=== PATIENT | female | born 1970 | race Caucasian/White ===

== ENCOUNTER 2018-04-15 13:51 | Outpatient (CLI) | payer MEDICARE, MEDICAID, SELFPAY ==
--- NOTE | 2018-04-15 13:48 | DI.REPORT_ITS ---
SYMPTOMS/DIAGNOSIS: RIGHT FOOT PAIN RIGHT FOOT: Three views. Comparison x-ray of the ankle is 01/28/18. No acute fracture or dislocation is seen. There are osteophytes seen at the posterior calcaneus. Small osteophytes are seen at the talonavicular joint. The 1st metatarsophalangeal joint shows mild joint space narrowing and periarticular spurring. No acute fracture, dislocation, lytic or sclerotic lesion is identified. No radiopaque foreign bodies are seen in the soft tissues. IMPRESSION: Degenerative changes in the right foot.
== END 2018-04-15 13:52 ==
PROVIDERS: PCP Family Medicine; Visit Provider Physician Assistant
DX: M76.71 Peroneal tendinitis, right leg (principal); G89.29 Other chronic pain; M25.571 Pain in right ankle and joints of right foot; M19.071 Primary osteoarthritis, right ankle and foot
CPT/HCPCS: 73630; 99214

== ENCOUNTER 2018-05-12 13:30 | Outpatient (RCR) | payer MEDICARE, MEDICAID, SELFPAY ==
--- NOTE | 2018-04-29 14:30 | IE_ITS ---
Date: April 29, 2018 Referring: TAMIKO Day M.D. Diagnosis: R foot peroneal tendinitis P.T. Diagnosis: SUBJECTIVE: History of Present Illness: Caro is a 47 year old female referred for an evaluation today due to chronic R ankle pain. Most recently diagnosed with peroneal tendinitis on the R. She reports the initial injury sustained last summer. [place], she slipped, twisting her ankle, noted bruising and swelling. She was provided conservative treatment without diagnostics. During the winter she is fairly sedentary, she reports the ankle quieted secondary to this, she reports as it got nicer in the spring and summer, her walking got more-noted increase irritation. Pain is aggravated by walking and while driving. She has been utilizing an ASO for the past several weeks when she is out of the house, which has helped stabilize the ankle and reduce her pain some. She is currently on pain management plan for her other chronic pain complaints and leukemia. She states they recently increased her dosage due to foot pain including morphine, hydrocodone and Tylenol. She denies any swelling, bruising at time of PT consult. She does note she has had previous problems with her hips and knees in the past. Pain Ratin/10 Pain Location: Just inferior to the R lateral malleolus. Current Level of Function: Limited walking, stair negotiation, even sitting tolerance at times gets aching. Driving, limited push off. Previous Treatment: Orthopedic intervention with follow up in 6 weeks Social: She is currently on disability secondary to leukemia, lives at home with her friend. Comorbidities: Leukemia, anxiety, depression, stocking distribution numbness hand and feet, arthritis. No surgical hx. Falls in the last year: ____ No __X__Yes - How many? __2__ - (if over 2, balance SM needs to be completed) Reported hospitalizations in the last year - __X__ No ____ Yes - Dates of admission/reason: Medications: Spiracle, Lasix, morphine, hydrocodone, acetaphenomin, Paxil, Promethazine Quality of Life: ____ Excellent ____ Good __X__ Fair ____ Poor Standardized Measures: LEFS score: __62%__ OBJECTIVE: Posture: Forward head, rounded shoulder posturing, weight shift to the L secondary to pain in the R ankle. Observation: (behavior, atrophy, skin color, etc.) Ambulates with antalgia with use of ASO, decreased push off, decreased stance phase on the R. Has difficulty with bed mobility, particularly from supine to sitting, independent with supine to sidelying, independent sit to stand with reliance of UE support. Gait: As above without assistive device, antalgic, limited push off, use of ASO. Palpation: Sensitivity to the peroneal tendons R. Edema: No obvious swelling noted. ROM: AA hip flexion 105 degrees bilaterally, ER L 40 degrees with pain, R 45 degrees without pain, IR L 20 degrees with pain, R 30 degrees. Demonstrates 125 degrees of knee flexion bilaterally with 0 degree extension. Dorsiflexion limited to 5 degrees, plantar flexion 45 degrees on R with increased pain, equal to contralateral side, however L is without pain. Inversion R 10 degrees, L 45 degrees with pain on R. Eversion bilaterally 15 degrees. Joint Accessory Motion: Strength: Hip flexion 4/5 bilaterally, knee flexion/extension 4+/5 bilaterally , plantar flexion R 4-/5, L 4+/5. Hip abduction 4-/5, ER 4+/5. Patient is unable to perform single leg heel raise , is able to rise up onto her toes with bilateral heel raise, limited excursion of the R heel in comparison to the L. Pain with both heel and toe walk, unable to complete secondary to pain. Neuro: Intact light touch Balance: Unilateral stance limited on the R to 5 seconds, L 10 seconds. Treatment: IE: [id number] Patient Education: Instruction in a home program promoting R ankle/foot conditioning and strengthening per flow sheet, issuing her red theraband for resistance training. Educated patient to utilize supportive footwear throughout home, avoid walking barefoot, recommended continuation of icing. Ended with cryotherapy to the R ankle with wedge pillow for elevation to end session for 10 mins. Direct treatment time: 45 mins Total treatment time: 55 mins ASSESSMENT: Patient is a 47-year-old female, referred for PT services with the diagnosis of R peroneal tendinitis. Patient presents with clinical signs and symptoms consistent with diagnosis, as demonstrated by the following impairment level findings: impaired joint mobility, motor function, muscle performance and ROM associated with localized inflammation. Impairments are contributing to the following functional limitations: ADL tolerance, walking tolerance, standing tolerance, sitting tolerance, driving. Patient is assessed as: __X__ Low 04001 ____ Moderate 34306 ____ High 50324 complexity, based on the following: History: (list): X See comorbidities and social history. Examination: (list): X See above for functional limitations and impairments. Presentation: X Stable . Evolving Unstable Decision-Making: X Low complexity Moderate complexity High complexity % Disability based on LEFS of 62% and clinical judgement. __X__ Patient requires skilled PT intervention to remediate the above functional limitations to return to: __x__ Premorbid level of function __x__ Return to full functional mobility __x__ Improve QOL G-Codes (fill in modifier after appropriate code): Patient's primary functional limitation is in the category of: __X__ Mobility - walking and moving around : [id number] Projected goal: __X__ Mobility - walking and moving around: [id number] STG: __4__ weeks. 1: Patient able to demonstrate improved heel to toe fashion gait with manageable symptoms with reduced antalgia. 2: Demonstrate improved AROM of R ankle WFL with manageable symptoms. 3: Increase LE strength by 1/2 muscle grade or greater. 4: Demonstrate improved disability rating by 25% via LEFS. LTG: __8__ weeks. 1: Return to premorbid level of function. 2: Return to full, pain-free, functional mobility. 3: Independent with self-maintenance program. PLAN: Patient to be seen 1 x per week via patient request due to transportation issues , only having a vehicle on Friday for the next 8 weeks, adjusting frequency of visits per patient symptoms and response to treatment. Treatment to include: Manual therapy - [id number]: soft tissue stretching, soft tissue mobilization , cross friction massage, taping. Therapeutic exercise - [id number]/extrinsic foot and ankle stabilization, global LE strengthening and proximal hip strengthening. Incorporate modalities as needed for pain reduction. If no level of improvement is seen, will have follow up ortho consult as already scheduled. Patient is in agreement. Thank you for this referral. Please do not hesitate to contact me with any questions or concerns regarding this patient's plan of care. *Yaneth/Dr. Holcomb, please sign this evaluation if you are in agreement with the above plan of care. cc: Yasir Holcomb MD
--- NOTE | 2018-05-05 13:28 | PTTR_ITS ---
DATE: 05/05/18 SUBJECTIVE: Caro indicates that her HEP is going well. She reports that she has had some increased irritation due to her chemo medication, therefore has taken increased pain meds, which has helped her ankle in turn. Minimal pain to report at today's session. HEP is going well, without complaints. OBJECTIVE: Therapeutic procedures ([id number]). * x See flow sheet: Warmed up on the NuStep x5 min. This was followed by stretching via slant board, heel cord 30 second holds 3x. Completed extrinsic stabilization throughout all planes of the right ankle with green t-band. Increased irritation with inversion and eversion. Incorporated single limb stance, proximal hip stabilization while seated and functional sit to stand for global strengthening. * Ended with cryotherapy to the right ankle post session at no charge. Direct treatment time: 30 min. Total treatment time: 40 min. Plan: Will monitor patient's response to treatment. Can only attend P.T. 1x weekly. We will proceed, progressing stabilization and proprioceptive training to tolerance avoiding hip / low back symptom exacerbation. Will encourage a global approach with focus on the peroneal musculature. KW/gc
--- NOTE | 2018-05-12 11:24 | PTTR_ITS ---
DATE: 05/12/18 SUBJECTIVE: Caro states that she held up ok after her last session in regards to exercise. She reports no feeling any better in regards to foot pain. OBJECTIVE: Manual therapy: (30710q N/C). applied kinesiotape to right peroneal at end of session, using I strip. Therapeutic procedures ([id number]). * x See flow sheet: for global LE strength and conditioning focusing on ankle stabilization. * x Provided skilled instruction in proper exercise performance: reminders to stay within her pain tolerances. Ended with cryo to foot and ankle x 10 min with elevation. Direct treatment time: 30 min Total treatment time: 40 min
== END 2018-05-15 23:59 | disposition home or self-care (01) ==
LOC: PT 13:30
PROVIDERS: PCP Family Medicine; Referring Provider Family Medicine; Visit Provider Family Medicine
DX: M76.71 Peroneal tendinitis, right leg (principal)
CPT/HCPCS: 97110; 97161; G8978

== ENCOUNTER 2018-06-30 19:50 | Outpatient (REF) | payer MEDICARE, MEDICAID, SELFPAY ==
[2018-06-30 20:43] LABS: Anion Gap 7.2 mmol/L (3-11); BUN 12 mg/dL (7-18); CO2 32.8 mmol/L (21.0-32.0); CREATININE 0.96 mg/dL (0.55-1.02); Chloride 99 mmol/L (98-107); Glucose 81 mg/dL (70-100); NT-proBNP 136 pg/mL; Sodium 139 mmol/L (136-145)
[2018-07-01 13:35] LABS: Calcium 8.5 mg/dL (8.5-10.1)
== END 2018-06-30 20:10 ==
LOC: NCHCN 19:50
PROVIDERS: PCP Family Medicine; Visit Provider Family Medicine
DX: R06.02 Shortness of breath (principal); R60.9 Edema, unspecified
CPT/HCPCS: 80048; 83880

== ENCOUNTER 2018-09-14 19:48 | Inpatient (IN) | payer MEDICARE, MEDICAID, SELFPAY ==
[2018-09-14] VITALS (33 sets, daily range): BP systolic 89–146; BP diastolic 55–93; PULSE 83–103; RESP 4–31; TEMP 36.9–38.4; O2SAT 81–100
--- NOTE | 2018-09-14 19:56 | DI.COMBO_ITS ---
SYMPTOM/DIAGNOSIS: CHEST PAIN, SOB, COUGH, CANCER, VOMITING, ? PE OR ABD PATHOLOGY PORTABLE AP CHEST: Comparison is made with 12/13/09. The lung bases are suboptimally penetrated due to the patient's body habitus. The heart size is within normal limits. No gross infiltrates, effusions or pulmonary edema is seen. IMPRESSION: Limited exam. No gross evidence of an acute abnormality. PE CHEST CT: CT angiography was performed with multi slice acquisition and multi planar and 3D reconstruction. The pulmonary arteries and aorta are both well opacified with IV contrast. No emboli or aortic dissection is seen. The heart size is normal. There are no pleural or pericardial effusions. There is some respiratory motion. The lungs appear clear. IMPRESSION: Negative chest CT. ABDOMEN AND PELVIC CT: The exam is limited by the patient's body habitus and respiratory motion. The patient is status post cholecystectomy. There is no biliary dilatation. There may be mild fatty infiltration of the liver. The spleen, pancreas and adrenals are unremarkable. Cysts are noted in the right kidney. There is no bowel dilatation or inflammatory change. The urinary bladder is nearly empty. The uterus and ovaries are unremarkable. IMPRESSION: No acute abnormality.
--- NOTE | 2018-09-14 19:58 | W.ED.GENAD ---
Discharge Plan Disposition Patient Disposition: [facility] INPATIENT Discharge Details Chief Complaint: SOB Clinical Impression: CML (chronic myeloid leukemia), SIRS (systemic inflammatory response syndrome), Cough, Tachypnea, SOB (shortness of breath), Fever, Vomiting, Epigastric pain Reason For Visit: ALYSSA Primary Care Provider: Taya Ogden V ED Provider: Stephon Alexandre Home Meds and New Rx's Prescriptions: No Action hydrocodone-acetaminophen 1 EACH tablet 2 ea PO q6 RF: 0 morphine [MS Contin] 15 MG tablet extended release 15 mg PO Q6H PRN RF: 0 allopurinol 100 MG tablet 100 mg PO DAILY RF: 0 promethazine 25 MG tablet 25 mg PO PRN PRNRF: 0 Sprycel 50 MG tablet 100 mg PO DAILY RF: 0 sennosides [Senokot] 1 TAB tablet 1 tab PO BID PRN PRN (Reason: Constipation) Qty: 60 RF: 0 furosemide [Lasix] 40 mg Tablet 40 mg PO DAILY RF: 0 Medical Decision Making This is a pleasant 48-year-old female who presents with 3 days of chest pain, shortness of breath, vomiting, fever, and chills. She is taking chemotherapeutic agents for her chronic myelogenous leukemia. Physical exam demonstrates no significant abnormalities. Lung sounds are surprisingly clear. She is not hypoxic. Vital signs are notably reassuring. She is slightly tachypneic, and she does have a notable cough. She has not gotten her flu shot. We will rehydrate, evaluate for flu. With her chest pain difficulty breathing M concern for potential pulmonary embolism. We will get a CTA to evaluate for this. With her vomiting and abdominal tenderness we will scan the abdomen as well. 10:13 PM The patient's laboratory workup has returned, and she does have an elevated white count at 15, as well as a mild to moderate left shift. Initial chest x-ray was read as negative. Patient's d-dimer is elevated. Electrolytes are normal, creatinine is slightly elevated at 1.12 with a slight drop in her GFR at 51. Troponin is normal. Lipase is normal. Urinalysis is benign. While here the patient's temperature did elevate from 36.9-38 ?C for a fever. We will add blood cultures. Currently I am unsure of exact source of her symptoms. Initial influenza was negative however we feel that we did not get a good sample. We will get a repeat influenza to evaluate with a better sample. The patient's cough has improved however she still is mildly tachypnea. Patient still feels notably weak and clinically she looks to have symptoms of influenza. We will hold off on antibiotics until CT results have returned for potential infectious source. I do feel that the patient would benefit from an inpatient stay even pending CT results secondary to her notable fatigue, continued vomiting at home and inability to tolerate anything p.o. at home, fever mild clinical dehydration, and the patient's other risk factors of her cancer, in conjunction with her difficulty breathing, and tachypnea in the absence of history of lung disease. Because of the patient's clinical frailty, and her clinical picture concerning for notable illness who feel that she would be a candidate for admission. 10: [address] scans of result no evidence of evidence of acute pulmonary embolism or significant pulmonary abnormality or gastrointestinal abnormality however with her continued clinical condition of shortness of breath,SIRS in conjunction with her fever, chemotherapy, I do not feel that she is safe or appropriate for discharge home at this time. With her clinical symptoms of productive sputum, fever, and chills as well as her notable cough and I will start Rocephin and azithromycin for clinical pneumonia. I discussed the case with Dr. geronimo, he agrees with assessment and plan. I have extensively reviewed the treatment plan with the patient. I have addressed all patient concerns at this time. I have also discussed the plan with the admitting physician and they agree with the current assessment and plan and have agreed to assume responsibility for the patient. All parties demonstrate verbal understanding and agreement with our assessment and plan at this time. EKG 19: 58 Rate 97, [place] 136, QTc 437, QRS 94, sinus rhythm, no significant ST elevations or depressions, no T wave inversions, no significant Q waves. COMPARISON: No relevant prior studies available. FINDINGS: The lung wise are clear bilaterally. No focal pulmonary consolidation is present. Interstitial markings appear slightly prominent although most likely due to technique. The cardiac silhouette is within normal limits. The costophrenic angles are sharp. The bony structures appear unremarkable. IMPRESSION: No definite evidence of acute cardiopulmonary disease. Dictated and Authenticated by: Lee Miguel MD. FINDINGS: No evidence of pulmonary embolism. Thoracic aorta is unremarkable. No significant focal consolidation. No pleural effusion. No evidence of pneumothorax. IMPRESSION: No specific etiology identified for the patient's symptoms. EXAM: TYESHA LASSITER Preliminary Radiology Report INSURANCE ADJUSTOR (QA) DISCREPANCY? If there is a discrepancy between the preliminary and final interpretation, please notify [facility] via [email or web address]. If you do not have access to our QA portal, call our QA team at [phone] CONFIDENTIALITY STATEMENT This report is intended only for the use of the referring physician, and only in accordance with law, If you received this in error, call [phone]iography Abdomen With Contrast EXAM DATE/TIME: 09/14/2018 8:19 PM CLINICAL HISTORY: 48 years old, female; Pain; Chest pain; Type not specified; Other: Vomiting; Patient HX: Cp, SOB, cancer, vomiting; Additional info: R/O pe vs abd path TECHNIQUE: Axial computed tomographic angiography images of the abdomen with intravenous contrast material, including non-contrast images if performed. MIP and/or 3D reconstructed images were created and reviewed. Coronal and sagittal reformatted images were created and reviewed. MIP reconstructed images were created and reviewed. COMPARISON: SC XR PORTABLE CHEST AP 09/14/2018 8:07 PM FINDINGS: Prior cholecystectomy. No focal inflammatory process. No significant free fluid. No obstructive uropathy. No evidence of bowel obstruction. Small calcification that appears to be associated with the anterior uterus. IMPRESSION: No specific etiology identified for the patient's symptoms. HPI General Date/Time Provider Initiated Documentation: 09/14/18 19:55. HPI Narrative: This is a 48-year-old female with a past medical history of chronic myelogenous leukemia, past surgical history of and cholecystectomy, as well as obesity who presents today for evaluation of chest pain, chills, shortness of breath and difficulty breathing for the last 3 days in conjunction with productive white sputum, and associated generalized abdominal pain with vomiting. She has been unable to keep down any of her medications because of her vomiting. She has not gotten her flu shot this year. She denies any history of cardiac disease, blood clot, or family history of blood clot. She denies any hematemesis, hemoptysis, diarrhea, melena, or acholic stool. She does admit to fever and chills at home but denies any measured elevated temperature. Patient denies any other modifying factors at this time. She has no history of cardiac or pulmonary disease. She denies any numbness, tingling, or weakness. She has no other complaints at this time. Related Data Home Medications Medication Instructions Recorded Confirmed Sprycel 100 mg PO DAILY 08/27/13 09/14/18 allopurinol 100 mg PO DAILY 08/27/13 09/14/18 promethazine 25 mg PO PRN PRN 08/27/13 09/14/18 sennosides [Senokot] 1 tab PO BID PRN PRN #60 tab 08/30/13 09/14/18 hydrocodone-acetaminophen 2 ea PO q6 10/14/16 09/14/18 morphine [MS Contin] 15 mg PO Q6H PRN 10/14/16 09/14/18 furosemide [Lasix] 40 mg PO DAILY 09/14/18 09/14/18 Previous Rx's Medication Instructions Recorded sennosides [Senokot] 1 tab PO BID PRN PRN #60 tab 08/30/13 Allergies Allergy/AdvReac Type Severity Reaction Status Date / Time imatinib mesylate AdvReac fatigue Unverified 09/14/18 19:56 [From Gleevec] lobster Allergy Diarrhea Uncoded 09/14/18 19:56 General Stated Complaint: SOB DAVID: 2 Review of Systems Review of Systems All systems reviewed & are unremarkable except as noted in HPI and below PFSH Surgical History section Cholecystectomy Social History Smoking/Tobacco Use Status: Former Tobacco Use Exam Narrative Exam Narrative: 1.Const: Well-nourished, Well-developed, appearing stated age 2.Eyes: PERRL, no conjunctival injection, and symmetrical lids. 3.ENT: Atraumatic external nose and ears. Moist MM. Neck: Symmetric, trachea midline, No thyromegaly. 4.CVS: +S1/S2, No murmurs or gallops. Peripheral pulses 2+ and equal in all extremities. Brisk capillary refill in all extremities. 5.RESP: Unlabored respiratory effort. Clear to auscultation bilaterally. No wheezes rales or rhonchi 6.GI: Soft, Nondistended, No hepatosplenomegaly. No guarding or rebound. Minimal generalized tenderness on palpation of the epigastric region. 7.MSK: Normocephalic/Atraumatic, Extremities w/o deformity or ttp No cyanosis or clubbing, Normal movement of all extremities. No calf tenderness. No significant pitting edema. 8.Skin: Warm, Dry. No rashes or lesions. 9.Neuro: telephone surveyor II-XII grossly intact. Sensation grossly intact, no focal neurologic deficits. 10.Psych: (AAO) x3. Appropriate mood and affect Course Vital Signs Temperature 36.9 C 09/14/18 19:54 Pulse 89 09/14/18 19:54 Respiratory Rate 26 H 09/14/18 19:54 Blood Pressure 135/75 09/14/18 19:54 Pulse Oximetry 96 09/14/18 19:54 Temperature 36.9 C 09/14/18 19:54 Temperature Source Skin 09/14/18 19:54 Pulse 89 09/14/18 19:54 Respiratory Rate 26 H 09/14/18 19:54 Blood Pressure 135/75 09/14/18 19:54 Blood Pressure Position Sitting 09/14/18 19:54 Pulse Oximetry 96 09/14/18 19:54 Oxygen Delivery Method Room Air 09/14/18 19:54 Oxygen Flow Rate 0 09/14/18 19:54 Pain Level 8 09/14/18 19:54
--- NOTE | 2018-09-14 20:01 | ED.GENADUL_ITS ---
Discharge Plan Disposition Patient Disposition: [facility] INPATIENT Discharge Details Chief Complaint: SOB Clinical Impression: CML (chronic myeloid leukemia), SIRS (systemic inflammatory response syndrome), Cough, Tachypnea, SOB (shortness of breath), Fever, Vomiting, Epigastric pain Reason For Visit: ALYSSA Primary Care Provider: Taya Ogden V ED Provider: Stephon Alexandre Home Meds and New Rx's Prescriptions: No Action hydrocodone-acetaminophen 1 EACH tablet 2 ea PO q6 RF: 0 morphine [MS Contin] 15 MG tablet extended release 15 mg PO Q6H PRN RF: 0 allopurinol 100 MG tablet 100 mg PO DAILY RF: 0 promethazine 25 MG tablet 25 mg PO PRN PRNRF: 0 Sprycel 50 MG tablet 100 mg PO DAILY RF: 0 sennosides [Senokot] 1 TAB tablet 1 tab PO BID PRN PRN (Reason: Constipation) Qty: 60 RF: 0 furosemide [Lasix] 40 mg Tablet 40 mg PO DAILY RF: 0 Medical Decision Making This is a pleasant 48-year-old female who presents with 3 days of chest pain, shortness of breath, vomiting, fever, and chills. She is taking chemotherapeutic agents for her chronic myelogenous leukemia. Physical exam demonstrates no significant abnormalities. Lung sounds are surprisingly clear. She is not hypoxic. Vital signs are notably reassuring. She is slightly tachypneic, and she does have a notable cough. She has not gotten her flu shot. We will rehydrate, evaluate for flu. With her chest pain difficulty breathing M concern for potential pulmonary embolism. We will get a CTA to evaluate for this. With her vomiting and abdominal tenderness we will scan the abdomen as well. 10:13 PM The patient's laboratory workup has returned, and she does have an elevated white count at 15, as well as a mild to moderate left shift. Initial chest x- ray was read as negative. Patient's d-dimer is elevated. Electrolytes are normal, creatinine is slightly elevated at 1.12 with a slight drop in her GFR at 51. Troponin is normal. Lipase is normal. Urinalysis is benign. While here the patient's temperature did elevate from 36.9-38 ?C for a fever. We will add blood cultures. Currently I am unsure of exact source of her symptoms. Initial influenza was negative however we feel that we did not get a good sample. We will get a repeat influenza to evaluate with a better sample. The patient's cough has improved however she still is mildly tachypnea. Patient still feels notably weak and clinically she looks to have symptoms of influenza. We will hold off on antibiotics until CT results have returned for potential infectious source. I do feel that the patient would benefit from an inpatient stay even pending CT results secondary to her notable fatigue, continued vomiting at home and inability to tolerate anything p.o. at home, fever mild clinical dehydration, and the patient's other risk factors of her cancer, in conjunction with her difficulty breathing, and tachypnea in the absence of history of lung disease. Because of the patient's clinical frailty, and her clinical picture concerning for notable illness who feel that she would be a candidate for admission. 10: [address] scans of result no evidence of evidence of acute pulmonary embolism or significant pulmonary abnormality or gastrointestinal abnormality however with her continued clinical condition of shortness of breath,SIRS in conjunction with her fever, chemotherapy, I do not feel that she is safe or appropriate for discharge home at this time. With her clinical symptoms of productive sputum, fever, and chills as well as her notable cough and I will start Rocephin and azithromycin for clinical pneumonia. I discussed the case with Dr. geronimo, he agrees with assessment and plan. I have extensively reviewed the treatment plan with the patient. I have addressed all patient concerns at this time. I have also discussed the plan with the admitting physician and they agree with the current assessment and plan and have agreed to assume responsibility for the patient. All parties demonstrate verbal understanding and agreement with our assessment and plan at this time. EKG 19: 58 Rate 97, SD 136, QTc 437, QRS 94, sinus rhythm, no significant ST elevations or depressions, no T wave inversions, no significant Q waves. COMPARISON: No relevant prior studies available. FINDINGS: The lung wise are clear bilaterally. No focal pulmonary consolidation is present. Interstitial markings appear slightly prominent although most likely due to technique. The cardiac silhouette is within normal limits. The costophrenic angles are sharp. The bony structures appear unremarkable. IMPRESSION: No definite evidence of acute cardiopulmonary disease. Dictated and Authenticated by: Lee Miguel MD. FINDINGS: No evidence of pulmonary embolism. Thoracic aorta is unremarkable. No significant focal consolidation. No pleural effusion. No evidence of pneumothorax. IMPRESSION: No specific etiology identified for the patient's symptoms. EXAM: TYESHA LASSITER Preliminary Radiology Report CRYPTOLOGIC TECHNICIAN (QA) DISCREPANCY? If there is a discrepancy between the preliminary and final interpretation, please notify [facility] via [email or web address]. If you do not have access to our QA portal, call our QA team at [phone] CONFIDENTIALITY STATEMENT This report is intended only for the use of the referring physician, and only in accordance with law, If you received this in error, call [phone]iography Abdomen With Contrast EXAM DATE/TIME: 09/14/2018 8:19 PM CLINICAL HISTORY: 48 years old, female; Pain; Chest pain; Type not specified; Other: Vomiting; Patient HX: Cp, SOB, cancer, vomiting; Additional info: R/O pe vs abd path TECHNIQUE: Axial computed tomographic angiography images of the abdomen with intravenous contrast material, including non-contrast images if performed. MIP and/or 3D reconstructed images were created and reviewed. Coronal and sagittal reformatted images were created and reviewed. MIP reconstructed images were created and reviewed. COMPARISON: SC XR PORTABLE CHEST AP 09/14/2018 8:07 PM FINDINGS: Prior cholecystectomy. No focal inflammatory process. No significant free fluid. No obstructive uropathy. No evidence of bowel obstruction. Small calcification that appears to be associated with the anterior uterus. IMPRESSION: No specific etiology identified for the patient's symptoms. HPI General Date/Time Provider Initiated Documentation: 09/14/18 19:55 . HPI Narrative: This is a 48-year-old female with a past medical history of chronic myelogenous leukemia, past surgical history of and cholecystectomy, as well as obesity who presents today for evaluation of chest pain, chills, shortness of breath and difficulty breathing for the last 3 days in conjunction with productive white sputum, and associated generalized abdominal pain with vomiting. She has been unable to keep down any of her medications because of her vomiting. She has not gotten her flu shot this year. She denies any history of cardiac disease, blood clot, or family history of blood clot. She denies any hematemesis, hemoptysis, diarrhea, melena, or acholic stool. She does admit to fever and chills at home but denies any measured elevated temperature. Patient denies any other modifying factors at this time. She has no history of cardiac or pulmonary disease. She denies any numbness, tingling, or weakness. She has no other complaints at this time. Related Data Home Medications Medication Instructions Recorded Confirmed Sprycel 100 mg PO DAILY 08/27/13 09/14/18 allopurinol 100 mg PO DAILY 08/27/13 09/14/18 promethazine 25 mg PO PRN PRN 08/27/13 09/14/18 sennosides [Senokot] 1 tab PO BID PRN PRN #60 tab 08/30/13 09/14/18 hydrocodone-acetaminophen 2 ea PO q6 10/14/16 09/14/18 morphine [MS Contin] 15 mg PO Q6H PRN 10/14/16 09/14/18 furosemide [Lasix] 40 mg PO DAILY 09/14/18 09/14/18 Previous Rx's Medication Instructions Recorded sennosides [Senokot] 1 tab PO BID PRN PRN #60 tab 08/30/13 Allergies Allergy/AdvReac Type Severity Reaction Status Date / Time imatinib mesylate AdvReac fatigue Unverified 09/14/18 19:56 [From Gleevec] lobster Allergy Diarrhea Uncoded 09/14/18 19:56 General Stated Complaint: SOB DAVID: 2 Review of Systems Review of Systems All systems reviewed & are unremarkable except as noted in HPI and below PFSH Surgical History section Cholecystectomy Social History Smoking/Tobacco Use Status: Former Tobacco Use Exam Narrative Exam Narrative: 1.Const: Well-nourished, Well-developed, appearing stated age 2.Eyes: PERRL, no conjunctival injection, and symmetrical lids. 3.ENT: Atraumatic external nose and ears. Moist MM. Neck: Symmetric, trachea mid line, No thyromegaly. 4.CVS: +S1/S2, No murmurs or gallops. Peripheral pulses 2+ and equal in all extremities. Brisk capillary refill in all extremities. 5.RESP: Unlabored respiratory effort. Clear to auscultation bilaterally. No wheezes rales or rhonchi 6.GI: Soft, Nondistended, No hepatosplenomegaly. No guarding or rebound. Minimal generalized tenderness on palpation of the epigastric region. 7.MSK: Normocephalic/Atraumatic, Extremities w/o deformity or ttp No cyanosis or clubbing, Normal movement of all extremities. No calf tenderness. No significant pitting edema. 8.Skin: Warm, Dry. No rashes or lesions. 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 Sensation grossly intact, no focal neurologic deficits. 10.Psych: (AAO) x3. Appropriate mood and affect Course Vital Signs Temperature 36.9 C 09/14/18 19:54 Pulse 89 09/14/18 19:54 Respiratory Rate 26 H 09/14/18 19:54 Blood Pressure 135/75 09/14/18 19:54 Pulse Oximetry 96 09/14/18 19:54 Temperature 36.9 C 09/14/18 19:54 Temperature Source Skin 09/14/18 19:54 Pulse 89 09/14/18 19:54 Respiratory Rate 26 H 09/14/18 19:54 Blood Pressure 135/75 09/14/18 19:54 Blood Pressure Position Sitting 09/14/18 19:54 Pulse Oximetry 96 09/14/18 19:54 Oxygen Delivery Method Room Air 09/14/18 19:54 Oxygen Flow Rate 0 09/14/18 19:54 Pain Level 8 09/14/18 19:54
[2018-09-14] MEDS: Ondansetron 4 MG/2 ML VIAL ×2 (20:12→20:32)
[2018-09-14] MEDS: Normal Saline 1,000 ML 1000 ML IV (20:12)
[2018-09-14] MEDS: HYDROmorphone 2 MG/ML VIAL 1 MG IVP ×2 (20:14→21:33)
[2018-09-14 20:17] LABS: Abs Immature Grans 0.06 k/cumm (0.0-0.09); Absolute Monocyte Count 0.75 k/cumm (0.11-0.7); Basophils % 0.3; Eosinophils % 0.1; HCT 41.8 % (36.0-46.0); HGB 13.9 g/dL (12.0-15.5); Immature Grans % 0.4; Lymphocytes % 6.5; Mean Corp. HGB Concentration 33.3 g/dL (32.0-36.0); Mean Corpuscular Hemoglobin 28.8 pg (27.0-33.0); Mean Corpuscular Volume 86.5 fL (80-95); Mean Platelet Volume 8.8 fL (8.0-11.0); Neutrophils % 87.7; Platelet Count 328 x1000/uL (130-400); RBC 4.83 m/cumm (4.00-5.20); RBC Distribution Width 15.1 % (11.7-14.6); White Blood Cell Count 15.02 k/cumm (4.4-10.8)
[2018-09-14 20:24] LABS: Absolute Basophil Count 0.05 k/cumm (0.0-0.2); Absolute Eosinophil Count 0.02 k/cumm (0.0-0.7); Absolute Lymphocyte Count 0.98 k/cumm (1.2-3.4); Absolute Neutrophil Count 13.17 k/cumm (1.2-6.7)
--- NOTE | 2018-09-14 20:26 | DI.VRAD_ITS ---
EXAM: XR Chest, 1 View EXAM DATE/TIME: 09/14/2018 8:09 PM CLINICAL HISTORY: 48 years old, female; Pain and signs and symptoms; Cough and shortness of breath; Chest pain; Type not specified; Patient HX: Cp, cough, SOB TECHNIQUE: XR of the chest, 1 view. COMPARISON: No relevant prior studies available. FINDINGS: The lung wise are clear bilaterally. No focal pulmonary consolidation is present. Interstitial markings appear slightly prominent although most likely due to technique. The cardiac silhouette is within normal limits. The costophrenic angles are sharp. The bony structures appear unremarkable. IMPRESSION: No definite evidence of acute cardiopulmonary disease. Dictated and Authenticated by: Lee Miguel MD. Ordering:KARRIE Szymanski MD
[2018-09-14 20:31] LABS: ALT 35 U/L (12-78); AST 31 U/L (15-37); Albumin 3.6 g/dL (3.4-5.0); Alkaline Phosphatase 115 U/L (46-116); Anion Gap 10.9 mmol/L (3-11); BUN 10 mg/dL (7-18); Bilirubin, Total 0.5 mg/dL (0.2-1.0); CO2 27.1 mmol/L (21.0-32.0); CREATININE 1.12 mg/dL (0.55-1.02); Chloride 100 mmol/L (98-107); Estimated GFR 51.71 (mL/min/1.73m2); Glucose 135 mg/dL (70-100); Lipase 145 U/L (73-393); Potassium 4.2 mmol/L (3.5-5.1); Sodium 138 mmol/L (136-145); Total Protein 7.5 g/dL (6.4-8.2)
[2018-09-14 20:36] LABS: Troponin I < 0.02 ng/mL (0.00-0.06)
[2018-09-14 20:43] LABS: D-Dimer 548 ng/mlFEU (<500)
[2018-09-14 20:52] LABS: PTT Activated 24.8 sec (21.0-31.4); Prothrombin Time 9.6 sec (9.3-11.0)
[2018-09-14] MEDS: Metoclopramide 10 MG/2 ML VIAL IVP (21:16)
[2018-09-14] MEDS: Lidocaine 2% Viscous 15 ML CUP PO (21:16)
[2018-09-14] MEDS: Normal Saline 50 ML 200 ML (21:16)
[2018-09-14 21:19] LABS: Bilirubin Negative (Negative); Blood Negative (Negative); Clarity Sl Cloudy; Glucose Negative (Negative); Ketones Negative (Negative); Leukocyte Esterase Negative (Negative); Nitrite Negative (Negative); Urobilinogen 0.2 EU/dL (Up TO 0.2)
[2018-09-14] MEDS: Albuterol/Ipratropium 3 ML UPD VIAL UPD (21:28)
[2018-09-14 21:42] LABS: Bacteria Rare HPF (Negative); C & S Indicated? No/Sq. Contamination; Casts Negative LPF (Negative); Crystals Negative HPF (Negative); Epithelial Cells Many HPF (Negative); Mucus Trace (Negative); Other Cells Negative (Negative); RBC Negative (0-2); WBC 0-2 HPF (0-5)
[2018-09-14] MEDS: Omnipaque 350 MG/ML 100 ML BTL IJ (22:03)
[2018-09-14] MEDS: Acetaminophen 500 MG TAB 1000 MG PO (22:15)
--- NOTE | 2018-09-14 22:29 | DI.VRAD_ITS ---
EXAM: CT Angiography Chest With Contrast EXAM DATE/TIME: 09/14/2018 8:19 PM CLINICAL HISTORY: 48 years old, female; Pain; Chest pain; Type not specified; Other: Vomiting; Patient HX: Cp, SOB, cancer, vomiting; Additional info: R/O pe vs abd path TECHNIQUE: Axial computed tomographic angiography images of the chest with intravenous contrast using CT angiography protocol. Coronal and sagittal reformatted images were created and reviewed. MIP reconstructed images were created and reviewed. COMPARISON: SC XR PORTABLE CHEST AP 09/14/2018 8:07 PM FINDINGS: No evidence of pulmonary embolism. Thoracic aorta is unremarkable. No significant focal consolidation. No pleural effusion. No evidence of pneumothorax. IMPRESSION: No specific etiology identified for the patient's symptoms. EXAM: CT Angiography Abdomen With Contrast EXAM DATE/TIME: 09/14/2018 8:19 PM CLINICAL HISTORY: 48 years old, female; Pain; Chest pain; Type not specified; Other: Vomiting; Patient HX: Cp, SOB, cancer, vomiting; Additional info: R/O pe vs abd path TECHNIQUE: Axial computed tomographic angiography images of the abdomen with intravenous contrast material, including non-contrast images if performed. MIP and/or 3D reconstructed images were created and reviewed. Coronal and sagittal reformatted images were created and reviewed. MIP reconstructed images were created and reviewed. COMPARISON: SC XR PORTABLE CHEST AP 09/14/2018 8:07 PM FINDINGS: Prior cholecystectomy. No focal inflammatory process. No significant free fluid. No obstructive uropathy. No evidence of bowel obstruction. Small calcification that appears to be associated with the anterior uterus. IMPRESSION: No specific etiology identified for the patient's symptoms. Dictated and Authenticated by: Lee Miguel MD. Ordering:KARRIE Szymanski MD
[2018-09-14] MEDS: HYDROmorphone 2 MG/ML VIAL (22:56)
[2018-09-14] MEDS: Normal Saline 1,000 ML 200 ML IV (23:27)
[2018-09-14] MEDS: AZITHROMYCIN 500 MG in Normal Saline 250 ML 250 MG IVPB (23:45)
[2018-09-15] VITALS (17 sets, daily range): BP systolic 103–137; BP diastolic 68–87; PULSE 88–100; RESP 4–32; TEMP 37–38.5; O2SAT 87–99
--- NOTE | 2018-09-15 00:56 | HPE_ITS ---
Date of service: 09/15/18 Time of Service: 00:44 Assessment and Plan (1) Dehydration: Current visit: Yes Status: Acute Mild dehydration from persistent nausea and vomiting. Will give IV fluids overnight and reassess in the a.m. (2) Nausea & vomiting: Current visit: Yes Status: Acute Nausea and vomiting worse since IV Dilaudid. I think she may be having a reaction to the IV opiate. Is also possible with recent exposure to influenza that she is just now coming down with influenza-like illness. Flu swab negative x2. Given her exposure with a direct family member with whom she lives will give Tamiflu prophylaxis. Also antiemetics and IV fluids. (3) Back pain: Current visit: Yes Status: Acute Chronic back pain along my entire spine. No clear etiology. She has been on chronic opiates times 7 years. Will continue the Vicodin and MS Contin as per her outpatient regimen. (4) CML (chronic myeloid leukemia): Current visit: Yes Status: Chronic Continue her maintenance therapy (5) Discharge planning issues: Current visit: Yes Status: Acute Admit to observation status. She is full code History of Present Illness Chief Complaint: Fever/nausea/vomiting Narrative: This is a 48-year-old female who presents with chest pain shortness of breath with vomiting fever and chills times 3 days. She lives with her son and [id number], her [id number] was recently diagnosed flu positive. Patient does not get flu shots because they make her sick. Patient is currently on long-term suppressive treatment for pH positive CML, daily Sprycel. In the emergency room her initial chest x-ray was negative her labs notable only for a white count of 15.02 thousand. Urinalysis negative. A d-dimer elevated at 548 she went on to have a CT angiogram of her chest abdomen and pelvis which was negative. She had flu swabs done x2 that showed no evidence of influenza. She went on to spike a fever to 38.4 and have continued vomiting. She is admitted to observation status for some IV fluids antiemetics and pain control. Given her exposure to influenza she will be on prophylactic doses of Tamiflu. Review of Systems Constitutional Reports body ache(s), Denies excessive sweating, Reports fever(s), Denies frequent falls and Denies headache(s) ENT Denies headache(s), Denies nasal discharge, Denies neck pain and Denies throat swelling Cardiovascular Reports chest pain, Denies edema, Denies dyspnea, Denies dyspnea on exertion and Denies orthopnea Respiratory Denies cough, Denies dyspnea and Denies dyspnea on exertion Gastrointestinal Denies diarrhea, Reports nausea and Reports vomiting Genitourinary Denies urinary frequency and Denies urinary incontinence Musculoskeletal Reports back pain, Reports myalgias, Denies deformity and Denies neck pain Integumentary/Breasts Denies rash, Denies sores and Denies wounds Neurologic Denies confusion, Denies frequent falls and Denies headache(s) Psychiatric Denies confusion, Denies depression and Denies suicidal ideation Endocrine Denies excessive sweating Hematologic/Lymphatic Denies easy bleeding and Denies easy bruising Allergic/Immunologic Denies urticaria and Denies throat swelling [facility] Medical History Pancreatitis (Resolved 08/27/13) CML (chronic myeloid leukemia) (Chronic) Surgical History H/O section (Resolved) Cholecystectomy (Resolved) Social History household members: spouse and children Smoking/Tobacco Use Status: Former Tobacco Use Meds Home Medications Medication Instructions Recorded Confirmed Type Sprycel 100 mg PO DAILY 08/27/13 09/14/18 History allopurinol 100 mg PO DAILY 08/27/13 09/14/18 History promethazine 25 mg PO PRN PRN 08/27/13 09/14/18 History sennosides [Senokot] 1 tab PO BID PRN PRN #60 tab 08/30/13 09/14/18 Rx hydrocodone-acetaminophen 2 ea PO q6 10/14/16 09/14/18 History morphine [MS Contin] 15 mg PO Q6H PRN 10/14/16 09/14/18 History furosemide [Lasix] 40 mg PO DAILY 09/14/18 09/14/18 History paroxetine HCl 30 mg PO DAILY 09/14/18 09/14/18 History Allergies Allergy/AdvReac Type Severity Reaction Status Date / Time imatinib mesylate AdvReac fatigue Unverified 09/14/18 19:56 [From Gleevec] lobster Allergy Diarrhea Uncoded 09/14/18 19:56 Exam Narrative Exam Narrative: Patient sitting in the chair with blue bag. She is having occasional retching but no actual vomitus was seen. Const General: cooperative, acute distress, anxious and disheveled Nutritional Appearance: obese Orientation: awake and oriented x3 HENMT Head: normal to inspection Ears: hearing grossly normal bilaterally General nose exam: external nose normal Face and sinus: normal facial exam Eyes General: appearance normal, both eyes and all related structures Neck Neck: normal visual inspection Chest Chest: normal inspection of the chest Resp Effort & Inspection: normal respiratory effort Auscultation: clear to auscultation bilaterally Cardio Rate: regular rate Rhythm: regular rhythm Heart Sounds: S1 normal and S2 normal GI Inspection: normal to inspection Palpation: soft and nontender Back/Spine/Pelvis Back: no CVA tenderness and No ecchymosis Cervical Spine: normal cervical lordosis Thoracic/Lumbar Spine: thoracic and lumbar spine normal to inspection Skin General skin exam: no rashes or lesions noted Neuro General: alert, awake, oriented x3 and no focal motor deficits Cranial Nerves: CN's II-XI intact bilaterally Extrem General: no clubbing, cyanosis or edema Psych Appearance: grossly normal Mental Status: mental status grossly normal Results Imaging Chest x-ray: image reviewed (Neck) Abdomen CT scan report/results: image reviewed (Chest abdomen pelvis negative) Labs : 09/14/18 20:00 09/14/18 20:00 Laboratory Results - last 24 hr 09/14/18 09/14/18 09/14/18 20:00 20:00 20:00 WBC 15.02 H RBC 4.83 Hgb 13.9 Hct 41.8 MCV 86.5 MCH 28.8 MCHC 33.3 RDW 15.1 H Plt Count 328 MPV 8.8 Immature Gran % 0.4 Neutrophils % 87.7 Lymphocytes % 6.5 Monocytes % 5.0 Eosinophils % 0.1 Basophils % 0.3 Absolute Neutrophils 13.17 H Absolute Lymphocytes 0.98 L Absolute Monocytes 0.75 H Absolute Eosinophils 0.02 Absolute Basophils 0.05 PT 9.6 INR 1.0 APTT 24.8 D-Dimer 548 H Sodium 138 Potassium 4.2 Chloride 100 Carbon Dioxide 27.1 Anion Gap 10.9 BUN 10 Creatinine 1.12 H Estimated GFR/1.73 m2 51.71 Glucose 135 H Calcium 9.0 Total Bilirubin 0.5 AST 31 ALT 35 Alkaline Phosphatase 115 Troponin I < 0.02 Total Protein 7.5 Albumin 3.6 Lipase 145 Urine Color Urine Clarity Urine pH Ur Specific [place] Urine Protein Urine Ketones Urine Blood Urine Nitrite Urine Bilirubin Urine Urobilinogen Ur Leukocyte Esterase Urine RBC Urine WBC Ur Epithelial Cells Urine Crystals Urine Bacteria Urine Casts Urine Mucus Urine Other Ur Culture Indicated? Urine Glucose 09/14/18 20:45 WBC RBC Hgb Hct MCV MCH MCHC RDW Plt Count MPV Immature Gran % Neutrophils % Lymphocytes % Monocytes % Eosinophils % Basophils % Absolute Neutrophils Absolute Lymphocytes Absolute Monocytes Absolute Eosinophils Absolute Basophils PT INR APTT D-Dimer Sodium Potassium Chloride Carbon Dioxide Anion Gap BUN Creatinine Estimated GFR/1.73 m2 Glucose Calcium Total Bilirubin AST ALT Alkaline Phosphatase Troponin I Total Protein Albumin Lipase Urine Color Yellow Urine Clarity Sl cloudy Urine pH 7.0 Ur Specific [place] 1.020 Urine Protein 30 H Urine Ketones Negative Urine Blood Negative Urine Nitrite Negative Urine Bilirubin Negative Urine Urobilinogen 0.2 Ur Leukocyte Esterase Negative Urine RBC Negative Urine WBC 0-2 Ur Epithelial Cells Many Urine Crystals Negative Urine Bacteria Rare Urine Casts Negative Urine Mucus Trace Urine Other Negative Ur Culture Indicated? No/sq. contamination Urine Glucose Negative Last Vital Signs Temp 38.5 C H 09/15/18 00:04 Pulse 100 H 09/15/18 00:04 Resp 24 09/15/18 00:04 BP 130/77 09/15/18 00:04 Pulse Ox 98 09/15/18 00:04
[2018-09-15] MEDS: Oseltamivir 75 MG CAP PO ×3 (01:42→19:24)
[2018-09-15] MEDS: HYDROcodone 10/Acetaminophen 325 TAB PO ×4 (01:42→19:25)
[2018-09-15] MEDS: Enoxaparin 40 MG/0.4 ML SYR SC (05:54)
[2018-09-15] MEDS: Normal Saline 1,000 ML 150 ML IV ×3 (07:06→20:03)
[2018-09-15] MEDS: Mylanta Suspension 30 ML CUP PO (07:27)
[2018-09-15 08:25] LABS: Abs Immature Grans 0.03 k/cumm (0.0-0.09); Absolute Basophil Count 0.04 k/cumm (0.0-0.2); Absolute Lymphocyte Count 0.49 k/cumm (1.2-3.4); Absolute Monocyte Count 0.69 k/cumm (0.11-0.7); Absolute Neutrophil Count 6.63 k/cumm (1.2-6.7); Basophils % 0.5; Immature Grans % 0.4; Lymphocytes % 6.2; Mean Corp. HGB Concentration 32.4 g/dL (32.0-36.0); Mean Corpuscular Hemoglobin 28.3 pg (27.0-33.0); Mean Corpuscular Volume 87.3 fL (80-95); Mean Platelet Volume 9.1 fL (8.0-11.0); Monocytes % 8.8; Neutrophils % 84.1; Platelet Count 264 x1000/uL (130-400); RBC 4.24 m/cumm (4.00-5.20); RBC Distribution Width 15.3 % (11.7-14.6); White Blood Cell Count 7.88 k/cumm (4.4-10.8)
[2018-09-15 08:31] LABS: Anion Gap 11.6 mmol/L (3-11); BUN 10 mg/dL (7-18); CO2 25.4 mmol/L (21.0-32.0); CREATININE 0.82 mg/dL (0.55-1.02); Calcium 8.2 mg/dL (8.5-10.1); Chloride 102 mmol/L (98-107); Glucose 117 mg/dL (70-100); Potassium 3.7 mmol/L (3.5-5.1); Sodium 139 mmol/L (136-145)
[2018-09-15 08:39] LABS: Troponin I < 0.02 ng/mL (0.00-0.06)
[2018-09-15 09:31] LABS: Lipase 116 U/L (73-393)
[2018-09-15] MEDS: PARoxetine 10 MG TAB 30 MG PO (09:52)
[2018-09-15] MEDS: Allopurinol 100 MG TAB PO (09:52)
--- NOTE | 2018-09-15 10:21 | PHARADMIT ---
Addendum entered by Elizabeth Allen 09/22/18 16:15: Pharmacy Note Subjective Objective BP-160/97 SCr-1.06 Assessment morphine and hydrocodone/APAP changed from TID to Q8H for better coverage overnight vanco trough came back high, dose changed to 1000 mg Q10H to target a trough of 14.1 (previous troughs much higher than estimated so targeted one a bit lower) vanco and cefepime continue (day4) symbicort ordered yesterday methylprednisolone changed to prednisone today Plan continue to watch VS, labs and for med changes order vanco trough when needed Original Note: Addendum entered by Elizabteh Allen 09/21/18 16:26: Pharmacy Note Subjective improving per morning report Objective BP-148/85 Tmax-37.9 mag-1.7 Assessment vanco trough last night was high and drawn late so dose changed to 1000mg Q8H this morning blood cultures and UA ordered cefepime and vanco continue (day3) Plan vanco trough ordered for tomorrow afternoon @ 1300. adjust dose as necessary watch for cultures and UA results Original Note: Addendum entered by Manolo Verdugo III 09/18/18 11:14: Pharmacy Note Subjective MD notes that patient continues Objective VS-OK Labs-WNL, Assessment On Day#4 of Tamiflu Plan No med changes Original Note: Addendum entered by Latia Casillas 09/17/18 11:52: Pharmacy Note Subjective pt with possible FLU,being treated for CML, still using O2 Objective pain averages 8/10, afebrile, no wt listed but I/O -6600ml so far today Assessment tamiflu continues, one dose morphine IR given,MS Contin continues , IVF stopped Plan follow I/O, wt, med changes Original Note: Addendum entered by Manolo Verdugo III 09/16/18 12:33: Pharmacy Note Subjective Despite Influenza Swab-negative, MD is actively treating with BID Tamiflu (other family members positive.) Patient is having back from coughing and chronic condition. Objective Temp-37.6C Pain:8/10 Mga-1.8 WBC-5.13 Wgt- 137.5 KG No BM yet Assessment On IV Steroids, Lasix started as she is fluid overloading Plan Has home [facility] med Sprycel for CML Original Note: Admission Pharmacy Clinical Review sirs, fever Code Status Full Code Current Weight 137.438 kg Renally Cleared and Narrow Therapeutic Index Meds Crcl 116.9 using adjusted body weight current meds okay QTc Value / Action Taken QTc 450 BP Control, Fever BP 103/68 Electrolytes reviewed within normal limits DVT Prophylaxis enoxaparin Opiate Usage / Scheduled Bowel Regimen Ordered ray/prn Plt/SCr for Heparin / Enoxaparin plt 264(down) SCr 0.82 INR for Warfarin n/a H/H stable, WBC/Bands h/h 12.0/37.0 WBC 7.88(down) Antibiotic appropriateness dose in ED but none currently ordered per 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
[2018-09-15] MEDS: Magnesium Oxide 400 MG TAB PO (11:17)
[2018-09-15] MEDS: POTASSIUM CHLORIDE 20 MEQ, POTASSIUM CHLORIDE 10 MEQ 30 MEQ PO (11:17)
[2018-09-15] MEDS: Albuterol/Ipratropium 3 ML UPD VIAL UPD ×2 (11:40→16:01)
[2018-09-15] MEDS: Benzonatate 200 MG CAP PO ×2 (13:10→19:25)
--- NOTE | 2018-09-15 13:52 | CHAPLAIN ---
I stopped in to visit Caro twice today, but she was busy with staff and then visitors. I did get to introduce myself and explain my role and told her I would visit tomorrow. She seemed uncomfortable both times I stopped in and asked for juice with ice.
[2018-09-15 14:51] LABS: Troponin I 0.02 ng/mL (0.00-0.06)
--- NOTE | 2018-09-15 15:14 | PDOC.CMIN ---
- If Service Date Differs Date of service: 09/15/18 Time of Service: 15:14 Care Management Initial Assess REASON FOR HOSPITALIZATION:: Fever, Nausea, Vomiting PAST MEDICAL HISTORY/PAST SURGICAL HISTORY:: Pancreatitis (Resolved 08/27/13). CML (chronic myeloid leukemia) (Chronic). H/O section (Resolved). Cholecystectomy (Resolved) PREVIOUS FUNCTIONAL STATUS/SOCIAL/FAMILY SUPPORTS:: Caro resides with her BLAIR Ortega, her son and his in [place]. Caro states that she has a daughter whom resides in [place] as well whom is supportive. Caro states that she has been on disability for a number of years due to her CML. She reports that she is independent at baseline, drives (sometimes), and manages ADL's CURRENT FUNCTIONAL STATUS:: Currently Caro is sitting up on the edge of her bed. She states that she is not feeling well and has a coughing spell with her face turning red during visit. ADVANCE DIRECTIVES:: None on file Has patient been provided with information about the portal?: Yes Did the patient sign up for the portal?: No CODE STATUS:: Full Code INSURANCE COVERAGE / FINANCIAL ISSUES:: Medicare, [employer] CURRENT HOME/COMMUNITY SERVICES/EQUIPMENT:: Currently Caro has no services or medical equipment in the community. PRIMARY CARE PHYSICIAN:: Dr. Ogden POTENTIAL DISCHARGE NEEDS:: f/U appointment with PCP PATIENT/FAMILY EDUCATION NEEDS:: Review DC instructions, any limitations, and ongoing DC planning discussion. ANTICIPATED BARRIERS TO DISCHARGE:: None identified at this time TRANSPORTATION:: Via private vehicle with SO or son PLAN:: Caro will return home once medically cleared. She will f/U with PCP and plan of care as prescribed. Caro' family to transport when ready.
--- NOTE | 2018-09-15 15:18 | INITIAL_ITS ---
- If Service Date Differs Date of service: 09/15/18 Time of Service: 15:14 Care Management Initial Assess REASON FOR HOSPITALIZATION:: Fever, Nausea, Vomiting PAST MEDICAL HISTORY/PAST SURGICAL HISTORY:: Pancreatitis (Resolved 08/27/13). CML (chronic myeloid leukemia) (Chronic). H/O section (Resolved). Cholecystectomy (Resolved) PREVIOUS FUNCTIONAL STATUS/SOCIAL/FAMILY SUPPORTS:: Caro resides with her BLAIR Ortega, her son and his in [place]. Caro states that she has a daughter whom resides in [place] as well whom is supportive. Caro states that she has been on disability for a number of years due to her CML. She reports that she is independent at baseline, drives (sometimes), and manages ADL's CURRENT FUNCTIONAL STATUS:: Currently Caro is sitting up on the edge of her b ed. She states that she is not feeling well and has a coughing spell with her face turning red during visit. ADVANCE DIRECTIVES:: None on file Has patient been provided with information about the portal?: Yes Did the patient sign up for the portal?: No CODE STATUS:: Full Code INSURANCE COVERAGE / FINANCIAL ISSUES:: Medicare, [employer] CURRENT HOME/COMMUNITY SERVICES/EQUIPMENT:: Currently Caro has no services or medical equipment in the community. PRIMARY CARE PHYSICIAN:: Dr. Ogden POTENTIAL DISCHARGE NEEDS:: f/U appointment with PCP PATIENT/FAMILY EDUCATION NEEDS:: Review DC instructions, any limitations, and ongoing DC planning discussion. ANTICIPATED BARRIERS TO DISCHARGE:: None identified at this time TRANSPORTATION:: Via private vehicle with SO or son PLAN:: Caro will return home once medically cleared. She will f/U with PCP and plan of care as prescribed. Caro' family to transport when ready.
[2018-09-15] MEDS: guaiFENesin/D-METHORPHAN HB 5 ML CUP PO (16:07)
[2018-09-15] MEDS: Levalbuterol 0.63 MG/3 ML UPD VIAL UPD (18:29)
[2018-09-15] MEDS: methylPREDNISolone SUCC 125 MG VIAL 60 MG IVP (18:38)
[2018-09-15] MEDS: Normal Saline Flush 10 ML SYR IVP (18:38)
[2018-09-15] MEDS: Budesonide 0.5 MG/2 ML UPD VIAL (18:54)
[2018-09-15] MEDS: Budesonide 0.5 MG/2 ML UPD VIAL UPD (20:06)
--- NOTE | 2018-09-15 20:18 | PGE_ITS ---
Date of Service Date of service: 09/15/18 Time of Service: 20:17 Assessment and Plan (1) Chest pain: Current visit: Yes Status: Acute May be related to chronic back pain and poor positioning overnight, as pain is mostly reproducible and induced by deep inspiration and cough. EKG was checked and unchanged, appears nonischemic. Troponins were trended and unremarkable as well. Continue to monitor patient's symptoms. (2) Fever: Current visit: Yes Status: Acute Currently with a negative urinalysis, CT of the chest, abdomen and pelvis. Also with lack of clear source to indicate origin of infection. However, Ms. Draper is on Sprycel and has been exposed to a family member with documented influenza, and is currently suffering from a febrile upper respiratory infection. Despite negative rapid flu will treat as if the patient has influenza, and sent for an official flu PCR. Hesitant to start steroids in patient with active influenza infection, but given significantly decreased breath sounds and diffuse wheezing patient may benefit from steroid use. Will start IV Solu-Medrol and inhaled duo nebs, along with frequent duo nebs and as needed Xopenex. Monitor symptoms closely. Patient is currently not neutropenic - hold off on broad-spectrum antibiotics. Continue IV fluids. 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 (4) DVT prophylaxis: Current visit: Yes Status: Acute SC Lovenox. Subjective Interval history since last seen: 48-year-old woman with a prior history of CML on Sprycel, admitted from [facility] Emergency Department on 09/14 with reported fevers. Ms. Draper has a past medical history significant for CML on a kinase inhibitor, obesity, and chronic back pain on chronic opiate therapy. The patient presented to the ED with complaints of shortness of breath, with associated fever, cough, nausea, and vomiting. She lives with her son and [id number], and reportedly her [id number] was recent diagnosed with the flu. She reportedly does not receive flu shots because they make her sick. Workup in the emergency department was significant for an initial chest x-ray that was negative for an infection, but evidence of leukocytosis by labs. She also had a CT angiogram of her chest, abdomen and pelvis, officially reported as negative for any acute pathology. Her rapid flu swab was negative x2. She was admitted for further evaluation and treatment. This morning Ms. Draper is complaining of significant chest, chest wall, and back pain that is worsening with deep inspiration, coughing, and palpation. An EKG was obtained and unchanged, and her troponins were trended and remained negative. No other events were reported overnight. She remains febrile. Exam Narrative Exam Narrative: General: Patient appears uncomfortable and acutely ill but not toxic, AAOX3 Neck: Supple CV: Regular, nontachycardic, S1S2, No rubs, murmurs, or gallops. Pulmonary: Clear but diffusely decreased, no crackles, but noted diffuse wheezing, Abdomen: + Bowel Sounds, soft, nontender, nondistended, obese in contour Vascular: No lower extremity edema Musculoskeletal: Pain on palpation of back, rib cage, and and anterior sternum Psych: Normal mood and affect. Objective Objective Clinical Data: Abnormal lab results 09/14/18 09/14/18 09/14/18 Range/Units 20:00 20:00 20:00 WBC 15.02 H (4.4-10.8) k/cumm RDW 15.1 H (11.7-14.6) % Absolute Neutrophils 13.17 H (1.2-6.7) k/cumm Absolute Lymphocytes 0.98 L (1.2-3.4) k/cumm Absolute Monocytes 0.75 H (0.11-0.7) k/cumm D-Dimer 548 H (<500) ng/mlFEU Anion Gap (3-11) mmol/L Creatinine 1.12 H (0.55-1.02) mg/dL Glucose 135 H (70-100) mg/dL Calcium (8.5-10.1) mg/dL Urine Protein (Negative) mg/dL 09/14/18 09/15/18 09/15/18 Range/Units 20:45 07:55 07:55 WBC (4.4-10.8) k/cumm RDW 15.3 H (11.7-14.6) % Absolute Neutrophils (1.2-6.7) k/cumm Absolute Lymphocytes 0.49 L (1.2-3.4) k/cumm Absolute Monocytes (0.11-0.7) k/cumm D-Dimer (<500) ng/mlFEU Anion Gap 11.6 H (3-11) mmol/L Creatinine (0.55-1.02) mg/dL Glucose 117 H (70-100) mg/dL Calcium 8.2 L (8.5-10.1) mg/dL Urine Protein 30 H (Negative) mg/dL Vital Signs Temperature 37.7 C H 09/15/18 18:03 Temperature Source Tympanic 09/15/18 18:03 Pulse 90 09/15/18 18:29 Pulse Rhythm Regular 09/15/18 08:25 Pulse 98 H 09/14/18 23:31 Respiratory Rate 22 09/15/18 18:29 Respiratory Effort 09/15/18 08:25 Respiratory Depth Normal 09/15/18 08:25 Respiratory Pattern Normal 09/15/18 08:25 Blood Pressure 137/87 09/15/18 18:03 Blood Pressure Mean 91 09/14/18 23:30 Blood Pressure Position Sitting 09/14/18 19:54 Pulse Oximetry 96 09/15/18 18:56 Oxygen Delivery Method Nasal Cannula 09/15/18 18:56 Oxygen Flow Rate 5 09/15/18 18:56 Pain Level 7 09/15/18 11:55 Comment 09/15/18 18:03 Intake & Output 09/14/18 09/15/18 09/15/18 23:59 11:59 23:59 Intake Total 1050 / 1050 2147.0 / 4082.0 1935 / 4082.0 Balance 1050 / 1050 2147.0 / 4082.0 1935 / 4082.0 Weight 137.438 kg 137.438 kg Intake: IV 1050 / 1050 1337.0 / 3272.0 1935 / 3272.0 Oral 810 / 810 Other: Urine Appearance Clear Comment voiding in toilet independently. inc x 1 moderate amount of urine on bed pad after coughing fit Laboratory Results WBC 7.88 k/cumm (4.4-10.8) D 09/15/18 07:55 RBC 4.24 m/cumm (4.00-5.20) 09/15/18 07:55 Hgb 12.0 g/dL (12.0-15.5) 09/15/18 07:55 Hct 37.0 % (36.0-46.0) 09/15/18 07:55 MCV 87.3 fL (80-95) 09/15/18 07:55 MCH 28.3 pg (27.0-33.0) 09/15/18 07:55 MCHC 32.4 g/dL (32.0-36.0) 09/15/18 07:55 RDW 15.3 % (11.7-14.6) H 09/15/18 07:55 Plt Count 264 x1000/uL (130-400) 09/15/18 07:55 MPV 9.1 fL (8.0-11.0) 09/15/18 07:55 Immature Gran % 0.4 09/15/18 07:55 Neutrophils % 84.1 09/15/18 07:55 Lymphocytes % 6.2 09/15/18 07:55 Monocytes % 8.8 09/15/18 07:55 Eosinophils % 0.0 09/15/18 07:55 Basophils % 0.5 09/15/18 07:55 Absolute Neutrophils 6.63 k/cumm (1.2-6.7) 09/15/18 07:55 Absolute Lymphocytes 0.49 k/cumm (1.2-3.4) L 09/15/18 07:55 Absolute Monocytes 0.69 k/cumm (0.11-0.7) 09/15/18 07:55 Absolute Eosinophils 0.00 k/cumm (0.0-0.7) 09/15/18 07:55 Absolute Basophils 0.04 k/cumm (0.0-0.2) 09/15/18 07:55 PT 9.6 sec (9.3-11.0) 09/14/18 20:00 INR 1.0 (1.0-3.5) 09/14/18 20:00 APTT 24.8 sec (21.0-31.4) 09/14/18 20:00 D-Dimer 548 ng/mlFEU (<500) H 09/14/18 20:00 Sodium 139 mmol/L (136-145) 09/15/18 07:55 Potassium 3.7 mmol/L (3.5-5.1) 09/15/18 07:55 Chloride 102 mmol/L (98-107) 09/15/18 07:55 Carbon Dioxide 25.4 mmol/L (21.0-32.0) 09/15/18 07:55 Anion Gap 11.6 mmol/L (3-11) H 09/15/18 07:55 BUN 10 mg/dL (7-18) 09/15/18 07:55 Creatinine 0.82 mg/dL (0.55-1.02) 09/15/18 07:55 Estimated GFR/1.73 m2 >= 60.00 (mL/min/1.73m2) 09/15/18 07:55 Glucose 117 mg/dL (70-100) H 09/15/18 07:55 Calcium 8.2 mg/dL (8.5-10.1) L 09/15/18 07:55 Total Bilirubin 0.5 mg/dL (0.2-1.0) 09/14/18 20:00 AST 31 U/L (15-37) 09/14/18 20:00 ALT 35 U/L (12-78) 09/14/18 20:00 Alkaline Phosphatase 115 U/L (46-116) 09/14/18 20:00 Troponin I 0.02 ng/mL (0.00-0.06) 09/15/18 14:20 Total Protein 7.5 g/dL (6.4-8.2) 09/14/18 20:00 Albumin 3.6 g/dL (3.4-5.0) 09/14/18 20:00 Lipase 116 U/L (73-393) 09/15/18 07:55 Urine Color Yellow (Yellow) 09/14/18 20:45 Urine Clarity Sl cloudy 09/14/18 20:45 Urine pH 7.0 (5-8) 09/14/18 20:45 Ur Specific [place] 1.020 (1.005-1.025) 09/14/18 20:45 Urine Protein 30 mg/dL (Negative) H 09/14/18 20:45 Urine Ketones Negative mg/dL (Negative) 09/14/18 20:45 Urine Blood Negative (Negative) 09/14/18 20:45 Urine Nitrite Negative (Negative) 09/14/18 20:45 Urine Bilirubin Negative (Negative) 09/14/18 20:45 Urine Urobilinogen 0.2 EU/dL (Up TO 0.2) 09/14/18 20:45 Ur Leukocyte Esterase Negative (Negative) 09/14/18 20:45 Urine RBC Negative (0-2) 09/14/18 20:45 Urine WBC 0-2 HPF (0-5) 09/14/18 20:45 Ur Epithelial Cells Many HPF (Negative) 09/14/18 20:45 Urine Crystals Negative HPF (Negative) 09/14/18 20:45 Urine Bacteria Rare HPF (Negative) 09/14/18 20:45 Urine Casts Negative LPF (Negative) 09/14/18 20:45 Urine Mucus Trace (Negative) 09/14/18 20:45 Urine Other Negative (Negative) 09/14/18 20:45 Ur Culture Indicated? No/sq. contamination 09/14/18 20:45 Urine Glucose Negative mg/dL (Negative) 09/14/18 20:45
[2018-09-16] VITALS (7 sets, daily range): BP systolic 124–152; BP diastolic 78–83; PULSE 71–87; RESP 8–20; TEMP 36.3–37.6; O2SAT 95–96
[2018-09-16] MEDS: methylPREDNISolone SUCC 125 MG VIAL 60 MG IVP ×3 (01:11→18:37)
[2018-09-16] MEDS: Normal Saline Flush 10 ML SYR IVP ×2 (01:13→18:38)
[2018-09-16] MEDS: Acetaminophen 325 MG TAB PO ×2 (01:23→18:48)
[2018-09-16] MEDS: guaiFENesin/D-METHORPHAN HB 5 ML CUP PO ×3 (02:20→22:53)
[2018-09-16] MEDS: Levalbuterol 0.63 MG/3 ML UPD VIAL UPD ×2 (02:20→16:12)
[2018-09-16] MEDS: Normal Saline 1,000 ML 150 ML IV ×4 (02:25→23:47)
--- NOTE | 2018-09-16 02:43 | NUR.NOTE ---
Nursing Note: 7P to 7A Shift: At 0200 hrs., Pt woke up with continuous non productive cough then complained of right lower back pain. Stayed in bedside commode because every time she coughs , drop of urine reported. Tylenol given as PRN for pain and cried out of excoriating pain, ice pack on the back and cold compress applied to forehead applied. Cough syrup also given and Xeponex INH administered. Lungs are so tight, on auscultation. Temp 36.9. Appears comfortable now in recliner chair. Call lights at reach.
[2018-09-16] MEDS: Enoxaparin 40 MG/0.4 ML SYR SC (05:37)
[2018-09-16] MEDS: Albuterol/Ipratropium 3 ML UPD VIAL UPD ×2 (07:50→13:35)
[2018-09-16] MEDS: HYDROcodone 10/Acetaminophen 325 TAB PO ×3 (07:52→20:10)
[2018-09-16] MEDS: Benzonatate 200 MG CAP PO ×3 (07:53→20:11)
[2018-09-16] MEDS: PARoxetine 10 MG TAB 30 MG PO (07:54)
[2018-09-16] MEDS: Oseltamivir 75 MG CAP PO ×2 (07:54→20:12)
[2018-09-16] MEDS: Allopurinol 100 MG TAB PO (08:04)
[2018-09-16 09:15] LABS: Abs Immature Grans 0.02 k/cumm (0.0-0.09); Absolute Basophil Count 0.01 k/cumm (0.0-0.2); Absolute Lymphocyte Count 0.85 k/cumm (1.2-3.4); Absolute Monocyte Count 0.39 k/cumm (0.11-0.7); Absolute Neutrophil Count 3.86 k/cumm (1.2-6.7); Basophils % 0.2; HCT 37.6 % (36.0-46.0); HGB 12.1 g/dL (12.0-15.5); Immature Grans % 0.4; Lymphocytes % 16.6; Mean Corp. HGB Concentration 32.2 g/dL (32.0-36.0); Mean Corpuscular Hemoglobin 28.3 pg (27.0-33.0); Mean Corpuscular Volume 88.1 fL (80-95); Mean Platelet Volume 9.2 fL (8.0-11.0); Monocytes % 7.6; Neutrophils % 75.2; Platelet Count 210 x1000/uL (130-400); RBC 4.27 m/cumm (4.00-5.20); RBC Distribution Width 15.6 % (11.7-14.6); White Blood Cell Count 5.13 k/cumm (4.4-10.8)
[2018-09-16 09:24] LABS: Anion Gap 10.5 mmol/L (3-11); BUN 13 mg/dL (7-18); CO2 23.5 mmol/L (21.0-32.0); CREATININE 0.88 mg/dL (0.55-1.02); Calcium 7.6 mg/dL (8.5-10.1); Chloride 103 mmol/L (98-107); Glucose 149 mg/dL (70-100); Magnesium 1.8 mg/dL (1.8-2.4); Potassium 4.1 mmol/L (3.5-5.1); Sodium 137 mmol/L (136-145)
[2018-09-16] MEDS: Docusate Sodium 100 MG CAP PO (09:25)
[2018-09-16] MEDS: Budesonide 0.5 MG/2 ML UPD VIAL UPD ×2 (09:52→21:19)
[2018-09-16] MEDS: Furosemide 40 MG TAB PO (11:30)
--- NOTE | 2018-09-16 13:54 | PDOC.CMPRO ---
- If Service Date Differs Date of service: 09/16/18 Time of Service: 13:54 Care Management Progress Note S/O: Caro is sitting on the edge of her bed when this development writer visits this morning. She is pleasant and receptive to discussion. Caro reports feeling okay today, though states that she is far from baseline at this time. Caro reports low back pain that continues which she states her nurse is aware of. CM reviewed DC plan with Caro which remains unchanged at this time. A: 48 y/o female admitted 09/14/18 for SIRS, Fever P: Caro will return home with no anticipated services. She will F/U with PCP and plan of care as prescribed. Caro' SO or son transport when ready.
--- NOTE | 2018-09-16 14:01 | CMPROGNOTE_ITS ---
- If Service Date Differs Date of service: 09/16/18 Time of Service: 13:54 Care Management Progress Note S/O: Caro is sitting on the edge of her bed when this proposal writer visits this morning. She is pleasant and receptive to discussion. Caro reports feeling okay today, though states that she is far from baseline at this time. Caro reports low back pain that continues which she states her nurse is aware of. CM reviewed DC plan with Caro which remains unchanged at this time. A: 48 y/o female admitted 09/14/18 for SIRS, Fever P: Caro will return home with no anticipated services. She will F/U with PCP and plan of care as prescribed. Caro' SO or son transport when ready.
--- NOTE | 2018-09-16 15:34 | CHAPLAIN ---
Caro was sitting up in her chair when I visited. She said she is feeling better, and appears more comfortable than yesterday but is still coughing and dealing with respiratory issues. She said her son visited this morning, but she has told her son, daughter in law and boyfriend not to visit so that they won't catch anything because she doesn't want to have to take care of them when she returns home. Caro told me that she was diagnosed with leukemia eleven years ago and takes an oral chemo that has kept her in remission. There are side effects, but the drug has kept her alive she said. Being sick like she is now, is extra difficult she said, because her immune system is very low.
--- NOTE | 2018-09-16 18:37 | W.PM.PROGNOT ---
Date of Service Date of service: 09/16/18 Time of Service: 18:37 Assessment and Plan (1) Fever: Current visit: Yes Status: Acute Currently with a negative urinalysis, CT of the chest, abdomen and pelvis. Also with lack of clear source to indicate origin of infection. However, Ms. Draper is on Sprycel and has been exposed to 2 family members in the same house hold with documented influenza, and is currently suffering from a febrile upper respiratory infection. Despite negative rapid flu will treat as if the patient has influenza, and sent for an official flu PCR. Hesitant to start steroids in patient with active influenza infection, but given significantly decreased breath sounds and diffuse wheezing she was started on solumedrol with vast improvement in her breathing. Continue inhaled duo nebs, along with frequent Xopenex on a prn basis. Monitor symptoms closely. Patient is currently not neutropenic - hold off on broad-spectrum antibiotics. Continue IV fluids. (2) Chest pain: Current visit: Yes Status: Acute May be musculoskeletal - pain is reproducible and induced by deep inspiration and cough. EKG was checked and unchanged, appears nonischemic. Troponins were trended and unremarkable as well. Continue to monitor patient's symptoms - improved with muscle relaxers. 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 (4) DVT prophylaxis: Current visit: Yes Status: Acute SC Lovenox. Subjective Interval history since last seen: 48-year-old woman with a prior history of CML on Sprycel, admitted from [facility] Emergency Department on 09/14 with reported fevers. Ms. Draper has a past medical history significant for CML on a kinase inhibitor, obesity, and chronic back pain on chronic opiate therapy. The patient presented to the ED with complaints of shortness of breath, with associated fever, cough, nausea, and vomiting. She lives with her son and [id number], and reportedly her [id number] was recent diagnosed with the flu. She reportedly does not receive flu shots because they make her sick. Since her admission her son has also been diagnosed with Influenza. Workup in the emergency department was significant for an initial chest x-ray that was negative for an infection, but evidence of leukocytosis by labs. She also had a CT angiogram of her chest, abdomen and pelvis, officially reported as negative for any acute pathology. Her rapid flu swab was negative x2. She was admitted for further evaluation and treatment. On the morning after admission Ms. Draper complained of significant chest, chest wall, and back pain that worsened with deep inspiration, coughing, and palpation. An EKG was obtained and unchanged, and her troponins were trended and remained negative. She reports improvement in her back. She also states that she is feeling better overall, but not yet close to her baseline. No other events were reported overnight. She remained afebrile for nearly 24 hours. Exam Narrative Exam Narrative: General: Patient appears uncomfortable and acutely ill but not toxic and vastly improved, AAOX3 Neck: Supple CV: Regular, nontachycardic, S1S2, No rubs, murmurs, or gallops. Pulmonary: Clear with improved air entry, no crackles, wheezing improved Abdomen: + Bowel Sounds, soft, nontender, nondistended, obese in contour Vascular: No lower extremity edema Musculoskeletal: Pain on palpation of back, rib cage, and and anterior sternum - all improved Psych: Normal mood and affect. Objective Objective Clinical Data: Abnormal lab results 09/16/18 09/16/18 Range/Units 09:00 09:00 RDW 15.6 H (11.7-14.6) % Absolute Lymphocytes 0.85 L (1.2-3.4) k/cumm Glucose 149 H (70-100) mg/dL Calcium 7.6 L (8.5-10.1) mg/dL Vital Signs Temperature 36.5 C 09/16/18 16:28 Temperature Source Tympanic 09/16/18 16:28 Pulse 76 09/16/18 16:28 Pulse Rhythm Regular 09/16/18 07:56 Pulse 98 H 09/14/18 23:31 Respiratory Rate 20 09/16/18 16:28 Respiratory Effort 09/16/18 07:56 Respiratory Depth Normal 09/16/18 07:56 Respiratory Pattern Normal 09/16/18 07:56 Blood Pressure 124/78 09/16/18 16:28 Blood Pressure Mean 91 09/14/18 23:30 Blood Pressure Position Sitting 09/14/18 19:54 Pulse Oximetry 96 09/16/18 16:28 Oxygen Delivery Method Room Air 09/16/18 16:28 Oxygen Flow Rate 0 09/16/18 16:28 Pain Level 6 09/16/18 13:59 Comment 09/15/18 18:03 Intake & Output 09/15/18 09/16/18 09/16/18 23:59 11:59 23:59 Intake Total 193 / 4082.0 2905 / 3385 480 / 3385 Output Total 400 / 1600 1200 / 1600 Balance 5 / 4082.0 2505 / 1785 -720 / 1785 Intake: IV 1935 / 3272.0 1954 / 1954 Oral 950 / 1430 480 / 1430 Output: Urine 400 / 1600 1200 / 1600 Other: Urine Color Yellow Yellow Urine Appearance Clear Clear Clear Urine Odor Normal Normal Comment inc x 1 moderate amount of urine on bed pad after coughing fit urine not seen, flushed Stool Characteristics Liquid Brown Voiding Methods Toilet Toilet Laboratory Results WBC 5.13 k/cumm (4.4-10.8) D 09/16/18 09:00 RBC 4.27 m/cumm (4.00-5.20) 09/16/18 09:00 Hgb 12.1 g/dL (12.0-15.5) 09/16/18 09:00 Hct 37.6 % (36.0-46.0) 09/16/18 09:00 MCV 88.1 fL (80-95) 09/16/18 09:00 MCH 28.3 pg (27.0-33.0) 09/16/18 09:00 MCHC 32.2 g/dL (32.0-36.0) 09/16/18 09:00 RDW 15.6 % (11.7-14.6) H 09/16/18 09:00 Plt Count 210 x1000/uL (130-400) 09/16/18 09:00 MPV 9.2 fL (8.0-11.0) 09/16/18 09:00 Immature Gran % 0.4 09/16/18 09:00 Neutrophils % 75.2 09/16/18 09:00 Lymphocytes % 16.6 09/16/18 09:00 Monocytes % 7.6 09/16/18 09:00 Eosinophils % 0.0 09/16/18 09:00 Basophils % 0.2 09/16/18 09:00 Absolute Neutrophils 3.86 k/cumm (1.2-6.7) 09/16/18 09:00 Absolute Lymphocytes 0.85 k/cumm (1.2-3.4) L 09/16/18 09:00 Absolute Monocytes 0.39 k/cumm (0.11-0.7) 09/16/18 09:00 Absolute Eosinophils 0.00 k/cumm (0.0-0.7) 09/16/18 09:00 Absolute Basophils 0.01 k/cumm (0.0-0.2) 09/16/18 09:00 PT 9.6 sec (9.3-11.0) 09/14/18 20:00 INR 1.0 (1.0-3.5) 09/14/18 20:00 APTT 24.8 sec (21.0-31.4) 09/14/18 20:00 D-Dimer 548 ng/mlFEU (<500) H 09/14/18 20:00 Sodium 137 mmol/L (136-145) 09/16/18 09:00 Potassium 4.1 mmol/L (3.5-5.1) 09/16/18 09:00 Chloride 103 mmol/L (98-107) 09/16/18 09:00 Carbon Dioxide 23.5 mmol/L (21.0-32.0) 09/16/18 09:00 Anion Gap 10.5 mmol/L (3-11) 09/16/18 09:00 BUN 13 mg/dL (7-18) 09/16/18 09:00 Creatinine 0.88 mg/dL (0.55-1.02) 09/16/18 09:00 Estimated GFR/1.73 m2 >= 60.00 (mL/min/1.73m2) 09/16/18 09:00 Glucose 149 mg/dL (70-100) H 09/16/18 09:00 Calcium 7.6 mg/dL (8.5-10.1) L 09/16/18 09:00 Magnesium 1.8 mg/dL (1.8-2.4) 09/16/18 09:00 Total Bilirubin 0.5 mg/dL (0.2-1.0) 09/14/18 20:00 AST 31 U/L (15-37) 09/14/18 20:00 ALT 35 U/L (12-78) 09/14/18 20:00 Alkaline Phosphatase 115 U/L (46-116) 09/14/18 20:00 Troponin I 0.02 ng/mL (0.00-0.06) 09/15/18 14:20 Total Protein 7.5 g/dL (6.4-8.2) 09/14/18 20:00 Albumin 3.6 g/dL (3.4-5.0) 09/14/18 20:00 Lipase 116 U/L (73-393) 09/15/18 07:55 Urine Color Yellow (Yellow) 09/14/18 20:45 Urine Clarity Sl cloudy 09/14/18 20:45 Urine pH 7.0 (5-8) 09/14/18 20:45 Ur Specific [place] 1.020 (1.005-1.025) 09/14/18 20:45 Urine Protein 30 mg/dL (Negative) H 09/14/18 20:45 Urine Ketones Negative mg/dL (Negative) 09/14/18 20:45 Urine Blood Negative (Negative) 09/14/18 20:45 Urine Nitrite Negative (Negative) 09/14/18 20:45 Urine Bilirubin Negative (Negative) 09/14/18 20:45 Urine Urobilinogen 0.2 EU/dL (Up TO 0.2) 09/14/18 20:45 Ur Leukocyte Esterase Negative (Negative) 09/14/18 20:45 Urine RBC Negative (0-2) 09/14/18 20:45 Urine WBC 0-2 HPF (0-5) 09/14/18 20:45 Ur Epithelial Cells Many HPF (Negative) 09/14/18 20:45 Urine Crystals Negative HPF (Negative) 09/14/18 20:45 Urine Bacteria Rare HPF (Negative) 09/14/18 20:45 Urine Casts Negative LPF (Negative) 09/14/18 20:45 Urine Mucus Trace (Negative) 09/14/18 20:45 Urine Other Negative (Negative) 09/14/18 20:45 Ur Culture Indicated? No/sq. contamination 09/14/18 20:45 Urine Glucose Negative mg/dL (Negative) 09/14/18 20:45 Influenza A & B (PCR) Cancelled 09/16/18 08:19
[2018-09-16] MEDS: Promethazine 25 MG TAB PO (22:53)
[2018-09-17] VITALS (7 sets, daily range): BP systolic 116–136; BP diastolic 74–79; PULSE 72–78; RESP 4–22; TEMP 36.1; O2SAT 94–96
[2018-09-17] MEDS: methylPREDNISolone SUCC 125 MG VIAL 60 MG IVP ×2 (02:51→09:48)
[2018-09-17] MEDS: Albuterol/Ipratropium 3 ML UPD VIAL UPD ×3 (03:05→17:58)
[2018-09-17] MEDS: Enoxaparin 40 MG/0.4 ML SYR SC (06:50)
[2018-09-17] MEDS: Normal Saline 1,000 ML 150 ML IV (06:50)
[2018-09-17 08:13] LABS: Anion Gap 6.6 mmol/L (3-11); BUN 12 mg/dL (7-18); CO2 28.4 mmol/L (21.0-32.0); CREATININE 0.74 mg/dL (0.55-1.02); Calcium 7.4 mg/dL (8.5-10.1); Chloride 105 mmol/L (98-107); Glucose 137 mg/dL (70-100); Magnesium 1.9 mg/dL (1.8-2.4); Sodium 140 mmol/L (136-145)
[2018-09-17 08:26] LABS: Abs Immature Grans 0.02 k/cumm (0.0-0.09); Absolute Lymphocyte Count 0.72 k/cumm (1.2-3.4); Absolute Neutrophil Count 4.18 k/cumm (1.2-6.7); HCT 37.9 % (36.0-46.0); HGB 12.1 g/dL (12.0-15.5); Immature Grans % 0.4; Lymphocytes % 13.5; Mean Corp. HGB Concentration 31.9 g/dL (32.0-36.0); Mean Corpuscular Hemoglobin 28.5 pg (27.0-33.0); Mean Corpuscular Volume 89.2 fL (80-95); Mean Platelet Volume 9.1 fL (8.0-11.0); Monocytes % 7.5; Neutrophils % 78.6; Platelet Count 233 x1000/uL (130-400); RBC 4.25 m/cumm (4.00-5.20); White Blood Cell Count 5.32 k/cumm (4.4-10.8)
[2018-09-17] MEDS: Budesonide 0.5 MG/2 ML UPD VIAL UPD ×2 (09:30→21:02)
[2018-09-17] MEDS: Normal Saline Flush 10 ML SYR IVP ×2 (09:49→22:09)
[2018-09-17] MEDS: HYDROcodone 10/Acetaminophen 325 TAB PO ×3 (09:49→19:52)
[2018-09-17] MEDS: Oseltamivir 75 MG CAP PO ×2 (09:51→19:53)
[2018-09-17] MEDS: Benzonatate 200 MG CAP PO ×3 (09:51→19:53)
[2018-09-17] MEDS: Allopurinol 100 MG TAB PO (09:51)
[2018-09-17] MEDS: PARoxetine 10 MG TAB 30 MG PO (09:51)
[2018-09-17] MEDS: Furosemide 40 MG TAB PO (09:52)
--- NOTE | 2018-09-17 10:50 | PDOC.CMPRO ---
- If Service Date Differs Date of service: 09/17/18 Time of Service: 10:50 Care Management Progress Note S/O: Caro is sitting in her chair receiving a breathing treatment when CM visits this morning. She has difficulty conversing due to the breathing treatment, but is able to report that she does not feel ready for discharging home today. A: 48 y/o female admitted 09/14/18 for SIRS, Fever P: Caro will discharge home when medically ready per MD. Anticipate patient will discharge with no services and follow up with her PCP. Caro will transport via private vehicle with her boyfriend, Jordan, or son. CM will continue to offer support to patient, family, and care team regarding discharge planning and disposition.
--- NOTE | 2018-09-17 13:01 | W.PM.PROGNOT ---
Date of Service Date of service: 09/17/18 Time of Service: 13:01 Assessment and Plan (1) Fever: Current visit: Yes Status: Acute Currently with a negative urinalysis, CT of the chest, abdomen and pelvis. Also with lack of clear source to indicate origin of infection. However, Ms. Draper is on Sprycel and has been exposed to 2 family members in the same house hold with documented influenza, and is currently suffering from a febrile upper respiratory infection. Despite negative rapid flu will treat as if the patient has influenza, and sent for an official flu PCR. Hesitant to start steroids in patient with active influenza infection, but given significantly decreased breath sounds and diffuse wheezing she was started on solumedrol with vast improvement in her breathing. Continue inhaled duo nebs, along with frequent Xopenex on a prn basis. Monitor symptoms closely. Patient is currently not neutropenic - hold off on broad-spectrum antibiotics. Continue IV fluids. (2) Chest pain: Current visit: Yes Status: Acute May be musculoskeletal - pain is reproducible and induced by deep inspiration and cough. EKG was checked and unchanged, appears nonischemic. Troponins were trended and unremarkable as well. Continue to monitor patient's symptoms - improved with muscle relaxers. 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 (4) DVT prophylaxis: Current visit: Yes Status: Acute SC Lovenox. Subjective Interval history since last seen: 48-year-old woman with a prior history of CML on Sprycel, admitted from [facility] Emergency Department on 09/14 with reported fevers. Ms. Draper has a past medical history significant for CML on a kinase inhibitor, obesity, and chronic back pain on chronic opiate therapy. The patient presented to the ED with complaints of shortness of breath, with associated fever, cough, nausea, and vomiting. She lives with her son and [id number], and reportedly her [id number] was recent diagnosed with the flu. She reportedly does not receive flu shots because they make her sick. Since her admission her son has also been diagnosed with Influenza. Workup in the emergency department was significant for an initial chest x-ray that was negative for an infection, but evidence of leukocytosis by labs. She also had a CT angiogram of her chest, abdomen and pelvis, officially reported as negative for any acute pathology. Her rapid flu swab was negative x2. She was admitted for further evaluation and treatment. On the morning after admission Ms. Draper complained of significant chest, chest wall, and back pain that worsened with deep inspiration, coughing, and palpation. An EKG was obtained and unchanged, and her troponins were trended and remained negative. She reports improvement in her back and chest pain today. She also states that she is feeling better again today, but not yet close to her baseline. Specifically no further subjective fevers, and improvement in breathing has been noted. No other events were reported overnight. She remained afebrile for nearly 24 hours. Exam Narrative Exam Narrative: General: Patient appears improved, AAOX3, NAD Neck: Supple CV: Regular, nontachycardic, S1S2, No rubs, murmurs, or gallops. Pulmonary: Clear with improved air entry, no crackles, wheezing improved Abdomen: + Bowel Sounds, soft, nontender, nondistended, obese in contour Vascular: No lower extremity edema Musculoskeletal: Pain on palpation of back, rib cage, and and anterior sternum - all improved Psych: Normal mood and affect. Objective Objective Clinical Data: Abnormal lab results 09/17/18 09/17/18 Range/Units 07:30 07:30 MCHC 31.9 L (32.0-36.0) g/dL RDW 16.0 H (11.7-14.6) % Absolute Lymphocytes 0.72 L (1.2-3.4) k/cumm Glucose 137 H (70-100) mg/dL Calcium 7.4 L (8.5-10.1) mg/dL Vital Signs Temperature 36.1 C L 09/17/18 07:37 Temperature Source Tympanic 09/17/18 07:37 Pulse 72 09/17/18 07:37 Pulse Rhythm Regular 09/16/18 23:47 Pulse 98 H 09/14/18 23:31 Respiratory Rate 22 09/17/18 07:37 Respiratory Effort 09/16/18 23:47 Respiratory Depth Normal 09/16/18 23:47 Respiratory Pattern Normal 09/16/18 23:47 Blood Pressure 136/79 09/17/18 07:37 Blood Pressure Mean 91 09/14/18 23:30 Blood Pressure Position Sitting 09/14/18 19:54 Pulse Oximetry 96 09/17/18 07:37 Oxygen Delivery Method Nasal Cannula 09/17/18 07:37 Oxygen Flow Rate 5 09/17/18 07:37 Pain Level 8 09/17/18 09:49 Comment 09/15/18 18:03 Intake & Output 09/16/18 09/17/18 09/17/18 23:59 11:59 23:59 Intake Total 1480 / 4385 1350 / 1350 Output Total 1200 / 1600 7950 / 7950 Balance 280 / 2785 -6600 / -6600 Intake: IV 1000 / 2955 1000 / 1000 Oral 480 / 1430 350 / 350 Output: Urine 1200 / 1600 7950 / 7950 Other: Urine Color Yellow Yellow Urine Appearance Clear Clear Urine Odor Normal Normal Comment precautions maintained Voiding Methods Toilet Toilet Laboratory Results WBC 5.32 k/cumm (4.4-10.8) 09/17/18 07:30 RBC 4.25 m/cumm (4.00-5.20) 09/17/18 07:30 Hgb 12.1 g/dL (12.0-15.5) 09/17/18 07:30 Hct 37.9 % (36.0-46.0) 09/17/18 07:30 MCV 89.2 fL (80-95) 09/17/18 07:30 MCH 28.5 pg (27.0-33.0) 09/17/18 07:30 MCHC 31.9 g/dL (32.0-36.0) L 09/17/18 07:30 RDW 16.0 % (11.7-14.6) H 09/17/18 07:30 Plt Count 233 x1000/uL (130-400) 09/17/18 07:30 MPV 9.1 fL (8.0-11.0) 09/17/18 07:30 Immature Gran % 0.4 09/17/18 07:30 Neutrophils % 78.6 09/17/18 07:30 Lymphocytes % 13.5 09/17/18 07:30 Monocytes % 7.5 09/17/18 07:30 Eosinophils % 0.0 09/17/18 07:30 Basophils % 0.0 09/17/18 07:30 Absolute Neutrophils 4.18 k/cumm (1.2-6.7) 09/17/18 07:30 Absolute Lymphocytes 0.72 k/cumm (1.2-3.4) L 09/17/18 07:30 Absolute Monocytes 0.40 k/cumm (0.11-0.7) 09/17/18 07:30 Absolute Eosinophils 0.00 k/cumm (0.0-0.7) 09/17/18 07:30 Absolute Basophils 0.00 k/cumm (0.0-0.2) 09/17/18 07:30 PT 9.6 sec (9.3-11.0) 09/14/18 20:00 INR 1.0 (1.0-3.5) 09/14/18 20:00 APTT 24.8 sec (21.0-31.4) 09/14/18 20:00 D-Dimer 548 ng/mlFEU (<500) H 09/14/18 20:00 Sodium 140 mmol/L (136-145) 09/17/18 07:30 Potassium 4.0 mmol/L (3.5-5.1) 09/17/18 07:30 Chloride 105 mmol/L (98-107) 09/17/18 07:30 Carbon Dioxide 28.4 mmol/L (21.0-32.0) 09/17/18 07:30 Anion Gap 6.6 mmol/L (3-11) 09/17/18 07:30 BUN 12 mg/dL (7-18) 09/17/18 07:30 Creatinine 0.74 mg/dL (0.55-1.02) 09/17/18 07:30 Estimated GFR/1.73 m2 >= 60.00 (mL/min/1.73m2) 09/17/18 07:30 Glucose 137 mg/dL (70-100) H 09/17/18 07:30 Calcium 7.4 mg/dL (8.5-10.1) L 09/17/18 07:30 Magnesium 1.9 mg/dL (1.8-2.4) 09/17/18 07:30 Total Bilirubin 0.5 mg/dL (0.2-1.0) 09/14/18 20:00 AST 31 U/L (15-37) 09/14/18 20:00 ALT 35 U/L (12-78) 09/14/18 20:00 Alkaline Phosphatase 115 U/L (46-116) 09/14/18 20:00 Troponin I 0.02 ng/mL (0.00-0.06) 09/15/18 14:20 Total Protein 7.5 g/dL (6.4-8.2) 09/14/18 20:00 Albumin 3.6 g/dL (3.4-5.0) 09/14/18 20:00 Lipase 116 U/L (73-393) 09/15/18 07:55 Urine Color Yellow (Yellow) 09/14/18 20:45 Urine Clarity Sl cloudy 09/14/18 20:45 Urine pH 7.0 (5-8) 09/14/18 20:45 Ur Specific [place] 1.020 (1.005-1.025) 09/14/18 20:45 Urine Protein 30 mg/dL (Negative) H 09/14/18 20:45 Urine Ketones Negative mg/dL (Negative) 09/14/18 20:45 Urine Blood Negative (Negative) 09/14/18 20:45 Urine Nitrite Negative (Negative) 09/14/18 20:45 Urine Bilirubin Negative (Negative) 09/14/18 20:45 Urine Urobilinogen 0.2 EU/dL (Up TO 0.2) 09/14/18 20:45 Ur Leukocyte Esterase Negative (Negative) 09/14/18 20:45 Urine RBC Negative (0-2) 09/14/18 20:45 Urine WBC 0-2 HPF (0-5) 09/14/18 20:45 Ur Epithelial Cells Many HPF (Negative) 09/14/18 20:45 Urine Crystals Negative HPF (Negative) 09/14/18 20:45 Urine Bacteria Rare HPF (Negative) 09/14/18 20:45 Urine Casts Negative LPF (Negative) 09/14/18 20:45 Urine Mucus Trace (Negative) 09/14/18 20:45 Urine Other Negative (Negative) 09/14/18 20:45 Ur Culture Indicated? No/sq. contamination 09/14/18 20:45 Urine Glucose Negative mg/dL (Negative) 09/14/18 20:45 Influenza A & B (PCR) Cancelled 09/16/18 08:19
[2018-09-17] MEDS: methylPREDNISolone SUCC 125 MG VIAL 40 MG IVP (22:08)
[2018-09-18] VITALS (13 sets, daily range): BP systolic 120–137; BP diastolic 69–79; PULSE 74–87; RESP 8–22; TEMP 36.5–37.1; O2SAT 93–98
[2018-09-18] MEDS: Enoxaparin 40 MG/0.4 ML SYR SC (06:05)
[2018-09-18 07:07] LABS: Abs Immature Grans 0.03 k/cumm (0.0-0.09); Absolute Basophil Count 0.01 k/cumm (0.0-0.2); Absolute Lymphocyte Count 0.87 k/cumm (1.2-3.4); Absolute Monocyte Count 0.55 k/cumm (0.11-0.7); Absolute Neutrophil Count 6.46 k/cumm (1.2-6.7); Basophils % 0.1; HCT 39.7 % (36.0-46.0); HGB 12.6 g/dL (12.0-15.5); Immature Grans % 0.4; Mean Corp. HGB Concentration 31.7 g/dL (32.0-36.0); Mean Corpuscular Hemoglobin 28.3 pg (27.0-33.0); Mean Platelet Volume 8.9 fL (8.0-11.0); Monocytes % 6.9; Neutrophils % 81.6; Platelet Count 236 x1000/uL (130-400); RBC 4.46 m/cumm (4.00-5.20); White Blood Cell Count 7.92 k/cumm (4.4-10.8)
[2018-09-18 07:25] LABS: Anion Gap 6.6 mmol/L (3-11); BUN 11 mg/dL (7-18); CO2 29.4 mmol/L (21.0-32.0); CREATININE 0.77 mg/dL (0.55-1.02); Calcium 7.9 mg/dL (8.5-10.1); Chloride 103 mmol/L (98-107); Glucose 130 mg/dL (70-100); Potassium 3.8 mmol/L (3.5-5.1); Sodium 139 mmol/L (136-145)
[2018-09-18] MEDS: Furosemide 40 MG TAB PO (07:57)
[2018-09-18] MEDS: PARoxetine 10 MG TAB 30 MG PO (07:57)
[2018-09-18] MEDS: Oseltamivir 75 MG CAP PO ×2 (07:58→20:37)
[2018-09-18] MEDS: HYDROcodone 10/Acetaminophen 325 TAB PO ×3 (07:58→20:37)
[2018-09-18] MEDS: Benzonatate 200 MG CAP PO ×3 (07:59→20:37)
[2018-09-18] MEDS: Allopurinol 100 MG TAB PO (07:59)
[2018-09-18] MEDS: Albuterol/Ipratropium 3 ML UPD VIAL UPD (08:16)
[2018-09-18] MEDS: Budesonide 0.5 MG/2 ML UPD VIAL UPD ×2 (08:17→20:37)
[2018-09-18] MEDS: methylPREDNISolone SUCC 125 MG VIAL 40 MG IVP ×2 (10:14→22:14)
[2018-09-18] MEDS: Potassium Chloride 20 MEQ TABCR PO (10:14)
[2018-09-18] MEDS: Normal Saline Flush 10 ML SYR IVP ×2 (10:15→22:14)
--- NOTE | 2018-09-18 12:58 | PDOC.CMPRO ---
- If Service Date Differs Date of service: 09/18/18 Time of Service: 12:58 Care Management Progress Note S/O: Caro is sitting up in her chair this morning, pleasant and receptive to discussion. Caro continues to require oxygen at this time as well as IV steroids. Reviewed CM role and DC plan. A: 48 y/o female admitted 09/14/18 for SIRS, Fever P: Caro will discharge home when medically ready per MD. Anticipate patient will discharge with no services and follow up with her PCP. Caro will transport via private vehicle with her boyfriend, Jordan, or son. CM will continue to offer support to patient, family, and care team regarding discharge planning and disposition.
--- NOTE | 2018-09-18 20:23 | PGE_ITS ---
Date of Service Date of service: 09/18/18 Time of Service: 20:21 Assessment and Plan (1) Fever: Current visit: Yes Status: Acute Currently with a negative urinalysis, CT of the chest, abdomen and pelvis. Also with lack of clear source to indicate origin of infection. However, Ms. Draper is on Sprycel and has been exposed to 2 family members in the same house hold with documented influenza, and is currently suffering from a febrile upper respiratory infection. Despite negative rapid flu will treat as if the patient has influenza, and sent for an official flu PCR. Hesitant to start steroids in patient with active influenza infection, but given significantly decreased breath sounds and diffuse wheezing she was started on solumedrol with vast improvement in her breathing. Continue inhaled duo nebs, along with frequent Xopenex on a prn basis. Monitor symptoms closely. Wean steroids today. Patient is currently not neutropenic - hold off on broad-spectrum antibiotics. Continue IV fluids. (2) Chest pain: Current visit: Yes Status: Acute May be musculoskeletal - pain is reproducible and induced by deep inspiration and cough. EKG was checked and unchanged, appears nonischemic. Troponins were trended and unremarkable as well. Continue to monitor patient's symptoms - improved with muscle relaxers. 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 (4) DVT prophylaxis: Current visit: Yes Status: Acute SC Lovenox. Subjective Interval history since last seen: 48-year-old woman with a prior history of CML on Sprycel, admitted from [facility] Emergency Department on 09/14 with reported fevers. Ms. Draper has a past medical history significant for CML on a kinase inhibitor, obesity, and chronic back pain on chronic opiate therapy. The patient presented to the ED with complaints of shortness of breath, with associated fever, cough, nausea, and vomiting. She lives with her son and [id number], and reportedly her [id number] was recent diagnosed with the flu. She reportedly does not receive flu shots because they make her sick. Since her admission her son has also been diagnosed with Influenza. Workup in the emergency department was significant for an initial chest x-ray that was negative for an infection, but evidence of leukocytosis by labs. She also had a CT angiogram of her chest, abdomen and pelvis, officially reported as negative for any acute pathology. Her rapid flu swab was negative x2. She was admitted for further evaluation and treatment. On the morning after admission Ms. Draper complained of significant chest, chest wall, and back pain that worsened with deep inspiration, coughing, and palpation. An EKG was obtained and unchanged, and her troponins were trended and remained negative. She reports improvement in her back and chest pain today. Patient actually reports vast improvement in her symptoms today, stating 'I feel better'. Not yet at her baseline. Specifically no further subjective fevers, and improvement in breathing has been noted but still oxygen requiring. No other events were reported overnight. She remained afebrile for nearly 24 hours. Exam Narrative Exam Narrative: General: Patient appears improved, AAOX3, NAD Neck: Supple CV: Regular, nontachycardic, S1S2, No rubs, murmurs, or gallops. Pulmonary: Clear with improved air entry, no crackles, wheezing improved Abdomen: + Bowel Sounds, soft, nontender, nondistended, obese in contour Vascular: No lower extremity edema Musculoskeletal: Pain on palpation of back, rib cage, and and anterior sternum - all improved Psych: Normal mood and affect. Objective Objective Clinical Data: Abnormal lab results 09/18/18 09/18/18 Range/Units 06:20 06:20 MCHC 31.7 L (32.0-36.0) g/dL RDW 16.0 H (11.7-14.6) % Absolute Lymphocytes 0.87 L (1.2-3.4) k/cumm Glucose 130 H (70-100) mg/dL Calcium 7.9 L (8.5-10.1) mg/dL Vital Signs Temperature 37 C 09/18/18 15:16 Temperature Source Tympanic 09/18/18 15:16 Pulse 74 09/18/18 15:16 Pulse Rhythm Regular 09/18/18 07:55 Pulse 98 H 09/14/18 23:31 Respiratory Rate 18 09/18/18 15:16 Respiratory Effort Short of Breath 09/18/18 07:55 Respiratory Depth Normal 09/18/18 07:55 Respiratory Pattern Normal 09/18/18 07:55 Blood Pressure 120/79 09/18/18 15:16 Blood Pressure Mean 91 09/14/18 23:30 Blood Pressure Position Sitting 09/14/18 19:54 Pulse Oximetry 95 09/18/18 15:22 Oxygen Delivery Method Nasal Cannula 09/18/18 15:22 Oxygen Flow Rate 1 09/18/18 15:22 Pain Level 6 09/18/18 15:18 Comment 09/18/18 15:16 Intake & Output 09/17/18 09/18/18 09/18/18 23:59 11:59 23:59 Intake Total 870 / 1230 360 / 1230 Output Total 1500 / 2600 1100 / 2600 Balance -630 / -1370 -740 / -1370 Intake: IV 30 Oral 840 / 1200 360 / 1200 Output: Urine 1500 / 2600 1100 / 2600 Other: Urine Color Yellow Yellow Urine Appearance Clear Clear Voiding Methods Toilet Toilet Laboratory Results WBC 7.92 k/cumm (4.4-10.8) D 09/18/18 06:20 RBC 4.46 m/cumm (4.00-5.20) 09/18/18 06:20 Hgb 12.6 g/dL (12.0-15.5) 09/18/18 06:20 Hct 39.7 % (36.0-46.0) 09/18/18 06:20 MCV 89.0 fL (80-95) 09/18/18 06:20 MCH 28.3 pg (27.0-33.0) 09/18/18 06:20 MCHC 31.7 g/dL (32.0-36.0) L 09/18/18 06:20 RDW 16.0 % (11.7-14.6) H 09/18/18 06:20 Plt Count 236 x1000/uL (130-400) 09/18/18 06:20 MPV 8.9 fL (8.0-11.0) 09/18/18 06:20 Immature Gran % 0.4 09/18/18 06:20 Neutrophils % 81.6 09/18/18 06:20 Lymphocytes % 11.0 09/18/18 06:20 Monocytes % 6.9 09/18/18 06:20 Eosinophils % 0.0 09/18/18 06:20 Basophils % 0.1 09/18/18 06:20 Absolute Neutrophils 6.46 k/cumm (1.2-6.7) 09/18/18 06:20 Absolute Lymphocytes 0.87 k/cumm (1.2-3.4) L 09/18/18 06:20 Absolute Monocytes 0.55 k/cumm (0.11-0.7) 09/18/18 06:20 Absolute Eosinophils 0.00 k/cumm (0.0-0.7) 09/18/18 06:20 Absolute Basophils 0.01 k/cumm (0.0-0.2) 09/18/18 06:20 PT 9.6 sec (9.3-11.0) 09/14/18 20:00 INR 1.0 (1.0-3.5) 09/14/18 20:00 APTT 24.8 sec (21.0-31.4) 09/14/18 20:00 D-Dimer 548 ng/mlFEU (<500) H 09/14/18 20:00 Sodium 139 mmol/L (136-145) 09/18/18 06:20 Potassium 3.8 mmol/L (3.5-5.1) 09/18/18 06:20 Chloride 103 mmol/L (98-107) 09/18/18 06:20 Carbon Dioxide 29.4 mmol/L (21.0-32.0) 09/18/18 06:20 Anion Gap 6.6 mmol/L (3-11) 09/18/18 06:20 BUN 11 mg/dL (7-18) 09/18/18 06:20 Creatinine 0.77 mg/dL (0.55-1.02) 09/18/18 06:20 Estimated GFR/1.73 m2 >= 60.00 (mL/min/1.73m2) 09/18/18 06:20 Glucose 130 mg/dL (70-100) H 09/18/18 06:20 Calcium 7.9 mg/dL (8.5-10.1) L 09/18/18 06:20 Magnesium 2.0 mg/dL (1.8-2.4) 09/18/18 06:20 Total Bilirubin 0.5 mg/dL (0.2-1.0) 09/14/18 20:00 AST 31 U/L (15-37) 09/14/18 20:00 ALT 35 U/L (12-78) 09/14/18 20:00 Alkaline Phosphatase 115 U/L (46-116) 09/14/18 20:00 Troponin I 0.02 ng/mL (0.00-0.06) 09/15/18 14:20 Total Protein 7.5 g/dL (6.4-8.2) 09/14/18 20:00 Albumin 3.6 g/dL (3.4-5.0) 09/14/18 20:00 Lipase 116 U/L (73-393) 09/15/18 07:55 Urine Color Yellow (Yellow) 09/14/18 20:45 Urine Clarity Sl cloudy 09/14/18 20:45 Urine pH 7.0 (5-8) 09/14/18 20:45 Ur Specific [place] 1.020 (1.005-1.025) 09/14/18 20:45 Urine Protein 30 mg/dL (Negative) H 09/14/18 20:45 Urine Ketones Negative mg/dL (Negative) 09/14/18 20:45 Urine Blood Negative (Negative) 09/14/18 20:45 Urine Nitrite Negative (Negative) 09/14/18 20:45 Urine Bilirubin Negative (Negative) 09/14/18 20:45 Urine Urobilinogen 0.2 EU/dL (Up TO 0.2) 09/14/18 20:45 Ur Leukocyte Esterase Negative (Negative) 09/14/18 20:45 Urine RBC Negative (0-2) 09/14/18 20:45 Urine WBC 0-2 HPF (0-5) 09/14/18 20:45 Ur Epithelial Cells Many HPF (Negative) 09/14/18 20:45 Urine Crystals Negative HPF (Negative) 09/14/18 20:45 Urine Bacteria Rare HPF (Negative) 09/14/18 20:45 Urine Casts Negative LPF (Negative) 09/14/18 20:45 Urine Mucus Trace (Negative) 09/14/18 20:45 Urine Other Negative (Negative) 09/14/18 20:45 Ur Culture Indicated? No/sq. contamination 09/14/18 20:45 Urine Glucose Negative mg/dL (Negative) 09/14/18 20:45 Influenza A & B (PCR) Cancelled 09/16/18 08:19 Miscellaneous Test Pcr 09/16/18 10:30
--- NOTE | 2018-09-18 22:23 | NUR.NOTE ---
Nursing Note: 2220H Patient found in the bathroom coughing. Patient showed RN coughed up sputum in the sink. Red sticky sputum noted. Patient sat in the chair to catch up her breath. Patient complained of tightness in her chest. Given a Xopenex updraft. Tolerated nebulization well. Patient reported she is breathing better now. Reported bloody sputum to Charge nurse. RN will continue to monitor.
[2018-09-18] MEDS: Levalbuterol 0.63 MG/3 ML UPD VIAL UPD (22:34)
[2018-09-19] VITALS (9 sets, daily range): BP systolic 132–172; BP diastolic 78–95; PULSE 68–88; RESP 2–22; TEMP 36.4–37.5; O2SAT 92–96
[2018-09-19] MEDS: Levalbuterol 0.63 MG/3 ML UPD VIAL UPD (06:11)
[2018-09-19] MEDS: Enoxaparin 40 MG/0.4 ML SYR SC (06:12)
[2018-09-19 07:17] LABS: Abs Immature Grans 0.03 k/cumm (0.0-0.09); Absolute Basophil Count 0.02 k/cumm (0.0-0.2); Absolute Lymphocyte Count 1.08 k/cumm (1.2-3.4); Absolute Monocyte Count 0.54 k/cumm (0.11-0.7); Absolute Neutrophil Count 6.42 k/cumm (1.2-6.7); Basophils % 0.2; HCT 39.6 % (36.0-46.0); HGB 12.7 g/dL (12.0-15.5); Immature Grans % 0.4; Lymphocytes % 13.3; Mean Corp. HGB Concentration 32.1 g/dL (32.0-36.0); Mean Corpuscular Hemoglobin 28.5 pg (27.0-33.0); Mean Corpuscular Volume 88.8 fL (80-95); Mean Platelet Volume 8.8 fL (8.0-11.0); Monocytes % 6.7; Neutrophils % 79.4; Platelet Count 228 x1000/uL (130-400); RBC 4.46 m/cumm (4.00-5.20); RBC Distribution Width 15.8 % (11.7-14.6); White Blood Cell Count 8.09 k/cumm (4.4-10.8)
[2018-09-19 07:27] LABS: Anion Gap 7.7 mmol/L (3-11); BUN 11 mg/dL (7-18); CO2 30.3 mmol/L (21.0-32.0); CREATININE 0.83 mg/dL (0.55-1.02); Chloride 102 mmol/L (98-107); Glucose 146 mg/dL (70-100); Potassium 3.8 mmol/L (3.5-5.1); Sodium 140 mmol/L (136-145)
[2018-09-19] MEDS: Benzonatate 200 MG CAP PO ×3 (08:49→21:24)
[2018-09-19] MEDS: HYDROcodone 10/Acetaminophen 325 TAB PO ×3 (08:49→21:23)
[2018-09-19] MEDS: Allopurinol 100 MG TAB PO (08:49)
[2018-09-19] MEDS: Furosemide 40 MG TAB PO (08:50)
[2018-09-19] MEDS: Oseltamivir 75 MG CAP PO ×2 (08:50→21:24)
[2018-09-19] MEDS: PARoxetine 10 MG TAB 30 MG PO (08:50)
[2018-09-19] MEDS: Albuterol/Ipratropium 3 ML UPD VIAL UPD ×2 (09:32→12:44)
[2018-09-19] MEDS: Budesonide 0.5 MG/2 ML UPD VIAL UPD ×2 (09:39→21:26)
--- NOTE | 2018-09-19 10:42 | DI.RAD_ITS ---
SYMPTOM/DIAGNOSIS: SOB, HYPOXIA, COUGH PA AND LATERAL CHEST: Comparison is made with 09/14/18. Heart size and pulmonary vasculature are stable and within normal limits. There has developed bilateral diffuse pulmonary infiltrates. No effusions or pneumothoraces are identified. The bones are intact. IMPRESSION: Bilateral diffuse pulmonary infiltrates suspicious for pneumonia. Pulmonary edema cannot be excluded.
--- NOTE | 2018-09-19 10:50 | PGE_ITS ---
Date of Service Date of service: 09/19/18 Time of Service: 10:45 Assessment and Plan (1) Acute respiratory failure with hypoxia: Current visit: Yes Status: Acute ongoing oxygen requirements, with increasing need to 2 liters from one. continues to have moist productive cough, bloody sputum. CXR shows New patchy air space opacities bilaterally, central in distribution. May be edema, or infectious/inflammatory process. Will give extra dose of IV lasix today, BNP added, as she certainly can have a component of fluid overload. Will also place on broad spectrum antibiotics to cover for healthcare associated pneumonia. will continue close monitor and repeat CXR in am. (2) Fever: Current visit: Yes Status: Acute max temp overnight of 37.5, no longer febrile. She has remained hemodynamically stable. white count normal. No source of infection, other than suspected influenza has been identified. She continues to have oxygen requirements and productive cough. other work up for fever: Currently with a negative urinalysis, CT of the chest, abdomen and pelvis, no skin infection. Ms. Draper is on Sprycel and has been exposed to 2 family members in the same house hold with documented influenza, and is currently suffering from a febrile upper respiratory infection. Despite negative rapid flu we are treating with tamiflu as if the patient has influenza, and official flu PCR still pending. Was started on steroids for significantly decreased breath sounds and diffuse wheezing initially with vast improvement in her breathing but today feels like it may be slightly worse after weaning steroids slightly yesterday. CXR to see if she is developing a pneumonia. Will continue inhaled duo nebs, along with frequent Xopenex on a prn basis. continue steroids at current dosing. Patient is currently not neutropenic - will start broad-spectrum antibiotics for healthcare associated pneumonia Patient taking adequate PO fluids, . 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 Subjective Patient reports: shortness of breath Interval history since last seen: 48-year-old woman with a prior history of CML on Sprycel, admitted from [facility] Emergency Department on 12/31 with reported fevers, being treated with tamiflu empirically as she has 2 close contacts with positive influenza diagnosis, her rapid flu swabs have been negative X2. she has had ongoing oxygen requirements but has been weaned down to 1 liter by md but today she did desat to mid 80's with activity even on oxygen, requiring it be increased to 2 liters to recover. She states she is now with productive cough, with blood tinged sputum, and increased wheezing new since yesterday. Her appetite remains poor but she is drinking plenty of fluids. her pain is well managed. She is voiding without difficulty and states her bowels are functioning well with no c/o constipation. Exam Const General: cooperative, comfortable, in distress mild (respiratory) and ill appearing chronically Nutritional Appearance: obese Orientation: alert and oriented x3 HENMT Head: normal to inspection, normocephalic and atraumatic Mouth: moist mucous membranes abnormal (slightly dry) Neck Neck: normal visual inspection and full ROM Chest Chest: normal inspection of the chest Resp Effort & Inspection: cough Quality of cough: wet, labored and respiratory distress (mild) Auscultation: wheezes scattered wheezes (throughout) Cardio Rate: regular rate Rhythm: regular rhythm GI Inspection: normal to inspection Palpation: soft Auscultation: normal bowel sounds Skin General skin exam: no rashes or lesions noted Neuro General: alert and oriented x3 Cognition: normal cognition Speech: speech normal Motor: muscle tone normal throughout Extrem General: normal to inspection and full ROM Psych Appearance: grossly normal Speech and Movement: speech and movement normal Mood: congruent mood Affect: normal affect Attitude: cooperative Thought Process: normal Thought Content: normal Insight: insight good Judgment: judgment good Objective Objective Clinical Data: Abnormal lab results 09/19/18 09/19/18 Range/Units 07:05 07:05 RDW 15.8 H (11.7-14.6) % Absolute Lymphocytes 1.08 L (1.2-3.4) k/cumm Glucose 146 H (70-100) mg/dL Calcium 8.0 L (8.5-10.1) mg/dL Vital Signs Temperature 37.5 C 09/19/18 07:50 Temperature Source Tympanic 09/19/18 07:50 Pulse 75 09/19/18 07:50 Pulse Rhythm Regular 09/18/18 21:23 Pulse 98 H 09/14/18 23:31 Respiratory Rate 20 09/19/18 07:50 Respiratory Effort Short of Breath 09/18/18 21:23 Respiratory Depth Normal 09/18/18 21:23 Respiratory Pattern Normal 09/18/18 21:23 Blood Pressure 150/85 H 09/19/18 07:50 Blood Pressure Mean 91 09/14/18 23:30 Blood Pressure Position Sitting 09/14/18 19:54 Pulse Oximetry 94 L 09/19/18 07:50 Oxygen Delivery Method Nasal Cannula 09/19/18 07:50 Oxygen Flow Rate 1 09/19/18 07:50 Pain Level 8 09/19/18 08:49 Comment 09/18/18 15:16 Intake & Output 09/18/18 09/18/18 09/19/18 11:59 23:59 11:59 Intake Total 870 / 1230 360 / 1230 250 / 250 Output Total 1500 / 2950 1450 / 2950 400 / 400 Balance -630 / -1720 -1090 / -1720 -150 / -150 Intake: IV 30 / 30 Oral 840 / 1200 360 / 1200 250 / 250 Output: Urine 1500 / 2950 1450 / 2950 400 / 400 Other: Urine Color Yellow Yellow Yellow Urine Appearance Clear Clear Clear Urine Odor None None Voiding Methods Toilet Toilet Toilet Laboratory Results WBC 8.09 k/cumm (4.4-10.8) 09/19/18 07:05 RBC 4.46 m/cumm (4.00-5.20) 09/19/18 07:05 Hgb 12.7 g/dL (12.0-15.5) 09/19/18 07:05 Hct 39.6 % (36.0-46.0) 09/19/18 07:05 MCV 88.8 fL (80-95) 09/19/18 07:05 MCH 28.5 pg (27.0-33.0) 09/19/18 07:05 MCHC 32.1 g/dL (32.0-36.0) 09/19/18 07:05 RDW 15.8 % (11.7-14.6) H 09/19/18 07:05 Plt Count 228 x1000/uL (130-400) 09/19/18 07:05 MPV 8.8 fL (8.0-11.0) 09/19/18 07:05 Immature Gran % 0.4 09/19/18 07:05 Neutrophils % 79.4 09/19/18 07:05 Lymphocytes % 13.3 09/19/18 07:05 Monocytes % 6.7 09/19/18 07:05 Eosinophils % 0.0 09/19/18 07:05 Basophils % 0.2 09/19/18 07:05 Absolute Neutrophils 6.42 k/cumm (1.2-6.7) 09/19/18 07:05 Absolute Lymphocytes 1.08 k/cumm (1.2-3.4) L 09/19/18 07:05 Absolute Monocytes 0.54 k/cumm (0.11-0.7) 09/19/18 07:05 Absolute Eosinophils 0.00 k/cumm (0.0-0.7) 09/19/18 07:05 Absolute Basophils 0.02 k/cumm (0.0-0.2) 09/19/18 07:05 PT 9.6 sec (9.3-11.0) 09/14/18 20:00 INR 1.0 (1.0-3.5) 09/14/18 20:00 APTT 24.8 sec (21.0-31.4) 09/14/18 20:00 D-Dimer 548 ng/mlFEU (<500) H 09/14/18 20:00 Sodium 140 mmol/L (136-145) 09/19/18 07:05 Potassium 3.8 mmol/L (3.5-5.1) 09/19/18 07:05 Chloride 102 mmol/L (98-107) 09/19/18 07:05 Carbon Dioxide 30.3 mmol/L (21.0-32.0) 09/19/18 07:05 Anion Gap 7.7 mmol/L (3-11) 09/19/18 07:05 BUN 11 mg/dL (7-18) 09/19/18 07:05 Creatinine 0.83 mg/dL (0.55-1.02) 09/19/18 07:05 Estimated GFR/1.73 m2 >= 60.00 (mL/min/1.73m2) 09/19/18 07:05 Glucose 146 mg/dL (70-100) H 09/19/18 07:05 Calcium 8.0 mg/dL (8.5-10.1) L 09/19/18 07:05 Magnesium 2.0 mg/dL (1.8-2.4) 09/19/18 07:05 Total Bilirubin 0.5 mg/dL (0.2-1.0) 09/14/18 20:00 AST 31 U/L (15-37) 09/14/18 20:00 ALT 35 U/L (12-78) 09/14/18 20:00 Alkaline Phosphatase 115 U/L (46-116) 09/14/18 20:00 Troponin I 0.02 ng/mL (0.00-0.06) 09/15/18 14:20 Total Protein 7.5 g/dL (6.4-8.2) 09/14/18 20:00 Albumin 3.6 g/dL (3.4-5.0) 09/14/18 20:00 Lipase 116 U/L (73-393) 09/15/18 07:55 Urine Color Yellow (Yellow) 09/14/18 20:45 Urine Clarity Sl cloudy 09/14/18 20:45 Urine pH 7.0 (5-8) 09/14/18 20:45 Ur Specific [place] 1.020 (1.005-1.025) 09/14/18 20:45 Urine Protein 30 mg/dL (Negative) H 09/14/18 20:45 Urine Ketones Negative mg/dL (Negative) 09/14/18 20:45 Urine Blood Negative (Negative) 09/14/18 20:45 Urine Nitrite Negative (Negative) 09/14/18 20:45 Urine Bilirubin Negative (Negative) 09/14/18 20:45 Urine Urobilinogen 0.2 EU/dL (Up TO 0.2) 09/14/18 20:45 Ur Leukocyte Esterase Negative (Negative) 09/14/18 20:45 Urine RBC Negative (0-2) 09/14/18 20:45 Urine WBC 0-2 HPF (0-5) 09/14/18 20:45 Ur Epithelial Cells Many HPF (Negative) 09/14/18 20:45 Urine Crystals Negative HPF (Negative) 09/14/18 20:45 Urine Bacteria Rare HPF (Negative) 12/31/18 20:45 Urine Casts Negative LPF (Negative) 09/14/18 20:45 Urine Mucus Trace (Negative) 09/14/18 20:45 Urine Other Negative (Negative) 09/14/18 20:45 Ur Culture Indicated? No/sq. contamination 09/14/18 20:45 Urine Glucose Negative mg/dL (Negative) 09/14/18 20:45 Influenza A & B (PCR) Cancelled 09/16/18 08:19 Miscellaneous Test Pcr 09/16/18 10:30
[2018-09-19] MEDS: guaiFENesin 600 MG TABCR PO ×2 (10:59→21:24)
[2018-09-19] MEDS: methylPREDNISolone SUCC 125 MG VIAL 40 MG IVP ×2 (10:59→21:25)
[2018-09-19] MEDS: Normal Saline Flush 10 ML SYR IVP ×3 (10:59→21:25)
--- NOTE | 2018-09-19 12:08 | DI.VRAD_ITS ---
EXAM: XR Chest, 2 Views EXAM DATE/TIME: 09/19/2018 10:45 AM CLINICAL HISTORY: 48 years old, female; Signs and symptoms; Shortness of breath; Patient HX: SOB, hypoxia, cough. Patient sts has leukemia and on meds. TECHNIQUE: XR of the chest, 2 views. COMPARISON: SC XR PORTABLE CHEST AP 09/14/2018 8:07 PM FINDINGS: Lungs: New patchy air space opacities bilaterally, central in distribution. May be edema, or infectious/inflammatory process. Clinical correlation necessary. Pleural space: Unremarkable. No pleural effusion. No pneumothorax. Heart/Mediastinum: Unremarkable. No cardiomegaly. Bones/joints: Unremarkable. IMPRESSION: New patchy air space opacities bilaterally, central in distribution. May be edema, or infectious/inflammatory process. Clinical correlation necessary. Dictated and Authenticated by: Bree Walden MD. Ordering:WILMA Florentino MD
--- NOTE | 2018-09-19 13:28 | PDOC.CMPRO ---
- If Service Date Differs Date of service: 09/19/18 Time of Service: 13:28 Care Management Progress Note S/O: Caro is sitting on the edge of her bed when this insurance underwriter sales visits this morning, she is pleasant and receptive to discussion. Caro is coughing during visit and states that she coughs frequently. A CXR has bee ordered for today, and Caro' oxygen requirement has increased as of this morning. Reviewed CM role and DC plans. A: 48 y/o female admitted 09/14/18 for SIRS, Fever P: Caro will discharge home when medically ready per MD. Anticipate patient will discharge with no services and follow up with her PCP. Caro will transport via private vehicle with her boyfriend, Jordan, or son. CM will continue to offer support to patient, family, and care team regarding discharge planning and disposition.
--- NOTE | 2018-09-19 13:32 | CMPROGNOTE_ITS ---
- If Service Date Differs Date of service: 09/19/18 Time of Service: 13:28 Care Management Progress Note S/O: Caro is sitting on the edge of her bed when this designer/writer visits this morning, she is pleasant and receptive to discussion. Caro is coughing during visit and states that she coughs frequently. A CXR has bee ordered for today, and Caro' oxygen requirement has increased as of this morning. Reviewed CM role and DC plans. A: 48 y/o female admitted 09/14/18 for SIRS, Fever P: Caro will discharge home when medically ready per MD. Anticipate patient will discharge with no services and follow up with her PCP. Caro will transport via private vehicle with her boyfriend, Jordan, or son. CM will continue to offer support to patient, family, and care team regarding discharge planning and disposition.
[2018-09-19] MEDS: Furosemide 40 MG/4 ML VIAL IVP (13:34)
[2018-09-19] MEDS: CEFEPIME 2 GM in Normal Saline 100 ML IVPB ×2 (13:35→21:25)
[2018-09-19 14:21] LABS: NT-proBNP 568 pg/mL
[2018-09-19] MEDS: VANCOMYCIN 1,250 MG in Normal Saline 250 ML 250 MG IV ×2 (14:49→23:24)
[2018-09-19] MEDS: Normal Saline 500 ML 30 ML IV (15:03)
[2018-09-20] VITALS (8 sets, daily range): BP systolic 126–168; BP diastolic 72–86; PULSE 64–97; RESP 2–20; TEMP 36.4–37.2; O2SAT 85–96
[2018-09-20 02:27] LABS: Bilirubin Negative (Negative); Blood Small (Negative); Clarity Clear; Glucose Negative (Negative); Ketones Negative (Negative); Leukocyte Esterase Negative (Negative); Nitrite Negative (Negative); Specific Gravity 1.015 (1.005-1.025); Urobilinogen 0.2 EU/dL (Up TO 0.2)
[2018-09-20 02:33] LABS: Epithelial Cells Many HPF (Negative)
[2018-09-20 02:34] LABS: Bacteria Few HPF (Negative); C & S Indicated? No; Casts Negative LPF (Negative); Crystals Negative HPF (Negative); Mucus Negative (Negative); Other Cells Rare Yeast (Negative)
[2018-09-20] MEDS: CEFEPIME 2 GM in Normal Saline 100 ML IVPB ×3 (03:47→19:39)
[2018-09-20 06:16] LABS: Anion Gap 7.9 mmol/L (3-11); BUN 14 mg/dL (7-18); CO2 32.1 mmol/L (21.0-32.0); CREATININE 0.85 mg/dL (0.55-1.02); Calcium 7.8 mg/dL (8.5-10.1); Chloride 100 mmol/L (98-107); Glucose 145 mg/dL (70-100); Sodium 140 mmol/L (136-145)
[2018-09-20 06:18] LABS: Abs Immature Grans 0.05 k/cumm (0.0-0.09); HGB 12.1 g/dL (12.0-15.5); Mean Corp. HGB Concentration 32.7 g/dL (32.0-36.0); Mean Corpuscular Hemoglobin 28.2 pg (27.0-33.0); Mean Corpuscular Volume 86.2 fL (80-95); Mean Platelet Volume 9.2 fL (8.0-11.0); Platelet Count 209 x1000/uL (130-400); RBC 4.29 m/cumm (4.00-5.20); RBC Distribution Width 15.3 % (11.7-14.6); White Blood Cell Count 6.84 k/cumm (4.4-10.8)
[2018-09-20] MEDS: VANCOMYCIN 1,250 MG in Normal Saline 250 ML 250 MG IV ×3 (06:34→23:01)
[2018-09-20 07:04] LABS: Absolute Lymphocyte Count 0.62 k/cumm (1.2-3.4); Absolute Monocyte Count 0.27 k/cumm (0.11-0.7); Absolute Neutrophil Count 5.81 k/cumm (1.2-6.7); Atypical Lymphocytes % 1
[2018-09-20 07:05] LABS: Diff Comment Manual Differential; RBC Morphology Normal
--- NOTE | 2018-09-20 07:59 | DI.RAD_ITS ---
SYMPTOMS/DIAGNOSIS: NEW BILATERAL OPACITIES CHEST X-RAY, FRONTAL AND LATERAL VIEWS: Comparison is 09/19/18. The heart size is stable. There are again seen bilateral pulmonary infiltrates, which appear stable. No gross effusions or pneumothoraces are identified. Degenerative changes are seen in the spine. IMPRESSION: Stable bilateral pulmonary infiltrates. This may represent pneumonia. Pulmonary edema cannot be excluded.
[2018-09-20] MEDS: Albuterol/Ipratropium 3 ML UPD VIAL UPD (08:10)
[2018-09-20] MEDS: HYDROcodone 10/Acetaminophen 325 TAB PO ×3 (08:17→19:37)
[2018-09-20] MEDS: PARoxetine 10 MG TAB 30 MG PO (08:17)
[2018-09-20] MEDS: Furosemide 40 MG TAB PO (08:18)
[2018-09-20] MEDS: Benzonatate 200 MG CAP PO ×3 (08:18→19:38)
[2018-09-20] MEDS: Allopurinol 100 MG TAB PO (08:18)
[2018-09-20] MEDS: guaiFENesin 600 MG TABCR PO ×2 (08:18→19:38)
[2018-09-20] MEDS: Oseltamivir 75 MG CAP PO ×2 (08:18→19:37)
--- NOTE | 2018-09-20 09:37 | DI.VRAD_ITS ---
EXAM: XR Chest, 2 Views EXAM DATE/TIME: 09/20/2018 12:00 AM CLINICAL HISTORY: 48 years old, female; Signs and symptoms; Wheezing; Patient HX: New bilateral opacities. TECHNIQUE: XR of the chest, 2 views. COMPARISON: CR XR CHEST 2V PA LATERAL 09/19/2018 11:38 AM FINDINGS: Lungs: Again noted are diffuse opacities in the lung wise which may represent multifocal pneumonia or pulmonary edema. Pleural space: No definite pleural effusion Heart/Mediastinum: Stable cardiac silhouette Bones/joints: Stable IMPRESSION: Again noted are diffuse opacities in the lung wise which may represent multifocal pneumonia or pulmonary edema. Dictated and Authenticated by: Taylor Judd MD. Ordering:WILMA Florentino MD
[2018-09-20] MEDS: Budesonide 0.5 MG/2 ML UPD VIAL UPD (10:37)
[2018-09-20] MEDS: methylPREDNISolone SUCC 125 MG VIAL 40 MG IVP ×2 (10:44→21:52)
--- NOTE | 2018-09-20 11:13 | PGE_ITS ---
Date of Service Date of service: 09/20/18 Time of Service: 11:04 Assessment and Plan (1) Acute respiratory failure with hypoxia: Current visit: Yes Status: Acute ongoing oxygen requirements, now at 1 liter nc. continues to have moist productive cough, bloody sputum. CXR shows New patchy air space opacities bilaterally, central in distribution. May be edema, or infectious/inflammatory process. similar to yesterday Will give another extra dose of IV lasix today, BNP elevated, as she certainly can have a component of fluid overload. monitor electrolytes and kidney functions closely while diuresing. potassium 4.0 today. consider echocardiogram when available. Continue broad spectrum antibiotics to cover for healthcare associated pneumonia. day 2 cefepime and vancomycin will continue close monitor and repeat CXR in am. (2) Fever: Current visit: Yes Status: Acute max temp overnight of 37.4, no longer febrile. She has remained hemodynamically stable. white count remains normal. Now with evidence of pneumonia by chest x-ray, continue treatment for suspected influenza. She continues to have oxygen requirements and productive cough. other work up for fever: Currently with a negative urinalysis, CT of the chest, abdomen and pelvis, no skin infection. Ms. Draper is on Sprycel and has been exposed to 2 family members in the same house hold with documented influenza, and is currently suffering from a febrile upper respiratory infection. Despite negative rapid flu we are treating with tamiflu as if the patient has influenza, and official flu PCR still pending. Was started on steroids for significantly decreased breath sounds and diffuse wheezing initially with vast improvement in her breathing but today feels like it may be slightly worse after weaning steroids slightly yesterday. CXR to see if she is developing a pneumonia. Will continue inhaled duo nebs, along with frequent Xopenex on a prn basis. continue steroids at current dosing. Patient is currently not neutropenic - will continue broad-spectrum antibiotics for healthcare associated pneumonia, cefepime and vancomycin day #2 Patient taking adequate PO fluids, . 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 (7) Post-menopausal bleeding: Current visit: Yes Status: Acute has not had a menstrual cycle for about one year. lovenox discontinued. will need outpatient supervisor paper testing follow up. (8) Fluid overload: Current visit: Yes Status: Acute patient takes daily furosemide for peripheral edema which she reports is worse on this admission. she did receive IV fluids on admission and is fluid overloaded, she received an extra dose of IV lasix yesterday with good effect, but she was not measuring output so if not accurately reflected. Her weight today is up 2 kg since admission. she will receive an extra dose again today of lasix, which she has already diureses over 2 liters. will check potassium at 5 pm today and echocardiogram in am, she does not recall having a previous echo done. Subjective Patient reports: shortness of breath Interval history since last seen: This is a 48-year-old female patient who was admitted through the emergency department for fevers with no clear source of infection identified she has been treated empirically for influenza as she does have symptoms of upper respiratory infection and 2 family members with positive documented influenza. She has been afebrile with a normal white count she is on Sprycel for history of CML. She continues to have oxygen requirements and shortness of breath on exertion. A chest x-ray yesterday did reveal bilateral opacities concerning for pneumonia versus fluid overload a BNP was elevated at 568. She Her previous CXR and CTA were negative for acute cardiopulmonary process. She was started on cefepime and vancomycin to cover for healthcare associated pneumonia she was also given 40 mg of IV Lasix with improvement in her symptoms overnight, I&O has not been accurate overnight but she feels that she has had increased urine output. She continues to remain afebrile and hemodynamically stable. She has been weaned to room air rest but does desat into the mid to high 80s with activity, she recovered back to the mid 90's within 2 minutes on room air. A repeat chest x-ray this morning is similar to yesterday's. She is taking good p.o. fluids appetite remains poor. Bowels and bladder are functioning without difficulty. she c/o some right flank pain which spontaneously resolved. she also started a menstrual cycle, which she hasn't had in about one year. lovenox was discontinued. Exam Const General: cooperative, comfortable, in distress and ill appearing Nutritional Appearance: obese Orientation: alert and oriented x3 HENMT Head: normal to inspection, normocephalic and atraumatic Mouth: moist mucous membranes abnormal (slightly dry) Neck Neck: normal visual inspection and full ROM Chest Chest: normal inspection of the chest Resp Effort & Inspection: cough, labored and respiratory distress (mild) Auscultation: wheezes Cardio Rate: regular rate Rhythm: regular rhythm GI Inspection: normal to inspection Palpation: soft Auscultation: normal bowel sounds Skin General skin exam: no rashes or lesions noted Neuro General: alert and oriented x3 Cognition: normal cognition Speech: speech normal Motor: muscle tone normal throughout Extrem General: normal to inspection and full ROM Psych Appearance: grossly normal Speech and Movement: speech and movement normal Mood: congruent mood Affect: normal affect Attitude: cooperative Thought Process: normal Thought Content: normal Insight: insight good Judgment: judgment good Objective Objective Clinical Data: Abnormal lab results 09/19/18 09/20/18 09/20/18 Range/Units 07:05 01:30 05:47 RDW (11.7-14.6) % Absolute Lymphocytes (1.2-3.4) k/cumm Carbon Dioxide 32.1 H (21.0-32.0) mmol/L Glucose 145 H (70-100) mg/dL Calcium 7.8 L (8.5-10.1) mg/dL NT-Pro-B Natriuret Pep 568 H ( - 299) pg/mL Urine Protein 100 H (Negative) mg/dL Urine Blood Small H (Negative) Urine RBC 5-10 H (0-2) 09/20/18 Range/Units 05:47 RDW 15.3 H (11.7-14.6) % Absolute Lymphocytes 0.62 L (1.2-3.4) k/cumm Carbon Dioxide (21.0-32.0) mmol/L Glucose (70-100) mg/dL Calcium (8.5-10.1) mg/dL NT-Pro-B Natriuret Pep ( - 299) pg/mL Urine Protein (Negative) mg/dL Urine Blood (Negative) Urine RBC (0-2) Vital Signs Temperature 37 C 09/20/18 07:25 Temperature Source Tympanic 09/20/18 07:25 Pulse 64 09/20/18 07:25 Pulse Rhythm Regular 09/20/18 01:14 Pulse 98 H 09/14/18 23:31 Respiratory Rate 16 09/20/18 07:25 Respiratory Effort Short of Breath 09/20/18 01:14 Respiratory Depth Normal 09/20/18 01:14 Respiratory Pattern Normal 09/20/18 01:14 Blood Pressure 127/72 09/20/18 07:25 Blood Pressure Mean 91 09/14/18 23:30 Blood Pressure Position Sitting 09/14/18 19:54 Pulse Oximetry 96 09/20/18 10:55 Oxygen Delivery Method Room Air 09/20/18 10:55 Oxygen Flow Rate 0 09/20/18 10:55 Pain Level 8 09/19/18 21:23 Comment 09/18/18 15:16 Intake & Output 09/19/18 09/19/18 09/20/18 11:59 23:59 11:59 Intake Total 250 / 1413.5 1163.5 / 1413.5 350 / 350 Output Total 400 / 1400 1000 / 1400 300 / 300 Balance -150 / 13.5 163.5 / 13.5 50 / 50 Intake: IV 503.5 / 503.5 350 / 350 Oral 250 / 910 660 / 910 Output: Urine 400 / 1400 1000 / 1400 300 / 300 Other: Urine Color Yellow Pale Straw Yellow Urine Appearance Clear Clear Clear Clots Urine Odor None None Comment Tiny clots noted in her urine. Reffered to CN Voiding Methods Toilet Toilet Toilet Laboratory Results WBC 6.84 k/cumm (4.4-10.8) 09/20/18 05:47 RBC 4.29 m/cumm (4.00-5.20) 09/20/18 05:47 Hgb 12.1 g/dL (12.0-15.5) 09/20/18 05:47 Hct 37.0 % (36.0-46.0) 09/20/18 05:47 MCV 86.2 fL (80-95) 09/20/18 05:47 MCH 28.2 pg (27.0-33.0) 09/20/18 05:47 MCHC 32.7 g/dL (32.0-36.0) 09/20/18 05:47 RDW 15.3 % (11.7-14.6) H 09/20/18 05:47 Plt Count 209 x1000/uL (130-400) 09/20/18 05:47 MPV 9.2 fL (8.0-11.0) 09/20/18 05:47 Immature Gran % See Differential 09/20/18 05:47 Neutrophils % 85.0 09/20/18 05:47 Lymphocytes % 8.0 09/20/18 05:47 Monocytes % 4.0 09/20/18 05:47 Eosinophils % 0.0 09/20/18 05:47 Basophils % 0.0 09/20/18 05:47 Absolute Neutrophils 5.81 k/cumm (1.2-6.7) 09/20/18 05:47 Absolute Lymphocytes 0.62 k/cumm (1.2-3.4) L 09/20/18 05:47 Absolute Monocytes 0.27 k/cumm (0.11-0.7) 09/20/18 05:47 Absolute Eosinophils 0.00 k/cumm (0.0-0.7) 09/20/18 05:47 Absolute Basophils 0.00 k/cumm (0.0-0.2) 09/20/18 05:47 Metamyelocytes 1.0 % 09/20/18 05:47 Myelocytes 1.0 % 09/20/18 05:47 Differential Comment Manual differential 09/20/18 05:47 Atypical Lymphocytes 1 09/20/18 05:47 RBC Morphology Normal 09/20/18 05:47 PT 9.6 sec (9.3-11.0) 09/14/18 20:00 INR 1.0 (1.0-3.5) 09/14/18 20:00 APTT 24.8 sec (21.0-31.4) 09/14/18 20:00 D-Dimer 548 ng/mlFEU (<500) H 09/14/18 20:00 Sodium 140 mmol/L (136-145) 09/20/18 05:47 Potassium 4.0 mmol/L (3.5-5.1) 09/20/18 05:47 Chloride 100 mmol/L (98-107) 09/20/18 05:47 Carbon Dioxide 32.1 mmol/L (21.0-32.0) H 09/20/18 05:47 Anion Gap 7.9 mmol/L (3-11) 09/20/18 05:47 BUN 14 mg/dL (7-18) 09/20/18 05:47 Creatinine 0.85 mg/dL (0.55-1.02) 09/20/18 05:47 Estimated GFR/1.73 m2 >= 60.00 (mL/min/1.73m2) 09/20/18 05:47 Glucose 145 mg/dL (70-100) H 09/20/18 05:47 Calcium 7.8 mg/dL (8.5-10.1) L 09/20/18 05:47 Magnesium 2.0 mg/dL (1.8-2.4) 09/19/18 07:05 Total Bilirubin 0.5 mg/dL (0.2-1.0) 09/14/18 20:00 AST 31 U/L (15-37) 09/14/18 20:00 ALT 35 U/L (12-78) 09/14/18 20:00 Alkaline Phosphatase 115 U/L (46-116) 09/14/18 20:00 Troponin I 0.02 ng/mL (0.00-0.06) 09/15/18 14:20 NT-Pro-B Natriuret Pep 568 pg/mL (-299) H 09/19/18 07:05 Total Protein 7.5 g/dL (6.4-8.2) 09/14/18 20:00 Albumin 3.6 g/dL (3.4-5.0) 09/14/18 20:00 Lipase 116 U/L (73-393) 09/15/18 07:55 Urine Color Yellow (Yellow) 09/20/18 01:30 Urine Clarity Clear 09/20/18 01:30 Urine pH 7.0 (5-8) 09/20/18 01:30 Ur Specific [place] 1.015 (1.005-1.025) 09/20/18 01:30 Urine Protein 100 mg/dL (Negative) H 09/20/18 01:30 Urine Ketones Negative mg/dL (Negative) 09/20/18 01:30 Urine Blood Small (Negative) H 09/20/18 01:30 Urine Nitrite Negative (Negative) 09/20/18 01:30 Urine Bilirubin Negative (Negative) 09/20/18 01:30 Urine Urobilinogen 0.2 EU/dL (Up TO 0.2) 09/20/18 01:30 Ur Leukocyte Esterase Negative (Negative) 09/20/18 01:30 Urine RBC 5-10 (0-2) H 09/20/18 01:30 Urine WBC 3-5 HPF (0-5) 09/20/18 01:30 Ur Epithelial Cells Many HPF (Negative) 09/20/18 01:30 Urine Crystals Negative HPF (Negative) 09/20/18 01:30 Urine Bacteria Few HPF (Negative) 09/20/18 01:30 Urine Casts Negative LPF (Negative) 09/20/18 01:30 Urine Mucus Negative (Negative) 09/20/18 01:30 Urine Other Rare yeast (Negative) 09/20/18 01:30 Ur Culture Indicated? No 09/20/18 01:30 Urine Glucose Negative mg/dL (Negative) 09/20/18 01:30 Influenza A & B (PCR) Cancelled 09/16/18 08:19 Miscellaneous Test Pcr 09/16/18 10:30
[2018-09-20] MEDS: Normal Saline Flush 10 ML SYR IVP ×4 (12:28→21:51)
[2018-09-20] MEDS: Furosemide 100 MG/10 ML VIAL 80 MG IVP (12:30)
--- NOTE | 2018-09-20 15:35 | PDOC.CMPRO ---
- If Service Date Differs Date of service: 09/20/18 Time of Service: 15:35 Care Management Progress Note S/O: Caro is sitting on the edge of her bed when this commercial insurance underwriter visits this morning. She will have a CXR today, and continues on IV Lasix. Reviewed CM role and DC plan. A: 48 y/o female admitted 09/14/18 for SIRS, Fever P: Caro will discharge home when medically ready per MD. Anticipate patient will discharge with no services and follow up with her PCP. Caro will transport via private vehicle with her boyfriend, Jordan, or son. CM will continue to offer support to patient, family, and care team regarding discharge planning and disposition.
--- NOTE | 2018-09-20 15:41 | CMPROGNOTE_ITS ---
- If Service Date Differs Date of service: 09/20/18 Time of Service: 15:35 Care Management Progress Note S/O: Caro is sitting on the edge of her bed when this curriculum writer visits this morning. She will have a CXR today, and continues on IV Lasix. Reviewed CM role and DC plan. A: 48 y/o female admitted 09/14/18 for SIRS, Fever P: Caro will discharge home when medically ready per MD. Anticipate patient will discharge with no services and follow up with her PCP. Caro will transport via private vehicle with her boyfriend, Jordan, or son. CM will continue to offer support to patient, family, and care team regarding discharge planning and disposition.
[2018-09-20 17:37] LABS: Potassium 3.9 mmol/L (3.5-5.1)
[2018-09-20] MEDS: Normal Saline 500 ML IV (19:39)
[2018-09-20 22:37] LABS: Vancomycin, Trough 20.3 ug/mL (10.0-20.0)
[2018-09-21 04:31] VITALS: BP 160/92; PULSE 72; TEMP 36.4; O2SAT 94
[2018-09-21] MEDS: Normal Saline Flush 10 ML SYR IVP ×3 (04:36→12:08)
[2018-09-21] MEDS: CEFEPIME 2 GM in Normal Saline 100 ML IVPB ×3 (04:38→21:15)
[2018-09-21] MEDS: Acetaminophen 325 MG TAB PO (04:55)
[2018-09-21] MEDS: VANCOMYCIN 1,250 MG in Normal Saline 250 ML 167 MG IV (05:59)
[2018-09-21 07:15] LABS: Abs Immature Grans 0.08 k/cumm (0.0-0.09); HCT 38.6 % (36.0-46.0); HGB 12.3 g/dL (12.0-15.5); Mean Corp. HGB Concentration 31.9 g/dL (32.0-36.0); Mean Corpuscular Hemoglobin 27.9 pg (27.0-33.0); Mean Corpuscular Volume 87.5 fL (80-95); Mean Platelet Volume 8.9 fL (8.0-11.0); Platelet Count 223 x1000/uL (130-400); RBC 4.41 m/cumm (4.00-5.20); RBC Distribution Width 15.3 % (11.7-14.6); White Blood Cell Count 5.49 k/cumm (4.4-10.8)
[2018-09-21 07:26] LABS: Anion Gap 7.5 mmol/L (3-11); BUN 17 mg/dL (7-18); CO2 34.5 mmol/L (21.0-32.0); CREATININE 0.97 mg/dL (0.55-1.02); Calcium 8.2 mg/dL (8.5-10.1); Chloride 99 mmol/L (98-107); Glucose 144 mg/dL (70-100); Magnesium 1.7 mg/dL (1.8-2.4); Potassium 3.8 mmol/L (3.5-5.1); Sodium 141 mmol/L (136-145)
[2018-09-21 07:50] LABS: Absolute Lymphocyte Count 1.43 k/cumm (1.2-3.4); Absolute Monocyte Count 0.33 k/cumm (0.11-0.7); Absolute Neutrophil Count 3.62 k/cumm (1.2-6.7); Atypical Lymphocytes % 5; Diff Comment Manual Differential; RBC Morphology Normal
--- NOTE | 2018-09-21 08:00 | DI.RAD_ITS ---
SYMPTOMS/DIAGNOSIS: PNEUMONIA +/- FLUID OVERLOAD IN IMMUNOCOMPROMISED, SIRS, FEVER CHEST X-RAY, PA AND LATERAL: Comparison is 09/20/18. Since the prior examination, there has been improvement in the bilateral pulmonary infiltrates, particularly involving the upper lobes. There are mild bilateral opacities still present. No effusions or pneumothoraces are identified. The heart size and pulmonary vasculature are within normal limits. IMPRESSION: Improving bilateral pulmonary infiltrates since 09/20/18.
[2018-09-21] MEDS: HYDROcodone 10/Acetaminophen 325 TAB PO ×3 (08:17→21:17)
[2018-09-21] MEDS: PARoxetine 10 MG TAB 30 MG PO (08:18)
[2018-09-21] MEDS: Furosemide 40 MG TAB PO (08:19)
[2018-09-21] MEDS: guaiFENesin 600 MG TABCR PO ×2 (08:19→21:18)
[2018-09-21] MEDS: Benzonatate 200 MG CAP PO ×3 (08:19→21:17)
[2018-09-21] MEDS: Oseltamivir 75 MG CAP PO ×2 (08:20→21:19)
[2018-09-21] MEDS: Nystatin 500000 UNITS/5 ML SUSP 5ML CUP PO ×4 (08:20→21:19)
[2018-09-21] MEDS: Allopurinol 100 MG TAB PO (08:20)
[2018-09-21] MEDS: Nystatin POWDER 15 GM JAR TP ×2 (08:30→21:19)
[2018-09-21 08:43] VITALS: BP 148/85; PULSE 78; RESP 20; TEMP 37.9; O2SAT 95
[2018-09-21] MEDS: Magnesium Oxide 400 MG TAB PO ×2 (10:32→21:18)
[2018-09-21] MEDS: methylPREDNISolone SUCC 125 MG VIAL 40 MG IVP ×2 (10:33→23:17)
[2018-09-21 10:40] VITALS: PULSE 72; PULSE 74; PULSE 79; RESP 16; RESP 18; RESP 24; O2SAT 91; O2SAT 93; O2SAT 96
[2018-09-21] MEDS: Budesonide/Formoterol 160/4.5 6 GM 60 PUFF INH IH ×2 (10:43→21:17)
--- NOTE | 2018-09-21 12:50 | MERGE_ITS ---
*[facility]* *[facility]* [address] [place] [address] Date of study: 09/21/2018 Transthoracic Echocardiography M-mode, complete 2D, complete spectral Doppler, and color Doppler *STUDY CONCLUSIONS* Summary: 1. Left ventricle: The cavity size was normal. Wall thickness was increased in a pattern of mild LVH. Systolic function was hyperdynamic. The estimated ejection fraction was 65-70%. Diastolic parameters were normal. There was no evidence of elevated ventricular filling pressure by Doppler parameters. 2. Right ventricle: The cavity size was normal. Wall thickness was normal. Systolic function was normal. 3. Atrial septum: No defect or patent foramen ovale was identified. 4. Pulmonary arteries: Pulmonary systolic pressure was in the range of 30mm Hg to 40mm Hg. 5. Inferior vena cava: The vessel was patent and normal in size. The respirophasic diameter changes were in the normal range (greater than or equal to 50%), consistent with normal central venous pressure. *PATIENT PRESENTATION* Height: 165.1cm ((65in) ) S/D Pressure: 160 / 92 Weight: 139.7kg ((307.4lb) ) BSA: 2.62m^2 Test start time: 12:55 PM. Test stop time: 01:50 PM. CONSULTING Taya Ogden V PERFORMING Shawn ORDERING Mishel Beckford REFERRING Mishel Beckford HEEL STIFFENER Dee Barrios RT (R)(CT), FRIDA PERFORMING Marvin Ball *PROCEDURE DATA* Procedure information: The patient was identified by two identifiers. This study was interpreted by [facility]. Pertinent images and digital data are archived for permanent storage and are available for subsequent review. No prior study was available for comparison. Study status: Routine. Transthoracic echocardiography. M-mode, complete 2D, complete spectral Doppler, and color Doppler. A Transthoracic Echocardiogram was performed. Scanning was performed from the parasternal, apical, subcostal, and suprasternal notch acoustic windows. Images were obtained using an [id number] cardiac ultrasound machine. Image quality was adequate. Study completion: The patient tolerated the procedure well. History: PMH: heart failure. *CARDIAC ANATOMY* Left ventricle: The cavity size was normal. Wall thickness was increased in a pattern of mild LVH. Systolic function was hyperdynamic. The estimated ejection fraction was 65-70%. The tissue Doppler parameters were normal. Diastolic parameters were normal. There was no evidence of elevated ventricular filling pressure by Doppler parameters. Aortic valve: Probably trileaflet. Doppler: There was no stenosis. There was no regurgitation. VTI ratio of LVOT to aortic valve: 0.81. Valve area (VTI): 3cm^2. Indexed valve area (VTI): 1.1cm^2/m^2. Peak velocity ratio of LVOT to aortic valve: 0.7. Valve area (Vmax): 2.5cm^2. Indexed valve area (Vmax): 1cm^2/m^2. Mean velocity ratio of LVOT to aortic valve: 0.71. Valve area (Vmean): 2.6cm^2. Indexed valve area (Vmean): 1cm^2/m^2. Mean gradient (S): 7.7mm Hg. Peak gradient (S): 15.2mm Hg. Aorta: Aortic root: The aortic root was normal in size. Ascending aorta: The ascending aorta was mildly dilated. Mitral valve: Doppler: There was no evidence for stenosis. There was trivial regurgitation. Valve area by pressure half-time: 2.8cm^2. Indexed valve area by pressure half-time: 1.1cm^2/m^2. Peak gradient (D): 6.5mm Hg. Left atrium: The atrium was normal in size. Atrial septum: No defect or patent foramen ovale was identified. Right ventricle: The cavity size was normal. Wall thickness was normal. Systolic function was normal. Pulmonic valve: Doppler: There was no evidence for stenosis. There was trivial regurgitation. Tricuspid valve: Doppler: There was mild regurgitation. Pulmonary artery: Poorly visualized. Pulmonary systolic pressure was in the range of 30mm Hg to 40mm Hg. Right atrium: The atrium was normal in size. Pericardium: There was no pericardial effusion. Systemic veins: Inferior vena cava: Well visualized. The vessel was patent and normal in size. The respirophasic diameter changes were in the normal range (greater than or equal to 50%), consistent with normal central venous pressure. Baseline ECG: Normal sinus rhythm. Measurements Left ventricle Value Reference LV ID, ED, PLAX 5.5 cm 3.5 - 6.0 LV ID, ES, PLAX 3.5 cm 2.1 - 4.0 LV PW thickness, ED, PLAX 0.9 cm LV end-diastolic volume, 1-p A2C 114 ml LV ejection fraction, 1-p A2C 64 % LV end-diastolic volume, 1-p A4C 104 ml LV ejection fraction, 1-p A4C 60 % LV e', lateral 0.09 m/sec LV E/e', lateral 14 LV e', medial 0.095 m/sec LV E/e', medial 14 LV e', average 0.092 m/sec LV E/e', average 14 Ventricular septum Value Reference IVS thickness, ED, PLAX 1.2 cm LVOT Value Reference LVOT ID, A-P 2.2 cm LVOT area 3.7 cm^2 LVOT peak velocity, S 1.36 m/sec LVOT mean velocity, S 0.92 m/sec LVOT VTI, S 33.3 cm LVOT peak gradient, S 7.4 mm Hg LVOT mean gradient, S 4 mm Hg Stroke volume (SV), LVOT DP 122 ml Stroke index (SV/bsa), LVOT DP 47 ml/m^2 Aortic valve Value Reference Aortic valve peak velocity, S 1.9 m/sec Aortic valve mean velocity, S 1.3 m/sec Aortic valve VTI, S 41.0 cm Aortic mean gradient, S 7.7 mm Hg Aortic peak gradient, S 15.2 mm Hg VTI ratio, LVOT/AV 0.81 Aortic valve area, VTI 3 cm^2 Velocity ratio, peak, LVOT/AV 0.7 Aortic valve area, peak velocity 2.5 cm^2 Velocity ratio, mean, LVOT/AV 0.71 Aortic valve area, mean velocity 2.6 cm^2 Aortic valve area/bsa, mean velocity 1 cm^2/m^2 Aorta Value Reference Aortic root ID, ED 3.0 cm Ascending aorta ID, A-P, S 3.5 cm Left atrium Value Reference LA ID, A-P, ES 4.5 cm LA ID/bsa, A-P 1.7 cm/m^2 <=2.2 LA area, ES, A4C (H) 24.9 cm^2 8.8 - 23.4 LA area, ES, A2C 20 cm^2 LA volume/bsa, ES, 1-p A4C 35 ml/m^2 LA volume, ES, 2-p 70 ml LA volume/bsa, ES, 2-p 27 ml/m^2 LA/aortic root ratio 1.48 Mitral valve Value Reference Mitral E-wave peak velocity 1.28 m/sec Mitral A-wave peak velocity 1.29 m/sec Mitral deceleration time (H) 272 ms 150 - 230 Mitral pressure half-time 79 ms Mitral peak gradient, D 6.5 mm Hg Mitral E/A ratio, peak 0.99 Mitral valve area, PHT, DP 2.8 cm^2 Tricuspid valve Value Reference Tricuspid regurg peak velocity 2.9 m/sec Tricuspid peak RV-RA gradient 32.7 mm Hg Right atrium Value Reference RA area, ES, A4C 16.9 cm^2 8.3 - 19.5 Legend: (L) and (H) wayne values outside specified reference range. I have personally reviewed the images and have reviewed and edited the reported findings. Electronically signed by Derian Mc MD 09/21/2018 15:08
[2018-09-21] MEDS: VANCOMYCIN 1,000 MG in Normal Saline 250 ML 166.667 MG IV ×2 (14:21→23:17)
--- NOTE | 2018-09-21 14:27 | PDOC.CMPRO ---
- If Service Date Differs Date of service: 09/21/18 Time of Service: 14:27 Care Management Progress Note S/O: Caro is ambulating in her room this morning. She will have an ambulatory pulse ox study done with RT today. Caro also has information from disability which she is worried about. Caro already has disability, though this is for reinstatement. Caro to work with [employer] in regards to the above. A: 48 y/o female admitted 09/14/18 for SIRS, Fever P: Caro will discharge home when medically ready per MD. Anticipate patient will discharge with no services and follow up with her PCP. Caro will transport via private vehicle with her boyfriend, Jordan, or son. CM will continue to offer support to patient, family, and care team regarding discharge planning and disposition.
--- NOTE | 2018-09-21 14:32 | CMPROGNOTE_ITS ---
- If Service Date Differs Date of service: 09/21/18 Time of Service: 14:27 Care Management Progress Note S/O: Caro is ambulating in her room this morning. She will have an ambulatory pulse ox study done with RT today. Caro also has information from disability which she is worried about. Caro already has disability, though this is for reinstatement. Caro to work with [employer] in regards to the above. A: 48 y/o female admitted 09/14/18 for SIRS, Fever P: Caro will discharge home when medically ready per MD. Anticipate patient will discharge with no services and follow up with her PCP. Caro will transport via private vehicle with her boyfriend, Jordan, or son. CM will continue to offer support to patient, family, and care team regarding discharge planning and disposition.
--- NOTE | 2018-09-21 15:13 | W.PM.PROGNOT ---
Date of Service Date of service: 09/21/18 Time of Service: 15:13 Assessment and Plan (1) Acute respiratory failure with hypoxia: Current visit: Yes Status: Acute Improving. No longer requiring oxygen. Maintaining oxygen saturation in the low 90s on ambulation. Repeat chest x-ray this morning shows improving pulmonary infiltrates. Had fever this morning to 37.9. Blood cultures and UA ordered. Continue treatment with broad spectrum antibiotics. Continue IV steroids at current dose. (2) Fever: Current visit: Yes Status: Acute Fever to 37.9 this morning. Chest x-ray improving as above. Continue to IV Cefepime and Vanco (day #3). Obtain blood cultures and UA as above. 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 Continue home medications. (4) Post-menopausal bleeding: Current visit: Yes Status: Acute Continues. Has not had a menstrual cycle for about one year. Continue to hold Lovenox. Will need outpatient medical services assistant follow up. (5) Fluid overload: Current visit: Yes Status: Acute Respiratory status and edema have improved. Weight is down 2.4 kg. Continue Lasix per home dose. Continue to monitor fluid status. Echocardiogram today notes LVEF 65-70%. (6) DVT prophylaxis: Current visit: Yes Status: Acute Lovenox discontinued as above. SCDs for mechanical DVT prophylaxis. Continue to encourage PO fluids and frequent ambulation. (7) Discharge planning issues: Current visit: Yes Status: Acute She is a FULL code. She will discharge home when medically ready. This case was discussed with Dr. Whitlock who is in agreement. Subjective Interval history since last seen: This is a 48-year-old female patient who was admitted through the emergency department for fevers with no clear source of infection identified she has been treated empirically for influenza as she does have symptoms of upper respiratory infection and 2 family members with positive documented influenza. She is on Sprycel for history of CML. She had a chest x-ray that was suspicious for pneumonia as well as fluid overload. Her BNP was elevated. She was started on cefepime and vancomycin to cover for healthcare associated pneumonia she was also given 40 mg of IV Lasix with improvement in her symptoms. She had a repeat Chest x-ray this morning that shows improving bilateral pulmonary infiltrates from previous. She is no longer requiring oxygen. She became short of breath during exercise oxymetry test, however, she maintained her oxygen saturation in the low 90s and did not require oxygen. She does not feel short of breath at rest. She does have some shortness of breath with activity. She continues to feel wheezy at times. Her cough is improving. She did make note of some thick yellow sputum expectorated this morning. The edema in her lower extremities has improved. She continues to have her menses. She is eating and drinking without nausea, vomiting or diarrhea. She denies any dysuria or urinary frequency. Exam Narrative Exam Narrative: General: She is sitting up in the chair, alert and oriented, in no acute distress. Neck: Supple, no JVD. HEENT: Normocephalic, atraumatic. Pupils are equal and round. Mucous membranes are moist. Respiratory: Respirations appear even and unlabored. Lungs are diminished throughout with expiratory wheezes noted throughout. No rales. Cardiovascular: Heart has a regular rate and rhythm, no murmur appreciated. Gastrointestinal: Soft, nontender on palpation, normoactive bowel sounds throughout. No masses appreciated. Extremities: Mild edema to bilateral lower extremities. Peripheral pulses palpable. Objective Objective Clinical Data: Abnormal lab results 09/20/18 09/21/18 09/21/18 Range/Units 22:00 06:10 06:10 MCHC 31.9 L (32.0-36.0) g/dL RDW 15.3 H (11.7-14.6) % Carbon Dioxide 34.5 H (21.0-32.0) mmol/L Glucose 144 H (70-100) mg/dL Calcium 8.2 L (8.5-10.1) mg/dL Magnesium 1.7 L (1.8-2.4) mg/dL Vancomycin Trough 20.3 H* (10.0-20.0) ug/mL Vital Signs Temperature 37.9 C H 09/21/18 08:43 Temperature Source Tympanic 09/21/18 08:43 Pulse 78 09/21/18 08:43 Pulse Rhythm Regular 09/21/18 04:30 Pulse 98 H 09/14/18 23:31 Respiratory Rate 20 09/21/18 08:43 Respiratory Effort 09/21/18 08:00 Respiratory Depth Normal 09/21/18 08:00 Respiratory Pattern Normal 09/21/18 08:00 Blood Pressure 148/85 H 09/21/18 08:43 Blood Pressure Mean 91 09/14/18 23:30 Blood Pressure Position Sitting 09/14/18 19:54 Pulse Oximetry 95 09/21/18 08:43 Oxygen Delivery Method Room Air 09/21/18 08:43 Oxygen Flow Rate 0 09/21/18 08:43 Pain Level 6 09/21/18 04:55 Comment 09/18/18 15:16 Intake & Output 09/20/18 09/21/18 09/21/18 23:59 11:59 23:59 Intake Total 1796.671 / 2636.671 1236.667 / 1336.667 100 / 1336.667 Output Total 3700 / 4300 1600 / 1600 Balance -1903.329 / -1663.329 -363.333 / -263.333 100 / -263.333 Weight 137.5 kg Intake: IV 716.671 / 1316.671 666.667 / 766.667 100 / 766.667 Oral 1080 / 1320 570 / 570 Output: Urine 3700 / 4300 1600 / 1600 Other: Urine Color Yellow Yellow Urine Appearance Clear Clear Urine Odor Normal Voiding Methods Bedside Commode Laboratory Results WBC 5.49 k/cumm (4.4-10.8) 09/21/18 06:10 RBC 4.41 m/cumm (4.00-5.20) 09/21/18 06:10 Hgb 12.3 g/dL (12.0-15.5) 09/21/18 06:10 Hct 38.6 % (36.0-46.0) 09/21/18 06:10 MCV 87.5 fL (80-95) 09/21/18 06:10 MCH 27.9 pg (27.0-33.0) 09/21/18 06:10 MCHC 31.9 g/dL (32.0-36.0) L 09/21/18 06:10 RDW 15.3 % (11.7-14.6) H 09/21/18 06:10 Plt Count 223 x1000/uL (130-400) 09/21/18 06:10 MPV 8.9 fL (8.0-11.0) 09/21/18 06:10 Immature Gran % See Differential 09/21/18 06:10 Neutrophils % 66.0 09/21/18 06:10 Lymphocytes % 21.0 09/21/18 06:10 Monocytes % 6.0 09/21/18 06:10 Eosinophils % 0.0 09/21/18 06:10 Basophils % 0.0 09/21/18 06:10 Absolute Neutrophils 3.62 k/cumm (1.2-6.7) 09/21/18 06:10 Absolute Lymphocytes 1.43 k/cumm (1.2-3.4) 09/21/18 06:10 Absolute Monocytes 0.33 k/cumm (0.11-0.7) 09/21/18 06:10 Absolute Eosinophils 0.00 k/cumm (0.0-0.7) 09/21/18 06:10 Absolute Basophils 0.00 k/cumm (0.0-0.2) 09/21/18 06:10 Metamyelocytes 1.0 % 09/21/18 06:10 Myelocytes 1.0 % 09/21/18 06:10 Differential Comment Manual differential 09/21/18 06:10 Atypical Lymphocytes 5 09/21/18 06:10 RBC Morphology Normal 09/21/18 06:10 PT 9.6 sec (9.3-11.0) 09/14/18 20:00 INR 1.0 (1.0-3.5) 09/14/18 20:00 APTT 24.8 sec (21.0-31.4) 09/14/18 20:00 D-Dimer 548 ng/mlFEU (<500) H 09/14/18 20:00 Sodium 141 mmol/L (136-145) 09/21/18 06:10 Potassium 3.8 mmol/L (3.5-5.1) 09/21/18 06:10 Chloride 99 mmol/L (98-107) 09/21/18 06:10 Carbon Dioxide 34.5 mmol/L (21.0-32.0) H 09/21/18 06:10 Anion Gap 7.5 mmol/L (3-11) 09/21/18 06:10 BUN 17 mg/dL (7-18) 09/21/18 06:10 Creatinine 0.97 mg/dL (0.55-1.02) 09/21/18 06:10 Estimated GFR/1.73 m2 >= 60.00 (mL/min/1.73m2) 09/21/18 06:10 Glucose 144 mg/dL (70-100) H 09/21/18 06:10 Calcium 8.2 mg/dL (8.5-10.1) L 09/21/18 06:10 Magnesium 1.7 mg/dL (1.8-2.4) L 09/21/18 06:10 Total Bilirubin 0.5 mg/dL (0.2-1.0) 09/14/18 20:00 AST 31 U/L (15-37) 09/14/18 20:00 ALT 35 U/L (12-78) 09/14/18 20:00 Alkaline Phosphatase 115 U/L (46-116) 09/14/18 20:00 Troponin I 0.02 ng/mL (0.00-0.06) 09/15/18 14:20 NT-Pro-B Natriuret Pep 568 pg/mL (-299) H 09/19/18 07:05 Total Protein 7.5 g/dL (6.4-8.2) 09/14/18 20:00 Albumin 3.6 g/dL (3.4-5.0) 09/14/18 20:00 Lipase 116 U/L (73-393) 09/15/18 07:55 Urine Color Yellow (Yellow) 09/20/18 01:30 Urine Clarity Clear 09/20/18 01:30 Urine pH 7.0 (5-8) 09/20/18 01:30 Ur Specific [place] 1.015 (1.005-1.025) 09/20/18 01:30 Urine Protein 100 mg/dL (Negative) H 09/20/18 01:30 Urine Ketones Negative mg/dL (Negative) 09/20/18 01:30 Urine Blood Small (Negative) H 09/20/18 01:30 Urine Nitrite Negative (Negative) 09/20/18 01:30 Urine Bilirubin Negative (Negative) 09/20/18 01:30 Urine Urobilinogen 0.2 EU/dL (Up TO 0.2) 09/20/18 01:30 Ur Leukocyte Esterase Negative (Negative) 09/20/18 01:30 Urine RBC 5-10 (0-2) H 09/20/18 01:30 Urine WBC 3-5 HPF (0-5) 09/20/18 01:30 Ur Epithelial Cells Many HPF (Negative) 09/20/18 01:30 Urine Crystals Negative HPF (Negative) 09/20/18 01:30 Urine Bacteria Few HPF (Negative) 09/20/18 01:30 Urine Casts Negative LPF (Negative) 09/20/18 01:30 Urine Mucus Negative (Negative) 09/20/18 01:30 Urine Other Rare yeast (Negative) 09/20/18 01:30 Ur Culture Indicated? No 09/20/18 01:30 Urine Glucose Negative mg/dL (Negative) 09/20/18 01:30 Vancomycin Trough 20.3 ug/mL (10.0-20.0) H* 09/20/18 22:00 Influenza A & B (PCR) Cancelled 09/16/18 08:19 Miscellaneous Test Pcr 09/16/18 10:30
[2018-09-21 16:54] VITALS: BP 126/81; PULSE 70; RESP 20; TEMP 37.1; O2SAT 94
[2018-09-21 19:53] LABS: Bilirubin Negative (Negative); Blood Negative (Negative); Clarity Clear; Glucose Negative (Negative); Ketones Negative (Negative); Leukocyte Esterase Negative (Negative); Nitrite Negative (Negative); Specific Gravity 1.015 (1.005-1.025); Urobilinogen 0.2 EU/dL (Up TO 0.2); pH 7.5 (5-8)
[2018-09-21 20:18] LABS: Bacteria Negative HPF (Negative); C & S Indicated? No; Casts Negative LPF (Negative); Crystals Negative HPF (Negative); Epithelial Cells Negative HPF (Negative); Mucus Trace (Negative); RBC Negative (0-2); WBC 0-2 HPF (0-5)
[2018-09-21 21:23] VITALS: BP 146/78; PULSE 68; RESP 19; TEMP 36.9; O2SAT 95
[2018-09-22 01:02] VITALS: BP 160/95; PULSE 74; RESP 20; TEMP 36.4; O2SAT 93
[2018-09-22] MEDS: Normal Saline 500 ML 30 ML IV (04:42)
[2018-09-22] MEDS: Normal Saline Flush 10 ML SYR IVP ×2 (04:42→14:25)
[2018-09-22] MEDS: CEFEPIME 2 GM in Normal Saline 100 ML IVPB ×3 (04:43→20:44)
[2018-09-22] MEDS: VANCOMYCIN 1,000 MG in Normal Saline 250 ML 167 MG IV (06:10)
[2018-09-22] MEDS: Magnesium Oxide 400 MG TAB PO ×2 (07:42→20:44)
[2018-09-22] MEDS: Oseltamivir 75 MG CAP PO ×2 (07:42→20:45)
[2018-09-22] MEDS: Furosemide 40 MG TAB PO (07:42)
[2018-09-22] MEDS: PARoxetine 10 MG TAB 30 MG PO (07:42)
[2018-09-22] MEDS: Allopurinol 100 MG TAB PO (07:42)
[2018-09-22] MEDS: HYDROcodone 10/Acetaminophen 325 TAB PO ×3 (07:42→22:20)
[2018-09-22] MEDS: Nystatin 500000 UNITS/5 ML SUSP 5ML CUP PO ×4 (07:43→20:44)
[2018-09-22] MEDS: guaiFENesin 600 MG TABCR PO ×2 (07:43→20:44)
[2018-09-22] MEDS: Benzonatate 200 MG CAP PO ×3 (07:43→20:44)
[2018-09-22 07:49] LABS: Anion Gap 8.1 mmol/L (3-11); BUN 15 mg/dL (7-18); CO2 31.9 mmol/L (21.0-32.0); CREATININE 1.06 mg/dL (0.55-1.02); Calcium 8.4 mg/dL (8.5-10.1); Chloride 100 mmol/L (98-107); Glucose 129 mg/dL (70-100); Potassium 3.6 mmol/L (3.5-5.1); Sodium 140 mmol/L (136-145)
[2018-09-22 08:15] VITALS: O2SAT 95
[2018-09-22] MEDS: Budesonide/Formoterol 160/4.5 6 GM 60 PUFF INH IH ×2 (08:15→20:44)
[2018-09-22 08:30] VITALS: BP 160/97; PULSE 72; RESP 18; TEMP 36.9; O2SAT 95
[2018-09-22] MEDS: Nystatin POWDER 15 GM JAR TP ×2 (09:03→20:45)
[2018-09-22 13:28] LABS: Vancomycin, Trough 21.5 ug/mL (10.0-20.0)
[2018-09-22] MEDS: predniSONE 20 MG TAB 60 MG PO (14:24)
[2018-09-22 16:18] VITALS: BP 167/72; PULSE 71; RESP 17; TEMP 36.5; O2SAT 95
[2018-09-22] MEDS: VANCOMYCIN 1,000 MG in Normal Saline 250 ML 250 MG IV (17:18)
--- NOTE | 2018-09-22 17:28 | PGE_ITS ---
Date of Service Date of service: 09/22/18 Time of Service: 17:24 Assessment and Plan (1) Acute respiratory failure with hypoxia: Current visit: Yes Status: Acute Improving. No longer requiring oxygen. Maintaining oxygen saturation in the low 90s on ambulation. Repeat chest x-ray yesterday showed improving pulmonary infiltrates. Afebrile today. Blood cultures pending. UA not suspicious for infection. Continue treatment with broad spectrum antibiotics. Transition to oral steroids today. (2) Fever: Current visit: Yes Status: Acute Afebrile. Chest x-ray improving as above. Continue to IV Cefepime and Vanco (day #4). Blood cultures and UA as above. 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 Continue home medications. (4) Post-menopausal bleeding: Current visit: Yes Status: Acute Continues. Has not had a menstrual cycle for about one year. Continue to hold Lovenox. Will need outpatient multi media specialist follow up. (5) Fluid overload: Current visit: Yes Status: Acute Respiratory status and edema have improved. Weight is down. Continue Lasix per home dose. Continue to monitor fluid status. Echocardiogram yesterday notes LVEF 65-70%. (6) DVT prophylaxis: Current visit: Yes Status: Acute Lovenox discontinued as above. SCDs for mechanical DVT prophylaxis. Continue to encourage PO fluids and frequent ambulation. (7) Discharge planning issues: Current visit: Yes Status: Acute She is a FULL code. She will discharge home when medically ready. Likely in the next 24 hours. This case was discussed with Dr. Whitlock who is in agreement. Subjective Interval history since last seen: This is a 48-year-old female patient who was admitted through the emergency department for fevers with no clear source of infection identified she has been treated empirically for influenza as she does have symptoms of upper respiratory infection and 2 family members with positive documented influenza. She is on Sprycel for history of CML. She had a chest x- ray that was suspicious for pneumonia as well as fluid overload. Her BNP was elevated. She was started on cefepime and vancomycin to cover for healthcare associated pneumonia she was also given 40 mg of IV Lasix with improvement in her symptoms. She had a repeat Chest x-ray yesterday that made note of improving bilateral pulmonary infiltrates as compared to previous exam. She is no longer requiring oxygen. She reports improvement in her breathing. She has less shortness of breath, she continues to have mild shortness of breath with exertion. She does not feel wheezy. She is coughing less. She has been afebrile overnight. She transitioned to oral steroids today. She is eating and drinking. She notes improvement in her lower extremity edema. Exam Narrative Exam Narrative: General: She is sitting up in the chair, alert and oriented, in no acute distress. Neck: Supple, no JVD. HEENT: Normocephalic, atraumatic. Pupils are equal and round. Mucous membranes are moist. Respiratory: Respirations appear even and unlabored. Lungs are diminished throu ghout with improved airflow throughout and few expiratory wheezes noted throughout. No rales. Cardiovascular: Heart has a regular rate and rhythm, no murmur appreciated. Gastrointestinal: Soft, nontender on palpation, normoactive bowel sounds throughout. No masses appreciated. Extremities: Mild edema to bilateral ankles. Peripheral pulses palpable. Objective Objective Clinical Data: Abnormal lab results 09/21/18 09/22/18 09/22/18 Range/Units 16:00 06:35 12:50 Creatinine 1.06 H (0.55-1.02) mg/dL Glucose 129 H (70-100) mg/dL Calcium 8.4 L (8.5-10.1) mg/dL Urine Protein 100 H (Negative) mg/dL Vancomycin Trough 21.5 H* (10.0-20.0) ug/mL Vital Signs Temperature 36.5 C 09/22/18 16:18 Temperature Source Tympanic 09/22/18 16:18 Pulse 71 09/22/18 16:18 Pulse Rhythm Regular 09/22/18 08:30 Pulse 98 H 09/14/18 23:31 Respiratory Rate 17 09/22/18 16:18 Respiratory Effort Non-Labored 09/22/18 08:30 Respiratory Depth Normal 09/22/18 08:30 Respiratory Pattern Normal 09/22/18 08:30 Blood Pressure 167/72 H 09/22/18 16:18 Blood Pressure Mean 91 09/14/18 23:30 Blood Pressure Position Sitting 09/14/18 19:54 Pulse Oximetry 95 09/22/18 16:18 Oxygen Delivery Method Room Air 09/22/18 16:18 Oxygen Flow Rate 0 09/22/18 16:18 Pain Level 6 09/22/18 14:24 Comment 09/18/18 15:16 Intake & Output 09/21/18 09/22/18 09/22/18 23:59 11:59 23:59 Intake Total 450 / 2294.541 1875 / 1924 260 / 1924 Output Total 300 / 1900 1900 / 2900 1000 / 2900 Balance 150 / -213.333 -236 / -976 -740 / -976 Intake: IV 450 / 1116.667 714 / 734 20 / 734 Oral 950 / 1190 240 / 1190 Output: Urine 300 / 1900 1900 / 2900 1000 / 2900 Other: Urine Color Yellow Yellow Yellow Urine Appearance Clear Clear Clear Urine Odor Normal Normal Voiding Methods Toilet Toilet Toilet Laboratory Results WBC 5.49 k/cumm (4.4-10.8) 09/21/18 06:10 RBC 4.41 m/cumm (4.00-5.20) 09/21/18 06:10 Hgb 12.3 g/dL (12.0-15.5) 09/21/18 06:10 Hct 38.6 % (36.0-46.0) 09/21/18 06:10 MCV 87.5 fL (80-95) 09/21/18 06:10 MCH 27.9 pg (27.0-33.0) 09/21/18 06:10 MCHC 31.9 g/dL (32.0-36.0) L 09/21/18 06:10 RDW 15.3 % (11.7-14.6) H 09/21/18 06:10 Plt Count 223 x1000/uL (130-400) 09/21/18 06:10 MPV 8.9 fL (8.0-11.0) 09/21/18 06:10 Immature Gran % See Differential 09/21/18 06:10 Neutrophils % 66.0 09/21/18 06:10 Lymphocytes % 21.0 09/21/18 06:10 Monocytes % 6.0 09/21/18 06:10 Eosinophils % 0.0 09/21/18 06:10 Basophils % 0.0 09/21/18 06:10 Absolute Neutrophils 3.62 k/cumm (1.2-6.7) 09/21/18 06:10 Absolute Lymphocytes 1.43 k/cumm (1.2-3.4) 09/21/18 06:10 Absolute Monocytes 0.33 k/cumm (0.11-0.7) 09/21/18 06:10 Absolute Eosinophils 0.00 k/cumm (0.0-0.7) 09/21/18 06:10 Absolute Basophils 0.00 k/cumm (0.0-0.2) 09/21/18 06:10 Metamyelocytes 1.0 % 09/21/18 06:10 Myelocytes 1.0 % 09/21/18 06:10 Differential Comment Manual differential 09/21/18 06:10 Atypical Lymphocytes 5 09/21/18 06:10 RBC Morphology Normal 09/21/18 06:10 PT 9.6 sec (9.3-11.0) 09/14/18 20:00 INR 1.0 (1.0-3.5) 09/14/18 20:00 APTT 24.8 sec (21.0-31.4) 09/14/18 20:00 D-Dimer 548 ng/mlFEU (<500) H 09/14/18 20:00 Sodium 140 mmol/L (136-145) 09/22/18 06:35 Potassium 3.6 mmol/L (3.5-5.1) 09/22/18 06:35 Chloride 100 mmol/L (98-107) 09/22/18 06:35 Carbon Dioxide 31.9 mmol/L (21.0-32.0) 09/22/18 06:35 Anion Gap 8.1 mmol/L (3-11) 09/22/18 06:35 BUN 15 mg/dL (7-18) 09/22/18 06:35 Creatinine 1.06 mg/dL (0.55-1.02) H 09/22/18 06:35 Estimated GFR/1.73 m2 55.10 (mL/min/1.73m2) 09/22/18 06:35 Glucose 129 mg/dL (70-100) H 09/22/18 06:35 Calcium 8.4 mg/dL (8.5-10.1) L 09/22/18 06:35 Magnesium 2.0 mg/dL (1.8-2.4) 09/22/18 06:35 Total Bilirubin 0.5 mg/dL (0.2-1.0) 09/14/18 20:00 AST 31 U/L (15-37) 09/14/18 20:00 ALT 35 U/L (12-78) 09/14/18 20:00 Alkaline Phosphatase 115 U/L (46-116) 09/14/18 20:00 Troponin I 0.02 ng/mL (0.00-0.06) 09/15/18 14:20 NT-Pro-B Natriuret Pep 568 pg/mL (-299) H 09/19/18 07:05 Total Protein 7.5 g/dL (6.4-8.2) 09/14/18 20:00 Albumin 3.6 g/dL (3.4-5.0) 09/14/18 20:00 Lipase 116 U/L (73-393) 09/15/18 07:55 Urine Color Yellow (Yellow) 09/21/18 16:00 Urine Clarity Clear 09/21/18 16:00 Urine pH 7.5 (5-8) 09/21/18 16:00 Ur Specific [place] 1.015 (1.005-1.025) 09/21/18 16:00 Urine Protein 100 mg/dL (Negative) H 09/21/18 16:00 Urine Ketones Negative mg/dL (Negative) 09/21/18 16:00 Urine Blood Negative (Negative) 09/21/18 16:00 Urine Nitrite Negative (Negative) 09/21/18 16:00 Urine Bilirubin Negative (Negative) 09/21/18 16:00 Urine Urobilinogen 0.2 EU/dL (Up TO 0.2) 09/21/18 16:00 Ur Leukocyte Esterase Negative (Negative) 09/21/18 16:00 Urine RBC Negative (0-2) 09/21/18 16:00 Urine WBC 0-2 HPF (0-5) 09/21/18 16:00 Ur Epithelial Cells Negative HPF (Negative) 09/21/18 16:00 Urine Crystals Negative HPF (Negative) 09/21/18 16:00 Urine Bacteria Negative HPF (Negative) 09/21/18 16:00 Urine Casts Negative LPF (Negative) 09/21/18 16:00 Urine Mucus Trace (Negative) 09/21/18 16:00 Urine Other Rare yeast (Negative) 09/20/18 01:30 Ur Culture Indicated? No 09/21/18 16:00 Urine Glucose Negative mg/dL (Negative) 09/21/18 16:00 Vancomycin Trough 21.5 ug/mL (10.0-20.0) H* 09/22/18 12:50 Influenza A & B (PCR) Cancelled 09/16/18 08:19 Miscellaneous Test Pcr 09/16/18 10:30
--- NOTE | 2018-09-22 17:42 | PDOC.CMPRO ---
Care Management Progress Note S/O: Caro remains on precautions at this time. Per MD she will likely discharge home as soon as tomorrow-she continues to be monitored on IV Steroids at this time. CM will continue to follow. A: 48 y/o female admitted 09/14/18 for SIRS, Fever P: Caro will discharge home when medically ready per MD. Anticipate patient will discharge with no services and follow up with her PCP and [facility]. Caro will transport via private vehicle with her boyfriend, Jordan, or son. CM will continue to offer support to patient, family, and care team regarding discharge planning and disposition.
[2018-09-23 01:22] VITALS: BP 150/71; PULSE 72; RESP 19; TEMP 37.3; O2SAT 96
[2018-09-23] MEDS: VANCOMYCIN 1,000 MG in Normal Saline 250 ML 250 MG IV (01:37)
[2018-09-23] MEDS: Normal Saline 500 ML 30 ML IV (01:37)
[2018-09-23] MEDS: Normal Saline Flush 10 ML SYR IVP (01:37)
[2018-09-23] MEDS: CEFEPIME 2 GM in Normal Saline 100 ML IVPB (04:01)
[2018-09-23] MEDS: HYDROcodone 10/Acetaminophen 325 TAB PO ×2 (06:34→13:50)
[2018-09-23 07:40] VITALS: O2SAT 93
[2018-09-23] MEDS: Budesonide/Formoterol 160/4.5 6 GM 60 PUFF INH IH (07:41)
[2018-09-23 08:29] VITALS: BP 163/82; PULSE 73; RESP 18; TEMP 37.3; O2SAT 95
[2018-09-23] MEDS: Magnesium Oxide 400 MG TAB PO (09:09)
[2018-09-23] MEDS: Furosemide 40 MG TAB PO (09:09)
[2018-09-23] MEDS: Allopurinol 100 MG TAB PO (09:09)
[2018-09-23] MEDS: Nystatin 500000 UNITS/5 ML SUSP 5ML CUP PO (09:09)
[2018-09-23] MEDS: predniSONE 20 MG TAB 60 MG PO (09:09)
[2018-09-23] MEDS: PARoxetine 10 MG TAB 30 MG PO (09:10)
[2018-09-23] MEDS: guaiFENesin 600 MG TABCR PO (09:10)
[2018-09-23] MEDS: Benzonatate 200 MG CAP PO ×2 (09:10→13:50)
[2018-09-23] MEDS: Oseltamivir 75 MG CAP PO (09:10)
[2018-09-23 10:35] VITALS: PULSE 82; PULSE 86; PULSE 88; RESP 20; RESP 24; O2SAT 92; O2SAT 95; O2SAT 97
[2018-09-23 11:32] LABS: Vancomycin, Trough 15.8 ug/mL (10.0-20.0)
--- NOTE | 2018-09-23 11:36 | PDOC.CMDIS ---
- If Service Date Differs Date of service: 09/23/18 Time of Service: 11:36 LACE Index Scoring Tool - Questions: Length of Stay (in days): 7 - 13 Acuity (Admit via E.D.?): Yes Comorbidities: Any Tumor (CML) E.D. Visits: 2 - Answers: Total Score: 12 Risk of Readmission: High Risk Care Management Discharge Reason for Hospitalization: Fever, Nausea, Vomiting Discharge Plan: Caro will return home today with no services. She will F/U with PCP and plan of care as prescribed. Caro will also F/U with [facility] in regards to her disability payment. Caro' family will transport her home today. Patient/Family Education Needs: Review DC instructions, any limitations, and discuss 'Ask Me Three'
--- NOTE | 2018-09-23 12:36 | W.PM.DS.N ---
Date of service: 09/23/18 Time of Service: 12:36 DS: Diagnosis Discharge Diagnosis (1) Acute respiratory failure with hypoxia: Status: Acute (2) Fever: Status: Acute (3) CML (chronic myeloid leukemia): Status: Chronic (4) Post-menopausal bleeding: Status: Acute (5) Fluid overload: Status: Acute Discharge Plan Disposition Patient Disposition: HOME Condition: Good Discharge Details Reason For Visit: SIRS, FEVER Admit Date/Time: 09/14/18 23:19 Admit Provider: Derian Sparks Attending Provider: Derian Sparks Primary Care Provider: Taya Ogden V Hospital Course Hospital Course: Ms. Draper has a past medical history significant for CML on a kinase inhibitor, obesity, and chronic back pain on chronic opiate therapy. The patient presented to the ED on 09/15/18 with complaints of shortness of breath, with associated fever, cough, nausea, and vomiting. She lives with her son and [id number], and reportedly her [id number] was recent diagnosed with the flu. She reportedly does not receive flu shots because she feels that they make her sick. Workup in the emergency department was significant for an initial chest x-ray that was negative for an infection, but evidence of leukocytosis by labs. She also had a CT angiogram of her chest, abdomen and pelvis, officially reported as negative for any acute pathology. Her rapid flu swab was negative x2. She was admitted for further evaluation and treatment. Given her exposure to the flu as well as her immunocompromised status, Tamiflu was initiated. She went on to have increasing shortness of breath and significant wheezing as well as chest discomfort associated with breathing/coughing and increasing oxygen requirement. She went on to have a repeat Chest x-ray that revealed New patchy air space opacities bilaterally, central in distribution. May be edema, or infectious/inflammatory process. She received IV lasix and was started on broad spectrum antibiotics and IV steroids. She improved from a respiratory standpoint. She transitioned to oral steroids the day prior to her discharge home and tolerated the transition well. On the day of discharge, she is no longer wheezing. She denies shortness of breath, she is not coughing, she does not feel wheezy. She had an ambulatory pulse oximetry assessment and remained in the 90s. She tolerated the assessment well. She will receive 2 more days of antibiotics and a prednisone taper. She will follow up with her PCP as scheduled. Home Meds and New Rx's Prescriptions: New nicotine 14 mg/24 hr Patch 24 Hour 14 mg Transdermal DAILY PRN PRNQty: 0 RF: 0 benzonatate 200 mg Capsule 200 mg PO TID PRNQty: 15 RF: 0 levofloxacin [Levaquin] 750 mg tablet 750 mg PO DAILY Qty: 2 RF: 0 prednisone 10 mg tablet 10 mg PO DAILY Qty: 20 RF: 0 Continued hydrocodone-acetaminophen 1 EACH tablet 2 ea PO q6 RF: 0 morphine [MS Contin] 15 MG tablet extended release 15 mg PO Q6H PRN RF: 0 allopurinol 100 MG tablet 100 mg PO DAILY RF: 0 promethazine 25 MG tablet 25 mg PO PRN PRNRF: 0 Sprycel 50 MG tablet 100 mg PO DAILY RF: 0 sennosides [Senokot] 1 TAB tablet 1 tab PO BID PRN PRN (Reason: Constipation) Qty: 60 RF: 0 furosemide [Lasix] 40 mg Tablet 40 mg PO DAILY RF: 0 paroxetine HCl 30 mg Tablet 30 mg PO DAILY RF: 0 Discharge Instructions Instructions: Pneumonia (DC) Additional Instructions: Taper steroids as directed. Take 4 tablets (40mg) x2 days, then 3 tabs (30mg) x2 days, then 2 tabs (20 mg) x2 days, then 1 tablet x2 days then stop. Take antibiotics for 2 more days. Follow up with your PCP. Follow up with your [employer] provider about your vaginal bleeding. Take care! Stand Alone Forms: Nursing Discharge Form Referrals: Taya Ogden MD [Primary Care Provider] - 09/29/18 10:15 am Activity:: Activity as Tolerated Equipment/Supplies:: No Equipment Needed Diet:: As Tolerated Discharge Orders Discharge Orders: Discharge Order (Routine); Ordered 09/23/18 Ordered By: Cindy Cardona Exam Narrative Exam Narrative: General: She is sitting up in the chair, alert and oriented, in no acute distress. Neck: Supple, no JVD. HEENT: Normocephalic, atraumatic. Pupils are equal and round. Mucous membranes are moist. Respiratory: Respirations appear even and unlabored. Lungs are clear to auscultation throughout, no rales or wheezing noted. Cardiovascular: Heart has a regular rate and rhythm, no murmur appreciated. Gastrointestinal: Soft, nontender on palpation, normoactive bowel sounds throughout. No masses appreciated. Extremities: Mild edema to bilateral ankles. Peripheral pulses palpable. DS: Data Vitals/I&O Vitals and I&O: Vital Signs Temperature 37.3 C 09/23/18 08:29 Temperature Source Tympanic 09/23/18 08:29 Pulse 73 09/23/18 08:29 Pulse Rhythm Regular 09/23/18 01:37 Pulse 98 H 09/14/18 23:31 Respiratory Rate 18 09/23/18 08:29 Respiratory Effort 09/23/18 01:37 Respiratory Depth Normal 09/23/18 01:37 Respiratory Pattern Normal 09/23/18 01:37 Blood Pressure 163/82 H 09/23/18 08:29 Blood Pressure Mean 91 09/14/18 23:30 Blood Pressure Position Sitting 09/14/18 19:54 Pulse Oximetry 95 09/23/18 08:29 Oxygen Delivery Method Room Air 09/23/18 08:29 Oxygen Flow Rate 0 09/23/18 08:29 Pain Level 4 09/23/18 08:29 Comment 09/23/18 08:29 Intake & Output 09/22/18 09/23/18 09/23/18 23:59 11:59 23:59 Intake Total 1835 / 3499 826 / 826 Output Total 1000 / 2900 3500 / 3500 Balance 835 / 599 -2674 / -2674 Weight 137.8 kg Intake: IV 470 / 1184 576 / 576 Oral 1365 / 2315 250 / 250 Output: Urine 1000 / 2900 3500 / 3500 Other: Urine Color Yellow Pale Yellow Urine Appearance Clear Clear Urine Odor Normal Normal Voiding Methods Toilet Toilet Completed studies during hospitalization [Text1]: 09/14/18: PORTABLE AP CHEST: Comparison is made with 12/13/09. The lung bases are suboptimally penetrated due to the patient's body habitus. The heart size is within normal limits. No gross infiltrates, effusions or pulmonary edema is seen. IMPRESSION: Limited exam. No gross evidence of an acute abnormality. PE CHEST CT: CT angiography was performed with multi slice acquisition and multi planar and 3D reconstruction. The pulmonary arteries and aorta are both well opacified with IV contrast. No emboli or aortic dissection is seen. The heart size is normal. There are no pleural or pericardial effusions. There is some respiratory motion. The lungs appear clear. IMPRESSION: Negative chest CT. ABDOMEN AND PELVIC CT: The exam is limited by the patient's body habitus and respiratory motion. The patient is status post cholecystectomy. There is no biliary dilatation. There may be mild fatty infiltration of the liver. The spleen, pancreas and adrenals are unremarkable. Cysts are noted in the right kidney. There is no bowel dilatation or inflammatory change. The urinary bladder is nearly empty. The uterus and ovaries are unremarkable. IMPRESSION: No acute abnormality. 09/19/18: PA AND LATERAL CHEST: Comparison is made with 09/14/18. Heart size and pulmonary vasculature are stable and within normal limits. There has developed bilateral diffuse pulmonary infiltrates. No effusions or pneumothoraces are identified. The bones are intact. IMPRESSION: Bilateral diffuse pulmonary infiltrates suspicious for pneumonia. Pulmonary edema cannot be excluded. 09/20/18: CHEST X-RAY, FRONTAL AND LATERAL VIEWS: Comparison is 09/19/18. The heart size is stable. There are again seen bilateral pulmonary infiltrates, which appear stable. No gross effusions or pneumothoraces are identified. Degenerative changes are seen in the spine. IMPRESSION: Stable bilateral pulmonary infiltrates. This may represent pneumonia. Pulmonary edema cannot be excluded. 09/21/18: CHEST X-RAY, PA AND LATERAL: Comparison is 09/20/18. Since the prior examination, there has been improvement in the bilateral pulmonary infiltrates, particularly involving the upper lobes. There are mild bilateral opacities still present. No effusions or pneumothoraces are identified. The heart size and pulmonary vasculature are within normal limits. IMPRESSION: Improving bilateral pulmonary infiltrates since 09/20/18. 09/21/18: Summary: 1. Left ventricle: The cavity size was normal. Wall thickness was increased in a pattern of mild LVH. Systolic function was hyperdynamic. The estimated ejection fraction was 65-70%. Diastolic parameters were normal. There was no evidence of elevated ventricular filling pressure by Doppler parameters. 2. Right ventricle: The cavity size was normal. Wall thickness was normal. Systolic function was normal. 3. Atrial septum: No defect or patent foramen ovale was identified. 4. Pulmonary arteries: Pulmonary systolic pressure was in the range of 30mm Hg to 40mm Hg. 5. Inferior vena cava: The vessel was patent and normal in size. The respirophasic diameter changes were in the normal range (greater than or equal to 50%), consistent with normal central venous pressure. Labs on day of discharge: Labs from last 24 hours 09/23/18 09/22/18 11:10 12:50 Vancomycin Trough 15.8 21.5 H* Preliminary micro results at discharge 09/21/18 16:15 Blood Culture - Preliminary Blood NO GROWTH 24 HOURS 09/21/18 16:05 Blood Culture - Preliminary Blood NO GROWTH 24 HOURS PFS Medical History Pancreatitis (Resolved 08/27/13) CML (chronic myeloid leukemia) (Chronic) Surgical History H/O section (Resolved) Cholecystectomy (Resolved) Social History household members: spouse and children Smoking/Tobacco Use Status: Former Tobacco Use
== END 2018-09-23 15:08 | disposition home or self-care (01) | DRG 189 ==
LOC: ER 22:35 → MS 09-16 15:35
PROVIDERS: Family Medicine; Internal Medicine; Nurse Practitioner; Nurse Practitioner Acute Care; Admitting Provider Family Medicine; Emergency Provider Student in an Organized Health Care Education/Training Program; PCP Family Medicine; Visit Provider Internal Medicine
DX: J96.01 Acute respiratory failure with hypoxia (principal); C92.10 Chronic myeloid leukemia, BCR/ABL-positive, not having achieved remission; R50.9 Fever, unspecified; E86.0 Dehydration; R07.9 Chest pain, unspecified; R11.2 Nausea with vomiting, unspecified; J06.9 Acute upper respiratory infection, unspecified; E87.70 Fluid overload, unspecified; E66.9 Obesity, unspecified; G89.29 Other chronic pain; M54.9 Dorsalgia, unspecified; Z79.891 Long term (current) use of opiate analgesic; Z20.89 Contact with and (suspected) exposure to other communicable diseases; Z79.899 Other long term (current) drug therapy; R06.02 Shortness of breath; N95.0 Postmenopausal bleeding; R60.0 Localized edema; I51.7 Cardiomegaly
CPT/HCPCS: 36410; 36415; 71275; 74177; 80048; 80053; 83690; 87040; 87449; 87631; 93005; 93306; 94618; 94640; 96361; 96365; 96374; 96375; 96376; 99219; 99222; 99231; 99232; 99233; 99238; 99239; 99285; J1650; 71045; 71046; 80202; 81003; 81015; 83735; 83880; 84132; 84484; 85025; 85379; 85610; 85730; 93010; G0378; J0456; J0696; J1940; J2405; J2765; J2930; J3490; J7512; J7614; J7620; J7626

== ENCOUNTER 2018-09-29 13:10 | Outpatient (REF) | payer MEDICARE, MEDICAID, SELFPAY ==
[2018-10-03 06:05] LABS: Codeine 31 ng/mL (Cutoff: 25); Dihydrocodeine 529 ng/mL (Cutoff: 25); Hydrocodone 2051 ng/mL (Cutoff: 25); Hydromorphone 368 ng/mL (Cutoff: 25); Morphine 21662 ng/mL (Cutoff: 25); Naloxone Negative ng/mL (Cutoff: 25); Norhydrocodone 1469 ng/mL (Cutoff: 25); Noroxycodone Negative ng/mL (Cutoff: 25); Noroxymorphone Negative ng/mL (Cutoff: 25); Opiates Interpretation Positive.
== END 2018-09-29 13:30 ==
LOC: NCHCN 13:10
PROVIDERS: PCP Family Medicine; Visit Provider Family Medicine
DX: G89.29 Other chronic pain (principal); Z79.891 Long term (current) use of opiate analgesic
CPT/HCPCS: 80361

== ENCOUNTER 2019-02-15 13:36 | Outpatient (CLI) | payer MEDICARE, MEDICAID, SELFPAY ==
[2019-02-15 13:55] LABS: Abs Immature Grans 0.03 k/cumm (0.0-0.09); Absolute Basophil Count 0.07 k/cumm (0.0-0.2); Absolute Eosinophil Count 0.36 k/cumm (0.0-0.7); Absolute Neutrophil Count 4.62 k/cumm (1.2-6.7); Basophils % 0.6; Eosinophils % 3.3; HCT 40.6 % (36.0-46.0); HGB 13.1 g/dL (12.0-15.5); Immature Grans % 0.3; Lymphocytes % 47.9; Mean Corp. HGB Concentration 32.3 g/dL (32.0-36.0); Mean Corpuscular Hemoglobin 27.6 pg (27.0-33.0); Mean Corpuscular Volume 85.5 fL (80-95); Mean Platelet Volume 8.5 fL (8.0-11.0); Monocytes % 6.1; Platelet Count 337 x1000/uL (130-400); RBC 4.75 m/cumm (4.00-5.20); White Blood Cell Count 11.06 k/cumm (4.4-10.8)
[2019-02-15 14:04] LABS: Absolute Monocyte Count 0.67 k/cumm (0.11-0.7)
[2019-02-15 14:29] LABS: ALT 21 U/L (12-78); AST 16 U/L (15-37); Albumin 3.5 g/dL (3.4-5.0); Alkaline Phosphatase 103 U/L (46-116); Anion Gap 9.1 mmol/L (3-11); BUN 12 mg/dL (7-18); Bilirubin, Total 0.2 mg/dL (0.2-1.0); CO2 27.9 mmol/L (21.0-32.0); CREATININE 1.07 mg/dL (0.55-1.02); Calcium 8.7 mg/dL (8.5-10.1); Chloride 101 mmol/L (98-107); Glucose 117 mg/dL (70-100); Potassium 3.8 mmol/L (3.5-5.1); Sodium 138 mmol/L (136-145); Total Protein 7.2 g/dL (6.4-8.2)
[2019-02-15 14:41] LABS: Ferritin 62 ng/mL (8-388)
[2019-02-15 14:44] LABS: Diff Comment Manual Differential
[2019-02-15 14:48] LABS: Anisocytosis 1+; Neutrophils % 41.8
[2019-02-15 14:49] LABS: Microcytosis 1+; Polychromasia Present; Stomatocytes 2+
== END 2019-02-15 13:56 ==
PROVIDERS: PCP Family Medicine; Referring Provider Internal Medicine Medical Oncology; Visit Provider Nurse Practitioner
DX: C92.10 Chronic myeloid leukemia, BCR/ABL-positive, not having achieved remission (principal); G25.81 Restless legs syndrome
CPT/HCPCS: 36415; 80053; 82728; 85025

== ENCOUNTER 2019-02-25 11:05 | Outpatient (CLI) | payer MEDICARE, MEDICAID, SELFPAY ==
[2019-03-04 09:37] LABS: Specimen Type Peripheral blood
== END 2019-02-25 11:25 ==
PROVIDERS: PCP Family Medicine; Visit Provider Internal Medicine Hematology & Oncology
DX: C92.10 Chronic myeloid leukemia, BCR/ABL-positive, not having achieved remission (principal)
CPT/HCPCS: 36415; 81206

== ENCOUNTER 2019-04-13 15:54 | Emergency (ER) | payer MEDICARE, MEDICAID, SELFPAY ==
[2019-04-13 16:03] VITALS: BP 121/74; PULSE 66; RESP 14; TEMP 36
[2019-04-13 16:29] LABS: Abs Immature Grans 0.03 k/cumm (0.0-0.09); Absolute Basophil Count 0.07 k/cumm (0.0-0.2); Absolute Eosinophil Count 0.28 k/cumm (0.0-0.7); Absolute Lymphocyte Count 3.96 k/cumm (1.2-3.4); Absolute Neutrophil Count 3.83 k/cumm (1.2-6.7); Basophils % 0.8; Eosinophils % 3.2; HCT 39.9 % (36.0-46.0); HGB 12.7 g/dL (12.0-15.5); Immature Grans % 0.3; Lymphocytes % 45.2; Mean Corp. HGB Concentration 31.8 g/dL (32.0-36.0); Mean Corpuscular Hemoglobin 27.6 pg (27.0-33.0); Mean Corpuscular Volume 86.7 fL (80-95); Mean Platelet Volume 8.8 fL (8.0-11.0); Monocytes % 6.8; Neutrophils % 43.7; Platelet Count 311 x1000/uL (130-400); RBC Distribution Width 17.1 % (11.7-14.6); White Blood Cell Count 8.77 k/cumm (4.4-10.8)
--- NOTE | 2019-04-13 16:29 | ED.GENADUL_ITS ---
Discharge Plan Disposition Patient Disposition: HOME Condition: Improving Discharge Details Chief Complaint: Chest Pain Clinical Impression: Bronchospasm, acute Primary Care Provider: Taya Ogden V ED Provider: Prosper Ball Home Meds and New Rx's Prescriptions: New prednisone 50 mg tablet 50 mg PO DAILY Qty: 5 RF: 0 Continued hydrocodone-acetaminophen 1 EACH tablet 2 ea PO q6 RF: 0 morphine [MS Contin] 15 MG tablet extended release 15 mg PO Q6H PRN RF: 0 allopurinol 100 MG tablet 100 mg PO DAILY RF: 0 promethazine 25 MG tablet 25 mg PO PRN PRNRF: 0 Sprycel 50 MG tablet 100 mg PO DAILY RF: 0 sennosides [Senokot] 1 TAB tablet 1 tab PO BID PRN PRN (Reason: Constipation) Qty: 60 RF: 0 furosemide [Lasix] 40 mg Tablet 40 mg PO DAILY RF: 0 paroxetine HCl 30 mg Tablet 30 mg PO DAILY RF: 0 nicotine 14 mg/24 hr Patch 24 Hour 14 mg Transdermal DAILY PRN PRNQty: 0 RF: 0 benzonatate 200 mg Capsule 200 mg PO TID PRNQty: 15 RF: 0 levofloxacin [Levaquin] 750 mg tablet 750 mg PO DAILY Qty: 2 RF: 0 prednisone 10 mg tablet 10 mg PO DAILY Qty: 20 RF: 0 ascorbic acid (vitamin C) [Vitamin C] 500 mg Tablet 500 mg RF: 0 Discharge Instructions Instructions: Bronchospasm (ED) Additional Instructions: Home to rest this evening. We will ask our care managers to make you a follow-up appointment in Dr. Ogden's office for recheck and to review the final report of the CAT scan. Take prednisone as prescribed, next dose is tomorrow. Albuterol inhaler 2 puffs every 6 hours if needed. Return for any acute concern Medical Decision Making 48-year-old female presents from outpatient clinic. She has had weeks of intermittent episodes of exertional dyspnea with some associated tightness of the chest. She does have a history of CML, chronically maintained with oral ch emotherapeutic, as well as a approximately [id number] history of smoking. On exam she is afebrile, speaking in full sentences, with bilateral end expiratory wheeze present. Differential diagnosis includes reactive airway disease, pulmonary embolism, pneumonitis, must exclude ACS. Patient IV access established, referred for EKG, troponin, d-dimer, screening laboratories and is given an inhaled DuoNeb. She has fairly dramatic response to the DuoNeb and and states I feel 100% better. D-dimer elevated and given her history of CML the patient is referred for CT scan of the chest. No evide nce of pulmonary embolism. No pulmonary infiltrates. There are scattered subcentimeter noncalcified nodules present, please see formal report. Patient remains improved. I do feel given her history of smoking in the past, her response to the beta agonist, that she has reactive airway disease. I will treat with a burst of steroid and she is given teaching in the use of albuterol inhaler. We will make her a follow-up appointment in clinic to review the final report of CT scan and for recheck. She understands homecare, return precautions, as well as the need for follow-up to determine final reading of her chest CT. ECG Data Attestation: I personally reviewed and interpreted this ECG (s) as follows: Interpretation: Normal sinus rhythm with a rate of 64, the QRS is narrow, there is no ST segment elevation present. Nonspecific ST segment flattening HPI General Mode of arrival: ambulatory . Date/Time Provider Initiated Documentation: 04/13/19 16:18 . Limitations to Documentation: no limitations . Information obtained by: patient . History of Present Illness 48 year old F pr esents to the emergency department with the chief complaint of Exertional shortness of breath and chest pressure over days, described as moderate, Quality is described as dull, and is localized to the chest. Patient reports no radiation. Patient started experiencing this day(s) and it has been intermittent. Rest improves symptom(s), Movement worsens symptoms . Patient notes no other symptoms.. Patient did receive the following treatments prior to arrival, none Related Data Home Medications Medication Instructions Recorded Confirmed Sprycel 100 mg PO DAILY 08/27/13 09/14/18 allopurinol 100 mg PO DAILY 08/27/13 09/14/18 promethazine 25 mg PO PRN PRN 08/27/13 09/14/18 sennosides [Senokot] 1 tab PO BID PRN PRN #60 tab 08/30/13 09/14/18 hydrocodone-acetaminophen 2 ea PO q6 10/14/16 09/14/18 morphine [MS Contin] 15 mg PO Q6H PRN 10/14/16 09/14/18 furosemide [Lasix] 40 mg PO DAILY 09/14/18 09/14/18 paroxetine HCl 30 mg PO DAILY 09/14/18 09/14/18 benzonatate 200 mg PO TID PRN #15 cap 09/23/18 levofloxacin [Levaquin] 750 mg PO DAILY #2 tab 09/23/18 nicotine 14 mg TRANSDERMAL DAILY PRN PRN #0 09/23/18 ea prednisone 10 mg PO DAILY #20 tab 09/23/18 ascorbic acid (vitamin C) [Vitamin 500 mg 04/13/19 C] prednisone 50 mg PO DAILY #5 tab 04/13/19 Previous Rx's Medication Instructions Recorded sennosides [Senokot] 1 tab PO BID PRN PRN #60 tab 08/30/13 benzonatate 200 mg PO TID PRN #15 cap 09/23/18 levofloxacin [Levaquin] 750 mg PO DAILY #2 tab 09/23/18 nicotine 14 mg TRANSDERMAL DAILY PRN PRN #0 09/23/18 ea prednisone 10 mg PO DAILY #20 tab 09/23/18 prednisone 50 mg PO DAILY #5 tab 04/13/19 Allergies Allergy/AdvReac Type Severity Reaction Status Date / Time imatinib mesylate AdvReac fatigue Unverified 04/13/19 16:08 [From Gleevec] lobster Allergy Diarrhea Uncoded 04/13/19 16:08 General Stated Complaint: Chest Pain DAVID: 3 Review of Systems Review of Systems Worse with exertion. Worse lying flat. Denies fever. No production of sputum. 6 systems reviewed and otherwise negative [facility] Medical History CML (chronic myeloid leukemia) (Chronic) Pancreatitis (Resolved 08/27/13) Surgical History Cholecystectomy (Resolved) H/O section (Resolved) Social History Smoking/Tobacco Use Status: Former Tobacco Use Quit Date: 04/15/17 Alcohol Intake: never Drug use: Never Household members: spouse and children Do you feel safe at home: Yes Do you feel safe in your relationship?: Yes Exam Narrative Exam Narrative: GEN: awake, alert, oriented 3. Pleasant, well groomed, interactive. HEAD: Normocephalic, atraumatic ENT: Mucous membranes moist, oropharynx unremarkable, External ear exam unremarkable EYES: PERRL, EOMI NECK: Full ROM, no BRYAN, no menigismus CHEST/RESP: Nontender, and expiratory wheeze present bilaterally CARDIOVASCULAR: RRR, no murmur, rub julisa. 2+ Rad pulse bilateral ABDOMEN: Soft, nontender, no mass. +Bowel sounds EXT: Full ROM, no edema, no rash Neuro: Grossly normal neurologic exam, conversant, interactive. Psych: Speech fluent, thoughts congruent, affect normal Course Vital Signs Temperature 36.0 C L 04/13/19 16:03 Pulse 66 04/13/19 16:03 Respiratory Rate 14 04/13/19 16:03 Blood Pressure 121/74 04/13/19 16:03 Temperature 36.0 C L 04/13/19 16:03 Temperature Source Temporal Artery Scan 04/13/19 16:03 Pulse 66 04/13/19 16:03 Respiratory Rate 14 04/13/19 16:03 Blood Pressure 121/74 04/13/19 16:03
[2019-04-13] MEDS: Albuterol/Ipratropium 3 ML UPD VIAL UPD (16:43)
[2019-04-13 17:01] LABS: ALT 17 U/L (12-78); AST 10 U/L (15-37); Albumin 3.9 g/dL (3.4-5.0); Alkaline Phosphatase 101 U/L (46-116); Anion Gap 10.3 mmol/L (3-11); BUN 12 mg/dL (7-18); Bilirubin, Total 0.3 mg/dL (0.2-1.0); CO2 28.7 mmol/L (21.0-32.0); Calcium 9.3 mg/dL (8.5-10.1); Chloride 102 mmol/L (98-107); Estimated GFR 58.93 (mL/min/1.73m2); Glucose 119 mg/dL (70-100); Potassium 3.5 mmol/L (3.5-5.1); Sodium 141 mmol/L (136-145); Total Protein 7.4 g/dL (6.4-8.2)
[2019-04-13 17:02] LABS: Troponin I < 0.05 ng/mL (0.00-0.06)
[2019-04-13 17:11] LABS: D-Dimer 863 ng/mlFEU (<500)
--- NOTE | 2019-04-13 17:14 | DI.CT_ITS ---
SYMPTOMS/DIAGNOSIS: CHEST PRESSURE AND SHORTNESS OF BREATH CTA OF THE CHEST: CT angiography was performed with multi slice acquisition and multi planar and 3D reconstruction. The study was carried out with an intravenous administration of 88 cc of Omnipaque 350. There is no evidence of pulmonary embolic disease. There is no evidence of an aortic aneurysm or dissection. There is no evidence of a pulmonary infiltrate. Note is made of some intralobular septal thickening in the lung bases, which is somewhat coarse and irregular and appears more prominent than on a prior examination of 09/14/2018. There are scattered subcentimeter noncalcified nodular densities in the upper lobes measuring predominantly 2-3 mm in size with a few slightly larger ground-glass nodules in the mid left upper lobe measuring 5 mm in size. These findings are new when compared with the prior study. A 4 mm subpleural nodular density in the anterior lateral right apex is unchanged. The patient has a history of leukemia and the possibility of pulmonary involvement and lymphangitic spread of malignancy cannot be excluded. A small right basilar pleural effusion is seen. There is no pneumothorax. Mild cardiomegaly identified. The esophagus as demonstrated appears unremarkable. The patient is status post cholecystectomy. There is no evidence of lymphadenopathy. No acute bony abnormality is seen. The soft tissues are unremarkable. SUMMARY: No evidence of PE or aortic dissection. Intralobular septal thickening is predominantly basal in distribution. There is mild cardiomegaly. There is a small right basal pleural effusion. These findings could be explained on the basis of mild CHF and pulmonary edema. There are also noted numerous small ill-defined nodular foci in the upper lung wise, left greater than right. There is also noted basilar intralobular changes, which appear somewhat more prominent than on a typical case of pulmonary edema. Given the history of leukemia, the possibility of pulmonary involvement with lymphangitic tumor spread could not be excluded.
[2019-04-13] MEDS: Normal Saline 250 ML IV (17:19)
[2019-04-13] MEDS: Omnipaque 350 MG/ML 100 ML BTL IJ (17:56)
--- NOTE | 2019-04-13 18:27 | DI.VRAD_ITS ---
EXAM: CT Angiography Chest With Contrast EXAM DATE/TIME: 04/13/2019 5:15 PM CLINICAL HISTORY: 48 years old, female; Shortness of breath; Patient HX: HX leukemia TECHNIQUE: Imaging protocol: Axial computed tomographic angiography images of the chest with intravenous contrast using CT angiography protocol. Coronal and sagittal reformatted images were created and reviewed. 3D rendering: MIP reconstructed images were created and reviewed. COMPARISON: CT chest PE abd pelvis w 09/14/2018 8:30 PM FINDINGS: Pulmonary arteries: The pulmonary arteries enhance appropriately with no evidence of pulmonary embolism. Aorta: The aorta enhances appropriately without evidence of dissection or aneurysm. Thyroid: The visualized thyroid gland demonstrates no gross abnormality. Lungs: No tracheobronchial abnormalities. No consolidative pulmonary infiltrates are identified. There is interlobular septal thickening in the lung bases which is somewhat coarse/irregular and appears mildly increased from 09/14/2018. There are also scattered subcentimeter noncalcified nodular foci in the upper lobe distributions predominantly measuring 2-3 mm in size with a few slightly larger groundglass nodules in the medial left upper lobe measuring 5 mm and 5 mm in size, which are new since the prior study. A 4 mm subpleural nodular density in the anterolateral right apex is unchanged. Given the history of leukemia, the possibility of pulmonary involvement and lymphangitic spread of malignancy is not excluded. Alternatively, this could represent islands of Pleural space: Small right basilar pleural effusion is new since the previous exam. No pneumothorax. Heart: Mild cardiomegaly. Small pericardial effusion. Mediastinum: The esophagus is largely contracted but demonstrates no gross abnormality. Gallbladder and bile ducts: Prior cholecystectomy noted. Lymph nodes: No supraclavicular or axillary adenopathy. No mediastinal or hilar adenopathy. Bones/joints: No acute osseous abnormalities are identified. Soft tissues: The soft tissues of the chest wall demonstrate no gross abnormality. IMPRESSION: 1. No evidence of pulmonary embolism or aortic dissection. 2. Interlobular septal thickening in a predominantly basilar distribution, with mild cardiomegaly and small right basilar pleural effusion. Although these findings could be explained by mild CHF and pulmonary edema, there are also noted to be numerous small ill-defined nodular foci in the upper lung wise bilaterally, left greater than right, and the basilar interlobular septal changes are more thickened and irregular than is typically seen with edema. Given the history of leukemia, the possibility of pulmonary involvement with lymphangitic tumor spread is not excluded. Dictated and Authenticated by: Christopher Potts MD. Ordering:WILLAM Cheng MD
[2019-04-13 18:55] VITALS: PULSE 74; RESP 20; O2SAT 95
[2019-04-13] MEDS: predniSONE 20 MG TAB 60 MG PO (18:58)
--- NOTE | 2019-04-13 18:59 | NUR.NOTE ---
patient received medication per MD order with snack Nursing Note:
--- NOTE | 2019-04-13 21:03 | NUR.NOTE ---
referral faxed to pcp Dr Ogden.Nursing Note:
== END 2019-04-13 19:08 | disposition home or self-care (01) ==
PROVIDERS: Emergency Provider Emergency Medicine; PCP Family Medicine
DX: J98.01 Acute bronchospasm (principal); R06.09 Other forms of dyspnea; R07.89 Other chest pain; R79.1 Abnormal coagulation profile; Z85.6 Personal history of leukemia; Z87.891 Personal history of nicotine dependence; Z79.899 Other long term (current) drug therapy
CPT/HCPCS: 36415; 71275; 80053; 93005; 94640; 96360; 96361; 99285; 83735; 84484; 85025; 85379; 93010; J3490; J7512; J7620

== ENCOUNTER 2019-04-13 16:22 | Outpatient (REF) | payer MEDICARE, MEDICAID, SELFPAY ==
[2019-04-13 17:03] LABS: NT-proBNP 240 pg/mL; TSH (W/Ref FT4) 3.12 uIU/mL (0.36-3.74)
== END 2019-04-13 16:42 ==
LOC: NCHCN 16:22
PROVIDERS: PCP Family Medicine; Visit Provider Family Medicine
DX: R06.00 Dyspnea, unspecified (principal); R05 Cough
CPT/HCPCS: 83880; 84443

== ENCOUNTER 2019-04-21 00:48 | Outpatient (CLI) | payer MEDICARE, MEDICAID, SELFPAY ==
--- NOTE | 2019-04-21 11:15 | MERGEMPI_ITS ---
*[facility]* *[facility]* [address] [place] [address] Myocardial Perfusion Imaging - SPECT Sonia protocol Date of study: 04/21/2019 *PATIENT PRESENTATION* Height: 167.6cm (66in) Blood Pressure: Weight: 144.5kg (318lb) BSA: 2.68m^2 Referring physician: Nikolay Lopez Ordering physician: Taya Ogden V Impressions: - Indeterminate exercise stress test due to inadequate heart rate thus switched to pharmacological stress test. - Normal myocardial perfusion and contraction after pharmacological stress. - Low risk of cardiac events. Summary: 1. Myocardial perfusion imaging: No myocardial perfusion defects noted. 2. The calculated left ventricular ejection fraction after stress: 61%. LV global systolic function is normal. No left ventricular regional motion abnormality. 3. Stress: The target heart rate was not achieved. There is a normal resting blood pressure with an appropriate response to stress. The patient experienced no chest pain during stress. Exercise capacity is mildly diminished for age. 4. Treadmill exercise testing was performed using the Sonia protocol. The patient exercised for 5 min 15 sec, to protocol stage 2, to a maximal work rate of 4.6mets. Exercise was terminated due to dyspnea. Indication: R06.00, R07.89, Appropriate Use Criteria: A (Appropriate). History: REASON FOR TESTING: TESTING TODAY FOR FURTHER RISK STRATIFICATION. PATIENT WAS ADMITTED IN SEPTEMBER 2018 AND HOSPITALIZED FOR NINE DAYS AT [facility] WITH THE FLU; SINCE THEN SHE HAS EXPERIENCED ON AND OFF CHEST PRESSURE (FEELS LIKE SOMETHING IS SITTING ON MY CHEST). SHE REPORTS THIS FEELING USUALLY HAPPENS AT REST AND CAN LAST FROM MINUTES TO HOURS AND HAPPENS 1 TO 2 TIMES A MONTH. PATIENT DENIES CHEST PRESSURE UPON ARRIVAL TO TESTING TODAY. SIGNIFICANT PAST MEDICAL HISTORY: CML AND IS CHRONICALLY MAINTAINED WITH ORAL CHEMOTHERAPEUTIC. SMOKING STATUS: QUIT 2017. SMOKED FOR 30 YEARS 1 PPD. EXERCISE ROUTINE: DAILY ADL'S AND GARDENING. Risk factors: Obesity. Cholesterol: 189mg/dl. HDL: 21mg/dl. LDL: 87mg/dl. Triglycerides: 486mg/dl. ALLERGIES: GLEEVAC, SHELLFISH. MEDICATIONS: SENOKOT PRN, PROMETHAZINE 25 MG PRN, PAROXETINE HCL 40 MG DAILY, MS CONTIN 15 MG PRN, HYDROCODONE/ACETAMINOPHEN 10/325 PRN, LASIX 40 MG DAILY, VITAMIN C 500 MG DAILY, ALLOPURINOL 100 MG DAILY, SPRYCEL 100 MG DAILY, FERROUS SULFATE (DOSE UNKNOWN). Imaging Technique: Protocol: Sonia protocol. Acquisition: Gated SPECT; 1 day - rest/stress. The patient was imaged in the supine position. Attenuation correction used. Isotope administration: - Rest. Tc[99m]-sestamibi. Dose: 14.4mCi. Injection time: 11:50 AM. Injection to stress time: 00:45. - Stress. Tc[99m]-sestamibi. Dose: 43.1mCi. Injection time: 02:38 PM. 1-2 min before end of exercise Baseline ECG: SINUS RHYTHM. HR 61 BPM. T WAVE INVERSIONS IN V1, V2, V3, V4, V5 AND V6. Normal ECG. Nonspecific ST changes. Stress protocol: + +---+ + + !Stage !HR !BP (mmHg) !Comments ! + +---+ + + !Baseline supine !61 !160/90 (113)! ! + +---+ + + !Baseline standing!69 !138/72 (94) ! ! + +---+ + + !Peak stress !109! ! ! + +---+ + + !Recovery; 1 min !99 !176/80 (112)! ! + +---+ + + !1 min !84 !178/70 (106)!Inject Regadenoson.! + +---+ + + !3 min !81 !160/78 (105)! ! + +---+ + + !6 min !75 !142/68 (93) ! ! + +---+ + + * Stress results: STRESS TEST ENDED IN 5 MINUTES 15 SECONDS DUE TO SOB. NORMAL HEART RATE AND BLOOD PRESSURE RESPONSE TO EXERCISE. MAX HEART RATE: 109 63 % OF TARGET HEART RATE ACHIEVED. MET'S: 4.64 RARE PVC WITH EXERCISE. NO ANGINA. NO SIGNIFICANT ST SEGMENT CHANGES. MILDLY DIMINISHED FUNCTIONAL CAPACITY. TRANSITIONED TO LEXISCAN STRESS TEST DUE TO SOB WITH SONIA PROTOCOL. STRESS TEST ENDED IN 6 MINUTES 5 SECONDS. NORMAL HEART RATE AND BLOOD PRESSURE RESPONSE TO LEXISCAN INJECTION. NO ECTOPY. NO ANGINA. NO SIGNIFICANT ST SEGMENT CHANGES. Maximal heart rate during stress was 109bpm (64% of maximal predicted heart rate). The maximal predicted heart rate was 171bpm. The target heart rate was not achieved. There is a normal resting blood pressure with an appropriate response to stress. The rate-pressure product for the peak heart rate and blood pressure was 17179is Hg/min. The patient experienced no chest pain during stress. The patient experienced dyspnea in response to stress. Exercise capacity is mildly diminished for age. Myocardial perfusion: Imaging information: gated. Image quality reduced due to breast attenuation. Left ventricular size is normal. No myocardial perfusion defects noted. Ventricular Function (Wall Motion): The calculated left ventricular ejection fraction after stress: 61%. LV global systolic function is normal. No left ventricular regional motion abnormality. Study data: Nikolay Lopez MD supervised and was readily available during the procedure. This study was interpreted by [facility]. Study status: Routine. Consent: The risks, benefits, and alternatives to the procedure were explained to the patient and informed consent was obtained. Procedure: Initial setup. A baseline ECG was recorded. Surface ECG leads and manual cuff blood pressure measurements were monitored. Heart sounds: Normal. Lung sounds: Normal. Treadmill exercise testing was performed using the Sonia protocol. The patient exercised for 5 min 15 sec, to protocol stage 2, to a maximal work rate of 4.6mets. Exercise was terminated due to dyspnea. Study completion: All catheters inserted during the procedure were removed. The patient tolerated the procedure well and was discharged from the lab. Discharge: The patient left the laboratory in stable condition. Birthdate: Patient birthdate: 1970. Sex: Gender: female. Study date: Study date: 04/21/2019. Study time: 00:01 AM. Signature Documentation: - The imaging portion of this study was interpreted by [employer] Nikolay Lopez MD. - The Stress ECG portion of this study was interpreted by Nikolay Lopez MD. Electronically signed by Nikolay Lopez 04/21/2019 16:36
[2019-04-21] MEDS: Regadenoson 0.4 MG/5 ML SYR IVP (15:13)
== END 2019-04-21 01:08 ==
PROVIDERS: PCP Family Medicine; Visit Provider Family Medicine
DX: R07.89 Other chest pain (principal); R06.00 Dyspnea, unspecified; C92.10 Chronic myeloid leukemia, BCR/ABL-positive, not having achieved remission; Z87.891 Personal history of nicotine dependence
CPT/HCPCS: 78452; 93016; 93018; 93017; J2785

== ENCOUNTER 2019-05-12 01:46 | Outpatient (CLI) | payer MEDICARE, MEDICAID, SELFPAY ==
--- NOTE | 2019-05-12 14:10 | MERGE_ITS ---
*[facility]* *[facility]* [address] [place] [address] Date of study: 05/12/2019 Transthoracic Echocardiography M-mode, complete 2D, complete spectral Doppler, and color Doppler *STUDY CONCLUSIONS* Summary: 1. Left ventricle: The cavity size was normal. Systolic function was normal. The estimated ejection fraction was 60-65%. Diastolic parameters were normal. There was no evidence of elevated ventricular filling pressure by Doppler parameters. 2. Mitral valve: There was mild regurgitation. 3. Right ventricle: The cavity size was normal. Wall thickness was normal. Systolic function was normal. 4. Atrial septum: No defect or patent foramen ovale was identified. 5. Pulmonary arteries: Pulmonary systolic pressure was in the range of 35mm Hg to 45mm Hg. 6. Inferior vena cava: The vessel was patent and normal in size. The respirophasic diameter changes were in the normal range (greater than or equal to 50%), consistent with normal central venous pressure. *PATIENT PRESENTATION* Height: 167.6cm (66in ) S/D Pressure: 115 / 58 Weight: 144.2kg (317.3lb ) BSA: 2.68m^2 Test start time: 02:15 AM. Test stop time: 03:15 PM. CONSULTING Taya Ogden V ORDERING Taya Ogden V REFERRING Taya Ogden V PERFORMING Unknown PERFORMING [facility]TER RT Maribel (R)(AMARI)ALANA *PROCEDURE DATA* Procedure information: The patient was identified by two identifiers. This study was interpreted by [facility]. Pertinent images and digital data are archived for permanent storage and are available for subsequent review. Comparison was made to the study of 09/20/2018. Study status: Routine. Transthoracic echocardiography. M-mode, complete 2D, complete spectral Doppler, and color Doppler. A Transthoracic Echocardiogram was performed. Scanning was performed from the parasternal, apical, subcostal, and suprasternal notch acoustic windows. Images were obtained using an [id number] cardiac ultrasound machine. Image quality was adequate. Study completion: The patient tolerated the procedure well. History: PMH: Dyspnea fluid retention r06.00, r60.9 *CARDIAC ANATOMY* Left ventricle: The cavity size was normal. Systolic function was normal. The estimated ejection fraction was 60-65%. The tissue Doppler parameters were normal. Diastolic parameters were normal. There was no evidence of elevated ventricular filling pressure by Doppler parameters. Aortic valve: Trileaflet. Doppler: There was no stenosis. There was no significant regurgitation. VTI ratio of LVOT to aortic valve: 0.62. Valve area (VTI): 2cm^2. Indexed valve area (VTI): 0.8cm^2/m^2. Peak velocity ratio of LVOT to aortic valve: 0.59. Valve area (Vmax): 1.9cm^2. Indexed valve area (Vmax): 0.7cm^2/m^2. Mean velocity ratio of LVOT to aortic valve: 0.64. Valve area (Vmean): 2.1cm^2. Indexed valve area (Vmean): 0.8cm^2/m^2. Mean gradient (S): 11.2mm Hg. Peak gradient (S): 19.8mm Hg. Aorta: Aortic root: The aortic root was normal in size. Ascending aorta: The ascending aorta was mildly dilated. Mitral valve: Doppler: There was no evidence for stenosis. There was mild regurgitation. Valve area by pressure half-time: 2.6cm^2. Indexed valve area by pressure half-time: 1cm^2/m^2. Peak gradient (D): 7.1mm Hg. Left atrium: The atrium was normal in size. Atrial septum: No defect or patent foramen ovale was identified. Right ventricle: The cavity size was normal. Wall thickness was normal. Systolic function was normal. Pulmonic valve: Doppler: There was no evidence for stenosis. There was no significant regurgitation. Tricuspid valve: Doppler: There was mild regurgitation. Pulmonary artery: Poorly visualized. Pulmonary systolic pressure was in the range of 35mm Hg to 45mm Hg. Right atrium: The atrium was normal in size. Pericardium: There was no pericardial effusion. Systemic veins: Inferior vena cava: Well visualized. The vessel was patent and normal in size. The respirophasic diameter changes were in the normal range (greater than or equal to 50%), consistent with normal central venous pressure. Baseline ECG: Normal sinus rhythm. Measurements Left ventricle Value 09/21/2018 Reference LV ID, ED, PLAX 5.3 cm 5.5 3.5 - 6.0 LV ID, ES, PLAX 3.2 cm 3.5 2.1 - 4.0 LV PW thickness, ED, PLAX 1.3 cm 0.9 LV end-diastolic volume, 151 ml 114 1-p A2C LV ejection fraction, 1-p 65 % 64 A2C LV end-diastolic volume, 161 ml 104 1-p A4C LV ejection fraction, 1-p 66 % 60 A4C LV e', lateral 0.112 m/sec 0.09 LV E/e', lateral 12 14 LV e', medial 0.088 m/sec 0.095 LV E/e', medial 15 14 LV e', average 0.1 m/sec 0.092 LV E/e', average 13 14 Ventricular septum Value 09/21/2018 Reference IVS thickness, ED, PLAX 1.4 cm 1.2 LVOT Value 09/21/2018 Reference LVOT ID, A-P 2.0 cm 2.2 LVOT area 3.3 cm^2 3.7 LVOT peak velocity, S 1.31 m/sec 1.36 LVOT mean velocity, S 1.01 m/sec 0.92 LVOT VTI, S 31.6 cm 33.3 LVOT peak gradient, S 6.8 mm Hg 7.4 LVOT mean gradient, S 4.4 mm Hg 4 Stroke volume (SV), LVOT 104 ml 122 DP Stroke index (SV/bsa), 39 ml/m^2 47 LVOT DP Aortic valve Value 09/21/2018 Reference Aortic valve peak 2.2 m/sec 1.9 velocity, S Aortic valve mean 1.6 m/sec 1.3 velocity, S Aortic valve VTI, S 51.0 cm 41.0 Aortic mean gradient, S 11.2 mm Hg 7.7 Aortic peak gradient, S 19.8 mm Hg 15.2 VTI ratio, LVOT/AV 0.62 0.81 Aortic valve area, VTI 2 cm^2 3 Velocity ratio, peak, 0.59 0.7 LVOT/AV Aortic valve area, peak 1.9 cm^2 2.5 velocity Velocity ratio, mean, 0.64 0.71 LVOT/AV Aortic valve area, mean 2.1 cm^2 2.6 velocity Aortic valve area/bsa, 0.8 cm^2/m^2 1 mean velocity Aorta Value 09/21/2018 Reference Aortic root ID, ED 3.0 cm 3.0 Ascending aorta ID, A-P, S 3.4 cm 3.5 Left atrium Value 09/21/2018 Reference LA ID, A-P, ES 3.7 cm 4.5 LA ID/bsa, A-P 1.4 cm/m^2 1.7 <=2.2 LA volume/bsa, ES, 1-p A4C 34 ml/m^2 35 LA volume, ES, 2-p 72 ml 70 LA volume/bsa, ES, 2-p 27 ml/m^2 27 LA/aortic root ratio 1.24 1.48 Mitral valve Value 09/21/2018 Reference Mitral E-wave peak 1.33 m/sec 1.28 velocity Mitral A-wave peak 1.28 m/sec 1.29 velocity Mitral deceleration time (H) 287 ms 272 150 - 230 Mitral pressure half-time 83 ms 79 Mitral peak gradient, D 7.1 mm Hg 6.5 Mitral E/A ratio, peak 1.04 0.99 Mitral valve area, PHT, DP 2.6 cm^2 2.8 Pulmonary veins Value 09/21/2018 Reference Pulmonary vein peak 0.64 m/sec velocity, S Pulmonary vein peak 0.46 m/sec velocity, D Pulmonary vein velocity 1.41 ratio, peak, S/D Pulmonary vein A-wave 0.49 m/sec reversal peak velocity Pulmonary vein A-wave 152 ms reversal duration Tricuspid valve Value 09/21/2018 Reference Tricuspid regurg peak 3.1 m/sec 2.9 velocity Tricuspid peak RV-RA 38.3 mm Hg 32.7 gradient Right atrium Value 09/21/2018 Reference RA area, ES, A4C 16.2 cm^2 16.9 8.3 - 19.5 Legend: (L) and (H) wayne values outside specified reference range. I have personally reviewed the images and have reviewed and edited the reported findings. Electronically signed by Derian Mc MD 05/12/2019 17:16
== END 2019-05-12 02:06 ==
PROVIDERS: PCP Family Medicine; Visit Provider Family Medicine
DX: R06.09 Other forms of dyspnea (principal); R60.9 Edema, unspecified; I34.0 Nonrheumatic mitral (valve) insufficiency
CPT/HCPCS: 93306

== ENCOUNTER 2019-08-20 11:23 | Outpatient (CLI) | payer MEDICARE, MEDICAID, SELFPAY ==
[2019-08-20 12:05] LABS: Abs Immature Grans 0.04 k/cumm (0.0-0.09); Absolute Basophil Count 0.09 k/cumm (0.0-0.2); Absolute Eosinophil Count 0.49 k/cumm (0.0-0.7); Absolute Lymphocyte Count 4.51 k/cumm (1.2-3.4); Absolute Monocyte Count 0.81 k/cumm (0.11-0.7); Absolute Neutrophil Count 5.66 k/cumm (1.2-6.7); Basophils % 0.8; Eosinophils % 4.2; HCT 45.6 % (36.0-46.0); HGB 14.6 g/dL (12.0-15.5); Immature Grans % 0.3; Lymphocytes % 38.9; Mean Corpuscular Hemoglobin 27.3 pg (27.0-33.0); Mean Corpuscular Volume 85.4 fL (80-95); Mean Platelet Volume 8.8 fL (8.0-11.0); Neutrophils % 48.8; Platelet Count 335 x1000/uL (130-400); RBC 5.34 m/cumm (4.00-5.20); RBC Distribution Width 16.6 % (11.7-14.6)
[2019-08-20 12:13] LABS: ALT 20 U/L (14-59); AST 16 U/L (15-37); Albumin 3.8 g/dL (3.4-5.0); Alkaline Phosphatase 109 U/L (46-116); Anion Gap 9.1 mmol/L (3-11); BUN 9 mg/dL (7-18); Bilirubin, Total 0.5 mg/dL (0.2-1.0); CO2 30.9 mmol/L (21.0-32.0); CREATININE 0.94 mg/dL (0.55-1.02); Calcium 8.9 mg/dL (8.5-10.1); Chloride 101 mmol/L (98-107); Glucose 138 mg/dL (74-106); Potassium 3.7 mmol/L (3.5-5.1); Sodium 141 mmol/L (136-145); Total Protein 7.5 g/dL (6.4-8.2)
[2019-08-24 11:39] LABS: BCR/ABL1, p210 Result see interpretation; Specimen Type EDTA WHOLE BLOOD
== END 2019-08-20 11:43 ==
PROVIDERS: PCP Family Medicine; Visit Provider Internal Medicine Hematology & Oncology
DX: C92.10 Chronic myeloid leukemia, BCR/ABL-positive, not having achieved remission (principal)
CPT/HCPCS: 36415; 80053; 81206; 85025

== ENCOUNTER 2019-08-31 03:09 | Outpatient (CLI) | payer MEDICARE, MEDICAID, SELFPAY ==
--- NOTE | 2019-08-31 | PFT_ITS ---
PULMONARY FUNCTION TEST REPORT PATIENT - Caro Draper DATE OF SERVICE August 31, 2019 REQUESTING PROVIDER Taya Ogden M.D. INTERPRETATION OF STUDY Spirometry shows no evidence of obstructive airways disease. No bronchodilator response. LUNG VOLUMES Lung volumes show mild restriction. DIFFUSION CAPACITY- Mildly reduced, which is normal when corrected to alveolar volume. AIRWAY RESISTANCE - Normal. IMPRESSION Mild restrictive pattern with mild diffusion defect. This can be related to chest wall restriction from underlying obesity. Differential diagnosis may include underlying developing interstitial lung disease, pulmonary hypertension or respiratory neuromuscular dysfunction, if these are clinically suspected further workup for that may be indicated. Clinical correlation recommended. Thao Mar M.D. JOSELIN/ T- 09/01/2019
[2019-08-31] MEDS: Inhaler, Assist Device 1 EACH MC (13:55)
[2019-08-31] MEDS: Albuterol HFA 18 GM 200 PUFF INH IH (13:55)
== END 2019-08-31 03:29 ==
PROVIDERS: PCP Family Medicine; Visit Provider Family Medicine
DX: R06.00 Dyspnea, unspecified (principal); Z87.891 Personal history of nicotine dependence
CPT/HCPCS: 94060; 94150; 94726; 94729

== ENCOUNTER 2019-11-04 09:01 | Outpatient (CLI) | payer MEDICARE, MEDICAID, SELFPAY ==
--- NOTE | 2019-11-04 15:15 | DI.CT_ITS ---
EXAM: CT CHEST WO HIGH RES CLINICAL HISTORY: RESTRICTIVE LUNG DISEASE J98.4 TECHNIQUE: Routine noncontrast chest CT followed by high-resolution 1 millimeter images at 10 millim eter intervals during inspiration and expiration. COMPARISON: CT CHEST PE CTA from 04/13/2019 FINDINGS: Exam is somewhat limited by the patient's body habitus. The heart size is normal. There is a trace pericardial effusion versus pleural thickening seen anter iorly. The aorta is normal in diameter. There is minimal coronary artery calcification. No aortic calcification is seen. Pulmonary arteries are mildly prominent. No adenopathy is seen. No infiltra clifford or pleural effusions are seen. There is no evidence of bronchiectasis. There is no significant underlying emphysematous changes. A single bleb is seen in the right upper lobe. There is mild scar ring at the lung bases. There is mild interlobular septal thickening seen in the lower lobes. Findin gs appear somewhat less prominent when compared with the previous exam. High-resolution expiratory i mages are limited by respiratory motion. There are bilateral patchy areas of air trapping. Degenerative changes are seen in spine. The liver appears enlarged and shows mild to moderate fatty infiltration. The spleen is normal in size. The adrenals are unremarkable. IMPRESSION: Mild basilar interlobular septal thickening. Mild to moderate air trapping.
[2019-11-04 16:44] LABS: Ferritin 130 ng/mL (8-252)
== END 2019-11-04 09:21 ==
PROVIDERS: PCP Family Medicine; Visit Provider Internal Medicine
DX: M25.50 Pain in unspecified joint (principal); R91.8 Other nonspecific abnormal finding of lung field; J98.4 Other disorders of lung
CPT/HCPCS: 36415; 71250; 81206; 82728

== ENCOUNTER 2020-03-15 03:54 | Outpatient (CLI) | payer MEDICARE, MEDICAID, SELFPAY ==
[2020-03-15 15:00] LABS: Anion Gap 8.6 mmol/L (3-11); BUN 16 mg/dL (7-18); CO2 30.4 mmol/L (21.0-32.0); CREATININE 1.03 mg/dL (0.55-1.02); Chloride 102 mmol/L (98-107); Estimated GFR 56.72 (mL/min/1.73m2); Glucose 126 mg/dL (74-106); Potassium 3.9 mmol/L (3.5-5.1); Sodium 141 mmol/L (136-145)
[2020-03-22 13:42] LABS: Indication for Study CML
[2020-03-22 13:43] LABS: Specimen Type Peripheral blood
[2020-03-22 13:44] LABS: BCR-ABL1 p210 FusionTranscript See Comments
[2020-03-22 13:46] LABS: BCR-ABL1 Interpretation See Comments
[2020-03-22 13:47] LABS: Limitations and Disclaimers See Comments
== END 2020-03-15 04:14 ==
PROVIDERS: Internal Medicine Hematology & Oncology; PCP Family Medicine; Visit Provider Family Medicine
DX: C92.10 Chronic myeloid leukemia, BCR/ABL-positive, not having achieved remission (principal); R60.9 Edema, unspecified
CPT/HCPCS: 36415; 80048; 81206

== ENCOUNTER 2020-04-05 01:49 | Outpatient (CLI) | payer MEDICARE, MEDICAID, SELFPAY ==
--- NOTE | 2020-04-05 13:34 | DI.MAMMO_ITS ---
EXAM: MG MAMMO SCREENING CLINICAL HISTORY: SCREENING,Z12.39 TECHNIQUE: Bilateral full field digital CC and MLO mammographic images were obtained with 3D tomosyn thesis and utilizing computer aided detection (CAD). COMPARISON: Available for comparison. FINDINGS: Masses/Architectural Distortion: None seen. Microcalcifications: No suspicious pleomorphic-type are seen. Skin Thickening/Nipple Retraction: None. IMPRESSION: 1. No significant interval change with no specific features of malignancy noted. 2. Unless there is more urgent need, screening mammography is recommended, as per [employer] guidelines. BI-RADS Category 1 - Negative Breast Density - Category B - Scattered areas of fibroglandular density A negative radiographic report should not delay biopsy if a dominant or clinically suspicious mass is present. Up to ten percent of cancers are not identified on mammography. A negative report may reinforce clinical impression. Adenosis and dense breasts may obscure an underlying neoplasm. False positive reports average 6 to 10%. Patient will receive a letter notifying them of these results.
== END 2020-04-05 02:09 ==
PROVIDERS: PCP Family Medicine; Visit Provider Family Medicine
DX: Z12.31 Encounter for screening mammogram for malignant neoplasm of breast (principal)
CPT/HCPCS: 77063; 77067

== ENCOUNTER 2020-06-02 02:26 | Outpatient (CLI) | payer MEDICARE, MEDICAID, SELFPAY ==
[2020-06-02 14:19] LABS: Anion Gap 6.6 mmol/L (3-11); BUN 14 mg/dL (7-18); CO2 33.4 mmol/L (21.0-32.0); CREATININE 1.07 mg/dL (0.55-1.02); Calcium 8.9 mg/dL (8.5-10.1); Chloride 100 mmol/L (98-107); Estimated GFR 54.28 (mL/min/1.73m2); Glucose 106 mg/dL (74-106); Magnesium 1.8 mg/dL (1.8-2.4); Potassium 4.1 mmol/L (3.5-5.1); Sodium 140 mmol/L (136-145)
== END 2020-06-02 02:46 ==
PROVIDERS: PCP Family Medicine; Visit Provider Family Medicine
DX: R60.9 Edema, unspecified (principal)
CPT/HCPCS: 36415; 80048; 83735

== ENCOUNTER 2020-07-25 12:24 | Outpatient (REF) | payer MEDICARE, MEDICAID, SELFPAY ==
[2020-07-25 19:34] LABS: HCT 44.2 % (36.0-46.0); HGB 13.8 g/dL (11.2-15.7); MCH 26.6 pg (27.0-33.0); MCHC 31.2 % (32.0-36.0); MCV 85.3 fL (80-95); MPV 9.6 fL (8.0-11.0); Platelet Count 339 10^3/uL (130-400); RBC 5.18 10^6/uL (3.93-5.22); RDW 16.9 % (11.7-14.6); RDW-SD 52.8 fL; WBC 11.03 10^3/uL (4.4-10.8)
[2020-07-25 19:43] LABS: ALT 24 U/L (14-59); AST 22 U/L (15-37); Alkaline Phosphatase 120 U/L (46-116); Anion Gap 7.1 mmol/L (3-11); BUN 14 mg/dL (7-18); Bilirubin, Total 0.3 mg/dL (0.2-1.0); CO2 31.9 mmol/L (21.0-32.0); Chloride 100 mmol/L (98-107); Estimated GFR 52.58 (mL/min/1.73m2); Glucose 102 mg/dL (74-106); Potassium 4.1 mmol/L (3.5-5.1); Sodium 139 mmol/L (136-145); Total Protein 7.2 g/dL (6.4-8.2)
== END 2020-07-25 12:44 ==
LOC: NCHCN 12:24
PROVIDERS: PCP Family Medicine; Visit Provider Family Medicine
DX: M62.838 Other muscle spasm (principal); C92.Z0 Other myeloid leukemia not having achieved remission; Z79.899 Other long term (current) drug therapy
CPT/HCPCS: 80053; 85027; 83735

== ENCOUNTER 2020-10-13 18:57 | Outpatient (REF) | payer MEDICARE, MEDICAID, SELFPAY ==
[2020-10-19 06:40] LABS: Codeine Negative ng/mL (Cutoff: 25); Dihydrocodeine 962 ng/mL (Cutoff: 25); Hydrocodone 1831 ng/mL (Cutoff: 25); Hydromorphone 637 ng/mL (Cutoff: 25); Morphine 67669 ng/mL (Cutoff: 25); Naloxone Negative ng/mL (Cutoff: 25); Norhydrocodone 2874 ng/mL (Cutoff: 25); Noroxycodone Negative ng/mL (Cutoff: 25); Noroxymorphone Negative ng/mL (Cutoff: 25); Opiates Interpretation Positive.
[2020-10-25 11:56] LABS: 6-MAM Interpretation Negative.; 6-Monoacetylmorphine by GC/MS Negative ng/mL (Cutoff: 5)
== END 2020-10-13 19:17 ==
LOC: NCHCN 18:57
PROVIDERS: PCP Family Medicine; Visit Provider Family Medicine
DX: G89.29 Other chronic pain (principal)
CPT/HCPCS: 80361; 80362; 80356

== ENCOUNTER 2020-11-01 03:00 | Outpatient (CLI) | payer MEDICARE, MEDICAID, SELFPAY ==
[2020-11-01 14:12] LABS: Abs Immature Grans 0.03 10^3/uL (0.0-0.06); Absolute Basophil Count 0.07 10^3/uL (0.0-0.2); Absolute Eosinophil Count 0.32 10^3/uL (0.0-0.7); Absolute Monocyte Count 0.62 10^3/uL (0.1-0.8); Absolute Neutrophil Count 3.73 10^3/uL (1.2-6.7); Basophils % 0.8; Eosinophils % 3.7; HCT 41.4 % (36.0-46.0); HGB 13.1 g/dL (11.2-15.7); Immature Grans % 0.4; Lymphocytes % 44.3; MCH 27.5 pg (27.0-33.0); MCHC 31.6 % (32.0-36.0); MPV 8.5 fL (8.0-11.0); Monocytes % 7.2; Neutrophils % 43.6; Nucleated RBC 0 %; Platelet Count 315 10^3/uL (130-400); RBC 4.76 10^6/uL (3.93-5.22); RDW 14.9 % (11.7-14.6); RDW-SD 47.8 fL; WBC 8.57 10^3/uL (4.4-10.8)
[2020-11-01 14:55] LABS: ALT 21 U/L (14-59); AST 17 U/L (15-37); Albumin 3.6 g/dL (3.4-5.0); Alkaline Phosphatase 138 U/L (46-116); Anion Gap 5.9 mmol/L (3-11); BUN 11 mg/dL (7-18); Bilirubin, Total 0.2 mg/dL (0.2-1.0); CO2 31.1 mmol/L (21.0-32.0); Calcium 8.1 mg/dL (8.5-10.1); Chloride 101 mmol/L (98-107); Estimated GFR 58.45 (mL/min/1.73m2); Glucose 93 mg/dL (74-106); Potassium 3.5 mmol/L (3.5-5.1); Sodium 138 mmol/L (136-145); Total Protein 6.8 g/dL (6.4-8.2)
[2020-11-10 12:20] LABS: Indication for Study CML
[2020-11-10 12:21] LABS: BCR-ABL1 p210 FusionTranscript See Comments; Specimen Type Peripheral blood
[2020-11-10 12:22] LABS: Limitations and Disclaimers See Comments
[2020-11-10 12:28] LABS: BCR-ABL1 Interpretation See Comments
== END 2020-11-01 03:01 | disposition home or self-care (01) ==
LOC: LBO 03:00
PROVIDERS: PCP Family Medicine; Visit Provider Internal Medicine Hematology & Oncology
DX: C92.10 Chronic myeloid leukemia, BCR/ABL-positive, not having achieved remission (principal)
CPT/HCPCS: 36415; 80053; 81206; 85025

== ENCOUNTER 2021-01-18 16:56 | Outpatient (REF) | payer MEDICARE, MEDICAID, SELFPAY ==
[2021-01-18 19:34] LABS: Anion Gap 10.4 mmol/L (3-11); BUN 12 mg/dL (7-18); CO2 30.6 mmol/L (21.0-32.0); CREATININE 1.1 mg/dL (0.55-1.02); Chloride 100 mmol/L (98-107); Estimated GFR 52.36 (mL/min/1.73m2); Glucose 118 mg/dL (74-106); Potassium 3.3 mmol/L (3.5-5.1); Sodium 141 mmol/L (136-145)
[2021-01-18 19:41] LABS: HCT 43.1 % (36.0-46.0); HGB 13.5 g/dL (11.2-15.7); MCHC 31.3 % (32.0-36.0); MCV 86.2 fL (80-95); MPV 9.1 fL (8.0-11.0); Platelet Count 366 10^3/uL (130-400); RDW 15.2 % (11.7-14.6); RDW-SD 47.8 fL; WBC 10.66 10^3/uL (4.4-10.8)
== END 2021-01-18 16:57 | disposition home or self-care (01) ==
LOC: NCHCN 16:56
PROVIDERS: PCP Family Medicine; Visit Provider Family Medicine
DX: Z79.899 Other long term (current) drug therapy (principal); C92.Z0 Other myeloid leukemia not having achieved remission
CPT/HCPCS: 80048; 85027

== ENCOUNTER 2021-04-05 16:34 | Outpatient (REF) | payer MEDICARE, MEDICAID, SELFPAY | END 2021-04-05 16:35 | disposition home or self-care (01) | LOC: NCHCN 16:34 | PROVIDERS: PCP Family Medicine; Visit Provider Family Medicine | DX: Z51.81 Encounter for therapeutic drug level monitoring (principal) | CPT/HCPCS: 80333 ==

== ENCOUNTER 2021-05-24 03:10 | Outpatient (CLI) | payer MEDICARE, MEDICAID, SELFPAY ==
[2021-05-24 14:26] LABS: Abs Immature Grans 0.04 10^3/uL (0.0-0.06); Absolute Basophil Count 0.09 10^3/uL (0.0-0.2); Absolute Eosinophil Count 0.32 10^3/uL (0.0-0.7); Absolute Lymphocyte Count 4.73 10^3/uL (1.2-3.4); Absolute Monocyte Count 0.57 10^3/uL (0.1-0.8); Absolute Neutrophil Count 4.82 10^3/uL (1.2-6.7); Basophils % 0.9; HCT 40.4 % (36.0-46.0); HGB 12.8 g/dL (11.2-15.7); Immature Grans % 0.4; Lymphocytes % 44.7; MCH 27.4 pg (27.0-33.0); MCHC 31.7 % (32.0-36.0); MCV 86.3 fL (80-95); MPV 8.4 fL (8.0-11.0); Monocytes % 5.4; Neutrophils % 45.6; Nucleated RBC 0 %; Platelet Count 296 10^3/uL (130-400); RBC 4.68 10^6/uL (3.93-5.22); RDW 15.5 % (11.7-14.6); RDW-SD 48.8 fL; WBC 10.57 10^3/uL (4.4-10.8)
[2021-05-24 14:39] LABS: ALT 19 U/L (14-59); AST 14 U/L (15-37); Albumin 3.5 g/dL (3.4-5.0); Alkaline Phosphatase 129 U/L (46-116); Anion Gap 5.6 mmol/L (3-11); BUN 9 mg/dL (7-18); Bilirubin, Total 0.3 mg/dL (0.2-1.0); CO2 31.4 mmol/L (21.0-32.0); Calcium 8.3 mg/dL (8.5-10.1); Chloride 102 mmol/L (98-107); Estimated GFR 58.45 (mL/min/1.73m2); Glucose 103 mg/dL (74-106); Potassium 3.5 mmol/L (3.5-5.1); Sodium 139 mmol/L (136-145)
[2021-05-30 10:29] LABS: Indication for Study CML; Specimen Type BLOOD
[2021-05-30 10:30] LABS: Limitations and Disclaimers SEE COMMENTS
[2021-05-30 10:31] LABS: BCR-ABL1 Interpretation SEE COMMENTS; BCR-ABL1 p210 FusionTranscript SEE COMMENTS
== END 2021-05-24 03:11 | disposition home or self-care (01) ==
PROVIDERS: PCP Family Medicine; Visit Provider Internal Medicine Hematology & Oncology
DX: C92.10 Chronic myeloid leukemia, BCR/ABL-positive, not having achieved remission (principal)
CPT/HCPCS: 36415; 80053; 81206; 85025

== ENCOUNTER 2021-05-31 16:53 | Outpatient (REF) | payer MEDICARE, MEDICAID, SELFPAY | END 2021-05-31 16:54 | disposition home or self-care (01) | LOC: NCHCN 16:53 | PROVIDERS: PCP Family Medicine; Visit Provider Family Medicine | DX: Z51.81 Encounter for therapeutic drug level monitoring (principal) | CPT/HCPCS: 80333 ==

== ENCOUNTER → 2021-06-28 13:05 | Outpatient (BNVA) | payer MEDICARE, MEDICAID, SELFPAY | PROVIDERS: PCP Family Medicine; Referring Provider Family Medicine; Visit Provider Physical Therapy Assistant | DX: Z12.11 Encounter for screening for malignant neoplasm of colon (principal) ==

== ENCOUNTER 2021-07-11 04:16 | Outpatient (CLI) | payer MEDICARE, MEDICAID, SELFPAY ==
[2021-07-11 10:16] LABS: Source Nasal/Nares
[2021-07-11 15:19] LABS: COVID-19 PCR Negative (Negative)
== END 2021-07-11 04:17 | disposition home or self-care (01) ==
LOC: LBO 04:16
PROVIDERS: PCP Family Medicine; Visit Provider Surgery
DX: Z20.822 Contact with and (suspected) exposure to COVID-19 (principal); Z01.818 Encounter for other preprocedural examination
CPT/HCPCS: 87635

== ENCOUNTER 2021-07-13 09:23 | Day surgery (SDC) | payer MEDICARE, MEDICAID, SELFPAY ==
--- NOTE | 2021-07-12 22:09 | W.PM.DSUDISC ---
Discharge Plan Disposition Patient Disposition: HOME Condition: Good Discharge Details Reason For Visit: colon scope Attending Provider: Yaneth Bonds Primary Care Provider: Taya Ogden V Home Meds and New Rx's Prescriptions: Continued clotrimazole [Athlete's Foot (clotrimazole)] 1 % cream 1 applic topical BID RF: 0 hydrocortisone 0.5 % cream 1 applic topical BID PRNRF: 0 Narcan 4 mg/actuation spray,non-aerosol 4 mg intranasal Q2M PRNRF: 0 polyethylene glycol 3350 [Miralax] 17 gram/dose powder 17 g PO DAILY RF: 0 torsemide 20 mg tablet 20 mg PO DAILY RF: 0 cyclobenzaprine 10 mg tablet 10 mg PO TID RF: 0 morphine 30 mg capsule, ER multiphase 24 hr 30 mg PO BID RF: 0 hydrocodone-acetaminophen 1 EACH tablet 2 ea PO q6 RF: 0 morphine [MS Contin] 15 MG tablet extended release 15 mg PO Q6H PRN RF: 0 magnesium citrate Solution 150 ml PO BID PRNRF: 0 albuterol sulfate [Ventolin HFA] 90 mcg/actuation HFA aerosol inhaler 2 puff inhalation Q6H PRNRF: 0 cholecalciferol (vitamin D3) 25 mcg (1,000 unit) capsule 25 mcg PO DAILY RF: 0 docusate sodium 100 mg capsule 100 mg PO DAILY RF: 0 allopurinol 100 MG tablet 100 mg PO DAILY RF: 0 promethazine 25 MG tablet 25 mg PO PRN PRNRF: 0 Sprycel 50 MG tablet 100 mg PO DAILY RF: 0 sennosides [Senokot] 1 TAB tablet 1 tab PO BID PRN PRN (Reason: Constipation) Qty: 60 RF: 0 Discontinued polyethylene glycol 3350 17 gram/dose powder 17 g PO ONCE Qty: 238 RF: 0 bisacodyl [Dulcolax (bisacodyl)] 5 mg tablet,delayed release (DR/EC) 5 mg PO ONCE Qty: 4 RF: 0 Discharge Instructions Additional Instructions: DSU Colonoscopy Post-Op Instructions Instructions for Everyone who is given Anesthesia: For your safety, please do the following for the next twenty-four (24) hours: *Do Not operate a motor vehicle (car, truck, motorcycle, etc.) *Do Not drink alcoholic beverages or use any recreational drugs for the first 24 hours or while taking pain medications. The medications in your body may have a reaction that can be dangerous. *Do Not make any important decisions or sign any important papers. Findings: diverticula colon polyp No asa/NSAID's for the next 10 days tylenol is OK Follow up: My office will send a letter in 2 to 3 weeks time detailing what type of polyp it was and when we want you to repeat your colonoscopy 1. No lifting over 20 pounds or strenuous activity for the first 24 hours after your procedure. After 24 hours there are no restrictions on your activity but you may feel fatigued for a few days. 2. After you arrive home you may have a light meal and return to your normal diet as you can tolerate it without feeling sick to your stomach. 3. You may have a bloated, gaseous feeling in your belly (abdomen) after a colonoscopy. Passing gas and belching will help. Walking or lying down on your left side with your knees flexed may relieve the discomfort. Call the office at [phone] (Office) or [phone] (Hospital) right away if you notice any of the following: a.Vomiting of blood or ?coffee ground stools?. b.Rectal bleeding 1Tbsp, blood clots or continuous bleeding. c.Severe belly (abdominal) pain. d.A hard distended belly (abdomen) and an inability to pass gas. 4. Please don?t expect to have a normal BM (bowel movement) for 2-3 days after your procedure. 5. If there are questions regarding the findings of your procedure, please contact your doctor 6. If you are unable to contact your doctor with a problem, contact the hospital at [phone]. 7. Continue all your regular medications unless directed otherwise. I understand the above instructions and have no questions. Signature of Patient or Adult Escort Name of Responsible Adult Escort Signature of Nurse Date/Time Stand Alone Forms: Anesthesia Discharge Inst., Luz Sparks (DSU) Activity:: see above Diet:: see above Discharge Orders Discharge Orders: Discharge Order (Routine); Ordered 07/12/21 Ordered By: Yaneth Bonds DS: Diagnosis Discharge Diagnosis (1) Diverticula of colon: Status: Acute (2) Adenomatous polyps: Status: Acute
--- NOTE | 2021-07-12 22:09 | W.COLOREPORT ---
Colonoscopy Report Date of procedure: 07/13/21 Pre-op diagnosis general: CRC screen Post-op diagnosis procedure note: other (polyps) Procedure: hot snare polypectomy Surgeon: Yaneth Bonds Anesthesia Type: General:No Airway Estimated blood loss (mL): 1 Pathology: other Complications: None Disposition: same day Prep: Miralax/Dulcolax Retraction Time: 12 mins Procedure Description: After informed consent was obtained the patient was taken to the procedure room and placed in a left decubitous position. Monitors were applied and a time out was done. The patients name, date of , procedure, allergies to medications and metal in their body was reviewed. The patient was then sedated. Once sedated and comfortable a rectal exam was done. External exam was normal. Internal exam revealed a normal sphincter tone and no palpable masses. The scope was then introduced and retrofelexed. No internal hemorrhoids were identified. The scope was then advanced to the cecum w/out difficulty. The TI and appendiceal orifice were identified. The prep was good. The scope was then slowly retracted over 12 minutes back into the rectum. Minor diverticula are noted; these are confined to the sigmoid colon with no signs of active bleeding or infection. She did have a polyp at 30 cm that was removed with a hot biting snare. All specimen is retrieved and no bleeding is noted. A clip was placed over the scope was removed and the patient was woken up and taken back to Same day surgery in stable condition. The patient tolerated the procedure well and there were no immediate complications. Follow up: The patient should follow up in 5 years, path pd, unless they develop changes in bowel habits or other new gastrointestinal complaints.
[2021-07-13 09:37] VITALS: BP 149/88; PULSE 74; RESP 16; TEMP 36.9; O2SAT 97
[2021-07-13] MEDS: Lactated Ringers 1,000 ML 80 ML IV (11:00)
--- NOTE | 2021-07-13 11:08 | W.ANESPRE ---
General Info Date of Service Date Performed: 07/13/21 Height: 5 ft 5 in Weight: 136.6 kg Body Mass Index (BMI): 50.1 Surgical Procedure: Operation Date: 07/13/21 10:05 Proposed Procedures Side Surgeon coco Bonds, Meds Allergies and Home Medications Allergies Allergy/AdvReac Type Severity Reaction Status Date / Time methadone Allergy Severe none noted Verified 07/13/21 09:29 on referral gabapentin Allergy Intermediate none noted Verified 07/13/21 09:29 on referral ondansetron [From Zofran] Allergy Intermediate none noted Verified 07/13/21 09:29 on referral imatinib mesylate AdvReac fatigue Unverified 07/13/21 09:29 [From Gleevec] lobster Allergy Diarrhea Uncoded 07/13/21 09:29 Home Medication Medication Instructions Recorded Sprycel 100 mg PO DAILY 08/27/13 allopurinol 100 mg PO DAILY 08/27/13 promethazine 25 mg PO PRN PRN 08/27/13 sennosides [Senokot] 1 tab PO BID PRN PRN #60 tab 08/30/13 hydrocodone-acetaminophen 2 ea PO q6 10/14/16 morphine [MS Contin] 15 mg PO Q6H PRN 10/14/16 albuterol sulfate 90 mcg/actuation 2 puff INHALATION Q6H PRN 03/05/21 aerosol inhaler cholecalciferol (vitamin D3) 25 25 mcg PO DAILY 03/05/21 mcg (1,000 unit) capsule docusate sodium 100 mg capsule 100 mg PO DAILY 03/05/21 magnesium citrate 150 ml PO BID PRN 03/05/21 clotrimazole 1 % topical cream 1 applic TOPICAL BID 06/26/21 cyclobenzaprine 10 mg tablet 10 mg PO TID 06/26/21 hydrocortisone 0.5 % topical cream 1 applic TOPICAL BID PRN 06/26/21 morphine 30 mg capsule,extended 30 mg PO BID cap 06/26/21 release 24 hr multiphase naloxone 4 mg/actuation nasal spray 4 mg INTRANASAL Q2M PRN 06/26/21 polyethylene glycol 3350 17 17 g PO DAILY 06/26/21 gram/dose oral powder torsemide 20 mg tablet 20 mg PO DAILY 06/26/21 bisacodyl 5 mg tablet,delayed 5 mg PO ONCE #4 tab 06/28/21 release polyethylene glycol 3350 17 17 g PO ONCE #238 g 06/28/21 gram/dose oral powder Current Visit Medications: Current Medications Generic Name Dose Route Start Last Admin Trade Name Jhony PRN Reason Stop Dose Admin Hyoscyamine Sulfate 0.125 mg 07/12/21 21:54 Hyoscyamine 0.125 Mg Sl/Oral/Chew SL DIRECTED PRN Ringer's Solution 1,000 mls @ 80 mls/hr 07/13/21 06:00 07/13/21 11:00 IV 08/11/21 23:59 80 mls/hr INFUSION SANTI Administration IV Miscellaneous Supplies 1 each 07/13/21 06:00 Iv Access IV 08/11/21 23:59 DIRECTED SANTI Ondansetron HCl 4 mg 07/12/21 21:54 Ondansetron 4 Mg/2 Ml Vial IVP Q4H PRN PRN Nausea / Vomiting Sodium Chloride 0 ml 07/13/21 06:00 Normal Saline Flush 10 Ml Syr IV 08/11/21 23:59 PRN PRN Sodium Chloride 0 ml 07/13/21 06:00 Normal Saline 10 Ml Vial IJ 08/11/21 23:59 DIRECTED PRN Sterile Water 0 ml 07/13/21 06:00 Water,Injection,Sterile 10 Ml Vial IJ 08/11/21 23:59 DIRECTED PRN PFSH Active Problems Active Problems: Problem Status Onset Code Thrombocytosis D75.839 Obesity E66.9 Pancreatic divisum Q45.3 Arthralgia M25.50 Dyspnea R06.00 Cough R05.9 Snoring R06.83 Screening for colon cancer Z12.11 Myalgia M79.10 Fluid overload E87.70 Post-menopausal bleeding N95.0 Acute respiratory failure with hypoxia J96.01 Chest pain R07.9 DVT prophylaxis Fever R50.9 Discharge planning issues Z02.9 Nausea & vomiting R11.2 Dehydration E86.0 Opiate use F11.90 Back pain M54.9 H/O section Z98.891 Pancreatitis 08/27/13 K85.9 CML (chronic myeloid leukemia) C92.10 Medical History Medical History Allergic gastritis Arthralgia Chronic pain CML (chronic myeloid leukemia) Cold intolerance Cough Dyspnea Fluid retention Myalgia Obesity Pancreatic divisum Pancreatitis (08/27/13) Unknown etiology Situational anxiety Sleep apnea Smoker Snoring Thrombocytosis Surgical History Surgical History Cholecystectomy H/O section Tobacco Smoking/Tobacco Use Status: Former Tobacco Use Alcohol Alcohol Intake: never Substance Use Substance use: Occasionally Substance use type: marijuana Details: Pt uses sometimes for nausea. Last use over a month ago. Vital Signs and Lab Results Vital Signs Most Recent Vital Signs in EMR: Most Recent Vital Signs Temp Pulse Resp BP Pulse Ox 36.9 C 74 16 149/88 H 97 07/13/21 09:37 07/13/21 09:37 07/13/21 09:37 07/13/21 09:37 07/13/21 09:37 Lab Results Blood Type / Crossmatch: No Data to Display Complete Blood Count: No Data to Display Complete Metabolic Panel: No Data to Display Liver Function Panel: No Data to Display Coagulation Panel: No Data to Display Cardiac Panel: No Data to Display Arterial Blood Gas: No Data to Display Venous Blood Gas: No Data to Display Pancreas Panel: No Data to Display Thyroid Panel: No Data to Display Infectious Disease: Coronavirus (COVID-19)(PCR) Negative (Negative) 07/11/21 08:53 07/11/21 Coronavirus 2019 Source Nasal/Nares 07/11/21 08:53 07/11/21 Blood Cultures: No Data to Display Toxicology Panel: No Data to Display Panel: No Data to Display Anesthesia Assessment and Plan Anesthesia History Personal History: No History of Anesthesia Complications Family History: No Family History of Anesthesia Complications Exercise Tolerance Exercise Tolerance: Metabolic Equivalents>4 Pertinent Negatives Pertinent Negatives: No Symptoms of GERD, No Major Cardiovascular Symptoms or Complaints, No Major Pulmonary Symptoms or Complaints and No History of CVA/TIA Cardiac & Pulmonary Exam Cardiac Exam: Normal S1/S2 Heart Sounds Pulmonary Exam: Clear Bilateral Breath Sounds Airway Exam Known Difficult Airway: No Mallampati Class: 3 Mouth Opening: Normal (> 3cm) Thyromental Distance: Greater than 3 cm Neck Range of Motion: Full ROM Neck Circumference: Normal Teeth Condition: Normal Dentition ASA Classification ASA Score: ASA 3 Emergency Case?: No NPO Status NPO Status: NPO Clears >2 hours, Solids >8 hours Status Status: Not Per Patient and Negative HCG Anesthesia Plan Resuscitation Status: Full Code Anesthesia Technique: General Anesthesia Airway Planned: Natural Airway Monitors Used: Standard Monitors
[2021-07-13 11:10] VITALS: BMI 50.1
--- NOTE | 2021-07-13 12:10 | BOWEL_PTH ---
PATIENT: Caro Draper LOC: [facility] U#:[id number] AGE/SX: 50/F ROOM: RE07/13/[address]: Yaneth Bonds : 1970 BED: DIS: 07/13/2021 SPEC #: [id number] RECD: 07/13/21 13:15 STATUS: LALO REQ #: [id number] JEYSON: 07/13/21 12:[address]: Yaneth Bonds DEPT: Surgical Specimen RECD BY: Carlie Pineda ENTERED: 07/13/21 13:15 SP TYPE: Bowel OTHR DR: Taya Ogden V Tissues: 1 - BIOPSY BOWEL Procedures: GROSS AND MICRO LEVEL 4 Comments: [id number]
[2021-07-13 12:34] VITALS: BP 139/82; PULSE 83; RESP 18; TEMP 36.4; O2SAT 98
[2021-07-13 13:00] VITALS: BP 151/77; PULSE 71; RESP 16; TEMP 37.2; O2SAT 98
--- NOTE | 2021-07-16 12:20 | W.ANESPOSTOP ---
Postoperative Evaluation Date, Time and Location Date Performed: 07/16/21 (Late Entry) Time Performed: 12:20 Patient Location: Day Surgery Unit Vital Signs Most Recent Imported Vital Signs: Most Recent Vital Signs Temp Pulse Resp BP Pulse Ox 37.2 C 71 16 151/77 H 98 07/13/21 13:00 07/13/21 13:00 07/13/21 13:00 07/13/21 13:00 07/13/21 13:00 Pain Score Most Recent Pain Score: Most Recent Pain Score Pain Level 0 07/13/21 13:00 Assessment Mental Status: Awake (Alert & Oriented to Patient Baseline) Airway and Respiratory Function: Patent airway with normal (patient baseline) respiratory exam Cardiovascular Function: Hemodynamically Stable Hydration Status: Adequately Hydrated Nausea & Vomiting: No Nausea or Vomiting Pain: Pt. Denies Any Pain Peripheral Nerve Block: Patient did not receive a nerve block
== END 2021-07-13 13:25 | disposition home or self-care (01) ==
PROVIDERS: PCP Family Medicine; Visit Provider Surgery
PROC: 0DJD8ZZ Inspection of Lower Intestinal Tract, Via Natural or Artificial Opening Endoscopic (ICD-10-PCS; CPT 45378; principal; 2021-07-13 10:00)
DX: Z12.11 Encounter for screening for malignant neoplasm of colon (principal); D12.5 Benign neoplasm of sigmoid colon
CPT/HCPCS: 45385; 81025; 88305; J2001

== ENCOUNTER 2021-10-14 11:12 | Observation (INO) | payer MEDICARE, MEDICAID, SELFPAY ==
[2021-10-14] VITALS (63 sets, daily range): BP systolic 124–183; BP diastolic 66–114; PULSE 71–102; RESP 11–29; TEMP 36.4–37.4; O2SAT 87–99
--- NOTE | 2021-10-14 11:15 | RT.EKG_ITS ---
APPROVED REPORT Exam: Resting ECG Reason for Exam: [facility] Patient Location: E HR:75 bpm ECG Measurements Heart Rate 75 AXIS WV 130 P 42 QRSd 81 QRS 58 QT 394 T 49 QTc 442 Conclusion Sinus rhythm...normal P axis Anterior Q >40mS No ST elevation
[2021-10-14] MEDS: Normal Saline 1,000 ML 1000 ML IV (11:48)
[2021-10-14 11:51] LABS: Lactate 1.4 mmol/L (0.6-1.4)
--- NOTE | 2021-10-14 11:54 | W.ED.GENAD ---
Discharge Plan Disposition Patient Disposition: [facility] INPATIENT Condition: Good Discharge Details Clinical Impression: Elevated troponin, Dyspnea Admit Date/Time: 10/14/21 18:25 Admit Provider: Israel Layton Attending Provider: Israel Layton Primary Care Provider: Taya Ogden V ED Provider: Carlie Meza Discharge Data Discharge Date/Time-TO BE ENTERED AT DEPARTURE: 10/14/21 19:04 Medical Decision Making <Jed Roy NP - Last Filed: 10/19/21 16:43> Patient presenting to the emergency department with cold-like symptoms. She reports that the symptoms began yesterday and has significantly worsened. Patient states that yesterday she thought she had food poisoning but then began having a dry nonproductive cough, nausea, and sore throat. Patient reports previous history of leukemia that is in remission. Patient states some shortness of breath and sensation of unable to take full deep breath. States chills no fever. Physical exam shows clear lung sounds, normal cardiac exam, mild posterior pharynx without exudates or lymphadenopathy, and patient appearing acutely ill not in respiratory distress. Review of labs that show a leukocytosis, elevated troponin, elevated D-dimer, elevated BNP, nonspecific electrolyte abnormalities. Patient is COVID is negative. Initial chest x-ray shows mild interstitial thickening without focal consolidation. Patient reassessed and states improvement after receiving nebulizer. Patient denies any cardiac symptoms or any extremity edema which she has episodes of in the past but has been taking her Lasix as prescribed and has not had any complaints. Given elevated D-dimer CTA PE protocol was performed. No signs of PE and study is otherwise nondiagnostic for acute findings. Plan to repeat troponin at 3-hour wayne for further evaluation of elevated troponin. Review of second troponin shows that it is declined but still remains elevated. Due to this I feel that patient needs further observation and continued trending of troponin along with inpatient cardiac work-up. Hospitalist paged Imaging Data Radiologic Study: Imaging: X-Ray Radiologist's impression: Virtual radiologist interpretation of mild interstitial thickening without focal consolidation. Differential includes pulmonary edema, interstitial lung disease, or atypical infection. Radiologic Study #2: Imaging: CT Scan Radiologist's impression: IMPRESSION: 1. No pulmonary emboli within the main or proximal segmental pulmonary arteries. Limited assessment of more distal vessels. Consider a low threshold for additional or repeat imaging if suspicion for pulmonary embolism persists. 2. Mosaic lung attenuation, may be secondary to expiratory phase imaging versus air trapping due to small airways disease. 3. Smooth bibasilar interlobular septal thickening has decreased since prior, may indicate mild congestive change or hydration status despite absence of cardiomegaly/effusions/anasarca. Lymphangitic carcinomatosis is less likely given absence of nodularity. 4. A single mildly enlarged right axillary lymph node is nonspecific. No other thoracic adenopathy. Thank you for allowing us to participate in the care of your patient. Dictated and Authenticated by: Swati Marcelino DO <LORAINE Rogers - Last Filed: 10/14/21 21:09> Care is accepted from Krystian Roy, nurse practitioner Patient has acute elevated troponin, initial to 80, repeat 205, repeat EKG without any evidence of ST elevation or obvious ischemia CT a PE does not show evidence of pulmonary embolism, obvious high pulmonary hypertension, or cardiomegaly Patient at this time resting comfortably in room and asymptomatic I discussed the case with Dr. MENDIOLA, benefits representative at [facility] and he recommended treating patient conservatively with nuc med stress test in the morning and full dose aspirin, and BP control He did not recommend treating this patient as a non-ST elevation TX Patient is agreeable to admission at this time, Covid swab negative Given 381 mg aspirin and admitted for further observation and evaluation HPI <Jed Roy NP - Last Filed: 10/19/21 16:43> General Mode of arrival: ambulatory. Date/Time Provider Initiated Documentation: 10/14/21 11:19. Limitations to Documentation: no limitations. Information obtained by: patient. History of Present Illness 51 year old F presents to the emergency department with the chief complaint of cold symptoms , described as moderate, with intensity rated at 8. Quality is described as aching (Generalized body), Patient started experiencing this day(s) (1) and it has been constant. No relieving factors improve symptom(s), No exacerbating factors reported . Patient notes fever/chills, malaise, nausea/vomiting, shortness of breath and weakness. Patient did receive the following treatments prior to arrival, none Related Data Home Medications Medication Instructions Recorded Confirmed Sprycel 100 mg PO DAILY 08/27/13 10/14/21 allopurinol 100 mg PO DAILY 08/27/13 10/14/21 promethazine 25 mg PO QID PRN 08/27/13 10/15/21 sennosides [Senokot] 1 tab PO BID PRN PRN #60 tab 08/30/13 10/14/21 hydrocodone-acetaminophen 2 tab PO TID PRN MDD 6 TABS 10/14/16 10/15/21 morphine [MS Contin] 15 mg PO .0600 & .1400 10/14/16 10/14/21 albuterol sulfate 90 mcg/actuation 2 puff INHALATION Q6H PRN 03/05/21 10/14/21 aerosol inhaler cholecalciferol (vitamin D3) 25 25 mcg PO DAILY 03/05/21 10/14/21 mcg (1,000 unit) capsule docusate sodium 100 mg capsule 100 mg PO BID 03/05/21 10/15/21 magnesium citrate 150 ml PO BID PRN 03/05/21 10/14/21 clotrimazole 1 % topical cream 1 applic TOPICAL BID PRN 06/26/21 10/14/21 cyclobenzaprine 10 mg tablet 10 mg PO TID PRN 06/26/21 10/14/21 hydrocortisone 0.5 % topical cream 1 applic TOPICAL BID PRN 06/26/21 10/14/21 morphine 30 mg capsule,extended 30 mg PO HS cap 06/26/21 10/14/21 release 24 hr multiphase naloxone 4 mg/actuation nasal spray 4 mg INTRANASAL Q2M PRN 06/26/21 10/14/21 polyethylene glycol 3350 17 17 g PO DAILY 06/26/21 10/14/21 gram/dose oral powder torsemide 20 mg tablet 20 mg PO DAILY 06/26/21 10/14/21 paroxetine HCl 40 mg PO DAILY 10/15/21 10/15/21 potassium chloride 10 meq PO DAILY 10/15/21 10/15/21 triamcinolone acetonide 1 applic TOPICAL BID 10/15/21 10/15/21 ibuprofen 800 mg PO TID #30 tab 10/16/21 omeprazole 40 mg PO DAILY #14 cap 10/16/21 Previous Rx's Medication Instructions Recorded sennosides [Senokot] 1 tab PO BID PRN PRN #60 tab 08/30/13 ibuprofen 800 mg PO TID #30 tab 10/16/21 omeprazole 40 mg PO DAILY #14 cap 10/16/21 Allergies Allergy/AdvReac Type Severity Reaction Status Date / Time methadone Allergy Severe none noted Verified 10/14/21 11:27 on referral gabapentin Allergy Intermediate none noted Verified 10/14/21 11:27 on referral ondansetron [From Zofran] Allergy Intermediate none noted Verified 10/14/21 11:27 on referral imatinib mesylate AdvReac fatigue Unverified 10/14/21 11:27 [From Gleevec] lobster Allergy Diarrhea Uncoded 10/14/21 11:27 General Stated Complaint: GenMedical DAVID: 3 <LORAINE Rogers - Last Filed: 10/14/21 21:09> General Mode of arrival: ambulatory. Limitations to Documentation: no limitations. Information obtained by: patient. HPI Narrative: This 51-year-old female with hist Review of Systems <Jed Roy NP - Last Filed: 10/19/21 16:43> Constitutional Constitutional: Reports body ache(s), Reports chills, Denies fever(s), Reports headache(s) and Reports malaise Eyes Eyes: Denies eye discharge ENT Ears, Nose, Mouth, and Throat: Reports as per HPI, Denies ear discharge, Denies otalgia, Reports headache(s), Denies nasal congestion, Denies nasal discharge, Denies neck pain, Reports sore throat and Denies throat swelling Cardiovascular Cardiovascular: Denies chest pain, Denies pedal edema, Denies edema, Denies claudication, Denies leg edema, Reports dyspnea and Reports dyspnea on exertion Respiratory Respiratory: Reports cough (Nonproductive), Reports pain on inspiration, Reports dyspnea and Reports dyspnea on exertion Gastrointestinal Gastrointestinal: Reports diarrhea, Reports nausea and Reports vomiting Musculoskeletal Musculoskeletal: Denies joint swelling and Denies neck pain Integumentary/Breasts Skin/Breast: Denies rash Neurologic Neurologic: Reports headache(s) Allergic/Immunologic Allergic/Immunologic: Denies throat swelling PFSH <Jed Roy NP - Last Filed: 10/19/21 16:43> All Active Problems (Updated 10/17/21 @ 00:03 by DEVANG ROCHA) Acute myopericarditis (Acute) Pleurisy (Acute) Tubular adenoma (Acute) Adenomatous polyps (Acute) Diverticula of colon (Acute) Thrombocytosis (Acute) Obesity (Chronic) Pancreatic divisum (Acute) Arthralgia (Acute) Cough (Acute) Snoring (Acute) Screening for colon cancer (Acute) Myalgia (Acute) Fluid overload (Acute) Post-menopausal bleeding (Acute) Acute respiratory failure with hypoxia (Acute) Chest pain (Acute) DVT prophylaxis (Acute) Fever (Acute) Discharge planning issues (Acute) Nausea & vomiting (Acute) Dehydration (Acute) Opiate use (Acute) Back pain (Acute) CML (chronic myeloid leukemia) (Chronic) Medical History Allergic gastritis Chronic pain Cold intolerance Fluid retention Situational anxiety Sleep apnea Smoker Surgical History Cholecystectomy History of colonoscopy with polypectomy (~07/13/21) Social History Smoking/Tobacco Use Status: Former Tobacco Use Quit Date: 04/15/17 Smoking risk assessment performed?: Yes Alcohol Intake: never Drug use: Occasionally Substance use type: marijuana Details: Pt uses sometimes for nausea. Last use over a month ago. Household members: spouse and children Current gender identity: female Do you feel safe at home: Yes Do you feel safe in your relationship?: Yes Exam <Jed Roy NP - Last Filed: 10/19/21 16:43> Const General: cooperative and ill appearing acutely Nutritional Appearance: obese Orientation: alert and awake [facility] Head: normal to inspection, normocephalic and atraumatic Ears: hearing grossly normal bilaterally and TM's normal bilaterally General nose exam: external nose normal Face and sinus: no erythema Mouth: oral mucosae normal, no drooling, no muffled voice and no trismus Throat: uvula midline, abnormal tonsil bilaterally erythema; no exudates and no hypertrophy, posterior oropharynx abnormal erythema; no exudates, uvula not displaced and no uvular edema Neck Neck: normal visual inspection, full ROM, no lymphadenopathy, no meningeal signs, trachea midline and supple Resp Effort & Inspection: normal respiratory effort, able to speak in complete sentences and cough Quality of cough: dry Auscultation: diminished lung sounds bilaterally in the lower lung wise Cardio Rate: regular rate Rhythm: regular rhythm Heart Sounds: S1 normal, S2 normal, normal S1 and S2, no click, no gallops, no murmurs and no rubs Skin General skin exam: no rashes or lesions noted and dry skin (warm) Neuro General: patient alert, patient awake, patient oriented x3, gait normal and moves all extremities Cognition: normal cognition Speech: speech normal Course <Jed Roy NP - Last Filed: 10/19/21 16:43> Vital Signs Vital signs: Vital Signs Temperature 36.5 C 10/14/21 11:22 Pulse 85 10/14/21 11:22 Respiratory Rate 20 10/14/21 11:22 Blood Pressure 171/90 H 10/14/21 11:22 Pulse Oximetry 91 L 10/14/21 11:22 Temperature 36.5 C 10/14/21 11:22 Temperature Source Temporal Artery Scan 10/14/21 11:22 Pulse 82 10/14/21 11:29 Pulse 77 10/14/21 11:30 Respiratory Rate 15 10/14/21 11:32 Respiratory Effort 10/14/21 11:32 Respiratory Depth Normal 10/14/21 11:32 Respiratory Pattern Normal 10/14/21 11:32 Blood Pressure 171/90 H 10/14/21 11:29 Blood Pressure Mean 107 10/14/21 11:29 Blood Pressure Position Sitting 10/14/21 11:22 Pulse Oximetry 91 L 10/14/21 11:22 Oxygen Delivery Method Room Air 10/14/21 11:22 Oxygen Flow Rate 0 10/14/21 11:22 Pain Level 8 10/14/21 11:22 Lab/Test Results Lab/Test Results: Laboratory Tests Range/Units 10/14/21 11:44 VBG Lactate (0.6-1.4) mmol/L 1.4 Sign Out <Jed Roy NP - Last Filed: 10/19/21 16:43> Sign Out Data: Sign Out Comment: Patient signed out to Carlie BARON pending speaking with hospitalist for admission due to elevated troponin, shortness of breath, and need of further monitoring and cardiac evaluation Last updated by Jed Roy NP at 10/14/21 16:33
[2021-10-14 11:56] LABS: Absolute Lymphocyte Count 1.68 10^3/uL (1.2-3.4); Absolute Monocyte Count 1.07 10^3/uL (0.1-0.8); Basophils % 0.4; Eosinophils % 0.2; HCT 37.3 % (36.0-46.0); HGB 11.7 g/dL (11.2-15.7); Immature Grans % 1.2; Lymphocytes % 10.1; MCH 27.4 pg (27.0-33.0); MCHC 31.4 % (32.0-36.0); MCV 87.4 fL (80-95); MPV 8.8 fL (8.0-11.0); Monocytes % 6.4; Neutrophils % 81.7; Nucleated RBC 0 %; Platelet Count 257 10^3/uL (130-400); RBC 4.27 10^6/uL (3.93-5.22); RDW 15.7 % (11.7-14.6); WBC 16.65 10^3/uL (4.4-10.8)
[2021-10-14] MEDS: ACETAMINOPHEN 1,000 MG/100 ML BTL 400 MG IVPB (11:59)
[2021-10-14 12:01] LABS: Absolute Basophil Count 0.07 10^3/uL (0.0-0.2); Absolute Eosinophil Count 0.03 10^3/uL (0.0-0.7)
[2021-10-14 12:14] LABS: ALT 26 U/L (14-59); AST 27 U/L (15-37); Albumin 3.1 g/dL (3.4-5.0); Alkaline Phosphatase 129 U/L (46-116); Anion Gap 7.1 mmol/L (3-11); BUN 13 mg/dL (7-18); Bilirubin, Total 0.5 mg/dL (0.2-1.0); CO2 29.9 mmol/L (21.0-32.0); Calcium 8.9 mg/dL (8.5-10.1); Chloride 97 mmol/L (98-107); Estimated GFR 58.22 (mL/min/1.73m2); Glucose 107 mg/dL (74-106); Potassium 3.4 mmol/L (3.5-5.1); Sodium 134 mmol/L (136-145); Total Protein 7.7 g/dL (6.4-8.2)
[2021-10-14 12:15] LABS: C-Reactive Protein > 25.00 mg/dL (0.0-0.3)
--- NOTE | 2021-10-14 12:15 | DI.RAD_ITS ---
Exam(s) XR PORTABLE CHEST AP EXAM: XR PORTABLE CHEST AP CLINICAL HISTORY: cough TECHNIQUE: 2D digital imaging was performed. COMPARISON: CR XR PORTABLE CHEST AP from 09/14/2018 CR XR CHEST 2V PA LATERAL from 09/20/2018 CR XR CHEST 2V PA LATERAL from 09/21/[address] CHEST WO HIGH RES from 11/04/2019 FINDINGS: The exam is limited by patient body habitus and underpenetration. There is mild motion. Leads overl ie the chest. Heart is mildly enlarged. No gross focal area of consolidation or effusion is seen. Chronic interstitial thickening. IMPRESSION: Limited exam. No acute pulmonary findings. DATA REPOSITORY: RADIATION DOSE DELIVERED:
[2021-10-14 12:17] LABS: Troponin I 288 ng/L (<or=60)
[2021-10-14] MEDS: Albuterol/Ipratropium 3 ML UPD VIAL UPD (12:21)
--- NOTE | 2021-10-14 12:22 | DI.VRAD_ITS ---
PROCEDURE INFORMATION: Exam: XR Chest Exam date and time: 10/14/2021 11:42 AM Age: 51 years old Clinical indication: Cough TECHNIQUE: Imaging protocol: XR of the chest. Views: 1 view. COMPARISON: CT CHEST WO HIGH RES 11/04/2019 3:10 PM FINDINGS: Lungs: Mild interstitial thickening, similar to prior, without focal consolidation. Mild pulmonary edema, reactive airways disease or atypical infection could have this appearance. No focal consolidation. Pleural spaces: Unremarkable. No pleural effusion. No pneumothorax. Heart/Mediastinum: Top-normal size cardiac silhouette. Vasculature: Tortuous atheromatous aorta. Bones/joints: Unremarkable. IMPRESSION: Mild interstitial thickening without focal consolidation differential includes pulmonary edema, interstitial lung disease, or atypical infection. Dictated and Authenticated by: Swati Marcelino MD. Ordering:MICHAEL Adkins MD
[2021-10-14 12:25] LABS: Source Nasal/Nares
[2021-10-14 12:41] LABS: NT-proBNP 2446 pg/mL (<300)
--- NOTE | 2021-10-14 12:45 | DI.CT_ITS ---
Exam(s) CT CHEST PE CTA EXAM: CT CHEST PE CTA CLINICAL HISTORY: SOB, and elevated D-dimmer. TECHNIQUE: Imaging Protocol: Axial CT angiography was performed with multi-slice acquisition and mu lti-planar and/or 3D reconstructions. CONTRAST MATERIAL: Intravenous: Omnipaque 350 Contrast volume:100ml COMPARISON: CT CT CHEST WO HIGH RES from 11/04/2019 FINDINGS: Pulmonary Arteries: No evidence of filling defect to suggest pulmonary emboli. Motion artifact distal branches. Tracheobronchial tree: Patent where visualized. Mediastinum and Rani: No dominant adenopathy or fluid collection. Pulmonary parenchyma: Limited evaluation due to respiratory motion and expiratory changes. no consol idation or dominant measurable mass. Septal thickening at the bases, chronic. Pleura: No effusion or pneumothorax. Heart: The heart is not dilated. No coronary artery calcifications are seen. Aorta: Thoracic aorta non-dilated. No aneurysm. No dissection. Upper abdomen: Enlarged, fatty infiltration. Bones: Unremarkable for age. IMPRESSION: No evidence of pulmonary embolism. RADIATION DOSE DELIVERED: 705.74mGy.cm Total DLP DATA REPOSITORY: All CT scans at this facility are submitted to the National Radiology Data Registry (NRDR) Dose Index Registry (DIR) with the [employer] (ACR). RADIATION OPTIMIZATION: All CT scans at this facility use at least one of these dose optimization te chniques: automated exposure control; mA and/or kV adjustment per patient size (includes targeted exa ms where dose is matched to clinical indication); or iterative reconstruction.
[2021-10-14 12:49] LABS: D-Dimer 2216 ng/mlFEU (<500)
[2021-10-14 12:58] LABS: Lipase 405 U/L (73-393)
[2021-10-14] MEDS: Normal Saline Flush 10 ML SYR IVP ×2 (13:29→20:12)
[2021-10-14] MEDS: Omnipaque 350 MG/ML 100 ML BTL IJ (13:51)
[2021-10-14 14:04] LABS: Bilirubin Negative (Negative); Blood Trace-intact (Negative); Clarity Clear (Clear); Glucose Negative (Negative); Ketones Negative (Negative); Leukocyte Esterase Negative (Negative); Nitrite Negative (Negative); Specific Gravity 1.015 (1.005-1.025); pH 6.5 (5-8)
[2021-10-14 14:11] LABS: COVID-19 PCR Negative (Negative)
[2021-10-14 14:12] LABS: Bacteria Negative HPF (Negative); C & S Indicated? No; Casts Negative LPF (Negative); Crystals Negative HPF (Negative); Epithelial Cells Few HPF (Negative); Mucus Moderate (Negative); RBC 0-2 HPF (0-2)
--- NOTE | 2021-10-14 14:27 | DI.VRAD_ITS ---
PROCEDURE INFORMATION: Exam: CTA Chest With Contrast Exam date and time: 10/14/2021 12:56 PM Age: 51 years old Clinical indication: Cough and other: SOB, elevated d dimer TECHNIQUE: Imaging protocol: Computed tomographic angiography of the chest with contrast. 3D rendering (Not supervised by radiologist): MIP and/or 3D reconstructed images were created by the technologist. Radiation optimization: All CT scans at this facility use at least one of these dose optimization techniques: automated exposure control; mA and/or kV adjustment per patient size (includes targeted exams where dose is matched to clinical indication); or iterative reconstruction. Contrast material: OMNIPAQUE 350; Contrast volume: 100 ml; Contrast route: INTRAVENOUS (IV); COMPARISON: CT CHEST PE CTA 04/13/2019 5:21 PM FINDINGS: Limitations: Assessment of solid organs is limited by arterial phase timing of contrast bolus. Pulmonary arteries: Pulmonary arteries are adequately opacified to the proximal segmental level. No pulmonary emboli within the main or proximal segmental pulmonary arteries. Limited assessment of more distal pulmonary arteries secondary to timing of bolus and streak artifact. Aorta: Unremarkable. No aortic aneurysm. No aortic dissection. Lungs: No focal consolidation. Heterogeneous attenuation of the pulmonary parenchyma on this expiratory phase exam (indicated by posterior tracheal contour), may be due to reduced lung volumes versus air trapping, usually secondary to small airways disease. Smooth bibasilar interlobular septal thickening, 5-37, decreased since March 2019, is nonspecific, may represent mild congestive change despite absence of cardiomegaly/effusions/anasarca. Lymphangitic carcinomatosis is less likely given absence of nodularity. Subpleural ground-glass opacity within the lateral right middle lobe is nonspecific, likely hypoventilatory change, 5-25. A small wall thin walled is noted in the right middle lobe lung cyst. Pleural spaces: Unremarkable. No pneumothorax. No pleural effusion. Heart: Top-normal heart size. Normal caliber main pulmonary artery. Lymph nodes: A 12 mm short axis right axillary lymph node, 5-12 is nonspecific. No other thoracic lymphadenopathy by CT size criteria. Liver: Prominent left and caudate lobes, suggesting hepatic fibrosis. Bones/joints: Unremarkable. No acute fracture. Soft tissues: No anasarca or significant finding. IMPRESSION: 1. No pulmonary emboli within the main or proximal segmental pulmonary arteries. Limited assessment of more distal vessels. Consider a low threshold for additional or repeat imaging if suspicion for pulmonary embolism persists. 2. Mosaic lung attenuation, may be secondary to expiratory phase imaging versus air trapping due to small airways disease. 3. Smooth bibasilar interlobular septal thickening has decreased since prior, may indicate mild congestive change or hydration status despite absence of cardiomegaly/effusions/anasarca. Lymphangitic carcinomatosis is less likely given absence of nodularity. 4. A single mildly enlarged right axillary lymph node is nonspecific. No other thoracic adenopathy. Dictated and Authenticated by: Swati Marcelino MD. Ordering:MICHAEL Adkins MD
[2021-10-14] MEDS: HYDROcodone 5/Acetaminophen 325 TAB PO (15:16)
[2021-10-14 15:58] LABS: Troponin I 205 ng/L (<or=60)
--- NOTE | 2021-10-14 16:30 | RT.EKG_ITS ---
APPROVED REPORT Exam: Resting ECG Reason for Exam: abnormal troponin Patient Location: E HR:74 bpm ECG Measurements Heart Rate 74 AXIS MA 132 P 29 QRSd 99 QRS 51 QT 412 T 40 QTc 455 Conclusion Sinus rhythm. Low voltage, extremity and precordial leads...extremity<0.5mV, precordial<1.0mV Consider anterior infarct...Q >30mS in V2-V5
--- NOTE | 2021-10-14 18:05 | W.PM.HP.N ---
Date of service: 10/14/21 Time of Service: 18:05 Assessment and Plan Assessment and plan (1) Elevated troponin: Status: Acute Assessment and plan: At this point I am unable to tie this all together. Yesterday's illness, with vomiting and fever sounds like it may have been some sort of gastroenteritis, but the slight elevation of troponin (with a downward trend) might suggest atypical ACS, though there is nothing on EKG, and while slight fever may be found in ACS I would not expect fever of that magnitude. Additional findings of elevated BNP would again possibly support ACS (with consequent element of CHF) but overall pattern of illness would not seem to point in this direction. False negative COVID is possible -- note she is fully vaccinated, but remains at higher risk due to CML -- with element of myocarditis would be another possibility, but again I do not at present see a clean way to firmly tie this all together. Would agree with admit to trend troponins, and then favor ETT in AM. Has received empiric dose ASA in ER. Would consider repeat COVID in 2 days as well. History of Present Illness History of Present Illness Chief Complaint: nausea Narrative: 51 female with h/o CML reports multiple episodes of vomiting yesterday, along with temp to 102./ No abd pain, no diarrhea. Russell much better through today, and at this point denies nausea entirely. Did note slight dry cough today along with vague sense that she could not get a full breath. The actual immediate precipitant of her coming to the ER is that she wanted to get a COVID test. At any rate here in ER findings of note for white count 16, troponin 288,, negative EKG, d-Dimer 2216, BNP 2446, CXR with borderline cardiomegaly and chronic interstitial changes; CTA negative PE or other acute disease. COVID is negative. Patient given duoneb (Note no wheezing reported), APAP, hydrocodone (usual med for her) and IVF. I was asked to evaluate for admission. At present time patient states she feels more or less her usual self. Review of Systems All systems reviewed & are unremarkable except as noted in HPI and below PFSH All Active Problems (Updated 10/14/21 @ 18:15 by Israel Layton MD) Elevated troponin (Acute) Tubular adenoma (Acute) Adenomatous polyps (Acute) Diverticula of colon (Acute) Thrombocytosis (Acute) Obesity (Chronic) Pancreatic divisum (Acute) Arthralgia (Acute) Dyspnea (Acute) Cough (Acute) Snoring (Acute) Screening for colon cancer (Acute) Myalgia (Acute) Fluid overload (Acute) Post-menopausal bleeding (Acute) Acute respiratory failure with hypoxia (Acute) Chest pain (Acute) DVT prophylaxis (Acute) Fever (Acute) Discharge planning issues (Acute) Nausea & vomiting (Acute) Dehydration (Acute) Opiate use (Acute) Back pain (Acute) CML (chronic myeloid leukemia) (Chronic) Medical History Allergic gastritis Chronic pain Cold intolerance Fluid retention Situational anxiety Sleep apnea Smoker Surgical History Cholecystectomy History of colonoscopy with polypectomy (~07/13/21) Social History Smoking/Tobacco Use Status: Former Tobacco Use Quit Date: 04/15/17 Smoking risk assessment performed?: Yes Alcohol Intake: never Drug use: Occasionally Substance use type: marijuana Details: Pt uses sometimes for nausea. Last use over a month ago. Household members: spouse and children Current gender identity: female Do you feel safe at home: Yes Do you feel safe in your relationship?: Yes Meds Allergies and Home Medications Allergies Allergy/AdvReac Type Severity Reaction Status Date / Time methadone Allergy Severe none noted Verified 10/14/21 11:27 on referral gabapentin Allergy Intermediate none noted Verified 10/14/21 11:27 on referral ondansetron [From Zofran] Allergy Intermediate none noted Verified 10/14/21 11:27 on referral imatinib mesylate AdvReac fatigue Unverified 10/14/21 11:27 [From Gleevec] lobster Allergy Diarrhea Uncoded 10/14/21 11:27 Home Medications Medication Instructions Recorded Confirmed Type Sprycel 100 mg PO DAILY 08/27/13 07/13/21 History allopurinol 100 mg PO DAILY 08/27/13 07/13/21 History promethazine 25 mg PO PRN PRN 08/27/13 07/13/21 History sennosides [Senokot] 1 tab PO BID PRN PRN #60 tab 08/30/13 07/13/21 Rx hydrocodone-acetaminophen 2 ea PO q6 10/14/16 07/13/21 History morphine [MS Contin] 15 mg PO Q6H PRN 10/14/16 07/13/21 History albuterol sulfate 90 mcg/actuation 2 puff INHALATION Q6H PRN 03/05/21 07/13/21 History aerosol inhaler cholecalciferol (vitamin D3) 25 25 mcg PO DAILY 03/05/21 07/13/21 History mcg (1,000 unit) capsule docusate sodium 100 mg capsule 100 mg PO DAILY 03/05/21 07/13/21 History magnesium citrate 150 ml PO BID PRN 03/05/21 07/13/21 History clotrimazole 1 % topical cream 1 applic TOPICAL BID 06/26/21 07/13/21 History cyclobenzaprine 10 mg tablet 10 mg PO TID 06/26/21 07/13/21 History hydrocortisone 0.5 % topical cream 1 applic TOPICAL BID PRN 06/26/21 07/13/21 History morphine 30 mg capsule,extended 30 mg PO BID cap 06/26/21 07/13/21 History release 24 hr multiphase naloxone 4 mg/actuation nasal spray 4 mg INTRANASAL Q2M PRN 06/26/21 07/13/21 History polyethylene glycol 3350 17 17 g PO DAILY 06/26/21 07/13/21 History gram/dose oral powder torsemide 20 mg tablet 20 mg PO DAILY 06/26/21 07/13/21 History Exam Narrative Exam Narrative: 183/94, 75, 36.5, 11, 97% RA. HEENT atraumatic; neck supple; lungs diminished but clear; heart distant/RRR; abdomen soft and NT; extremities w/o edema; neuro Ox3, lucid, moves all 4s Results Labs Result diagrams: 10/14/21 11:44 10/14/21 11:44 Labs: Laboratory Results - last 24 hr 10/14/21 10/14/21 10/14/21 11:44 11:44 11:44 WBC 16.65 H RBC 4.27 Hgb 11.7 Hct 37.3 MCV 87.4 MCH 27.4 MCHC 31.4 L RDW 15.7 H Plt Count 257 MPV 8.8 Immature Gran % 1.2 Neutrophils % 81.7 Lymphocytes % 10.1 Monocytes % 6.4 Eosinophils % 0.2 Basophils % 0.4 Nucleated RBC % 0 Absolute Neutrophils 13.60 H Absolute Lymphocytes 1.68 Absolute Monocytes 1.07 H Absolute Eosinophils 0.03 Absolute Basophils 0.07 D-Dimer VBG Lactate 1.4 Sodium 134 L Potassium 3.4 L Chloride 97 L Carbon Dioxide 29.9 Anion Gap 7.1 BUN 13 Creatinine 1.0 Estimated GFR/1.73 m2 58.22 Glucose 107 H Calcium 8.9 Total Bilirubin 0.5 AST 27 ALT 26 Alkaline Phosphatase 129 H Troponin I 288 H* C-Reactive Protein > 25.00 H NT-Pro-B Natriuret Pep Total Protein 7.7 Albumin 3.1 L Lipase Urine Color Urine Clarity Urine pH Ur Specific [place] Urine Protein Urine Ketones Urine Blood Urine Nitrite Urine Bilirubin Urine Urobilinogen Ur Leukocyte Esterase Urine RBC Urine WBC Ur Epithelial Cells Urine Crystals Urine Bacteria Urine Casts Urine Mucus Ur Culture Indicated? Urine Glucose COVID-19 Source SARS-CoV-2 (PCR) 10/14/21 10/14/21 10/14/21 11:44 11:44 11:44 WBC RBC Hgb Hct MCV MCH MCHC RDW Plt Count MPV Immature Gran % Neutrophils % Lymphocytes % Monocytes % Eosinophils % Basophils % Nucleated RBC % Absolute Neutrophils Absolute Lymphocytes Absolute Monocytes Absolute Eosinophils Absolute Basophils D-Dimer VBG Lactate Sodium Potassium Chloride Carbon Dioxide Anion Gap BUN Creatinine Estimated GFR/1.73 m2 Glucose Calcium Total Bilirubin AST ALT Alkaline Phosphatase Troponin I Cancelled C-Reactive Protein NT-Pro-B Natriuret Pep 2446 H Total Protein Albumin Lipase 405 H Urine Color Urine Clarity Urine pH Ur Specific [place] Urine Protein Urine Ketones Urine Blood Urine Nitrite Urine Bilirubin Urine Urobilinogen Ur Leukocyte Esterase Urine RBC Urine WBC Ur Epithelial Cells Urine Crystals Urine Bacteria Urine Casts Urine Mucus Ur Culture Indicated? Urine Glucose COVID-19 Source SARS-CoV-2 (PCR) 10/14/21 10/14/21 10/14/21 11:55 12:20 13:45 WBC RBC Hgb Hct MCV MCH MCHC RDW Plt Count MPV Immature Gran % Neutrophils % Lymphocytes % Monocytes % Eosinophils % Basophils % Nucleated RBC % Absolute Neutrophils Absolute Lymphocytes Absolute Monocytes Absolute Eosinophils Absolute Basophils D-Dimer 2216 H VBG Lactate Sodium Potassium Chloride Carbon Dioxide Anion Gap BUN Creatinine Estimated GFR/1.73 m2 Glucose Calcium Total Bilirubin AST ALT Alkaline Phosphatase Troponin I C-Reactive Protein NT-Pro-B Natriuret Pep Total Protein Albumin Lipase Urine Color Yellow Urine Clarity Clear Urine pH 6.5 Ur Specific [place] 1.015 Urine Protein 100 H Urine Ketones Negative Urine Blood Trace-intact H Urine Nitrite Negative Urine Bilirubin Negative Urine Urobilinogen 2.0 H Ur Leukocyte Esterase Negative Urine RBC 0-2 Urine WBC 3-5 Ur Epithelial Cells Few Urine Crystals Negative Urine Bacteria Negative Urine Casts Negative Urine Mucus Moderate Ur Culture Indicated? No Urine Glucose Negative COVID-19 Source Nasal/Nares SARS-CoV-2 (PCR) Negative 10/14/21 15:27 WBC RBC Hgb Hct MCV MCH MCHC RDW Plt Count MPV Immature Gran % Neutrophils % Lymphocytes % Monocytes % Eosinophils % Basophils % Nucleated RBC % Absolute Neutrophils Absolute Lymphocytes Absolute Monocytes Absolute Eosinophils Absolute Basophils D-Dimer VBG Lactate Sodium Potassium Chloride Carbon Dioxide Anion Gap BUN Creatinine Estimated GFR/1.73 m2 Glucose Calcium Total Bilirubin AST ALT Alkaline Phosphatase Troponin I 205 H* C-Reactive Protein NT-Pro-B Natriuret Pep Total Protein Albumin Lipase Urine Color Urine Clarity Urine pH Ur Specific [place] Urine Protein Urine Ketones Urine Blood Urine Nitrite Urine Bilirubin Urine Urobilinogen Ur Leukocyte Esterase Urine RBC Urine WBC Ur Epithelial Cells Urine Crystals Urine Bacteria Urine Casts Urine Mucus Ur Culture Indicated? Urine Glucose COVID-19 Source SARS-CoV-2 (PCR) Last Vital Signs Temp 36.5 C 10/14/21 11:22 Pulse 72 10/14/21 16:45 Resp 11 L 10/14/21 17:00 BP 183/94 H 10/14/21 16:45 Pulse Ox 97 10/14/21 17:00
[2021-10-14] MEDS: Aspirin 81 MG CHEW 324 MG CH (18:12)
[2021-10-14] MEDS: HYDROcodone 10/Acetaminophen 325 TAB PO (20:10)
[2021-10-14 20:21] LABS: Troponin I 182 ng/L (<or=60)
[2021-10-15] VITALS (7 sets, daily range): BP systolic 114–157; BP diastolic 65–88; PULSE 77–82; RESP 18–24; TEMP 36.4–37.4; O2SAT 90–97
--- NOTE | 2021-10-15 | DI.US_ITS ---
APPROVED REPORT EXAM: Comprehensive 2D, Doppler, and color-flow Echocardiogram Patient Location: In-Patient Water Treatment Technician: Demetria Ortiz RDCS (AE) Indications: Elevated troponin Other Information Study Quality: Fair. Technically limited study due to body habitus. Conclusion Normal left ventricular wall thickness and chamber size. Estimated ejection fraction is 55 to 60%. There are no segmental wall motion abnormalities Normal right ventricular size and systolic function Both atria are normal in size Mildly thickened mitral leaflets, mild mitral annular calcification. Trace mitral regurgitation Normal tricuspid valve with trace regurgitation. Estimated right ventricular systolic pressure is 36 mmHg Trileaflet aortic valve without stenosis or regurgitation Mildly dilated ascending aorta measuring 3.68 cm Wall motion Left Ventricle The left ventricle is normal size. The left ventricular systolic function is normal. The left ventric ular ejection fraction is within the normal range. There is normal left ventricular wall thickness. T here is normal LV segmental wall motion. There is no ventricular septal defect visualized. LVEF is 55 %. Right Ventricle Right ventricle is grossly normal in size. Right ventricular systolic function is grossly normal. The RVSP is 36.3 mmHg. Atria The left atrium size is normal. The right atrium size is normal. The interatrial septum is intact wit h no evidence for an atrial septal defect. Aortic Valve The aortic valve is normal in structure. Aortic valve is trileaflet. There is no aortic valvular sten osis. No aortic regurgitation is present. Mitral Valve Mild mitral annular calcification. Mildly thickened mitral leaflets No evidence of mitral valve steno sis. Trace mitral regurgitation. Tricuspid Valve The tricuspid valve is normal in structure. There is no tricuspid valve stenosis. Trace tricuspid reg urgitation. Pulmonic Valve The pulmonary valve is normal in structure. There is no pulmonic valvular stenosis. There is no pulmo kelton valvular regurgitation. Great Vessels The aortic root is normal in size. The ascending aorta is mildly dilated. IVC is normal in size and c ollapses >50% with inspiration. Pericardium There is no pericardial effusion. 2D Dimensions IVSD d PLAX 1.07 cm F: 0.6-1.0 LV Vol A2C d MOD 140.7 mL LVPW d PLAX 1.06 cm F: 0.6 - 1.0 LV Vol A4C d MOD 110.6 mL LVID d PLAX 5.28 cm F: 3.8 - 5.2 LA vol/ BSA A2C s A-L 29.5 mL/m2 LVDs 3.70 cm F: 2.2 - 3.5 LA vol/ BSA A4C s A-L 28.6 mL/m2 Ao Root d 2.85 cm F: 2.7 - 3.3 LA Vol/ BSA Biplane s A-L 29.7 mL/m2 RA Area A4C 17.82 cm2 LA Area A4C s MOD 21.10 cm2 RA Vol/ BSA A4C s A-L 22.6 mL/m2 LA Area A2C s MOD 20.93 cm2 Ao Asc Diam d 3.67 cm F: 2.3 - 3.1 LV EF A4C MOD 54.4 % LV EF Teichholz 55.4 % LV EF A2C MOD 56.6 % LVEF (Richter's) 51.63 % F: 54 - 74 LV EF Biplane MOD 51.6 % LV Volume 88.45 mL F: 46 - 106 SV 64.34 mL LV Volume Index 37.16 mL/m2 F: 29 - 61 SV Index 27.00 mL/m2 LV Vol Biplane MOD 124.6 mL FS 29.05 % LV Diastology MV E' medial 0.075 (>0.07 m/s) E/A Ratio 0.7 LV E/e MED 12.45 (<14) MV E Vmax 0.93 (0.4-1.3 m/s) MV E' lateral 0.063 (>0.1 m/s) MV A Vmax 1.30 (0.4-1.3 m/s) LV E/e LAT 14.90 (<14) MV E/A Ratio 0.70 MV E/E' medial 12.46 MV E/E' lateral 14.92 Aortic Valve LVOT Area 3.08 cm2 AoV Area Vmax 2.04 cm2 LVOT Vmax 1.17 m/s AoV Area/ BSA (Vmax) 0.86 cm2/m2 LVOT Mean Anuj. 0.75 m/s ALFREDA Mean Anuj. 1.76 cm2 LVOT Peak Grad 5.5 mmHg ALFREDA Mean Anuj. Index 0.74 cm2/m2 LVOT Mean Grad 2.7 mmHg LVOT VTI 0.257 m LVOT Diam s 1.95 cm AoV Vmax 1.76 m/s Velocity Ratio 0.66 AoV Mean Anuj. 1.30 m/s AoV Peak Grad 12.4 mmHg LVOT SV 79.22 mL AoV Mean Grad 7.4 mmHg AoV VTI 0.364 m AoV Area VTI 2.18 cm2 AoV Area/ BSA (VTI) 0.91 cm/m2 Mitral Valve MV DT 344 (160-240 msec) MV PHT 100 msec MV Area PHT 2.21 cm2 MV VTI 0.367 m MV Area VTI 2.16 (4.0-6.0 cm2) Pulmonary Valve PV Vmax 1.26 (0.5-1.5 m/s) RVOT Peak Gr. 2.46 mmHg PV Peak Grad 6.4 mmHg RVOT Mean Gr. 1.25 mmHg PV Mean Grad 3.8 mmHg RVOT VTI 0.165 m PV VTI 0.250 m RVOT Vmax 0.78 m/s Tricuspid Valve TR Peak Grad 33.2 mmHg TR Vmax 2.88 m/s RA Pressure 3.00 mmHg RVSP (TR) 36.3 mmHg
[2021-10-15 07:16] LABS: HCT 35.9 % (36.0-46.0); HGB 11.4 g/dL (11.2-15.7); MCH 27.5 pg (27.0-33.0); MCHC 31.8 % (32.0-36.0); MCV 86.5 fL (80-95); MPV 9.2 fL (8.0-11.0); Platelet Count 260 10^3/uL (130-400); RBC 4.15 10^6/uL (3.93-5.22); RDW 15.8 % (11.7-14.6); RDW-SD 50.1 fL; WBC 8.76 10^3/uL (4.4-10.8)
--- NOTE | 2021-10-15 07:30 | RT.EKG_ITS ---
APPROVED REPORT Exam: Resting ECG Reason for Exam: elevated troponin Patient Location: I HR:69 bpm ECG Measurements Heart Rate 69 AXIS MA 137 P 38 QRSd 87 QRS 57 QT 419 T 52 QTc 449 Conclusion Sinus rhythm...normal P axis, V-rate 50- 99 Anterior infarct, old...Q >40mS, abnormal ST-T, V2-V5 No change compared to previous
[2021-10-15 07:31] LABS: Troponin I 110 ng/L (<or=60)
[2021-10-15] MEDS: HYDROcodone 10/Acetaminophen 325 TAB PO ×3 (08:09→21:07)
[2021-10-15 09:02] LABS: ESR 112 mm/hr (0-30); Lab Add On Test DONE
[2021-10-15 09:17] LABS: Anion Gap 10.5 mmol/L (3-11); BUN 9 mg/dL (7-18); CO2 28.5 mmol/L (21.0-32.0); Calcium 8.7 mg/dL (8.5-10.1); Chloride 99 mmol/L (98-107); Estimated GFR 58.22 (mL/min/1.73m2); Glucose 109 mg/dL (74-106); Potassium 3.2 mmol/L (3.5-5.1); Sodium 138 mmol/L (136-145)
[2021-10-15 09:31] LABS: C-Reactive Protein > 25.00 mg/dL (0.0-0.3)
[2021-10-15] MEDS: Allopurinol 100 MG TAB PO (09:33)
[2021-10-15] MEDS: Torsemide 20 MG TAB PO (09:34)
[2021-10-15 09:45] LABS: Procalcitonin 1.1 ng/mL
--- NOTE | 2021-10-15 12:38 | INITIAL_ITS ---
- If Service Date Differs Date of service: 10/15/21 Time of Service: 12:44 Care Management Initial Assess REASON FOR HOSPITALIZATION:: Elevated troponin PAST MEDICAL HISTORY/PAST SURGICAL HISTORY:: Medical History. Allergic gastritis. Chronic pain. Cold intolerance. Fluid retention. Situational anxiety. Sleep apnea. Smoker. Surgical History . Cholecystectomy. History of colonoscopy with polypectomy (~07/13/21) PREVIOUS FUNCTIONAL STATUS/SOCIAL/FAMILY SUPPORTS:: Caro resides with her BLAIR Ortega, her son and his in [place]. Caro states that she has a daughter whom resides in [place] as well whom is supportive. Caro states that she has been on disability for a number of years due to her CML. She reports that she is independent at baseline, drives (sometimes), and manages ADL's CURRENT FUNCTIONAL STATUS:: Caro remains on COVID precautions, and is having a work up today to inform treatment decisions moving forward. She is up i ndependently at this time with no needs noted. CM continues to follow. ADVANCE DIRECTIVES:: None on file. Has patient been provided with info about the portal/API?: Yes Did the patient sign up for the portal?: Yes (Previously) CODE STATUS:: Full Code INSURANCE COVERAGE / FINANCIAL ISSUES:: JESSY. [employer] CURRENT HOME/COMMUNITY SERVICES/EQUIPMENT:: CPAP PRIMARY CARE PHYSICIAN:: Taya Ogden POTENTIAL DISCHARGE NEEDS:: Follow up appointments. PATIENT/FAMILY EDUCATION NEEDS:: Review of discharge instructions, discuss Ask Me Three. ANTICIPATED BARRIERS TO DISCHARGE:: None identified. TRANSPORTATION:: Via private vehicle with family. PLAN:: Caro continues work up at this time, no additional services anticipated upon discharge. She will follow up with her PCP and plan of care as prescribed and transport via private vehicle wtih family. CM will continue to follow.
--- NOTE | 2021-10-15 14:39 | PHA.REVIEW ---
Pharmacy Admission Review - Admission Clinical Review (Last Reviewed 10/14/21 @ 18:13 by Israel Layton MD) Elevated troponin (Acute) Dyspnea (Acute) methadone Allergy (Severe, Verified 10/14/21 11:27) none noted on referral gabapentin Allergy (Intermediate, Verified 10/14/21 11:27) none noted on referral ondansetron [From Zofran] Allergy (Intermediate, Verified 10/14/21 11:27) none noted on referral imatinib mesylate [From Gleevec] Adverse Reaction (Unverified 10/14/21 11:27) fatigue lobster Allergy (Uncoded 10/14/21 11:27) Diarrhea Resuscitation Status Full Code Height 5 ft 6.14 in Weight 136.985 kg - Renal Dosing Renal Dosing: BUN 9 mg/dL (7-18) 10/15/21 06:40 Creatinine 1.0 mg/dL (0.55-1.02) 10/15/21 06:40 Medications needing adjustments: Reviewed List of meds needing interventions: eCrCl is >90 ml/min using adjusted body weight - Anticoagulation Anticoagulation: Hgb 11.4 g/dL (11.2-15.7) 10/15/21 06:40 Hct 35.9 % (36.0-46.0) L 10/15/21 06:40 Plt Count 260 10^3/uL (130-400) 10/15/21 06:40 Creatinine 1.0 mg/dL (0.55-1.02) 10/15/21 06:40 DVT Prophylaxis: N/A - Opiate Usage Evaluate Pain Scale/Pains Meds: Reviewed (chronic opiate use (morphine and hydrocodone)) Scheduled Bowel Reg ordered if on Opiates?: No (will notify ) - Relevant Labs ESR 112 mm/hr (0-30) H 10/15/21 06:40 Sodium 138 mmol/L (136-145) 10/15/21 06:40 Potassium 3.2 mmol/L (3.5-5.1) L 10/15/21 06:40 Chloride 99 mmol/L (98-107) 10/15/21 06:40 Magnesium 2.0 mg/dL (1.8-2.4) 10/15/21 06:40 C-Reactive Protein > 25.00 mg/dL (0.0-0.3) H 10/15/21 06:40 Electrolytes, C-Reactive P, ESR: Reviewed (no PO potassium replacement today, will monitor) - DM Control DM Control: Glucose 109 mg/dL (74-106) H 10/15/21 06:40 Insulin Dosing: N/A - Heart Failure/AZ Heart Failure/AZ: Troponin I 110 ng/L (<or=60) H* 10/15/21 06:40 NT-Pro-B Natriuret Pep 2446 pg/mL (<300) H 10/14/21 11:44 EF%, EWA's, B-Blockers, Diuretics: Reviewed - BP Control BP Control: Blood Pressure 157/88 Blood Pressure 132/70 - Qtc Review List meds needing interventions: QTc 442 on admission - IV to PO Switch IV Medications: Reviewed - Home Meds Home Med List reviewed: Reviewed Relevent Home Meds Not ordered & why?: Not ordered: paroxetine, cyclobenzaprine, docusate, potassium, promethazine, senna, topicals; also pt's hydrocodone rx states to take 2 tabs TID prn but provider ordered as 1 tab TID scheduled, will discuss with MD - Current meds Current Medication Order Review: Reviewed (follow up needed for: bowel meds, dvt ppx, and home meds; nuclear stress test to be done today)
--- NOTE | 2021-10-15 15:38 | PGE_ITS ---
Date of Service Date of service: 10/15/21 Time of Service: 15:38 Assessment and Plan Assessment and plan (1) Acute myopericarditis: Status: Acute Assessment and plan: Begin NSAID'S; I will give her toradol now for immediate improvement in her CP and then put her on ibuprofen 800 mg tid but will also put her on a PPI for protection of her GI tract. She was scheduled for GXT today per the screen printing equipment setter, however, she could not walk the treadmill. I ordered nuclear MPI study per cardiology recommendation as relayed to me by nursing. However, I think that this could be deferred to outpatient at later time. (2) Elevated troponin: Status: Acute Assessment and plan: transient troponin leak d/t #1 problem above. treat w/ NSAID's and arrange outpatient stress MPI. (3) Pleurisy: Status: Acute Assessment and plan: as above. Will repeat her SARS-COV2 PCR tomorrow to be certain she has not developed COVID infection but her labs and CT scan of her chest are reassuring. (no PE and no ground glass consolidations). Subjective Subjective Interval history since last seen: Patient presented w/ acute onset of dyspnea and pleuritic chest pain the began yesterday. No associated fever, chills, sputum production. She has not had any hx of exertional dyspnea nor chest pains. She was concerned that she may have developed COVID-19 and therefore presented to the ER for SARS-COV2 test. She has been vaccinated w/ J&J vaccine and has had her booster vaccine. She wears a mask in public and has not been exposed to COVID that she is aware. Workup in the ER included a negative SARS-COV2 PCR nasal swab. Labs last night demonstrated WBC 16,650 w/ increased neutrophils of 13,600 but no lymphocytopnenia. Troponin I was elevated at 288 ng/L but has trended down to 110 ng/L. Pro-BNP was elevated at 2400. CRP high at >25. WBC came down overnight to 8700. CRP remains elevated at >25 and ESR is high at 112. EKG's demonstrated NSR w/ poor anterior R wave forces; computer reading is old anterior infarct (confirmed by cardiology). However, echocardiogram today showed normal LV function, see below: Conclusion Normal left ventricular wall thickness and chamber size. Estimated ejection fraction is 55 to 60%. There are no segmental wall motion abnormalities Normal right ventricular size and systolic function Both atria are normal in size Mildly thickened mitral leaflets, mild mitral annular calcification. Trace mitral regurgitation Normal tricuspid valve with trace regurgitation. Estimated right ventricular systolic pressure is 36 mmHg Trileaflet aortic valve without stenosis or regurgitation Mildly dilated ascending aorta measuring 3.68 cm Based on her presentation and rapidly declining troponins but persistently high ESR and CRP, I think that is more likely she has myopericarditis. Exam Narrative Exam Narrative: Obese, white female sitting up in bed, alert/oriented x 3, not in any acute respiratory distress Lungs: diffusely diminished breath sounds w/out rhonchi or wheezing nor rales Heart: RRR, normal S1 and S2; no gallop and no rub Abdomen: obese, soft, nontender, nondistended Legs: bilateral pitting leg edema L>R, slight redness of the inner left thigh Objective Last Vital Signs Temp 37.4 C 10/15/21 09:31 Pulse 82 10/15/21 09:31 Resp 22 10/15/21 09:31 BP 157/88 H 10/15/21 09:31 Pulse Ox 96 10/15/21 09:31 Laboratory Results - last 24 hr 10/14/21 10/14/21 10/15/21 15:27 19:50 06:40 WBC RBC Hgb Hct MCV MCH MCHC RDW Plt Count MPV ESR Sodium Potassium Chloride Carbon Dioxide Anion Gap BUN Creatinine Estimated GFR/1.73 m2 Glucose Calcium Magnesium Troponin I 205 H* 182 H* 110 H* C-Reactive Protein Procalcitonin Add-On Test Request 10/15/21 10/15/21 10/15/21 06:40 06:40 06:40 WBC 8.76 D RBC 4.15 Hgb 11.4 Hct 35.9 L MCV 86.5 MCH 27.5 MCHC 31.8 L RDW 15.8 H Plt Count 260 MPV 9.2 ESR Sodium 138 Potassium 3.2 L Chloride 99 Carbon Dioxide 28.5 Anion Gap 10.5 BUN 9 Creatinine 1.0 Estimated GFR/1.73 m2 58.22 Glucose 109 H Calcium 8.7 Magnesium 2.0 Troponin I C-Reactive Protein > 25.00 H Procalcitonin Add-On Test Request DONE 10/15/21 10/15/21 06:40 06:40 WBC RBC Hgb Hct MCV MCH MCHC RDW Plt Count MPV ESR 112 H Sodium Potassium Chloride Carbon Dioxide Anion Gap BUN Creatinine Estimated GFR/1.73 m2 Glucose Calcium Magnesium Troponin I C-Reactive Protein Procalcitonin 1.1 Add-On Test Request Reviewed Pertinent PMH: Yes Objective Narrative Objective Narrative: POCUS venous compression study of the left leg did not show any non-compressible veins. She has a prominent left inguinal lymph node, however her left common femoral, femoral, GSV, and popliteal (including trifurcation) werer all compressible and lower leg veins were augmentable
[2021-10-15] MEDS: Ketorolac 30 MG/ML VIAL IVP (17:17)
[2021-10-15] MEDS: Potassium Chloride 20 MEQ TABCR 40 MEQ PO (17:27)
[2021-10-15] MEDS: Normal Saline Flush 10 ML SYR IVP (17:27)
[2021-10-15] MEDS: Enoxaparin 40 MG/0.4 ML SYR SC (18:18)
[2021-10-15] MEDS: Ibuprofen 800 MG TAB PO (21:06)
[2021-10-15] MEDS: Docusate Sodium 100 MG CAP PO (21:06)
[2021-10-15] MEDS: Senna TAB 1 TAB PO (22:41)
[2021-10-15] MEDS: Zolpidem 6.25 MG TABCR 12.5 MG PO (22:41)
[2021-10-16 00:34] VITALS: BP 124/74; PULSE 75; RESP 17; TEMP 36.2; O2SAT 94
[2021-10-16 05:43] VITALS: BP 144/72; PULSE 77; RESP 20; TEMP 36.6; O2SAT 98
[2021-10-16 07:08] VITALS: PULSE 68
[2021-10-16 07:49] LABS: Anion Gap 7.8 mmol/L (3-11); BUN 13 mg/dL (7-18); CO2 31.2 mmol/L (21.0-32.0); CREATININE 1.1 mg/dL (0.55-1.02); Calcium 8.9 mg/dL (8.5-10.1); Chloride 99 mmol/L (98-107); Estimated GFR 52.16 (mL/min/1.73m2); Glucose 107 mg/dL (74-106); Potassium 3.5 mmol/L (3.5-5.1); Sodium 138 mmol/L (136-145)
--- NOTE | 2021-10-16 09:02 | PDOC.CMPRO ---
- If Service Date Differs Date of service: 10/16/21 Time of Service: 09:03 Care Management Progress Note S/O:CM was unable to meet with Caro in person as she is on Covid isolation but did have a phone conversation with her. Caro stated that she is feeling much better and hopes to be discharged later today. Her son Jordan, with whom she lives, will drive her home. Caro does not feel she will need any additional services. She informed CM that she has been on disability for about 10 years and is managing pretty well. She does not receive any additional services. A: Caro is a 51 year old woman admitted on 10/14/21 with an elevated troponin P:Caro will return home with no new services once medically cleared. She will f/U with PCP, cardiology and plan of care as prescribed. Caro' family to transport when ready.CM will continue to support Caro and assess for ongoing discharge concerns.
[2021-10-16 09:56] LABS: Source Nasal/Nares
[2021-10-16 10:38] LABS: COVID-19 PCR Negative (Negative)
[2021-10-16] MEDS: Regadenoson 0.4 MG/5 ML SYR IVP (10:45)
[2021-10-16] MEDS: HYDROcodone 10/Acetaminophen 325 TAB PO ×2 (11:19→14:37)
[2021-10-16] MEDS: Allopurinol 100 MG TAB PO (11:20)
[2021-10-16] MEDS: Ibuprofen 800 MG TAB PO ×2 (11:20→14:37)
[2021-10-16] MEDS: Docusate Sodium 100 MG CAP PO (11:20)
[2021-10-16] MEDS: Torsemide 20 MG TAB PO (11:20)
[2021-10-16 11:25] VITALS: BP 144/82; PULSE 76; RESP 18; TEMP 36.8; O2SAT 96
--- NOTE | 2021-10-16 11:45 | DI.NM_ITS ---
APPROVED REPORT Exam: Pharmacologic Patient Location: In-Patient Room/Bed: 215 Stress Nurse: Liss Marquez RN Ordering Provider:KIM VILLANUEVA, Contact Number: [phone] BMI: 48.41 Baseline Rhythm: Sinus Rhythm Comment: Flipped T waves lead V2 Indications: Abnormal troponin Medical History Medical History: Acute myopericarditis, acute respiratory failure, thrombocytosis, obesity, chronic m yeloid leukemia, CHAO, anxiety Cardiac Medications: Torsemide, albuterol sulfate, potassium chloride, hydrocodone acetaminophen, mor phine Allergies: Ondansetron, gabapentin, methadone, lobster, imatinib mesylate Cardiac Risk Factors: Smoker (former), obesity Previous Cardiac Procedures: None Pretest Chest Pain Characteristics: None Exercise History: Sedentary Physical Disabilities: Limitation w/ JEONG Lung Sounds: Diminished bases Heart Sounds: Regular Stress Test Details Test: Pharmacologic stress was paired with low level exercise. Reason for pharmacologic stress test: physical limitation. Nuclear Acquisition: Rest Tc-99m/Stress Tc-99m 1 day Rest Isotope: Tc-99m Sestamibi. Dose: 13.0 Date: 10/16/2021 Injection Time: 0845 Stress Isotope: Tc-99m Sestamibi. Dose: 46.0 Date: 10/16/2021 Injection Time: 1036 HR Resting HR Supine: 68 bpm Max Heart Rate (APMHR): 168.911141 bpm Resting HR Standin bpm Target HR (85% APMHR): 142.716835 bpm Max HR Achieved: 105 bpm % of APMHR: 62.50 Recovery HR: 90 bpm BP Resting BP Supine: 154/90 mmHg Resting BP Standin/86 mmHg Max BP: 170/90 mmHg Recovery BP: 142/74 mmHg ECG Resting ECG: Sinus Rhythm, flipped T waves lead V2, , Clear, Sinus Rhythm Ectopy: None Stress ECG: Sinus Tachycardia ST Change: No significant ST segment changes noted Arrhythmia: None Recovery ECG: Sinus Rhythm, flipped T waves lead V2 Recovery ST Change: No significant ST segment changes noted Recovery Arrhythmia: None Clinical Stress Symptoms: Dyspnea, General Fatigue Rate Pressure Product: [id number] Stress ECG Conclusion 1. Resting electrocardiogram showed right axis deviation, poor R wave progression 2. Patient underwent pharmacologic stress with regadenoson 3. Peak heart rate achieved was 62% of maximal predicted for age 4. The electrocardiographic portion of the test was nondiagnostic due to inadequate heart rate 5. See MPI results for additional information Stress Test Summary STAGE HR BP Symptoms NOTES Supine 68 154/90 Baseline mild SOB SpO2 95% 1 min post Lexiscan injection 103 144/72 Moderate SOB, nausea SpO2 90% 3 min post Lexiscan injection 93 170/90 Mild-moderate SOB, nausea SpO2 96% 6 min post Lexiscan injection 90 142/74 Back to baseline mild SOB, nausea resolved SpO2 96% Pharmacologic stress was performed with low level exercise at 0.7 mph and 0% grade due to significant JEONG. Pt tolerated test well. MPI Conclusion Normal myocardial perfusion without evidence of ischemia or prior infarction EF 65%, normal wall motion Radiologist Interpretation Radiologist agrees with Apparel Cutter's Interpretation. Radiologist Interpretation by: Stephanie Chavez MD Interpretation Date/Time: 10/17/2021 16:49:40
--- NOTE | 2021-10-16 16:05 | DSE_ITS ---
Date of service: 10/16/21 Time of Service: 16:05 DS: Diagnosis Discharge Diagnosis (1) Acute myopericarditis: Status: Acute (2) Elevated troponin: Status: Acute (3) Pleurisy: Status: Acute Discharge Plan Disposition Patient Disposition: HOME Condition: Good Discharge Details Reason For Visit: Elevated Troponin Admit Date/Time: 10/14/21 18:25 Admit Provider: Israel Layton Attending Provider: Israel Layton Primary Care Provider: Taya Ogden V Hospital Course Hospital Course: 51-year-old female with a past medical history of CML, chronic opiate use, tubular adenoma, diverticulosis, obesity who is been vaccinated with a J&J vaccine but is waiting her booster vaccine. She presented to the emergency department with 1 day onset of acute symptoms of Shortness of breath and pleuritic chest pain. She also noted some chills but no fever. No purulent sputum production. She denies any recent exposure to people with respiratory illnesses. She denies any exposure to COVID-19. She was evaluated the emergency department clued routine labs and EKG and chest x-ray and a nasal swab for PCR for SARS-CoV-2. Nasal swab was negative. CBC demonstrated leukocytosis 16,650. CMP was remarkable for low potassium of 3.2 and an elevated troponin level of 288. Troponin levels were tracked and they declined down to 110 the next morning after admission. Her CRP on admission was elevated greater than 25 and her proBNP was elevated at 2400. She had a procalcitonin level 1.1 and an ESR that was elevated at 112. Chest x-ray showed no acute pulmonary findings. CTA of the chest showed no pulmonary embolism. Pulmonary parenchyma showed no consolidations or masses and no groundglass changes. Based on her symptoms and her elevated troponin and BNP and white count it was recommended she be admitted for observation to rule out ACS. Her EKG showed normal sinus rhythm with poor R wave progression. Formal reading by the parts cleaner was old anterior infarct. Patient had an echocardiogram performed the next morning which showed normal left ventricular function With an ejection fraction 55 to 60% and no segmental wall motion abnormalities. RV size and function was normal. There was no atrial enlargement. No significant valvular abnormalities. There is a mild dilated ascending aorta measuring 3.68 cm. Patient has borderline elevated RVSP of 36 mm. Based on her high CRP and ESR and symptoms of pleuritic chest pain in the setting of elevated troponin levels and normal LV function it was felt the patient most likely had a myopericarditis. Patient was started on ibuprofen which markedly improved her symptoms of chest pain. Interestingly her white cell count came down to normal overnight. Stress MPI was performed and while the written report is pending the preliminary verbal report is that there was no evidence of ischemia or infarct. Based on the preliminary stress MPI report and the fact the patient was markedly better after treatment with NSAIDs it was felt she could be safely discharged home for follow-up with her primary care provider. Patient was put on Protonix pump inhibitor including omeprazole 40 mg daily along with 10-day course of ibuprofen 800 mg p.o. 3 times daily. Repeat SARS-CoV-2 test was performed on the day of discharge and also was negative. Based on this it is felt that she does not have any evidence for COVID-19 infection. It is possible the patient may have had a viral myocarditis. She should be monitored for any signs or symptoms of CHF in the future. If she shows signs of exertional dyspnea that I would repeat her echocardiogram in 6 to 8 weeks. Home Meds and New Rx's Prescriptions: New ibuprofen 800 mg tablet 800 mg PO TID Qty: 30 RF: 0 omeprazole 40 mg capsule,delayed release(DR/EC) 40 mg PO DAILY Qty: 14 RF: 0 Continued clotrimazole 1 % cream 1 applic topical BID PRNRF: 0 hydrocortisone 0.5 % cream 1 applic topical BID PRNRF: 0 naloxone [Narcan] 4 mg/actuation spray,non-aerosol 4 mg intranasal Q2M PRNRF: 0 polyethylene glycol 3350 [Miralax] 17 gram/dose powder 17 g PO DAILY RF: 0 torsemide 20 mg tablet 20 mg PO DAILY RF: 0 cyclobenzaprine 10 mg tablet 10 mg PO TID PRNRF: 0 morphine 30 mg capsule, ER multiphase 24 hr 30 mg PO HS RF: 0 hydrocodone-acetaminophen 1 EACH tablet 2 tab PO TID MDD 6 TABS PRNRF: 0 morphine [MS Contin] 15 MG tablet extended release 15 mg PO .0600 & .1400 RF: 0 magnesium citrate Solution 150 ml PO BID PRNRF: 0 albuterol sulfate [Ventolin HFA] 90 mcg/actuation HFA aerosol inhaler 2 puff inhalation Q6H PRNRF: 0 cholecalciferol (vitamin D3) 25 mcg (1,000 unit) capsule 25 mcg PO DAILY RF: 0 docusate sodium 100 mg capsule 100 mg PO BID RF: 0 allopurinol 100 MG tablet 100 mg PO DAILY RF: 0 promethazine 25 MG tablet 25 mg PO QID PRNRF: 0 Sprycel 50 MG tablet 100 mg PO DAILY RF: 0 sennosides [Senokot] 1 TAB tablet 1 tab PO BID PRN PRN (Reason: Constipation) Qty: 60 RF: 0 potassium chloride 10 mEq tablet extended release 10 meq PO DAILY RF: 0 triamcinolone acetonide 0.1 % cream 1 applic TOPICAL BID RF: 0 paroxetine HCl 40 mg tablet 40 mg PO DAILY RF: 0 Discharge Instructions Instructions: Acute Pericarditis (DC) Additional Instructions: You presented to the ER w/ symptoms of pleuritic chest discomfort and your EKG showed no acute ischemic changes but you had a mild elevation of your troponin (heart enzyme) but your echocardiogram (ultrasound of your heart) showed normal function. You underwent a nuclear stress test that did not show any ischemia (abnormal heart function with stress). You had two negative nasal swab PCR tests for COVID-19 which were negative. You had inflammatory markers that were elevated (ESR and CRP) which correlate w/ an acute inflammation, most likely due to pericarditis (inflammation of the outer lining of the heart). This can occur w/ viral upper respiratory tract infections. The treatment is a course of nonsteroidal anti-inflammatory medications. I have prescribe ibuprofen 800 mg three times a day for 10 days. I have also prescribed omeprazole to protect your stomach from the ibuprofen. Stand Alone Forms: Nursing Discharge Form Referrals: Taya Ogden MD [Primary Care Provider] - 11/01/21 1:00 pm Activity:: Activity as Tolerated Equipment/Supplies:: No Equipment Needed Diet:: Normal Diet Discharge Orders Discharge Orders: Discharge Order (Routine); Ordered 10/16/21 Ordered By: Ranjit George Discharge Data Discharge Date/Time-TO BE ENTERED AT DEPARTURE: 10/16/21 16:43 DS: Summary Time Spent with Patient providing and/or coordinating discharge services: Greater than 30 minutes Status at Discharge Functional status at discharge: independent ambulation Overall status at discharge: patient is progressing back to baseline Mental Status: mental status grossly normal Speech and Movement: speech and movement normal Mood: congruent mood Affect: normal affect Exam Narrative Exam Narrative: Obese white female sitting up at the bedside feeling markedly better with no dyspnea. No chest pain. Lungs are clear to auscultation. Heart is regular rate and rhythm without murmur rub or gallop. Chest wall is nontender to palpation. Abdomen is obese soft and nontender Extremities without peripheral cyanosis or edema. Psych Mental Status: mental status grossly normal Speech and Movement: speech and movement normal Mood: congruent mood Affect: normal affect DS: Data Vitals/I&O Vitals and I&O: Vital Signs Temperature 36.8 C 10/16/21 11:25 Temperature Source Tympanic 10/16/21 11:25 Pulse 76 10/16/21 11:25 Pulse Rhythm Regular 10/16/21 12:15 Pulse 71 10/14/21 18:30 Respiratory Rate 18 10/16/21 11:25 Respiratory Effort 10/16/21 12:15 Respiratory Depth Normal 10/16/21 12:15 Respiratory Pattern Normal 10/16/21 12:15 Blood Pressure 144/82 H 10/16/21 11:25 Blood Pressure Mean 126 10/14/21 18:01 Blood Pressure Position Sitting 10/14/21 11:22 Pulse Oximetry 96 10/16/21 11:25 Oxygen Delivery Method Room Air 10/16/21 11:25 Oxygen Flow Rate 0 10/16/21 11:25 Pain Level 4 10/16/21 11:25 Comment 10/15/21 06:20 Intake & Output 10/15/21 10/16/21 10/16/21 23:59 11:59 23:59 Intake Total 800 / 800 Output Total 1800 / 2400 800 / 800 Balance -1000 / -1600 -800 / -800 Intake: Oral 800 / 800 Output: Urine 1800 / 2400 800 / 800 Other: Urine Color Yellow Dark Chelsea Urine Appearance Clear Clear Urine Odor Normal None Voiding Methods Toilet Toilet Data Completed and Pending Labs on day of discharge: Labs from last 24 hours 10/16/21 10/16/21 09:45 06:55 Sodium 138 Potassium 3.5 Chloride 99 Carbon Dioxide 31.2 Anion Gap 7.8 BUN 13 Creatinine 1.1 H Estimated GFR/1.73 m2 52.16 Glucose 107 H Calcium 8.9 COVID-19 Source Nasal/Nares SARS-CoV-2 (PCR) Negative PFSH All Active Problems (Updated 10/15/21 @ 19:20 by Ranjit George) Acute myopericarditis (Acute) Pleurisy (Acute) Elevated troponin (Acute) Tubular adenoma (Acute) Adenomatous polyps (Acute) Diverticula of colon (Acute) Thrombocytosis (Acute) Obesity (Chronic) Pancreatic divisum (Acute) Arthralgia (Acute) Dyspnea (Acute) Cough (Acute) Snoring (Acute) Screening for colon cancer (Acute) Myalgia (Acute) Fluid overload (Acute) Post-menopausal bleeding (Acute) Acute respiratory failure with hypoxia (Acute) Chest pain (Acute) DVT prophylaxis (Acute) Fever (Acute) Discharge planning issues (Acute) Nausea & vomiting (Acute) Dehydration (Acute) Opiate use (Acute) Back pain (Acute) CML (chronic myeloid leukemia) (Chronic) Medical History Allergic gastritis Chronic pain Cold intolerance Fluid retention Situational anxiety Sleep apnea Smoker Surgical History Cholecystectomy History of colonoscopy with polypectomy (~07/13/21) Social History Smoking/Tobacco Use Status: Former Tobacco Use Quit Date: 04/15/17 Smoking risk assessment performed?: Yes Alcohol Intake: never Drug use: Occasionally Substance use type: marijuana Details: Pt uses sometimes for nausea. Last use over a month ago. Household members: spouse and children Current gender identity: female Do you feel safe at home: Yes Do you feel safe in your relationship?: Yes
== END 2021-10-16 16:43 | disposition home or self-care (01) ==
LOC: ER 17:07 → MS 19:00
PROVIDERS: Internal Medicine; Nurse Practitioner Family; Admitting Provider General Practice; Emergency Provider Physician Assistant; PCP Family Medicine; Visit Provider General Practice
DX: I40.0 Infective myocarditis (principal); Z85.6 Personal history of leukemia; B97.89 Other viral agents as the cause of diseases classified elsewhere; E66.9 Obesity, unspecified; F11.90 Opioid use, unspecified, uncomplicated; E86.0 Dehydration; Q45.3 Other congenital malformations of pancreas and pancreatic duct; Z87.891 Personal history of nicotine dependence; R09.1 Pleurisy; K57.90 Diverticulosis of intestine, part unspecified, without perforation or abscess without bleeding; I25.2 Old myocardial infarction
CPT/HCPCS: 36415; 71275; 78452; 80048; 80053; 83690; 84145; 85027; 85652; 87635; 93005; 93306; 96361; 96365; 99285; J1650; 71045; 81003; 81015; 83605; 83735; 83880; 84484; 85025; 85379; 86140; 93010; 93017; 99217; 99219; 99225; G0378; J0131; J1885; J2785; J3490; J7620

== ENCOUNTER 2021-10-19 15:17 | Outpatient (REF) | payer MEDICARE, MEDICAID, SELFPAY ==
--- OUTSIDE RECORDS SUMMARY | 2021-10-19 15:23 | XMS_ITS ---
:1970 Author Care Team Providers Name Role Phone EDOUARD BLANK Primary Care Provider [phone] [facility] Primary Care Provider [phone] [facility] OTHER [phone] Allergies Code Code System Name Reaction Severity Status Onset 08608 RxNorm Gabapentin ? ? Active ? 610888 RxNorm Gleevec ? ? Active ? 6813 RxNorm Methadone ? ? Active ? Shellfish ? ? Active ? Derived 98161 RxNorm Zofran ? ? Active ? Medications Name Status Start Date Stop Date ? ? allopurinol 100 mg tablet Active ? Not av ailable Take 1 tablet every day by oral route. Breo Ellipta 200 mcg-25 mcg/dose powder for inhalation Active ? Not available Inhale 1 puff every day by inhalation route. Colace 100 mg capsule Active ? Not availa ble Take 1 capsule every day by oral route. cyclobenzaprine 10 mg tablet Completed ? 12/2018 Take 1 tablet twice a day by oral route as needed. famotidine 20 mg tablet Active ? Not avai lable Take 1 tablet twice a day by oral route. ferrous sulfate 325 mg (65 mg iron) tablet Completed ? 11/05/2019 Take 1 tablet every day by oral route. hydrocodone 10 mg-acetaminophen 325 mg tablet Active ? Not available Take 2 tablets 3 times a day by oral route. Lasix 40 mg tablet Active ? Not available Take 1 tablet every day by oral route. magnesium citrate 1.745 g/30mL oral solution Active ? Not available 1/2-1 bottle for constipation now, repeat in the future PRN Miralax 17 gram oral powder packet Active ? Not available Take 1 packet every day by oral route. Morphine Sulfate CR 15 mg tablet,extended release Active ? Not available Take 1 tablet every day by oral route. Morphine Sulfate CR 30 mg tablet,extended release Active ? Not available Take 1 tablet twice a day by oral route. Narcan 4 mg/actuation nasal spray Active ? Not available Take 1 spray as needed by nasal route. paroxetine 30 mg tablet Active ? Not avai lable Take 40 mg every day by oral route. ropinirole 1 mg tablet Active ? Not avail able Take 1 TABLET BY MOUTH 2-3 hours before bedtime Sprycel 50 mg tablet Active ? Not availab le Take 2 tablets every day by oral route. Symbicort 160 mcg-4.5 mcg/actuation HFA aerosol inhaler Complete d ? 09/30/2019 Inhale 1 puff twice a day by inhalation route. Ventolin HFA Active ? Not available Vitamin C 500 mg tablet Completed ? 11/05/19 20 Take 1 tablet every day by oral route. Problems Name Status Onset Date Source ? Yersinia Enterocolitica Food Poisoning Active 9 ? Chronic Myeloid Leukemia Active 12/28/2018 ? Thrombocytosis Active 12/28/2018 ? Body Fluid Retention Active 12/28/2018 ? Obesity Active 12/28/2018 ? Anxiety Active 12/28/2018 ? Smoker Active 12/28/2018 ? Depressive Disorder Active 12/28/2018 ? Chronic Pain Active 12/28/2018 ? Allergic Gastritis Active 12/28/2018 ? Idiopathic Acute Pancreatitis Active 12/28/2018 ? Kidney Stone Active 12/28/2018 ? Recurrent Urinary Tract Infection Active 12/28/2018 ? Menopausal Flushing Active 12/28/2018 ? Cellulitis of Buttock Active 12/28/2018 ? Skin Lesion Active 12/28/2018 ? Joint Pain Active 12/28/2018 ? Ankle Pain Active 12/28/2018 ? Pancreas Divisum Active 12/28/2018 ? Intolerant of Cold Active 12/28/2018 ? Dyspnea Active 12/28/2018 ? Snoring Active 12/28/2018 ? Cough Active 12/28/2018 ? Chest Wall Pain Active 12/28/2018 ? Pain in Right Foot Active 12/28/2018 ? Bilateral Knee Pain Active 12/28/2018 ? Restless Legs Active 12/29/2018 ? Systolic Murmur Active 12/29/2018 ? Restrictive Lung Disease Active 10/15/2019 ? Obstructive Sleep Apnea Syndrome Active ? ? Procedures Date Name Performed by ? 12/29/2018 Polysomnogram Information not avai lable 10/15/2019 CT, Chest, W/o Contrast Xray [facility] [address] [place], [place] [address] (Work Place) Results Lab Results Date Name Specimen Result Interpretation Description Value Range Status Address ? 02/15/2019 Ferritin, ? No observation ? ? ? [facility] Serum or recorded. [facility]: [address] [place] [address], [facility] Past Encounters None recorded. Social History Tobacco Smoking Status Former Smoker Notes: started at age 14, 1ppd . quit 2017 Vaccine List Vaccine Type influenza, injectable, quadrivalent 07/15/2019 Tdap 05/19/2009 Plan of Care Reminders Provider Appointments None ? ? recorded. Lab None ? ? recorded. Referral None ? ? recorded. Procedures None ? ? recorded. Surgeries None ? ? recorded. Imaging None ? ? recorded. Vitals 01/27/2020 01:00PM Office 30 Height Weight BMI 165.1 cm 140.61 kg 51.6 kg/m2 11/12/2019 01:45PM Office 30 Height Weight BMI Blood Pressure 165.1 cm 145.8 kg 53.5 kg/m2 118/70 mm[Hg] 10/15/2019 11:00AM Office 15 Height Weight BMI Blood Pressure 165.1 cm 143 kg 52.5 kg/m2 176/88 mm[Hg] 09/30/2019 09:45AM Office 30 Height Weight BMI Blood Pressure 165.1 cm 141.57 kg 51.9 kg/m2 128/72 mm[Hg] 04/15/2019 12:30PM Office 30 Height Weight BMI Blood Pressure 165.1 cm 143.34 kg 52.6 kg/m2 138/68 mm[Hg] 02/16/2019 08:30AM Office 30 Height Weight BMI Blood Pressure 165.1 cm 141.57 kg 51.9 kg/m2 120/78 mm[Hg] 12/29/2018 11:15AM New Patient 45 Height Weight BMI Blood Pressure 165.1 cm 145.1 kg 53.2 kg/m2 118/68 mm[Hg]
[2021-10-19 19:29] LABS: Anion Gap 7.2 mmol/L (3-11); BUN 11 mg/dL (7-18); C-Reactive Protein 2.42 mg/dL (0.0-0.3); CO2 30.8 mmol/L (21.0-32.0); Calcium 8.9 mg/dL (8.5-10.1); Chloride 102 mmol/L (98-107); Estimated GFR 58.22 (mL/min/1.73m2); Glucose 93 mg/dL (74-106); Potassium 4.1 mmol/L (3.5-5.1); Sodium 140 mmol/L (136-145)
[2021-10-19 19:35] LABS: HCT 40.6 % (36.0-46.0); HGB 12.4 g/dL (11.2-15.7); MCH 27.1 pg (27.0-33.0); MCHC 30.5 % (32.0-36.0); MCV 88.8 fL (80-95); MPV 8.6 fL (8.0-11.0); Platelet Count 397 10^3/uL (130-400); RBC 4.57 10^6/uL (3.93-5.22); RDW 16.3 % (11.7-14.6); RDW-SD 52.9 fL; WBC 15.82 10^3/uL (4.4-10.8)
[2021-10-19 19:49] LABS: ESR 82 mm/hr (0-30)
[2021-10-21 12:30] LABS: COVID-19 RT-PCR UVMMC Result Negative (Negative)
== END 2021-10-19 15:18 | disposition home or self-care (01) ==
LOC: NCHCN 15:17
PROVIDERS: PCP Family Medicine; Visit Provider Family Medicine
DX: R06.09 Other forms of dyspnea (principal); I31.8 Other specified diseases of pericardium; R60.0 Localized edema; R05.8 Other specified cough; Z20.822 Contact with and (suspected) exposure to COVID-19
CPT/HCPCS: 80048; 85027; 85652; U0003; 86140

== ENCOUNTER 2021-12-18 19:21 | Emergency (ER) | payer MEDICARE, MEDICAID, SELFPAY ==
[2021-12-18] VITALS (7 sets, daily range): BP systolic 136–140; BP diastolic 65–91; PULSE 72–137; RESP 9–26; TEMP 36.5; O2SAT 94–99
--- NOTE | 2021-12-18 19:59 | ED.GENADUL_ITS ---
Discharge Plan Disposition Patient Disposition: STILL A PATIENT Condition: Improving Discharge Details Clinical Impression: Anaphylactic reaction Primary Care Provider: Taya Ogden V ED Provider: Ming Dow Home Meds and New Rx's Prescriptions: No Action clotrimazole 1 % cream 1 applic topical BID PRN0RF Rx Instructions: APPLIES TO FACE hydrocortisone 0.5 % cream 1 applic topical BID PRN0RF naloxone [Narcan] 4 mg/actuation spray,non-aerosol 4 mg intranasal Q2M PRN0RF Rx Instructions: spray 1 dose into ONE nostril; alternate nostrils w each dose until help arrives polyethylene glycol 3350 [Miralax] 17 gram/dose powder 17 g PO DAILY 0RF torsemide 20 mg tablet 20 mg PO DAILY 0RF cyclobenzaprine 10 mg tablet 10 mg PO TID PRN0RF morphine 30 mg capsule, ER multiphase 24 hr 30 mg PO HS 0RF hydrocodone-acetaminophen 1 EACH tablet 2 tab PO TID MDD 6 TABS PRN0RF morphine [MS Contin] 15 MG tablet extended release 15 mg PO .0600 & .1400 0RF magnesium citrate Solution 150 ml PO BID PRN0RF albuterol sulfate [Ventolin HFA] 90 mcg/actuation HFA aerosol inhaler 2 puff inhalation Q6H PRN0RF cholecalciferol (vitamin D3) 25 mcg (1,000 unit) capsule 25 mcg PO DAILY 0RF docusate sodium 100 mg capsule 100 mg PO BID 0RF allopurinol 100 MG tablet 100 mg PO DAILY 0RF promethazine 25 MG tablet 25 mg PO QID PRN0RF Sprycel 50 MG tablet 100 mg PO DAILY 0RF sennosides [Senokot] 1 TAB tablet 1 tab PO BID PRN PRN (Reason: Constipation) Qty: 60 0RF potassium chloride 10 mEq tablet extended release 10 meq PO DAILY 0RF triamcinolone acetonide 0.1 % cream 1 applic TOPICAL BID 0RF Label Comments: APPLY SMALL AMOUNT TOPICALLY TO THE AFFECTED AREA TWICE DAILY paroxetine HCl 40 mg tablet 40 mg PO DAILY 0RF ibuprofen 800 mg tablet 800 mg PO TID Qty: 30 0RF omeprazole 40 mg capsule,delayed release(DR/EC) 40 mg PO DAILY Qty: 14 0RF Discharge Instructions Instructions: Anaphylaxis (ED) Additional Instructions: Please avoid shellfish or any food that can potentially be contaminated with shellfish. Continue to take Benadryl 25 mg by mouth every 8 hours for the next 3 days. Take steroid as prescribed. Use epinephrine as prescribed if you ever experience severe allergic reaction or anaphylaxis in the future. Please contact your primary care physician to arrange follow-up. Return to the ER immediately for any worsening or new concerning symptoms. Referrals: Taya Ogden MD [Primary Care Provider] - Medical Decision Making 20:00 -- 51-year-old female with known shellfish allergy presents with nausea, vomiting, hypotension about an hour after eating canned tuna fish. Suspect tuna was contaminated by shellfish and anaphylactic reaction. Patient given epinephrine IM by EMS and notes already feeling better. Patietn saturating well and no respiratory distress. Now normotensive. Initial plan to obtain IV access - nursing unable to establish IV. Patient provided informed refusal of additional IV attempts and is requesting IM meds and PO fluids. Will give prednisone 60mg PO and benadryl 50mg IM. Patient concerned that she vomited her opioid pain medication and is concerned for withdrawal. Dialudid 1mg IM administered. Plan to observe and reassess for rebound anaphylaxis. HPI General Mode of arrival: EMS . Date/Time Provider Initiated Documentation: 12/18/21 19:28 . Limitations to Documentation: no limitations . Information obtained by: patient and EMS . HPI Narrative: 51yo f with history of shellfish allergy, here with chief complaint of nausea and vomiting. Patient notes she had a can of tuna fish earlier this evening and about an hour later started to have nausea, vomiting and diarrhea. Symptoms were severe. She had associated feeling of chills and generally felt unwell. EMS notes patient appeared pale and had hypotension and she was given epinephrine IM in route. EMS also provided Zofran ODT. Patient denies associated swelling or difficulty breathing. No rash. Patient n otes she had exact same reaction when she has had shellfish in the past. Related Data Home Medications Medication Instructions Recorded Confirmed allopurinol 100 mg tablet 100 mg PO DAILY 08/27/13 10/14/21 dasatinib 50 mg tablet (Sprycel) 100 mg PO DAILY 08/27/13 10/14/21 promethazine 25 mg tablet 25 mg PO QID PRN 08/27/13 10/15/21 sennosides 8.6 mg tablet (Senokot) 1 tab PO BID PRN PRN #60 tab 08/30/13 10/14/21 hydrocodone 10 mg-acetaminophen 2 tab PO TID PRN MDD 6 TABS 10/14/16 10/15/21 325 mg tablet morphine 15 mg tablet,extended 15 mg PO .0600 & .1400 10/14/16 10/14/21 release (MS Contin) albuterol sulfate 90 mcg/actuation 2 puff INHALATION Q6H PRN 03/05/21 10/14/21 aerosol inhaler (Ventolin HFA) cholecalciferol (vitamin D3) 25 25 mcg PO DAILY 03/05/21 10/14/21 mcg (1,000 unit) capsule docusate sodium 100 mg capsule 100 mg PO BID 03/05/21 10/15/21 magnesium citrate 150 ml PO BID PRN 03/05/21 10/14/21 clotrimazole 1 % topical cream 1 applic TOPICAL BID PRN 06/26/21 10/14/21 cyclobenzaprine 10 mg tablet 10 mg PO TID PRN 06/26/21 10/14/21 hydrocortisone 0.5 % topical cream 1 applic TOPICAL BID PRN 06/26/21 10/14/21 morphine 30 mg capsule,extended 30 mg PO HS cap 06/26/21 10/14/21 release 24 hr multiphase naloxone 4 mg/actuation nasal 4 mg INTRANASAL Q2M PRN 06/26/21 10/14/21 spray (Narcan) polyethylene glycol 3350 17 17 g PO DAILY 06/26/21 10/14/21 gram/dose oral powder (Miralax) torsemide 20 mg tablet 20 mg PO DAILY 06/26/21 10/14/21 paroxetine HCl 40 mg tablet 40 mg PO DAILY 10/15/21 10/15/21 potassium chloride 10 mEq 10 meq PO DAILY 10/15/21 10/15/21 tablet,extended release triamcinolone acetonide 0.1 % 1 applic TOPICAL BID 10/15/21 10/15/21 topical cream ibuprofen 800 mg tablet 800 mg PO TID #30 tab 10/16/21 omeprazole 40 mg capsule,delayed 40 mg PO DAILY #14 cap 10/16/21 release Previous Rx's Medication Instructions Recorded sennosides 8.6 mg tablet (Senokot) 1 tab PO BID PRN PRN #60 tab 08/30/13 ibuprofen 800 mg tablet 800 mg PO TID #30 tab 10/16/21 omeprazole 40 mg capsule,delayed 40 mg PO DAILY #14 cap 10/16/21 release Allergies Allergy/AdvReac Type Severity Reaction Status Date / Time methadone Allergy Severe none noted Verified 10/14/21 11:27 on referral gabapentin Allergy Intermediate none noted Verified 10/14/21 11:27 on referral ondansetron [From Zofran] Allergy Intermediate none noted Verified 10/14/21 11:27 on referral imatinib mesylate AdvReac fatigue Unverified 10/14/21 11:27 [From Gleevec] lobster Allergy Diarrhea Uncoded 10/14/21 11:27 General Stated Complaint: Allergic DAVID: 3 Review of Systems All systems reviewed & are unremarkable except as noted in HPI and below Respiratory Respiratory: Reports as per HPI Gastrointestinal Gastrointestinal: Reports as per HPI PFSH All Active Problems (Updated 12/18/21 @ 20:14 by Ming Dow MD) Anaphylactic reaction (Acute) Acute myopericarditis (Acute) Pleurisy (Acute) Tubular adenoma (Acute) Adenomatous polyps (Acute) Diverticula of colon (Acute) Thrombocytosis (Acute) Obesity (Chronic) Pancreatic divisum (Acute) Arthralgia (Acute) Cough (Acute) Snoring (Acute) Screening for colon cancer (Acute) Myalgia (Acute) Fluid overload (Acute) Post-menopausal bleeding (Acute) Acute respiratory failure with hypoxia (Acute) Chest pain (Acute) DVT prophylaxis (Acute) Fever (Acute) Discharge planning issues (Acute) Nausea & vomiting (Acute) Dehydration (Acute) Opiate use (Acute) Back pain (Acute) CML (chronic myeloid leukemia) (Chronic) Medical History Allergic gastritis Chronic pain Cold intolerance Dyspnea Fluid retention Situational anxiety Sleep apnea Smoker Surgical History Cholecystectomy History of colonoscopy with polypectomy (~07/13/21) Social History Smoking/Tobacco Use Status: Former Tobacco Use Quit Date: 04/15/17 Smoking risk assessment performed?: Yes Alcohol Intake: never Drug use: Occasionally Substance use type: marijuana Details: Pt uses sometimes for nausea. Last use over a month ago. Household members: spouse and children Current gender identity: female Do you feel safe at home: Yes Do you feel safe in your relationship?: Yes Exam Const General: cooperative and no acute distress HENMT Mouth: moist mucous membranes Eyes Conjunctivae: normal conjunctivae Sclera: normal sclerae EOM: EOM intact bilaterally Resp Auscultation: clear to auscultation bilaterally, no rales, no rhonchi and no wheezes Cardio Rate: regular rate and not tachycardic Rhythm: regular rhythm GI Palpation: soft, not firm, no guarding, no masses, not rigid and nontender Skin General skin exam: no rashes or lesions noted Neuro General: patient alert, patient awake, patient oriented x3 and tone normal Extrem General: no edema Psych Appearance: grossly normal Mental Status: mental status grossly normal Course Vital Signs Vital signs: Vital Signs Temperature 36.5 C 12/18/21 19:28 Pulse 78 12/18/21 19:28 Respiratory Rate 18 12/18/21 19:28 Blood Pressure 136/66 12/18/21 19:28 Pulse Oximetry 99 12/18/21 19:28 Temperature 36.5 C 12/18/21 19:28 Temperature Source Tympanic 12/18/21 19:28 Pulse 78 12/18/21 19:28 Respiratory Rate 18 12/18/21 19:28 Respiratory Effort 12/18/21 19:30 Respiratory Pattern Normal 12/18/21 19:30 Blood Pressure 136/66 12/18/21 19:28 Blood Pressure Position Supine 12/18/21 19:28 Pulse Oximetry 99 12/18/21 19:28 Oxygen Delivery Method Room Air 12/18/21 19:28 Oxygen Flow Rate 0 12/18/21 19:28 Pain Level 8 12/18/21 19:28
[2021-12-18] MEDS: diphenhydrAMINE 50 MG/ML VIAL IVP (20:15)
[2021-12-18] MEDS: HYDROmorphone 2 MG/ML VIAL 1 MG IVP (20:15)
--- NOTE | 2021-12-18 22:30 | W.EDPROG ---
Date of service: 12/18/21 Time of Service: 22:31 Medical Decision Making Patient resting comfortably no acute distress. Normal voice tolerate secretions. Hemodynamically stable. Patient feels completely resolved and wishes to go home. I instructed her that usually observe allergic reaction/anaphylactic patients for approximately 4 hours however she is adamant that she will watch her symptomatology at home and return if anything is worsening. Will prescribe EpiPen and prednisone. Instructed to take Benadryl this evening and tomorrow as needed. Sign Out Sign Out Data: Sign Out Comment: Patient here with suspected anaphylactic reaction to shellfish. Patient was given epinephrine IM, Benadryl IM, prednisone p.o. as well as Zofran p.o. Plan to reassess patient for disposition. Last updated by Ming Dow MD at 12/18/21 20:16 Discharge Plan Disposition Patient Disposition: HOME Condition: Improving Discharge Details Clinical Impression: Anaphylactic reaction Primary Care Provider: Taya Ogden V ED Provider: Janusz Aviles Home Meds and New Rx's Prescriptions: New prednisone 20 mg tablet 20 mg PO DAILY 3 Days Qty: 3 0RF epinephrine [EpiPen 2-Trevor] 0.3 mg/0.3 mL auto-injector 0.3 mg IM ONCE PRN (Reason: anaphylaxis) Qty: 2 0RF Rx Instructions: as a single dose; may repeat once No Action clotrimazole 1 % cream 1 applic topical BID PRN0RF Rx Instructions: APPLIES TO FACE hydrocortisone 0.5 % cream 1 applic topical BID PRN0RF naloxone [Narcan] 4 mg/actuation spray,non-aerosol 4 mg intranasal Q2M PRN0RF Rx Instructions: spray 1 dose into ONE nostril; alternate nostrils w each dose until help arrives polyethylene glycol 3350 [Miralax] 17 gram/dose powder 17 g PO DAILY 0RF torsemide 20 mg tablet 20 mg PO DAILY 0RF cyclobenzaprine 10 mg tablet 10 mg PO TID PRN0RF morphine 30 mg capsule, ER multiphase 24 hr 30 mg PO HS 0RF hydrocodone-acetaminophen 1 EACH tablet 2 tab PO TID MDD 6 TABS PRN0RF morphine [MS Contin] 15 MG tablet extended release 15 mg PO .0600 & .1400 0RF magnesium citrate Solution 150 ml PO BID PRN0RF albuterol sulfate [Ventolin HFA] 90 mcg/actuation HFA aerosol inhaler 2 puff inhalation Q6H PRN0RF cholecalciferol (vitamin D3) 25 mcg (1,000 unit) capsule 25 mcg PO DAILY 0RF docusate sodium 100 mg capsule 100 mg PO BID 0RF allopurinol 100 MG tablet 100 mg PO DAILY 0RF promethazine 25 MG tablet 25 mg PO QID PRN0RF Sprycel 50 MG tablet 100 mg PO DAILY 0RF sennosides [Senokot] 1 TAB tablet 1 tab PO BID PRN PRN (Reason: Constipation) Qty: 60 0RF potassium chloride 10 mEq tablet extended release 10 meq PO DAILY 0RF triamcinolone acetonide 0.1 % cream 1 applic TOPICAL BID 0RF Label Comments: APPLY SMALL AMOUNT TOPICALLY TO THE AFFECTED AREA TWICE DAILY paroxetine HCl 40 mg tablet 40 mg PO DAILY 0RF ibuprofen 800 mg tablet 800 mg PO TID Qty: 30 0RF omeprazole 40 mg capsule,delayed release(DR/EC) 40 mg PO DAILY Qty: 14 0RF Discharge Instructions Instructions: Anaphylaxis (ED) Additional Instructions: Please avoid shellfish or any food that can potentially be contaminated with shellfish. Continue to take Benadryl 25 mg by mouth every 8 hours for the next 3 days. Take steroid as prescribed. Use epinephrine as prescribed if you ever experience severe allergic reaction or anaphylaxis in the future. Please contact your primary care physician to arrange follow-up. Return to the ER immediately for any worsening or new concerning symptoms. Referrals: Taya Ogden MD [Primary Care Provider] -
== END 2021-12-18 22:51 | disposition home or self-care (01) ==
PROVIDERS: Emergency Provider Emergency Medicine; PCP Family Medicine
DX: T78.02XA Anaphylactic reaction due to shellfish (crustaceans), initial encounter (principal)
CPT/HCPCS: 80053; 96374; 96375; 99284; 85025; J1200

== ENCOUNTER 2022-01-09 12:36 | Outpatient (CLI) | payer MEDICARE, MEDICAID, SELFPAY ==
[2022-01-09 18:24] LABS: Abs Immature Grans 0.02 10^3/uL (0.0-0.06); Absolute Basophil Count 0.09 10^3/uL (0.0-0.2); Absolute Eosinophil Count 0.43 10^3/uL (0.0-0.7); Absolute Lymphocyte Count 4.28 10^3/uL (1.2-3.4); Absolute Monocyte Count 0.51 10^3/uL (0.1-0.8); Eosinophils % 4.8; HCT 42.1 % (36.0-46.0); HGB 13.1 g/dL (11.2-15.7); Immature Grans % 0.2; Lymphocytes % 47.4; MCH 27.6 pg (27.0-33.0); MCHC 31.1 % (32.0-36.0); MCV 88.8 fL (80-95); MPV 8.4 fL (8.0-11.0); Monocytes % 5.6; Platelet Count 315 10^3/uL (130-400); RBC 4.74 10^6/uL (3.93-5.22); RDW 15.9 % (11.7-14.6); WBC 9.03 10^3/uL (4.4-10.8)
[2022-01-09 18:26] LABS: ALT 22 U/L (14-59); Albumin 3.7 g/dL (3.4-5.0); Alkaline Phosphatase 131 U/L (46-116); Anion Gap 5.3 mmol/L (3-11); BUN 9 mg/dL (7-18); Bilirubin, Total 0.3 mg/dL (0.2-1.0); CO2 32.7 mmol/L (21.0-32.0); CREATININE 1.1 mg/dL (0.55-1.02); Calcium 8.3 mg/dL (8.5-10.1); Chloride 99 mmol/L (98-107); Estimated GFR 52.16 (mL/min/1.73m2); Glucose 113 mg/dL (74-106); Sodium 137 mmol/L (136-145); Total Protein 6.9 g/dL (6.4-8.2)
[2022-01-09 19:43] LABS: AST 27 U/L (15-37)
[2022-01-21 16:19] LABS: Indication for Study CML
[2022-01-21 16:20] LABS: BCR-ABL1 p210 FusionTranscript See Comments; Specimen Type Peripheral blood
[2022-01-21 16:21] LABS: BCR-ABL1 Interpretation See Comments; Limitations and Disclaimers See Comments
== END 2022-01-09 12:37 | disposition home or self-care (01) ==
LOC: LBO 12:46
PROVIDERS: PCP Family Medicine; Visit Provider Internal Medicine Hematology & Oncology
DX: C92.10 Chronic myeloid leukemia, BCR/ABL-positive, not having achieved remission (principal)
CPT/HCPCS: 36415; 80053; 81206; 85025

== ENCOUNTER 2022-07-03 02:45 | Outpatient (CLI) | payer MEDICARE, MEDICAID, SELFPAY ==
[2022-07-03 10:50] LABS: Abs Immature Grans 0.05 10^3/uL (0.0-0.06); Absolute Basophil Count 0.12 10^3/uL (0.0-0.2); Absolute Eosinophil Count 0.44 10^3/uL (0.0-0.7); Absolute Lymphocyte Count 4.71 10^3/uL (1.2-3.4); Absolute Monocyte Count 0.77 10^3/uL (0.1-0.8); Eosinophils % 3.7; HCT 42.4 % (36.0-46.0); HGB 13.8 g/dL (11.2-15.7); Immature Grans % 0.4; MCH 27.4 pg (27.0-33.0); MCHC 32.5 % (32.0-36.0); MCV 84 fL (80-95); MPV 8.9 fL (8.0-11.0); Monocytes % 6.5; Neutrophils % 48.4; Platelet Count 323 10^3/uL (130-400); RBC 5.04 10^6/uL (3.93-5.22); RDW 15.8 % (11.7-14.6); RDW-SD 48.4 fL; WBC 11.77 10^3/uL (4.4-10.8)
[2022-07-03 10:51] LABS: ESR 34 mm/hr (0-30)
[2022-07-03 11:18] LABS: Hemoglobin A1C 5.9 % (<5.7)
[2022-07-03 11:20] LABS: ALT 18 U/L (14-59); AST 11 U/L (15-37); Albumin 3.7 g/dL (3.4-5.0); Alkaline Phosphatase 122 U/L (46-116); Anion Gap 8.3 mmol/L (3-11); BUN 15 mg/dL (7-18); Bilirubin, Total 0.3 mg/dL (0.2-1.0); CO2 32.7 mmol/L (21.0-32.0); CREATININE 1.1 mg/dL (0.55-1.02); Calcium 8.8 mg/dL (8.5-10.1); Chloride 99 mmol/L (98-107); Estimated GFR 60.46 (mL/min/1.73m2); Glucose 138 mg/dL (74-106); Potassium 3.1 mmol/L (3.5-5.1); Sodium 140 mmol/L (136-145); TSH (W/Ref FT4) 2.81 uIU/mL (0.36-3.74); Total Protein 7.7 g/dL (6.4-8.2)
[2022-07-11 11:27] LABS: Indication for Study CML
[2022-07-11 11:28] LABS: Specimen Type Peripheral blood
[2022-07-11 11:29] LABS: BCR-ABL1 p210 FusionTranscript See Comments; Limitations and Disclaimers See Comments
[2022-07-11 11:39] LABS: BCR-ABL1 Interpretation See Comments
== END 2022-07-03 02:46 | disposition home or self-care (01) ==
LOC: LBO 02:46
PROVIDERS: PCP Family Medicine; Visit Provider Internal Medicine Hematology & Oncology
DX: Z79.899 Other long term (current) drug therapy (principal); R53.83 Other fatigue; C92.10 Chronic myeloid leukemia, BCR/ABL-positive, not having achieved remission
CPT/HCPCS: 36415; 80053; 81206; 85652; 83036; 84443; 85025; 86140

== ENCOUNTER → 2022-07-11 13:13 | Outpatient (CLI) | payer MEDICARE, MEDICAID, SELFPAY ==
--- NOTE | 2022-07-11 12:47 | DI.RAD_ITS ---
Exam(s) XR CHEST 2V PA LATERAL EXAM: XR CHEST 2V PA LATERAL CLINICAL HISTORY: CHRONIC MYELOCYTIC LEUKEMIA-C92.10 TECHNIQUE: 2D digital imaging was performed of the chest. Two images were obtained. PA and lateral views were obtained. COMPARISON: CR,XR XR PORTABLE CHEST AP from 10/14/[address] CHEST PE CTA from 10/14/2021 FINDINGS: MEDIASTINUM: Normal. HEART: Normal. PULMONARY VASCULATURE: Normal. LUNGS: No focal consolidating infiltrates. There is persistent predominantly basilar prominence of t he interstitium which is grossly unchanged. These findings are similar compared to the CT scan of e chest from 10/14/2021. These are likely chronic findings. PLEURAL SPACE: No pleural effusion or pneumothorax. BONE:Within normal limits for the patient's age. OTHER FINDINGS:Normal. IMPRESSION: No acute pulmonary findings. DATA REPOSITORY: RADIATION DOSE DELIVERED:
== END ==
PROVIDERS: PCP Family Medicine; Visit Provider Nurse Practitioner Family
DX: C92.10 Chronic myeloid leukemia, BCR/ABL-positive, not having achieved remission (principal)
CPT/HCPCS: 71046

== ENCOUNTER 2022-08-16 13:32 | Outpatient (CLI) | payer MEDICARE, MEDICAID, SELFPAY ==
[2022-08-16 11:57] LABS: Abs Immature Grans 0.04 10^3/uL (0.0-0.06); Absolute Basophil Count 0.13 10^3/uL (0.0-0.2); Absolute Eosinophil Count 0.35 10^3/uL (0.0-0.7); Absolute Lymphocyte Count 3.59 10^3/uL (1.2-3.4); Absolute Monocyte Count 0.81 10^3/uL (0.1-0.8); Absolute Neutrophil Count 5.47 10^3/uL (1.2-6.7); Basophils % 1.3; Eosinophils % 3.4; HCT 44.5 % (36.0-46.0); HGB 14.1 g/dL (11.2-15.7); Immature Grans % 0.4; Lymphocytes % 34.6; MCH 27.2 pg (27.0-33.0); MCHC 31.7 % (32.0-36.0); MCV 86 fL (80-95); MPV 8.9 fL (8.0-11.0); Monocytes % 7.8; Neutrophils % 52.5; Platelet Count 285 10^3/uL (130-400); RBC 5.19 10^6/uL (3.93-5.22); RDW-SD 47.1 fL; WBC 10.39 10^3/uL (4.4-10.8)
[2022-08-16 12:36] LABS: ALT 18 U/L (14-59); AST 17 U/L (15-37); Albumin 3.6 g/dL (3.4-5.0); Alkaline Phosphatase 127 U/L (46-116); Anion Gap 7.5 mmol/L (3-11); BUN 16 mg/dL (7-18); Bilirubin, Total 0.4 mg/dL (0.2-1.0); CO2 32.5 mmol/L (21.0-32.0); Calcium 9.1 mg/dL (8.5-10.1); Chloride 100 mmol/L (98-107); Estimated GFR 67.78 (mL/min/1.73m2); Glucose 102 mg/dL (74-106); Potassium 3.7 mmol/L (3.5-5.1); Sodium 140 mmol/L (136-145); Total Protein 7.5 g/dL (6.4-8.2)
[2022-08-20 09:52] LABS: Indication for Study CML
[2022-08-20 09:53] LABS: Specimen Type Peripheral blood
[2022-08-20 09:54] LABS: BCR-ABL1 p210 FusionTranscript See Comments; Limitations and Disclaimers See Comments
[2022-08-20 10:00] LABS: BCR-ABL1 Interpretation See Comments
== END 2022-08-16 13:33 | disposition home or self-care (01) ==
LOC: LBO 13:33
PROVIDERS: PCP Family Medicine; Visit Provider Internal Medicine Hematology & Oncology
DX: C92.10 Chronic myeloid leukemia, BCR/ABL-positive, not having achieved remission (principal)
CPT/HCPCS: 36415; 80053; 81206; 85025

== ENCOUNTER → 2022-08-28 02:12 | Outpatient (CLI) | payer MEDICARE, MEDICAID, SELFPAY ==
--- NOTE | 2022-08-28 | DI.RAD_ITS ---
Exam(s) XR LUMBAR SPINE COMPLETE EXAM: XR LUMBAR SPINE COMPLETE CLINICAL HISTORY: BILAT SI JOINT PAIN, M53.3. TECHNIQUE: 2D digital imaging was performed of the lumbar spine. Five images were obtained. AP, la teral, right oblique, left oblique and L5-S1 spot views were obtained. COMPARISON: No exams were available for comparison FINDINGS: BONES: No fracture or destructive lesion. Endplate osteophytes are seen at multiple levels of the lum bar spine. No facet hypertrophy identified. DISKS: Intervertebral disc spaces are maintained. The sacroiliac joints are well maintained. ALIGNMENT: Lumbar spinal alignment is within normal limits. No spondylolysis or spondylolisthesis. SOFT TISSUE: There are surgical clips in the abdomen and pelvis. IMPRESSION: Mild degenerative changes seen in the lumbar spine. DATA REPOSITORY: RADIATION DOSE DELIVERED:
== END ==
PROVIDERS: PCP Family Medicine; Visit Provider Family Medicine
DX: M47.816 Spondylosis without myelopathy or radiculopathy, lumbar region (principal)
CPT/HCPCS: 72110

== ENCOUNTER 2022-09-23 03:28 | Outpatient (CLI) | payer MEDICARE, MEDICAID, SELFPAY ==
[2022-09-23 08:17] LABS: Abs Immature Grans 0.04 10^3/uL (0.0-0.06); Absolute Basophil Count 0.12 10^3/uL (0.0-0.2); Absolute Eosinophil Count 0.38 10^3/uL (0.0-0.7); Absolute Lymphocyte Count 4.31 10^3/uL (1.2-3.4); Absolute Monocyte Count 0.68 10^3/uL (0.1-0.8); Basophils % 1.1; Eosinophils % 3.4; HCT 44.8 % (36.0-46.0); HGB 14.2 g/dL (11.2-15.7); Immature Grans % 0.4; Lymphocytes % 38.8; MCH 26.9 pg (27.0-33.0); MCHC 31.7 % (32.0-36.0); MCV 85 fL (80-95); MPV 9.1 fL (8.0-11.0); Monocytes % 6.1; Neutrophils % 50.2; Platelet Count 327 10^3/uL (130-400); RBC 5.27 10^6/uL (3.93-5.22); RDW 14.7 % (11.7-14.6); WBC 11.12 10^3/uL (4.4-10.8)
[2022-09-23 08:26] LABS: Absolute Neutrophil Count 5.58 10^3/uL (1.2-6.7)
[2022-09-23 08:38] LABS: ALT 19 U/L (14-59); AST 19 U/L (15-37); Albumin 3.7 g/dL (3.4-5.0); Alkaline Phosphatase 142 U/L (46-116); BUN 14 mg/dL (7-18); Bilirubin, Total 0.3 mg/dL (0.2-1.0); CREATININE 1.2 mg/dL (0.55-1.02); Calcium 9.3 mg/dL (8.5-10.1); Chloride 96 mmol/L (98-107); Estimated GFR 54.13 (mL/min/1.73m2); Glucose 175 mg/dL (74-106); Sodium 136 mmol/L (136-145); Total Protein 7.4 g/dL (6.4-8.2)
[2022-09-25 08:28] LABS: Indication for Study See Comments
[2022-09-25 08:29] LABS: BCR-ABL1 p210 FusionTranscript See Comments; Specimen Type Blood
[2022-09-25 08:33] LABS: BCR-ABL1 Interpretation See Comments
[2022-09-25 08:35] LABS: Limitations and Disclaimers See Comments
== END 2022-09-23 03:29 | disposition home or self-care (01) ==
LOC: LBO 03:29
PROVIDERS: PCP Family Medicine; Visit Provider Internal Medicine Hematology & Oncology
DX: C92.10 Chronic myeloid leukemia, BCR/ABL-positive, not having achieved remission (principal)
CPT/HCPCS: 36415; 80053; 81206; 85025

== ENCOUNTER 2022-10-23 13:13 | Outpatient (CLI) | payer MEDICARE, MEDICAID, SELFPAY ==
[2022-10-23 10:30] LABS: Abs Immature Grans 0.04 10^3/uL (0.0-0.06); Absolute Basophil Count 0.11 10^3/uL (0.0-0.2); Absolute Lymphocyte Count 3.78 10^3/uL (1.2-3.4); Absolute Monocyte Count 0.79 10^3/uL (0.1-0.8); Basophils % 0.9; Eosinophils % 2.4; HCT 43.9 % (36.0-46.0); HGB 14.1 g/dL (11.2-15.7); Immature Grans % 0.3; Lymphocytes % 30.7; MCH 26.9 pg (27.0-33.0); MCHC 32.1 % (32.0-36.0); MCV 84 fL (80-95); MPV 9.2 fL (8.0-11.0); Monocytes % 6.4; Neutrophils % 59.3; Platelet Count 316 10^3/uL (130-400); RBC 5.24 10^6/uL (3.93-5.22); RDW-SD 45.7 fL; WBC 12.31 10^3/uL (4.4-10.8)
[2022-10-23 10:53] LABS: ALT 20 U/L (14-59); AST 19 U/L (15-37); Albumin 3.5 g/dL (3.4-5.0); Alkaline Phosphatase 140 U/L (46-116); Anion Gap 7.3 mmol/L (3-11); BUN 14 mg/dL (7-18); Bilirubin, Total 0.4 mg/dL (0.2-1.0); CO2 31.7 mmol/L (21.0-32.0); CREATININE 1.1 mg/dL (0.55-1.02); Calcium 9.4 mg/dL (8.5-10.1); Chloride 97 mmol/L (98-107); Estimated GFR 60.08 (mL/min/1.73m2); Glucose 193 mg/dL (74-106); Potassium 3.3 mmol/L (3.5-5.1); Sodium 136 mmol/L (136-145); Total Protein 7.3 g/dL (6.4-8.2)
[2022-10-28 09:56] LABS: Indication for Study See Comments
[2022-10-28 09:57] LABS: Specimen Type Blood
[2022-10-28 09:58] LABS: BCR-ABL1 p210 FusionTranscript See Comments
[2022-10-28 09:59] LABS: BCR-ABL1 Interpretation See Comments
[2022-10-28 10:01] LABS: Limitations and Disclaimers See Comments
== END 2022-10-23 13:14 | disposition home or self-care (01) ==
LOC: LBO 13:13
PROVIDERS: PCP Family Medicine; Visit Provider Internal Medicine Hematology & Oncology
DX: C92.10 Chronic myeloid leukemia, BCR/ABL-positive, not having achieved remission (principal)
CPT/HCPCS: 36415; 80053; 81206; 85025

== ENCOUNTER 2022-11-20 03:00 | Outpatient (CLI) | payer MEDICARE, MEDICAID, SELFPAY ==
[2022-11-20 11:44] LABS: Abs Immature Grans 0.06 10^3/uL (0.0-0.06); Absolute Neutrophil Count 7.88 10^3/uL (1.2-6.7); Eosinophils % 2.4; HCT 42.6 % (36.0-46.0); Immature Grans % 0.5; Lymphocytes % 26.5; MCH 28.3 pg (27.0-33.0); MCHC 32.9 % (32.0-36.0); MCV 86 fL (80-95); MPV 8.9 fL (8.0-11.0); Monocytes % 6.4; Neutrophils % 63.2; Platelet Count 244 10^3/uL (130-400); RBC 4.94 10^6/uL (3.93-5.22); RDW 16.4 % (11.7-14.6); RDW-SD 48.9 fL; WBC 12.47 10^3/uL (4.4-10.8)
[2022-11-20 11:45] LABS: Absolute Basophil Count 0.12 10^3/uL (0.0-0.2)
[2022-11-20 12:14] LABS: ALT 22 U/L (14-59); AST 24 U/L (15-37); Albumin 3.5 g/dL (3.4-5.0); Alkaline Phosphatase 124 U/L (46-116); Anion Gap 11.7 mmol/L (3-11); BUN 14 mg/dL (7-18); Bilirubin, Total 0.4 mg/dL (0.2-1.0); CO2 28.3 mmol/L (21.0-32.0); CREATININE 1.1 mg/dL (0.55-1.02); Calcium 9.3 mg/dL (8.5-10.1); Chloride 99 mmol/L (98-107); Estimated GFR 60.08 (mL/min/1.73m2); Glucose 163 mg/dL (74-106); Potassium 3.4 mmol/L (3.5-5.1); Sodium 139 mmol/L (136-145); Total Protein 7.5 g/dL (6.4-8.2)
[2022-11-25 09:28] LABS: Indication for Study See Comments; Specimen Type Blood
[2022-11-25 09:29] LABS: BCR-ABL1 p210 FusionTranscript See Comments
[2022-11-25 09:31] LABS: BCR-ABL1 Interpretation See Comments
[2022-11-25 09:34] LABS: Limitations and Disclaimers See Comments
== END 2022-11-20 03:01 | disposition home or self-care (01) ==
LOC: LBO 03:00
PROVIDERS: PCP Family Medicine; Visit Provider Internal Medicine Hematology & Oncology
DX: C92.10 Chronic myeloid leukemia, BCR/ABL-positive, not having achieved remission (principal)
CPT/HCPCS: 36415; 80053; 81206; 85025

== ENCOUNTER 2022-12-20 16:10 | Outpatient (REF) | payer MEDICARE, MEDICAID, SELFPAY | END 2022-12-20 16:11 | disposition home or self-care (01) | LOC: NCHCN 16:10 | PROVIDERS: PCP Family Medicine; Visit Provider Family Medicine | DX: R30.0 Dysuria (principal); R10.31 Right lower quadrant pain | CPT/HCPCS: 87077; 87086; 87186 ==

== ENCOUNTER 2022-12-31 02:48 | Outpatient (CLI) | payer MEDICARE, MEDICAID, SELFPAY ==
[2022-12-31 10:50] LABS: Abs Immature Grans 0.03 10^3/uL (0.0-0.06); Absolute Eosinophil Count 0.33 10^3/uL (0.0-0.7); Absolute Lymphocyte Count 4.32 10^3/uL (1.2-3.4); Absolute Monocyte Count 0.68 10^3/uL (0.1-0.8); Basophils % 0.9; Eosinophils % 2.9; HCT 42.8 % (36.0-46.0); HGB 13.9 g/dL (11.2-15.7); Immature Grans % 0.3; Lymphocytes % 38.4; MCH 27.5 pg (27.0-33.0); MCHC 32.5 % (32.0-36.0); MCV 85 fL (80-95); MPV 8.9 fL (8.0-11.0); Neutrophils % 51.5; Platelet Count 330 10^3/uL (130-400); RBC 5.06 10^6/uL (3.93-5.22); RDW 15.1 % (11.7-14.6); RDW-SD 45.6 fL; WBC 11.26 10^3/uL (4.4-10.8)
[2022-12-31 11:09] LABS: ALT 28 U/L (14-59); AST 21 U/L (15-37); Albumin 3.4 g/dL (3.4-5.0); Alkaline Phosphatase 107 U/L (46-116); Anion Gap 9.6 mmol/L (3-11); BUN 12 mg/dL (7-18); Bilirubin, Total 0.3 mg/dL (0.2-1.0); CO2 30.4 mmol/L (21.0-32.0); CREATININE 1.2 mg/dL (0.55-1.02); Calcium 8.8 mg/dL (8.5-10.1); Chloride 99 mmol/L (98-107); Estimated GFR 54.13 (mL/min/1.73m2); Glucose 143 mg/dL (74-106); Potassium 3.2 mmol/L (3.5-5.1); Sodium 139 mmol/L (136-145); Total Protein 7.3 g/dL (6.4-8.2)
[2023-01-02 14:54] LABS: Indication for Study CML; Specimen Type Blood
[2023-01-02 14:55] LABS: BCR-ABL1 p210 FusionTranscript See Comments
[2023-01-02 14:56] LABS: BCR-ABL1 Interpretation See Comments
[2023-01-02 14:57] LABS: Limitations and Disclaimers See Comments
== END 2022-12-31 02:49 | disposition home or self-care (01) ==
LOC: LBO 02:48
PROVIDERS: PCP Family Medicine; Visit Provider Internal Medicine Hematology & Oncology
DX: C92.10 Chronic myeloid leukemia, BCR/ABL-positive, not having achieved remission (principal)
CPT/HCPCS: 36415; 80053; 81206; 85025

== ENCOUNTER 2023-03-06 02:19 | Outpatient (CLI) | payer MEDICARE, MEDICAID, SELFPAY ==
[2023-03-06 11:24] LABS: Abs Immature Grans 0.06 10^3/uL (0.0-0.06); Absolute Basophil Count 0.12 10^3/uL (0.0-0.2); Absolute Eosinophil Count 0.38 10^3/uL (0.0-0.7); Absolute Lymphocyte Count 3.79 10^3/uL (1.2-3.4); Absolute Neutrophil Count 5.16 10^3/uL (1.2-6.7); Basophils % 1.2; Eosinophils % 3.7; HCT 42.9 % (36.0-46.0); Immature Grans % 0.6; Lymphocytes % 37.1; MCH 27.3 pg (27.0-33.0); MCHC 32.6 % (32.0-36.0); MCV 84 fL (80-95); MPV 8.9 fL (8.0-11.0); Monocytes % 6.9; Neutrophils % 50.5; Platelet Count 327 10^3/uL (130-400); RBC 5.12 10^6/uL (3.93-5.22); RDW 14.6 % (11.7-14.6); RDW-SD 44.1 fL; WBC 10.21 10^3/uL (4.4-10.8)
[2023-03-10 09:22] LABS: Indication for Study CML
[2023-03-10 09:23] LABS: BCR-ABL1 p210 FusionTranscript See Comments; Specimen Type Blood
[2023-03-10 09:25] LABS: BCR-ABL1 Interpretation See Comments
[2023-03-10 09:27] LABS: Limitations and Disclaimers See Comments
== END 2023-03-06 02:20 | disposition home or self-care (01) ==
LOC: LBO 02:19
PROVIDERS: PCP Family Medicine; Visit Provider Internal Medicine Hematology & Oncology
DX: C92.10 Chronic myeloid leukemia, BCR/ABL-positive, not having achieved remission (principal)
CPT/HCPCS: 36415; 81206; 85025

== ENCOUNTER 2023-05-08 04:03 | Outpatient (CLI) | payer MEDICARE, MEDICAID, SELFPAY ==
[2023-05-08 11:27] LABS: Abs Immature Grans 0.04 10^3/uL (0.0-0.06); Absolute Basophil Count 0.12 10^3/uL (0.0-0.2); Absolute Eosinophil Count 0.41 10^3/uL (0.0-0.7); Absolute Lymphocyte Count 3.69 10^3/uL (1.2-3.4); Absolute Monocyte Count 0.64 10^3/uL (0.1-0.8); Absolute Neutrophil Count 5.88 10^3/uL (1.2-6.7); Basophils % 1.1; Eosinophils % 3.8; HCT 44.6 % (36.0-46.0); HGB 14.3 g/dL (11.2-15.7); Immature Grans % 0.4; Lymphocytes % 34.2; MCH 26.9 pg (27.0-33.0); MCHC 32.1 % (32.0-36.0); MCV 84 fL (80-95); MPV 8.9 fL (8.0-11.0); Monocytes % 5.9; Neutrophils % 54.6; Platelet Count 352 10^3/uL (130-400); RBC 5.31 10^6/uL (3.93-5.22); RDW 14.4 % (11.7-14.6); RDW-SD 43.7 fL; WBC 10.78 10^3/uL (4.4-10.8)
[2023-05-08 11:43] LABS: ALT 19 U/L (14-59); AST 13 U/L (15-37); Albumin 3.5 g/dL (3.4-5.0); Alkaline Phosphatase 126 U/L (46-116); BUN 10 mg/dL (7-18); Bilirubin, Total 0.3 mg/dL (0.2-1.0); CREATININE 1.1 mg/dL (0.55-1.02); Chloride 103 mmol/L (98-107); Estimated GFR 60.08 (mL/min/1.73m2); Glucose 143 mg/dL (74-106); Potassium 3.7 mmol/L (3.5-5.1); Sodium 139 mmol/L (136-145)
[2023-06-02 09:03] LABS: Indication for Study CML
[2023-06-02 09:04] LABS: Specimen Type Blood
[2023-06-02 09:05] LABS: BCR-ABL1 p210 FusionTranscript See Comments
[2023-06-02 09:07] LABS: BCR-ABL1 Interpretation See Comments
[2023-06-02 09:09] LABS: Limitations and Disclaimers See Comments
== END 2023-05-08 04:04 | disposition home or self-care (01) ==
LOC: LBO 04:03
PROVIDERS: PCP Family Medicine; Visit Provider Internal Medicine Hematology & Oncology
DX: C92.10 Chronic myeloid leukemia, BCR/ABL-positive, not having achieved remission (principal)
CPT/HCPCS: 36415; 80053; 81206; 85025

== ENCOUNTER 2023-06-27 05:05 | Outpatient (CLI) | payer MEDICARE, MEDICAID, SELFPAY ==
[2023-06-27 09:17] LABS: Abs Immature Grans 0.04 10^3/uL (0.0-0.06); Absolute Basophil Count 0.13 10^3/uL (0.0-0.2); Absolute Eosinophil Count 0.29 10^3/uL (0.0-0.7); Absolute Lymphocyte Count 3.11 10^3/uL (1.2-3.4); Absolute Monocyte Count 0.59 10^3/uL (0.1-0.8); Absolute Neutrophil Count 5.72 10^3/uL (1.2-6.7); Basophils % 1.3; Eosinophils % 2.9; HCT 46.3 % (36.0-46.0); HGB 14.6 g/dL (11.2-15.7); Immature Grans % 0.4; Lymphocytes % 31.5; MCH 26.3 pg (27.0-33.0); MCHC 31.5 % (32.0-36.0); MCV 83 fL (80-95); MPV 8.8 fL (8.0-11.0); Neutrophils % 57.9; Platelet Count 327 10^3/uL (130-400); RBC 5.55 10^6/uL (3.93-5.22); RDW 14.6 % (11.7-14.6); RDW-SD 44.3 fL; WBC 9.88 10^3/uL (4.4-10.8)
[2023-06-27 09:57] LABS: ALT 28 U/L (14-59); AST 24 U/L (15-37); Albumin 3.4 g/dL (3.4-5.0); Alkaline Phosphatase 125 U/L (46-116); Anion Gap 11.1 mmol/L (3-11); BUN 10 mg/dL (7-18); Bilirubin, Total 0.3 mg/dL (0.2-1.0); CO2 24.9 mmol/L (21.0-32.0); CREATININE 0.9 mg/dL (0.55-1.02); Calcium 9.2 mg/dL (8.5-10.1); Chloride 104 mmol/L (98-107); Estimated GFR 76.44 (mL/min/1.73m2); Glucose 145 mg/dL (74-106); Potassium 3.7 mmol/L (3.5-5.1); Sodium 140 mmol/L (136-145); Total Protein 7.1 g/dL (6.4-8.2)
[2023-07-02 10:21] LABS: BCR/ABL1, p210 Result see interpretation; Specimen Type EDTA Whole Blood
== END 2023-06-27 05:06 | disposition home or self-care (01) ==
LOC: LBO 05:06
PROVIDERS: PCP Family Medicine; Visit Provider Internal Medicine Hematology & Oncology
DX: C92.10 Chronic myeloid leukemia, BCR/ABL-positive, not having achieved remission (principal)
CPT/HCPCS: 36415; 80053; 81206; 85025

== ENCOUNTER 2023-08-26 15:45 | Outpatient (REF) | payer MEDICARE, MEDICAID, SELFPAY ==
[2023-08-26 19:50] LABS: TSH (W/Ref FT4) 1.73 uIU/mL (0.36-3.74); Vitamin B12 383 pg/mL (193-986)
== END 2023-08-26 15:46 | disposition home or self-care (01) ==
LOC: NCHCN 15:45
PROVIDERS: PCP Family Medicine; Visit Provider Family Medicine
DX: R53.83 Other fatigue (principal)
CPT/HCPCS: 82607; 84443

== ENCOUNTER 2023-12-24 05:32 | Outpatient (CLI) | payer MEDICARE, SELFPAY ==
[2023-12-24 11:21] LABS: Abs Immature Grans 0.02 10^3/uL (0.0-0.06); Absolute Basophil Count 0.07 10^3/uL (0.0-0.2); Absolute Eosinophil Count 0.31 10^3/uL (0.0-0.7); Absolute Lymphocyte Count 3.77 10^3/uL (1.2-3.4); Absolute Monocyte Count 0.54 10^3/uL (0.1-0.8); Absolute Neutrophil Count 4.22 10^3/uL (1.2-6.7); Basophils % 0.8; Eosinophils % 3.5; HCT 47.1 % (36.0-46.0); HGB 14.6 g/dL (11.2-15.7); Immature Grans % 0.2; Lymphocytes % 42.2; MCH 26.3 pg (27.0-33.0); MCV 85 fL (80-95); Neutrophils % 47.3; Platelet Count 269 10^3/uL (130-400); RBC 5.55 10^6/uL (3.93-5.22); RDW 14.4 % (11.7-14.6); RDW-SD 44.4 fL; WBC 8.93 10^3/uL (4.4-10.8)
[2023-12-26 15:54] LABS: Indication for Study See Comments; Specimen Type Blood
[2023-12-26 15:55] LABS: BCR-ABL1 p210 FusionTranscript See Comments
[2023-12-26 16:00] LABS: BCR-ABL1 Interpretation See Comments
[2023-12-26 16:03] LABS: Limitations and Disclaimers See Comments
== END 2023-12-24 05:33 | disposition home or self-care (01) ==
LOC: LBO 05:33
PROVIDERS: PCP Family Medicine; Visit Provider Internal Medicine Hematology & Oncology
DX: C92.10 Chronic myeloid leukemia, BCR/ABL-positive, not having achieved remission (principal)
CPT/HCPCS: 36415; 81206; 85025

== ENCOUNTER 2024-04-23 18:59 | Outpatient (REF) | payer MEDICARE, MEDICAID, SELFPAY | END 2024-04-23 19:00 | disposition home or self-care (01) | LOC: LBN 18:59 | PROVIDERS: PCP Family Medicine; Visit Provider Physician Assistant | DX: N39.0 Urinary tract infection, site not specified (principal) | CPT/HCPCS: 87077; 87086; 87186 ==

== ENCOUNTER 2024-06-25 10:40 | Outpatient (CLI) | payer MEDICARE, SELFPAY ==
[2024-06-25 10:44] LABS: Abs Immature Grans 0.03 10^3/uL (0.0-0.06); Absolute Basophil Count 0.11 10^3/uL (0.0-0.2); Absolute Eosinophil Count 0.27 10^3/uL (0.0-0.7); Absolute Lymphocyte Count 3.75 10^3/uL (1.2-3.4); Absolute Monocyte Count 0.64 10^3/uL (0.1-0.8); Absolute Neutrophil Count 3.72 10^3/uL (1.2-6.7); Basophils % 1.3 %; Eosinophils % 3.2 %; HCT 42.5 % (36.0-46.0); HGB 13.6 g/dL (11.2-15.7); Immature Grans % 0.4 %; MCH 27.1 pg (27.0-33.0); MCV 85 fL (80-95); Monocytes % 7.5 %; Neutrophils % 43.6 %; Platelet Count 265 10^3/uL (130-400); RBC 5.01 10^6/uL (3.93-5.22); RDW 14.6 % (11.7-14.6); RDW-SD 45.1 fL; WBC 8.52 10^3/uL (4.4-10.8)
[2024-06-25 11:19] LABS: TSH (W/Ref FT4) 1.96 uIU/mL (0.36-3.74)
[2024-06-28 17:14] LABS: BCR/ABL1, p210 Result see interpretation; Specimen Type EDTA Whole Blood
== END 2024-06-25 10:41 | disposition home or self-care (01) ==
LOC: LBO 10:41
PROVIDERS: PCP Family Medicine; Visit Provider Nurse Practitioner Family
DX: C92.10 Chronic myeloid leukemia, BCR/ABL-positive, not having achieved remission (principal); R60.9 Edema, unspecified
CPT/HCPCS: 36415; 81206; 84443; 85025

== ENCOUNTER 2024-08-27 14:46 | Outpatient (REF) | payer MEDICARE, SELFPAY ==
[2024-08-27 15:01] LABS: ESR 17 mm/hr (0-30); HCT 47.5 % (36.0-46.0); MCHC 31.6 % (32.0-36.0); MCV 86 fL (80-95); MPV 9.1 fL (8.0-11.0); Platelet Count 283 10^3/uL (130-400); RBC 5.55 10^6/uL (3.93-5.22); RDW 14.2 % (11.7-14.6); RDW-SD 44.5 fL; WBC 9.61 10^3/uL (4.4-10.8)
[2024-08-27 15:15] LABS: ALT 23 U/L (14-59); AST 18 U/L (15-37); Alkaline Phosphatase 110 U/L (46-116); Anion Gap 5.4 mmol/L (3-11); BUN 11 mg/dL (7-18); Bilirubin, Total 0.36 mg/dL (0.2-1.0); C-Reactive Protein 1.27 mg/dL (<or=0.5); CO2 31.6 mmol/L (21.0-32.0); CREATININE 0.9 mg/dL (0.55-1.02); Calcium 9.3 mg/dL (8.5-10.1); Chloride 106 mmol/L (98-107); Glucose 77 mg/dL (74-106); Potassium 4.6 mmol/L (3.5-5.1); Sodium 143 mmol/L (136-145); Total Protein 7.2 g/dL (6.4-8.2)
== END 2024-08-27 14:47 | disposition home or self-care (01) ==
LOC: NCHCN 14:46
PROVIDERS: PCP Family Medicine; Visit Provider Family Medicine
DX: R22.1 Localized swelling, mass and lump, neck (principal); R20.0 Anesthesia of skin
CPT/HCPCS: 80053; 85027; 85652; 86140; 87070

== ENCOUNTER 2025-03-01 18:10 | Outpatient (REF) | payer MEDICARE, SELFPAY ==
[2025-03-01 19:28] LABS: Abs Immature Grans 0.04 10^3/uL (0.0-0.06); Absolute Basophil Count 0.12 10^3/uL (0.0-0.2); Absolute Eosinophil Count 0.26 10^3/uL (0.0-0.7); Absolute Lymphocyte Count 3.74 10^3/uL (1.2-3.4); Absolute Monocyte Count 0.77 10^3/uL (0.1-0.8); Absolute Neutrophil Count 5.46 10^3/uL (1.2-6.7); Basophils % 1.2 %; Eosinophils % 2.5 %; HCT 49.5 % (36.0-46.0); HGB 15.6 g/dL (11.2-15.7); Immature Grans % 0.4 %; MCH 26.9 pg (27.0-33.0); MCHC 31.5 % (32.0-36.0); MCV 86 fL (80-95); MPV 9.5 fL (8.0-11.0); Monocytes % 7.4 %; Neutrophils % 52.5 %; Platelet Count 287 10^3/uL (130-400); RBC 5.79 10^6/uL (3.93-5.22); RDW 14.6 % (11.7-14.6); RDW-SD 45.1 fL; WBC 10.39 10^3/uL (4.4-10.8)
[2025-03-01 19:33] LABS: Anion Gap 10.8 mmol/L (3-11); BUN 12 mg/dL (7-18); CO2 30.2 mmol/L (21.0-32.0); CREATININE 0.9 mg/dL (0.55-1.02); Calcium 9.6 mg/dL (8.5-10.1); Chloride 103 mmol/L (98-107); Glucose 94 mg/dL (74-106); Potassium 4.6 mmol/L (3.5-5.1); Sodium 144 mmol/L (136-145)
== END 2025-03-01 18:11 | disposition home or self-care (01) ==
LOC: NCHCN 18:10
PROVIDERS: PCP Family Medicine; Visit Provider Family Medicine
DX: R73.03 Prediabetes (principal)
CPT/HCPCS: 80048; 81206; 83036; 85025

== ENCOUNTER 2025-04-20 11:21 | Outpatient (CLI) | payer MEDICARE, SELFPAY ==
[2025-04-25 08:17] LABS: %BCR-ABL1 Not Detected; BCR-ABL1 Molecular Response Not Detected; BCR-ABL1 p210 FusionTranscript Not Detected (NotDetected)
== END 2025-04-20 11:22 | disposition home or self-care (01) ==
LOC: LBO 11:21
PROVIDERS: PCP Family Medicine; Visit Provider Family Medicine
DX: C92.90 Myeloid leukemia, unspecified, not having achieved remission (principal)
CPT/HCPCS: 36415; 81206

== ENCOUNTER → 2025-06-13 11:26 | Outpatient (BNVA) | payer MEDICARE, SELFPAY | PROVIDERS: PCP Family Medicine; Referring Provider Family Medicine; Visit Provider Surgery | DX: K42.9 Umbilical hernia without obstruction or gangrene (principal) | CPT/HCPCS: 99214 ==

== ENCOUNTER 2025-06-28 07:38 | Day surgery (SDC) | payer MEDICARE, SELFPAY ==
--- NOTE | 2025-06-27 14:56 | PDOC.DSDIS_ITS ---
Date of service: 06/28/25 Discharge Plan Disposition Patient Disposition: Home Condition: Good Discharge Details Reason For Visit: Umbilical hernia repair Attending Provider: Tolu Draper Primary Care Provider: Taya Ogden V Home Meds and New Rx's Prescriptions: Continued clotrimazole 1 % cream 1 applic topical BID PRN Rx Instructions: APPLIES TO FACE hydrocortisone 0.5 % cream 1 applic topical BID PRN naloxone [Narcan] 4 mg/actuation spray,non-aerosol 4 mg intranasal Q2M PRN Rx Instructions: spray 1 dose into ONE nostril; alternate nostrils w each dose until help arrives cyclobenzaprine 10 mg tablet 10 mg PO TID PRN hydrocodone-acetaminophen 1 EACH tablet 2 tab PO TID MDD 6 TABS PRN cholecalciferol (vitamin D3) 25 mcg (1,000 unit) capsule 25 mcg PO DAILY albuterol sulfate [Ventolin HFA] 90 mcg/actuation HFA aerosol inhaler 2 puff inhalation Q6H PRN pregabalin 150 mg capsule 150 mg PO TID amitriptyline 10 mg tablet 20 mg PO QHS hydrocodone-acetaminophen 7.5-325 mg tablet 1 tab PO TID PRN PRN Zepbound 10 mg/0.5 mL pen injector 10 mg subcut QWEEK budesonide-formoterol [Symbicort] 80-4.5 mcg/actuation HFA aerosol inhaler 2 puff inhalation BID PRN allopurinol 100 MG tablet 100 mg PO DAILY promethazine 25 MG tablet 25 mg PO QID PRN epinephrine [EpiPen 2-Trevor] 0.3 mg/0.3 mL auto-injector 0.3 mg IM ONCE PRN (Reason: anaphylaxis) Qty: 2 0RF Rx Instructions: as a single dose; may repeat once Discharge Instructions Instructions: Abdominal Hernia Repair, Laparoscopic Surgery Additional Instructions: 1. Resume all of your regular medications. 2. Use ice packs over the incision to help with postoperative pain and swelling. This may also be comfortable at your [facility]. 3. Alternate ibuprofen with your hydrocodone/acetaminophen tablets every 6 hours for the first 2 days. Then use them as needed. 4. Leave bandages in place for 24 hours, then remove. 5. Shower with warm soapy water. Pat dry. Replace Band-Aids if needed for comfort 6. No soaking or tub baths until I see you in the office. 7. No heavy lifting until I see you in the office. 8. Call the office (or go directly to the emergency room after hours) if you notice any of the following: Develop chills (warm to touch), or if you have a thermometer and your temperature is above 101 Difficulty breathing or difficultly swallowing Persistent vomiting Any bleeding ? exceeding one tablespoon 9. Call your physician if the site where your intravenous was started becomes red, swollen, painful, and warm to touch. Stand Alone Forms: Anesthesia Discharge Inst., Luz Sparks (DSU) Referrals: Tolu Draper MD [ [facility] STAFF PHYSICIAN, Surgery] - 07/14/25 11:30 am Activity:: No heavy lifting Remove Dressings/Wound Care:: 24 hours Shower/Bathe:: 24 hours Diet:: As Tolerated Discharge Orders Discharge Orders: Discharge Order (Routine); Ordered 06/27/25 Ordered By: Tolu Draper DS: Diagnosis Discharge Diagnosis (1) Umbilical hernia: Asessment and Plan: Status post laparoscopic umbilical hernia repair with mesh; outpatient postoperative follow-up
--- NOTE | 2025-06-27 14:57 | ROE_ITS ---
Operative Note Operative Note PRE-OP DIAGNOSIS: Umbilical hernia POST-OP DIAGNOSIS: same PROCEDURE: Laparoscopic umbilical hernia repair with mesh SURGEON: Tolu Draper CHIEF CREW SCHEDULER: Allyssa Young ANESTHESIA TYPE: General LMA/ETT Refer to Anesthesia Record ESTIMATED BLOOD LOSS: 25 PATHOLOGY: none sent COMPLICATIONS: None Patient was transported to: PACU Patient's condition: stable Implants: Bard [address] mesh Indications: Caro is a 54-year-old woman with a symptomatic umbilical hernia Findings: 4 cm x 2 cm umbilical hernia Procedure Description: I met with Caro in the preoperative area, we reviewed the plan for surgery. She had the chance to ask any other questions. Next, we moved back to the operating room, and she was assisted onto the OR table. General endotracheal anesthesia was initiated. The left arm was carefully tucked against her side taking great care to ensure that it was padded and supported appropriately. The anterior abdominal wall was then prepped and draped. I anesthetized the skin in the left upper quadrant, made a small skin incision, and establish pneumoperitoneum under direct vision of the laparoscope with an optical viewing port. The peritoneum was insufflated. The umbilical hernia defect was clearly identified. At the time of surgery it did not contain any visceral contents. Next, I performed bilateral tap blocks under the vision of the laparoscope. I then placed a 12 mm port in the left mid abdomen, and a 5 mm port below that. The peritoneum adjacent to the umbilical hernia defect was then incised. Using a combination of blunt dissection, as well as dissection with the LigaSure, I carefully incised the circumference of the peritoneum and gently reduced the hernia sac. There was some preperitoneal fat included with this. Once all of this was excised and removed, the defect was closed transversely with interrupted 0 Vicryl sutures. Given Caro' obesity, I felt like a larger mesh would provide excellent coverage, and help reduce the likelihood of recurrence. Therefore, I selected a [address] mesh utilizing the echo 2 positioning system. I advanced this into the peritoneal cavity. It was then brought up to the anterior abdominal wall and affixed in place with absorbable tacks. There was excellent coverage, and the mesh laid nicely against the anterior abdominal wall. There is no evidence of any bleeding from the tacks sites. The 12 mm port was then removed, and using Corey Chahal wound closure device, I closed this fascial defect with interrupted sutures. The 5 mm port was removed from the left lower quadrant. This was hemostatic. The pneumoperitoneum was overall released, and the remaining 5 mm port was removed. Skin and subcutaneous tissues were irrigated, and closed with absorbable sutures. Bandages were applied, Caro was awoken from the anesthetic, extubated, transferred to the recovery unit. Date of Procedure: 06/28/25
[2025-06-28] VITALS (37 sets, daily range): BP systolic 99–198; BP diastolic 74–123; PULSE 71–97; RESP 9–27; TEMP 36–36.7; O2SAT 89–97; BMI 52.9
--- NOTE | 2025-06-28 07:56 | W.ANESPRE ---
General Info Date of Service Date Performed: 06/28/25 Height: 5 ft 4 in Weight: 140 kg Body Mass Index (BMI): 52.9 Surgical Procedure: Operation Date: 06/28/25 08:55 Proposed Procedure Side Surgeon p Hernia Umbilical Laparoscopic Tolu Draper MD Meds Allergies and Home Medications Allergies Allergy/AdvReac Type Severity Reaction Status Date / Time methadone Allergy Severe none noted Verified 06/28/25 07:58 on referral gabapentin Allergy Intermediate none noted Verified 06/28/25 07:58 on referral ondansetron (From Zofran) Allergy Intermediate none noted Verified 06/28/25 07:58 on referral shellfish derived Allergy Unknown Anaphylaxis Verified 06/28/25 07:58 imatinib mesylate (From AdvReac fatigue Verified 06/28/25 07:58 Gleevec) lobster Allergy Anaphylaxis Uncoded 06/28/25 07:58 Home Medication ?Medication ?Instructions ?Recorded allopurinol 100 mg tablet 100 mg PO DAILY 08/27/13 promethazine 25 mg tablet 25 mg PO QID PRN 08/27/13 hydrocodone 10 mg-acetaminophen 2 tab PO TID PRN 10/14/16 325 mg tablet cholecalciferol (vitamin D3) 25 25 mcg PO DAILY 03/05/21 mcg (1,000 unit) capsule clotrimazole 1 % topical cream 1 applic topical BID PRN 06/26/21 cyclobenzaprine 10 mg tablet 10 mg PO TID PRN 06/26/21 hydrocortisone 0.5 % topical cream 1 applic topical BID PRN 06/26/21 naloxone 4 mg/actuation nasal 4 mg intranasal Q2M PRN 06/26/21 spray (Narcan) epinephrine 0.3 mg/0.3 mL 0.3 mg (0.3 mL) IM ONCE PRN 12/18/21 injection, auto-injector (EpiPen anaphylaxis #2 ea 2-Trevor) albuterol sulfate 90 mcg/actuation 2 puff inhalation Q6H PRN 10/28/24 aerosol inhaler (Ventolin HFA) pregabalin 150 mg capsule 150 mg PO TID 12/15/24 amitriptyline 10 mg tablet 20 mg PO QHS 06/09/25 hydrocodone 7.5 mg-acetaminophen 1 tab PO TID PRN PRN 06/09/25 325 mg tablet tirzepatide (weight loss) 10 10 mg subcut QWEEK 06/09/ mg/0.5 mL subcutaneous pen injector (Zepbound) budesonide-formoterol HFA 80 2 puff inhalation BID PRN 06/13/25 mcg-4.5 mcg/actuation aerosol inhaler (Symbicort) Held on 06/28/25. Instructions: on hold Current Visit Medications: Current Medications Generic Name Dose Route Start Last Admin Trade Name Freq PRN Reason Stop Dose Admin Acetaminophen 1,000 mg 06/28/25 06:00 Acetaminophen 500 Mg Tab PO 06/28/25 23:59 PREOP SANTI Celecoxib 200 mg 06/28/25 06:00 Celecoxib 200 Mg Cap PO 06/28/25 23:59 PREOP SANTI Gabapentin 300 mg 06/28/25 06:00 Gabapentin 300 Mg Cap PO 06/28/25 23:59 PREOP SANTI Ringer's Solution 1,000 mls @ 80 mls/hr 06/28/25 06:00 IV 06/28/25 23:59 INFUSION SANTI Cefazolin Sodium/Dextrose 2 gm in 50 mls @ 100 mls/hr 06/28/25 06:00 Ancef Duplex IVPB 06/28/25 23:59 PREOP SANTI IV Miscellaneous Supplies 1 each 06/28/25 06:00 Iv Access IV 06/28/25 23:59 DIRECTED SANTI Sodium Chloride 0 ml 06/28/25 06:00 Normal Saline Flush 10 Ml Syr IV 06/28/25 23:59 PRN PRN Sodium Chloride 0 ml 06/28/25 06:00 Normal Saline 10 Ml Vial IJ 06/28/25 23:59 DIRECTED PRN Sterile Water 0 ml 06/28/25 06:00 Water,Injection,Sterile 10 Ml Vial IJ 06/28/25 23:59 DIRECTED PRN PFSH Active Problems Active Problems: Problem Status Onset Code Chronic, continuous use of opioids Acute F11.90 Chronic pain syndrome Chronic G89.4 Diabetic peripheral neuropathy Acute E11.42 Hearing loss Acute H91.90 Acute myopericarditis Acute I30.9 Pleurisy Acute R09.1 Tubular adenoma Acute D36.9 Adenomatous polyps Acute D36.9 Diverticula of colon Acute K57.30 Thrombocytosis Acute D75.839 Obesity Chronic E66.9 Pancreatic divisum Acute Q45.3 Arthralgia Acute M25.50 Cough Acute R05.9 Snoring Acute R06.83 Screening for colon cancer Acute Z12.11 Myalgia Acute M79.10 Fluid overload Acute E87.70 Post-menopausal bleeding Acute N95.0 Acute respiratory failure with hypoxia Acute J96.01 Chest pain Acute R07.9 DVT prophylaxis Acute Fever Acute R50.9 Discharge planning issues Acute Z02.9 Nausea & vomiting Acute R11.2 Dehydration Acute E86.0 Opiate use Acute F11.90 Back pain Acute M54.9 H/O section Resolved Z98.891 CML (chronic myeloid leukemia) Chronic C92.10 Pancreatitis Resolved 08/27/ K85.9 Medical History Medical History Hx of chronic lymphocytic leukemia Pt. states she is in remission. Last received tx 3 years ago Umbilical hernia Bilateral hearing loss Kidney stone Fatigue Disorder of tendon Bacterial food poisoning Major depression Dysuria Anxiety Nicotine dependence Gastritis Spasm Right foot pain Menopause present Joint pain of ankle and foot Edema Other congenital malformations of pancreas and pancreatic duct Abdominal pain Myeloid leukemia Disorder of sacrum Essential thrombocythemia Pain in knee joint Peripheral nerve disease DM2 (diabetes mellitus, type 2) Seborrheic dermatitis Hx of anaphylaxis shellfish, tunafish Dyspnea Chronic pain Allergic gastritis Cold intolerance Smoker Situational anxiety Fluid retention Sleep apnea Surgical History Surgical History History of colonoscopy with polypectomy (~07/13/21) Cholecystectomy Tobacco Smoking/Tobacco Use Status: Former Tobacco Use Passive smoking exposure: Yes Alcohol Alcohol Intake: never Substance Use Substance use: Occasionally Substance use type: marijuana Vital Signs and Lab Results Point of Care Results Point of Care Results: Finger Stick Blood Glucose 122 06/28/25 07:48 Imaging and Studies Imaging and Studies Study information below may be from another EMR and interpreted by another provider. Please see original notes in EMR for more complete details. EKG Summary: 10/15/21 Resting ECG Reason for Exam: elevated troponin Patient Location: I HR:69 bpm ECG Measurements Heart Rate 69 AXIS OR 137 P 38 QRSd 87 QRS 57 QT 419 T52 QTc 449 Conclusion Sinus rhythm...normal P axis, V-rate 50- 99 Anterior infarct, old...Q >40mS, abnormal ST-T, V2-V5 No change compared to previous Anesthesia Assessment and Plan Anesthesia History Personal History: No History of Anesthesia Complications Family History: No Family History of Anesthesia Complications Exercise Tolerance Exercise Tolerance: Metabolic Equivalents<4 Pertinent Negatives Pertinent Negatives: No Symptoms of GERD, No Major Cardiovascular Symptoms or Complaints and No History of CVA/TIA Cardiac & Pulmonary Exam Cardiac Exam: Normal S1/S2 Heart Sounds Pulmonary Exam: Clear Bilateral Breath Sounds Implantable Cardiac Device Does patient have a Pacemaker or an ICD?: No Airway Exam Known Difficult Airway: No Mallampati Class: 3 Mouth Opening: Narrow (< 3cm) Thyromental Distance: Less than 3 cm Neck Range of Motion: Full ROM Neck Circumference: Thick Teeth Condition: Generalized Poor Dentition and Loose or Chipped (34 loose) ASA Classification ASA Score: ASA 3 Emergency Case?: No NPO Status NPO Status: NPO Clears >2 hours, Solids >8 hours Anesthesia Plan Resuscitation Status: Full Code Anesthesia Technique: General Anesthesia Airway Planned: Endotracheal Tube Monitors Used: Standard Monitors and SedLine
[2025-06-28] MEDS: Gabapentin 300 MG CAP PO (08:34)
[2025-06-28] MEDS: Celecoxib 200 MG CAP PO (08:34)
[2025-06-28] MEDS: Lactated Ringers 1,000 ML 80 ML IV ×2 (08:45→11:46)
[2025-06-28] MEDS: ceFAZolin 2 GM/50 ML BAG IVPB (09:18)
[2025-06-28] MEDS: Bupivacaine 0.5% Pres-Free 30 ML VIAL (09:57)
[2025-06-28] MEDS: Bupivacaine LIPOSOME/PF 133 MG/10 ML VIAL IJ (09:57)
[2025-06-28] MEDS: fentaNYL 100 MCG/2 ML VIAL IVP ×4 (10:36→11:25)
[2025-06-28] MEDS: HYDROmorphone 2 MG/ML SYR IVP ×4 (10:49→11:16)
[2025-06-28] MEDS: Droperidol 5 MG/2 ML VIAL 0.625 MG IVP (11:42)
[2025-06-28] MEDS: Cyclobenzaprine 10 MG TAB PO (11:52)
--- NOTE | 2025-06-28 14:03 | W.ANESPOSTOP ---
Postoperative Evaluation Date, Time and Location Date Performed: 06/28/25 Time Performed: 13:32 Patient Location: Day Surgery Unit Vital Signs Most Recent Imported Vital Signs: Most Recent Vital Signs Temp Pulse Resp BP Pulse Ox 36.7 C 85 18 158/88 H 94 06/28/25 13:03 06/28/25 13:03 06/28/25 13:03 06/28/25 13:03 06/28/25 13:03 Pain Score Most Recent Pain Score: Most Recent Pain Score Pain Level 5 06/28/25 13:03 Assessment Mental Status: Awake (Alert & Oriented to Patient Baseline) Airway and Respiratory Function: Patent airway with normal (patient baseline) respiratory exam Cardiovascular Function: Hemodynamically Stable Hydration Status: Adequately Hydrated Nausea & Vomiting: No Nausea or Vomiting Pain: Pain is tolerable per patient Peripheral Nerve Block: Patient did not receive a nerve block
== END 2025-06-28 13:22 | disposition home or self-care (01) ==
LOC: SUR 07:38
PROVIDERS: PCP Family Medicine; Visit Provider Surgery
PROC: (CPT 49650; principal; 2025-06-28 08:45)
DX: K42.9 Umbilical hernia without obstruction or gangrene (principal)
CPT/HCPCS: 49593; C1781; J0131; J0665; J0666; J0690; J1100; J1171; J1790; J1885; J2003; J2250; J2704; J3010; J3475

== ENCOUNTER 2025-08-26 15:00 | Outpatient (REF) | payer MEDICARE, SELFPAY ==
--- NOTE | 2025-08-26 13:00 | PAPFT_PTH ---
PATIENT: Caro Draper LOC: [facility]#:[id number] AGE/SX: 55/F ROOM: RE08/26/[address]: Taya Ogden V : 1970 BED: DIS: 08/26/2025 SPEC #: [id number] RECD: 08/26/25 16:17 STATUS: LALO THORPE #: [id number] JEYSON: 08/26/25 13:[address]: Taya Ogden V DEPT: [facility] Cytology RECD BY: Carlie Pineda Tissues: 1 - CX/ENDOCX FOR PAP SMEARS Procedures: PAP THIN PREP/UVM Screening HPV DNA PROBE Comments: [id number] (HPV 16 & 18/45)
[2025-08-26 18:17] LABS: Microalb ug/mg Crea 128.5 ug/mg Cr
== END 2025-08-26 15:01 | disposition home or self-care (01) ==
LOC: NCHCN 15:00
PROVIDERS: PCP Family Medicine; Visit Provider Family Medicine
DX: Z86.39 Personal history of other endocrine, nutritional and metabolic disease (principal); Z01.419 Encounter for gynecological examination (general) (routine) without abnormal findings
CPT/HCPCS: 88142; 82043; 82570; 87624